=== PATIENT | female | born 1950 | race Caucasian/White ===

== ENCOUNTER 2022-09-18 12:07 | Outpatient (OUT) | payer MEDICARE, MEDICAID, SELFPAY ==
--- NOTE | 2022-09-18 12:30 | XR_ITS ---
[facility] [place] [id number] Patient Name: SAMAN HAMPTON MRN: [id number] date: 1950 Sex: F Assigned Patient Location: [facility] Current Patient Location: [facility] Accession/Order Number: [id number] Exam Date: 09/18/2022 12:42 Report Date: 09/18/2022 13:06 At the request of: RIO ZARAGOZA Procedure: XR chest 2V EXAM: XR chest 2V HISTORY: Subacute cough, R05.2 COMPARISON: None. TECHNIQUE: PA and lateral views of the chest. FINDINGS: The cardiomediastinal silhouette is normal. No focal consolidation is identified. Suggestion of COPD. There is no pneumothorax. No pleural effusion is noted. The osseous structures are intact. IMPRESSION: No acute cardiopulmonary process. Suggestion of COPD. Electronically authenticated by: TOD NICHOLS Date: 09/18/2022 13:06
== END 2022-09-18 12:08 ==
LOC: RAD 12:18
PROVIDERS: Family Provider Internal Medicine; PCP Family Medicine; Visit Provider Internal Medicine
DX: R05.2 Subacute cough (principal)
CPT/HCPCS: 71046

== ENCOUNTER 2023-02-04 13:38 | Outpatient (OUT) | payer MEDICARE, MEDICAID, SELFPAY ==
--- NOTE | 2023-02-04 13:45 | CT_ITS ---
The [address] [address] Patient Name: SAMAN HAMPTON MRN: [id number] date: 1950 Sex: F Assigned Patient Location: CT Current Patient Location: CT Accession/Order Number: [id number] Exam Date: 02/04/2023 13:55 Report Date: 02/04/2023 16:12 At the request of: NON-STAFF PHYSICIAN Procedure: CT chest wo con EXAM: CT scan of the chest without contrast. Dose reduction technique used: Automated exposure control and/or adjustment of the mA and/or kV according to patient size and/or use of iterative reconstruction technique. REASON FOR EXAM: Lung Nodule, Non Small Cell Lung Cancer COMPARISON: CT scan dated 07/08/2022 FINDINGS: Right apical spiculated solid nodule has decreased in size measuring 6 x 5 mm today compared to 9 x 6 mm previously. No acute airspace opacities. No pneumothorax. No pleural effusion. No acute fractures. No definite lymphadenopathy in the chest. 2 mm subpleural anterior left upper lobe nodule is unchanged. Lingula opacity is likely related to scarring/atelectasis. Mucus plugging scattered throughout the left lung. Centrilobular emphysema and hyperinflation both lungs. Coronary atherosclerotic calcifications. T7-T8 chronic compression fractures with mild height loss. Remainder unremarkable. CT/CT chest wo con IMPRESSION: 1. Decreased size of the right apical spiculated nodule. This could indicate that this was infectious/inflammatory versus interval treatment change. Correlate clinically and continued CT follow-up is recommended. 2. No other concerning pulmonary nodules. 3. Emphysema and hyperinflation of both lungs. Electronically authenticated by: JENIFFER SHI Date: 02/04/2023 16:12
== END 2023-02-04 13:39 | disposition home or self-care (01) ==
LOC: CT 13:41
PROVIDERS: Family Provider Internal Medicine; PCP Family Medicine
DX: Z01.89 Encounter for other specified special examinations (principal); R91.1 Solitary pulmonary nodule; C34.90 Malignant neoplasm of unspecified part of unspecified bronchus or lung
CPT/HCPCS: 71250

== ENCOUNTER 2023-05-04 14:59 | Outpatient (RCR) | payer MEDICARE, MEDICAID, SELFPAY | END 2023-08-06 15:05 | disposition home or self-care (01) | LOC: CR 14:59 | PROVIDERS: Family Provider Internal Medicine; PCP Family Medicine; Visit Provider Internal Medicine | DX: J43.9 Emphysema, unspecified (principal) ==

== ENCOUNTER 2023-06-02 12:55 | Outpatient (OUT) | payer MEDICARE, MEDICAID, SELFPAY ==
--- NOTE | 2023-06-02 13:05 | CT_ITS ---
The [address] [address] Patient Name: SAMAN HAMPTON MRN: [id number] date: 1950 Sex: F Assigned Patient Location: CT Current Patient Location: CT Accession/Order Number: [id number] Exam Date: 06/02/2023 13:00 Report Date: 06/02/2023 13:31 At the request of: NON-STAFF PHYSICIAN Procedure: CT chest wo con EXAM: CT chest wo con HISTORY: non-small cell lung cancer COMPARISON: CT chest 02/04/2023. TECHNIQUE: Helical CT of the chest without IV contrast. Dose reduction technique used: Automated exposure control and/or adjustment of the mA and/or kV according to patient size and/or use of iterative reconstruction technique. FINDINGS: Stable right apical nodular density along the major fissure, which measures 5 x 3 mm, and remains significantly decreased from 07/08/2022. No focal consolidation. No pneumothorax. No pleural effusion. No acute fractures. No pathologic lymphadenopathy in the chest. Tiny foci of atelectasis seen at the medial aspect of the lingula. Few, scattered endobronchial mucous plugs. Severe centrilobular emphysema and hyperinflation. There is moderate to heavy coronary calcifications. Mild T7-T8 chronic compression deformities with mild height loss, and exaggerated kyphosis. Limited visualized upper abdomen. The upper abdominal aorta appears heavily calcified. CT/CT chest wo con IMPRESSION: 1. Stable small nodular density at the right lung apex along the major fissure, which remains significantly decreased from 07/08/2022. 2. New additional suspicious nodules. Electronically authenticated by: SONY GAMINO Date: 06/02/2023 13:31
== END 2023-06-02 12:56 | disposition home or self-care (01) ==
LOC: CT 12:55
PROVIDERS: Family Provider Internal Medicine; PCP Family Medicine
DX: C34.90 Malignant neoplasm of unspecified part of unspecified bronchus or lung (principal); R91.8 Other nonspecific abnormal finding of lung field
CPT/HCPCS: 71250

== ENCOUNTER 2023-09-29 12:53 | Outpatient (OUT) | payer MEDICARE, MEDICAID, SELFPAY ==
--- NOTE | 2023-09-29 12:55 | CT_ITS ---
[address] [address] Patient Name: SAMAN HAMPTON MRN: [id number] date: 1950 Sex: F Assigned Patient Location: CT Current Patient Location: CT Accession/Order Number: [id number] Exam Date: 09/29/2023 13:06 Report Date: 09/29/2023 13:36 At the request of: NON-STAFF PHYSICIAN Procedure: CT chest wo con EXAMINATION: CT chest wo con HISTORY: Lung Nodule R91.1 COMPARISON: 06/02/2023 TECHNIQUE: Multi-planar CT images were created with IV contrast. Axial, Coronal, and Sagittal images. Dose reduction techniques were achieved by using automated exposure control and/or adjustment of mA and/or kV according to patient size and/or use of iterative reconstruction technique. FINDINGS: LUNGS: Moderate diffuse emphysema with an upper lobe predominance. Scattered subcentimeter pulmonary nodules stable both in number and size. An area of irregular soft tissue attenuation identified along the superior right major fissure axial image #40 measuring 0.7 x 0.4 cm in size. No new pulmonary nodule or mass PLEURA: No mass, effusion, or pneumothorax. VASCULATURE: No abnormality. HELEN: No mass or adenopathy. MEDIASTINUM: No mass or adenopathy. CARDIAC: No enlargement or pericardial effusion Coronary arteries: Moderate calcifications AORTA: No aortic aneurysm. Moderate calcific atherosclerosis CHEST WALL: No mass or axillary adenopathy. BONES: No bone lesion or fracture. Exaggerated thoracic kyphosis with chronic anterior wedging of the T7 and T8 vertebral bodies LIMITED ABDOMEN: No suspicious findings. Limited images of the upper abdomen. OTHER: Negative. CT/CT chest wo con IMPRESSION: Stable scattered punctate pulmonary nodules and centrilobular emphysema Electronically authenticated by: SLADE DALE Date: 09/29/2023 13:36
== END 2023-09-29 12:54 | disposition home or self-care (01) ==
LOC: CT 12:53
PROVIDERS: Family Provider Internal Medicine; PCP Family Medicine
DX: R91.1 Solitary pulmonary nodule (principal); J43.2 Centrilobular emphysema
CPT/HCPCS: 71250

== ENCOUNTER 2024-01-18 19:39 | Inpatient (IN) | payer MEDICARE, MEDICAID, SELFPAY ==
[2024-01-18] VITALS (9 sets, daily range): BP systolic 143–170; BP diastolic 69–101; PULSE 99–129; TEMP 36.5–36.6; O2SAT 93–97; BMI 17.6; BMI 21.0
--- OUTSIDE RECORDS SUMMARY | 2024-01-18 19:46 | XMS_ITS | CCD ---
Author Organization [facility] Providers Care Resort Keeper Name Role Phone SAMSA, RIO P Attending Unavailable NONE, XXXX Referring Unavailable MD Mena Gonzales Attending Unavailable MD Mena Gonzales Admitting Unavailable House, [place] P Unavailable Unavailable Unavailable Jorge Alberto Carlson Referring Unavailable House, Dr. Dallas Velázquez Primary Care Geraldo Park, Mr. Abner Smith Attending Unavaila ble HOUSE, DR HAYNES Consulting Unavailable HOUSE, DR HAYNES Primary Care Unavailable HOUSE, DR HAYNES Admitting Unavailable HOUSE, DR HAYNES Attending Unavailable SAMSA ., RIO Consulting Unavailable HOUSE, DR HAYNES Primary Care Unavailable SAMSA ., RIO Admitting Unavailable SAMSA ., RIO Attending Unavailable SAMSA ., RIO Consulting Unavailable HOUSE, DR HAYNES Primary Care Unavailable SAMSA ., RIO Admitting Unavailable SAMSA ., RIO Attending Unavailable BHAKTI ROSE Consulting Unavailable SAMSA ., RIO Consulting Unavailable HOUSE, DR HAYNES Primary Care Unavailable SAMSA ., RIO Admitting Unavailable SAMSA ., RIO Attending Unavailable HEJENIFFER GEE Consulting Unavailable [facility], DR ARGUETA Admitting Unavailable HOUSE, DR HAYNES Primary Care Unavailable [facility], DR ARGUETA Attending Unavailable MISC, DR ARGUETA Consulting Unavailable SAMSA ., RIO Consulting Unavailable SAMSA ., RIO Admitting Unavailable HOUSE, DR HAYNES Primary Care Unavailable ZIEBLEXA, DR PIPER Monsivais Consulting Unavailable SAMSA ., RIO Attending Unavailable SAMSA ., RIO Consulting Unavailable FELIPAEBLEXA, DR PIPER Monsivais Consulting Unavailable HOUSE, DR HAYNES Primary Care Unavailable SAMSA ., RIO Admitting Unavailable SAMSA ., RIO Attending Unavailable SAMSA ., RIO Consulting Unavailable Aldo, Dr. Jorge Alberto Marvin Attending Unavailab ifeanyi Willett, Dr. Jean Pierre Cook Referring Anneliese vailable Mcdonough, Dr. Dallas Velázquez Primary Care Unava Dr. Jorge Alberto Dillon Admitting Unavailab MD Levi Patel Attending Provider Rio Dixon Referring Provider [phone] House, DO Haynes Primary Care Provider [phone] MD Levi Ann Attending Provider Rio Dixon Referring Provider [phone] House, DO Haynes Primary Care Provider [phone] JEAN PIERRE WILLETT Attending Unavail able Dong, Dr. Dallas Velázquez Primary Care Unava gen Dixon, Dr. Rio Daly Referring Unavailab le Dallas Fajardo Primary Care Unavailable [facility], Rio Referring Unavailable Levi Ann Attending Unavailable Levi Ann Admitting Unavailable DO DALLAS FAJARDO Attending Unavailable DALLAS FAJARDO Primary Care Unavailable Derek Duffy MD Attending Unavailable DALLAS FAJARDO Primary Care Unavailable Derek Duffy MD Attending Unavailable [place] [facility] Unavailable Allergies Allergy Classification Reported Allergen(s) Allergy Type Date of Onset Reaction(s) Facility (1 source) No Known Medication Allergies; Translations: [No Known Medication Allergies] Propensity to adverse reactions (disorder) [facility] Repository (3 sources) Tetracycline; Translations: [tetracycline] Drug Allergy Unknown MG-CT Surgery-[facility] n Work Phone: Medications Current Medications Medication Drug Class(es) Dates Sig (Normalized) Sig (Original) [id number] 200 actuat albuterol 0.09 mg/actuat metered dose inhaler (5 sources) beta2-Adrenergic Agonist Start: 10-01-2022 Albuterol Sulfate Active 2 PUFF INHALATION As Directed October 01, 2022 12:00am Start: 10-01-2022 Albuterol Sulf ate Active INHALATION October 01, 2022 12:00am take 2 puff(s) by in halation every four hours as needed Albuterol Sulfate HFA 108 (90 Base) MCG/ACT Inhalation Aerosol Solution INHALE 2 PUFFS EVERY 4 HOURS NEEDED Quantity: 0 Refills: 0 Ordered: 08-Aug-2022 DO Active albuterol 0.833 mg/ml / ipratropium bromide 0.167 mg/ml inhalation solution (4 sources) Anticholinergic, beta2-Adrenergic Agonist Start: 11-20-2022 take 1 mL by inhalation every six hours Ipratropium-Albuterol Active ML INHALATION Q6H November 20, 2022 12:00am Ipratropium-Albu terol 0.5-2.5 (3) MG/3ML Inhalation Solution ADMINISTER ONE 3 ML VIAL 4 TIMES DAILY VIA NEBULIZATION. Quantity: 0 Refills: 0 Ordered: 08-Aug-2022 DO Active 120 actuat budesonide 0.16 mg/actuat / formoterol fumarate 0.0048 mg/actuat / glycopyrrolate 0.009 mg/actuat metered dose inhaler (5 sources) Corticosteroid, beta2-Adrenergic Agonist Start: 10-01-2022 take 1 puff(s) by inhalation twice daily Ebxtslbuno-Oujxmrzl-Jcoeuzdztd (Breztri Aerosphere) 160-9-4.8 mcg/actuation HFA aerosol inhaler Active 2 PUFF INHALATION Twice daily October 01, 2022 12:00am Start: 10-01-2022 Budesonide-Gly copyr-Formoterol (Breztri Aerosphere) 160-9-4.8 mcg/actuation HFA aerosol inhaler Active INHALATION October 01, 2022 12:00am take 2 puff(s) by inhalation twice daily Breztri Aerosphere 160-9-4.8 MCG/ACT Inhalation Aerosol INHALE 2 PUFFS Twice daily Quantity: 0 Refills: 0 Ordered: 08-Aug-2022 DO Active citalopram 20 mg oral tablet (5 sources) Serotonin Reuptake Inhibitor Start: 10-01-2022 take 20 mg by mouth once daily Citalopram Active 20 MG PO Daily October 01, 2022 12:00am Start: 10-01-2022 Citalopram Act [place] MG TABLET October 01, 2022 12:00am Start: 07-10-2022 take 1 tablet by deejay th once daily Citalopram Hydrobromide 20 MG Oral Tablet take 1 tablet by mouth once daily (NOT TAKING) Quantity: 90 Refills: 0 Ordered: 10-Jul-2022 DO Start : 10-Jul-2022 Active Start: 07-10-2022 Citalopram Hyd robromide 20 MG Oral Tablet Quantity: 90 Refills: 0 Ordered: 10-Jul-2022 DO Start : 10-Jul-2022 Active metFORMIN hydrochloride 500 mg oral tablet (5 sources) Biguanide Start: 10-01-2022 take 250 mg by mouth twice daily Metformin Active 250 MG PO Twice daily October 01, 2022 12:00am Start: 10-01-2022 Metformin Acti ve MG TABLET October 01, 2022 12:00am take 1 tablet by deejay th once daily at mealtime metFORMIN HCl - 500 MG Oral Tablet TAKE 1 TABLET DAILY WITH FOOD. Quantity: 0 Refills: 0 Ordered: 08-Aug-2022 DO Active Completed/Discontinued Medications Medication Drug Class(es) Dates Sig (Normalized) Sig (Original) aspirin 325 mg oral tablet (1 source) Platelet Aggregation Inhibitor, Nonsteroidal Anti-inflammatory Drug take 1-2 tablets by mouth once daily as needed Aspirin 325 MG Oral Tablet TAKE 1-2 TABLET DAILY prn Quantity: 0 Refills: 0 Ordered: 26-Aug-2022 DO Active azithromycin 250 mg oral tablet (3 sources) Macrolide Antimicrobial Start: 10-23-2021 End: 08-26-2022 Azithromycin 250 MG Oral Tablet TAKE 2 TABLETS BY MOUTH ON DAY 1, AND THEN TAKE 1 TABLET BY MOUTH ONCE A DAY ON DAY 2 THROUGH DAY 5 Quantity: 6 Refills: 0 Ordered: 23-Oct-2021 DO Start : 23-Oct-2021 End : 26-Aug-2022 Complete Boost High Protein LIQD (1 source) Boost High Prote in LIQD USE DIRECTED. Quantity: 0 Refills: 0 Ordered: 26-Aug-2022 DO Active 24 hr buPROPion hydrochloride 150 mg extended release oral tablet (3 sources) Aminoketone take 1 tablet by mouth once daily Wellbutrin XL 150 MG Oral Tablet Extended Release 24 Hour TAKE 1 TABLET DAILY. Quantity: 0 Refills: 0 Ordered: 08-Aug-2022 DO Active cetirizine hydrochloride 10 mg chewable tablet (3 sources) Histamine-1 Receptor Antagonist take 1 tablet by mouth once daily ZyrTEC 10 MG Oral Tablet Chewable CHEW AND SWALLOW 1 TABLET DAILY DIRECTED Quantity: 0 Refills: 0 Ordered: 08-Aug-2022 DO Active Excedrin Extra Strength TABS (1 source) Excedrin Extra Strength TABS TAKE 2 TABLET PRN Quantity: 0 Refills: 0 Ordered: 26-Aug-2022 DO Active 60 actuat fluticasone propionate 0.5 mg/actuat / salmeterol 0.05 mg/actuat dry powder inhaler (6 sources) Corticosteroid, beta2-Adrenergic Agonist Start: 11-15-2021 End: 08-26-2022 take 1 dose by mouth twice daily Fluticasone-Salmet marianela 500-50 MCG/ACT Inhalation Aerosol Powder Breath Activated INHALE 1 DOSE BY MOUTH TWICE DAILY Quantity: 60 Refills: 0 Ordered: 19-Jan-2022 DO Start : 15-Nov-2021 End : 26-Aug-2022 Complete Start: 06-28-2021 End: 08-26-2022 take 1 puff(s) by mouth twice daily Fluticasone-Salmeterol 250-50 MCG/ACT Inhalation Aerosol Powder Breath Activated INHALE 1 PUFF BY MOUTH TWICE DAILY Quantity: 60 Refills: 0 Ordered: 15-Nov-2021 DO Start : 28-Jun-2021 End : 26-Aug-2022 Complete methylPREDNISolone 4 MG Oral Tablet Therapy Pack (3 sources) Start: 01-13-2022 End: 08-26-2022 methylPREDNISolone 4 MG Oral Tablet Therapy Pack TAKE BY MOUTH DIRECTED ON INSIDE OF PACKAGE Quantity: 21 Refills: 0 Ordered: 13-Jan-2022 DO Start : 13-Jan-2022 End : 26-Aug-2022 Complete Start: 01-13-2022 methylPREDNISo lone 4 MG Oral Tablet Therapy Pack TAKE BY MOUTH DIRECTED ON INSIDE OF PACKAGE Quantity: 21 Refills: 0 Ordered: 13-Jan-2022 DO Start : 13-Jan-2022 Active predniSONE 10 mg oral tablet (3 sources) Start: 10-23-2021 End: 08-26-2022 take 4 tablets by mouth once daily, then take 3 tablets by mouth once daily, then take 2 tablets by mouth once daily, then take 1 tablet by mouth once daily predniSONE 10 MG Oral Tablet TAKE 4 TABLETS BY MOUTH ONCE DAILY FOR 3 DAYS THEN 3 ONCE DAILY FOR 3 DAYS THEN 2 ONCE DAILY FOR 3 DAYS THEN 1 ONCE DAILY FOR 3 DAYS Quantity: 30 Refills: 0 Ordered: 23-Oct-2021 DO Start : 23-Oct-2021 End : 26-Aug-2022 Complete Unspecified Medication (1 source) Unspecified Medi cation CBD GUMMIES WITH 10 MG THC/CBD 1/ PRNHORMONE ZONE 1 PO QD Quantity: 0 Refills: 0 Ordered: 26-Aug-2022 DO Active Problems Active Problems Problem Classification Problem Date Documented Da te Episodic/Chronic Abdominal hernia (1 source) Unspecified abdominal hernia without obstruction or gangrene; Translations: [UNS ABD HERNIA W/O OBST/GANGRENE] Onset: 08-07-2022 Episodic Biliary tract disease (4 sources) Biliary calculus; Translations: [Calculus of gallbladder without mention of cholecystitis, without mention of obstruction] Onset: 08-07-2022 Episodic Chronic obstructive pulmonary disease and bronchiectasis (11 sources) Bronchiectasis; Translations: [Bronchiectasis without acute exacerbation] Onset: 03-12-2022 Chronic Diabetes mellitus without complication (1 source) Type 2 diabetes mellitus without complications; Translations: [TYPE 2 DM WITHOUT COMPLICATIONS] Onset: 07-07-2022 Chronic Diabetes mellitus without complication (3 sources) Prediabetes; Translations: [Other abnormal glucose] Episodic Diverticulosis and diverticulitis (3 sources) Diverticular disease; Translations: [Diverticulosis of colon (without mention of hemorrhage)] Chronic Nonspecific chest pain (1 source) Chest pain, unspecified; Translations: [CHEST PAIN UNSPECIFIED] Onset: 07-07-2022 Episodic Other aftercare (3 sources) Long-term current use of inhaled steroid; Translations: [Long-term (current) use of steroids] Episodic Other lower respiratory disease (3 sources) Multiple nodules of lung; Translations: [Other nonspecific abnormal finding of lung field] Episodic Other lower respiratory disease (4 sources) Nodule of lung; Translations: [Solitary pulmonary nodule] 10-01-2022 Episodic Other lower respiratory disease (6 sources) Solitary pulmonary nodule; Translations: [Solitary pulmonary nodule] Onset: 08-28-2022 Episodic Other lower respiratory disease (4 sources) Dyspnea, unspecified; Translations: [DYSPNEA UNSPECIFIED] Onset: 06-30-2022 Episodic Other lower respiratory disease (1 source) Shortness of breath; Translations: [SHORTNESS OF BREATH] Onset: 07-07-2022 Episodic Other screening for suspected conditions (not mental disorders or infectious disease) (4 sources) Abnormal findings on diagnostic imaging of other abdominal regions, including retroperitoneum; Translations: [ABN FIND DX IMAG OTH AB REGION W/RP] Onset: 08-01-2022 Episodic Respiratory failure; insufficiency; arrest (adult) (3 sources) Chronic hypoxemic respiratory failure; Translations: [Chronic respiratory failure] Chronic Retinal detachments; defects; vascular occlusion; and retinopathy (3 sources) Degenerative disorder of macula ; Translations: [Macular degeneration (senile), unspecified] Chronic Substance-related disorders (5 sources) Tobacco dependence syndrome; Translations: [Unspecified drug-induced mental disorder] Onset: 07-07-2022 Chronic Past or Other Problems Problem Classification Problem Date Documented Da te Episodic/Chronic Other lower respiratory disease (8 sources) Other nonspecific abnormal finding of lung field; Translations: [OTH NONSPECIFIC ABN FIND LNG FIELD] Onset: 03-17-2022 Episodic Results Test Name Value Interpretation Reference Range Facility Outside [facility] 11-27-2023 Outside Records [id number]#1.0 0[facility] Outside [facility] 10-12-2023 Outside Records [id number]#1. 00[facility] Rad - Other Radiology Report on 09-30-2023 Rad - Other Radiology Report [id number]#1. 00[facility] Outside [facility] 09-02-2023 Outside Records [id number]#1.0 0[facility] Outside [facility] 06-16-2023 Outside Records [id number]#1.0 0[facility] Outside [facility] 06-04-2023 Outside Records [id number]#1.00 [facility] Outside [facility] 04-02-2023 Outside Records [id number]#[address] [place] [address] Patient Provided Health Data on 04-02-2023 Patient Provided Health Data [id number]#1.0 [facility] Patient Handouton 03-31-2023 Patient Handout [id number]#1 .[facility] Bronchoscopyon 08-28-2022 Bronchoscopy PATIENTNAME Patient Name: Mellisa Hampton EXAMDATE Procedure Date: 08/28/2022 9:02 AM PATIENTID PATIENTACCOUNTNUM PATIENTDOB Date of : 1950 PATIENTROOM Room: [place] Procedure Room 8 PROV Attending MD: Jorge Alberto Carlson MD, [id number] ENDOPROCEDURENAME Procedure: Bronchoscopy INDICATION Indications: Right upper lobe nodule, Mediastinal staging of suspected lung cancer PRIMARYPROVIDER Providers: Jorge Alberto Carlson MD (Doctor), Cinthia Hogan RN (Nurse), Forrest Hamilton, Cost Estimating Manager (Cost Estimating Manager), Casimiro Pacheco MD (Fellow) EDREFPROVIDER Referring MD: Jean Pierre Willett DO (Referring MD) CURRENT_MEDS Medicines: General Anesthesia, See the Anesthesia note for documentation of the administered medications COMPLIC Complications: No immediate complications ENDOPROCEDURETEXT Procedure: Pre-Anesthesia Assessment: - A History and Physical has been performed. Patient meds and allergies have been reviewed. The risks and benefits of the procedure and the sedation options and risks were discussed with the patient. All questions were answered and informed consent was obtained. Patient identification and proposed procedure were verified prior to the procedure by the physician, the nurse, the anesthesiologist and the shipping technician in the procedure room. Mental Status Examination: alert and oriented. Airway Examination: Please refer to anesthesia staff note. Respiratory Examination: expiratory wheezes. CV Examination: regular rate and rhythm. ASA Grade Assessment: III - A patient with severe systemic disease. After reviewing the risks and benefits, the patient was deemed in satisfactory condition to undergo the procedure. The anesthesia plan was to use general anesthesia. Immediately prior to administration of medications, the patient was re-assessed for adequacy to receive sedatives. The heart rate, respiratory rate, oxygen saturations, blood pressure, adequacy of pulmonary ventilation, and response to care were monitored throughout the procedure. The physical status of the patient was re-assessed after the procedure. After obtaining informed consent, the therapeutic bronchoscope was introduced through the mouth, via the endotracheal tube (the patient was intubated for the procedure) and advanced to the tracheobronchial tree. the linear ultrasound bronchoscope was introduced through the mouth, via the endotracheal tube (the patient was intubated for the procedure) and advanced to the tracheobronchial tree. The procedure was accomplished without difficulty. The patient tolerated the procedure well. The total duration of the procedure was 32 minutes. FINDING Findings: The endotracheal tube is in good position. The trachea is of normal caliber. The hannah is sharp. The tracheobronchial tree was examined to at least the first subsegmental level. Bronchial mucosa and anatomy are normal; there are no endobronchial lesions. Copious, mucoid, thick secretions were found in the right lower lobe. They were partially obstructing the airway. Notable, mucoid, white, thick secretions were found in the left lower lobe. They were partially obstructing the airway. Therapeutic suctioning was performed. Mucus and mucus plugs were removed from the airway and the airway was cleared. The flexible bronchoscope was removed from the airway, and exchanged for the curvilinear EBUS bronchoscope. A systematic EBUS staging examination of the bilateral annabelle and mediastinum was performed, as documented below. Lymph Nodes: Lymph node sizing was performed via endobronchial ultrasound for suspected lung cancer. Sampling by transbronchial needle aspiration was also performed using an Olympus ViziShot 22 gauge needle in the right lower paratracheal region (level 4R), subcarinal mediastinum (level 7) and right superior interlobar region (level 11Rs) and sent for routine cytology. - The 4L (lower paratracheal) node was 2.4 mm by EBUS. Sampling was not done due to size criteria (less than 5 mm). - The 2L (upper paratracheal) node was 2.2 mm by EBUS. Sampling was not done due to size criteria (less than 5 mm). - The 7 (subcarinal) node was 13.5 mm by EBUS. Four samples with the needle were obtained. - The 2R (upper paratracheal) node was 3.3 mm by EBUS. Sampling was not done due to size criteria (less than 5 mm). - The 4R (lower paratracheal) node was 5.8 mm by EBUS. Three samples with the needle were obtained. - The 11Rs (superior interlobar) node was 5.2 mm by EBUS. Three samples with the needle were obtained. - The 11Ri (inferior interlobar) node was 3.7 mm by EBUS. Sampling was not done due to size criteria (less than 5 mm). Lymph Nodes: Rapid On-Site Evaluation (SANJANA): Preliminary cytology was suggestive of benign-appearing lymphoid tissue (final results are pending) in the right lower paratracheal region ( (more content not included)... [facility] GLUCOSE-POCTon 08-28-2022 Glucose [Mass/Vol] 109 mg/dL High 74 - 99 [facility] Comment on above: Performed By: #### G SHAWN #### [facility] [address] Cytologyon 08-28-2022 [facility] Cytology Patient Name MELLISA HAMPTON Date of Procedure: 08/28/2022 Date Reported: 08/29/2022 Date Received: 08/28/2022 Date of / Sex 1950 (Age: 71) / F Race: WHITE Submitting Physician: JORGE ALBERTO CARLSON MD Attending Physician: JEAN PIERRE WILLETT DO Other External # FINAL CYTOLOGICAL INTERPRETATION A. FINE NEEDLE ASPIRATION 7 LYMPH NODE, CYTOLOGY AND CELL BLOCK: NO MALIGNANT CELLS IDENTIFIED. LYMPHOID SAMPLE. B. FINE NEEDLE ASPIRATION 4R LYMPH NODE, CYTOLOGY AND CELL BLOCK: NO MALIGNANT CELLS IDENTIFIED. LYMPHOID SAMPLE. C. FINE NEEDLE ASPIRATION 11RS LYMPH NODE, CYTOLOGY AND CELL BLOCK: NO MALIGNANT CELLS IDENTIFIED. LYMPHOID SAMPLE. Slide(s) initially screened by a Superintendent Storage Area at [place] [address] Electronically Signed Out By LEXX GABRIEL MD By the signature on this report, the individual or group listed as making the Final Interpretation/Diagnos is certifies that they have reviewed this case. Slide(s) initially screened by a Superintendent Storage Area at [facility] Diagnostic interpretation performed at [address] [place] [address] Rapid Evaluation Fine Needle Aspiration Immediate Read Result: A. NMCI, lymphoid sample B. NMCI, lymphoid sample C. NMCI, lymphoid sample Pathologist: Bryan Silva M.D. Date: 08.28.2022 Clinical History LUNG RIGHT UPPER LOBE PET AVID NODULE Source of Specimen A: FINE NEEDLE ASPIRATION 7 LYMPH NODE B: FINE NEEDLE ASPIRATION 4R LYMPH NODE C: FINE NEEDLE ASPIRATION 11RS LYMPH NODE Specimen Submitted as: A: FINE NEEDLE ASPIRATION 7 LYMPH NODE Pap stain Non-Outsole Rounder, Diff-Quik stain Non-Outsole Rounder, CELL BLOCK, H AND E, Initial B: FINE NEEDLE ASPIRATION 4R LYMPH NODE Pap stain Non-Outsole Rounder, Diff-Quik stain Non-Outsole Rounder, CELL BLOCK, H AND E, Initial C: FINE NEEDLE ASPIRATION 11RS LYMPH NODE Pap stain Non-Outsole Rounder, Diff-Quik stain Non-Outsole Rounder, CELL BLOCK, H AND E, Initial Gross Description A. FINE NEEDLE ASPIRATION 7 LYMPH NODE: RECEIVED 2 DIRECT SMEARS (1 AIR-DRIED DIFF-QUIK AND 1 SPRAY-FIXED) AND 30 RED CLEAR NEEDLE RINSE IN CYTOLYT WITH PARTICLES. B. FINE NEEDLE ASPIRATION 4R LYMPH NODE: RECEIVED 2 DIRECT SMEARS (1 AIR-DRIED DIFF-QUIK AND 1 SPRAY-FIXED) AND 30 LIGHT RED CLEAR NEEDLE RINSE IN CYTOLYT WITH PARTICLES. C. FINE NEEDLE ASPIRATION 11RS LYMPH NODE: RECEIVED 2 DIRECT SMEARS (1 AIR-DRIED DIFF-QUIK AND 1 SPRAY-FIXED) AND 30 LIGHT RED CLEAR NEEDLE RINSE IN CYTOLYT WITH PARTICLES. [facility] Department of Pathology [address] [place] [address] [facility] Comment on above: Performed By: #### C #### [facility] Cytology [address] [place] [address] Consult (Pulmonary Medicine) on 08-26-2022 Consult (Pulmonary Medicine) Diagnoses/Problems Lung nodule (793.11) (R91.1) Orders Tobacco Use Screening; Status:Complete; Done: 26Aug2022 Perform:Not Applicable;Ordered; For:SocHx: Current smoker; Ordered By:Jeri Houston; Provider Impressions Patient's visit was converted to a virtual visit given current COVID- 19 pandemic. Ms. Hampton is a 71 year old woman, current smoker (1 PPD for 49 years, 49 total pack years.), being evaluated today for RUL nodule. 1. RUL lung nodule/mass: PET avid 9 mm spiculated mass of the right upper lobe seen on PET/CT from 07/19/2022. - Plan for bronchoscopy with biopsy; staging EBUS - Lab work prior to procedure; completed 08/25/2022 - Not on any anticoagulation; only takes PRN 325 ASA; advised to hold I explained the procedure to the patient. We discussed that the bronchoscopy will be performed by a member of the Interventional Pulmonary Team; depending on scheduling and provider availability. We also discussed that the IP providers function as a team and not infrequently may have to fill in for one another if there are emergent issues that need attention at the same time. The patient / family expressed understanding and agreed to proceed. All questions were answered. Patient's visit was converted to a virtual visit given current COVID- 19 pandemic. Spoke with the patient via phone for 20 minutes. Prep: 10 minutes Phone: 20 minutes Total: 30 minutes Chief Complaint Visit For: Other A telephone visit (audio only) between the patient (at the originating site) and the provider (at the distant site) was utilized to provide this telehealth service. Verbal consent was requested and obtained from MELLISA HAMPTON on this date, 08/26/2022 03:00 PM , for a telehealth visit. New patient evaluation. History of Present IllnessPatient's visit was converted to a virtual visit given current COVID- 19 pandemic. Ms. Hampton is a 71 year old woman, current smoker (1 PPD for 49 years, 49 total pack years.), being evaluated today for RUL nodule. PCP: Dr. Dallas Fajardo Thoracic: Dr. Willett Pulmonology: Dr. Rio Dixon ([facility]) HPI: Patient presents to pulmonary clinic today as a new patient in regards to RUL nodule; referred by Dr. Willett from thoracic surgery. Patient gets her care through [facility] system and follows with telephone clerk telegraph office Dr. Rio Dixon. On most recent chest CT from 07/08/2022 showed a continued increase in size of a now 9 mm spiculated mass within the right upper lobe. PET/CT from 07/19/2022 shows metabolic activity of this right upper mass. Patient was sent to Dr. Willett from thoracic surgery; patient is not a surgical candidate given her poor lung function and chronic oxygen needs secondary to COPD. Was discussed at tumor board on 08/17/2022 advising a staging EBUS and referral to rad-oncology. Currently, has SOB both at rest as well as on exertion. Takes Breztri daily. Using DuoNebs 5x a day. Wears 2L oxygen at night (occasionally). And will also sometimes wear the oxygen during the day PRN. Does not check her SpO2 at home. She also claims questionable orthopnea. No lower leg edema. She has lost 27 pounds in the last 6 months. She also relates chronic cough. Cough is productive. Sputum color is clear; no hemoptysis. Intermittent wheezing. No night cough. No fever, shivering chills or night sweats. Relates chronic runny nose, sinus congestion or a tingling sensation in the back of her throat. Denies symptoms of heartburn. She denies chest pain. She is too breathless to leave the house or breathless when dressing and undressing (mMRC 4). Current/Past Inhalers AND Nebulized Medications: - Albuterol HFA PRN - Breztri - DuoNebs PRN Pulmonary/Significant Hospitalization History: - 2016 Sleep History: Denies snoring. Denies witnessed apnea events. Denies feeling tired during the day or taking naps during the day. Denies falling asleep at inappropriate times throughout the day. She has not ever had a sleep study before. Significant Comorbidities: -COPD -Emphysema -Chronic Hypoxic Respiratory Failure -Prediabetes Social History: Smoking: Current smoker (1 PPD for 49 years, 49 total pack years.) currently 5 cigarettes/day. 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 No exposure to birds or exotic animals. Family History: No known family history of lung diseases. No known family history of autoimmune disorders. - Aunt; emphysema Testing: PFT -03/12/22: FEV1/FVC: 29, FEV1: 0.52 (26%), FVC: 1.81 (70%), + BD Response, GGW17-33: 9%, T.41 (141%), RV/T%, DLCO: 36% CT Chest -07/08/22: 1. Continued increase in size of a now 9 mm spiculated mass within the right upper lobe superior segment; most consistent with neoplasm. 2. Increase in size of a (more content not included)... Normal [facility] CBC W MANUAL DIFFon 08-26-19 ATYPICAL LYMPH # Normal [facility] Comment on above: Performed By: #### C BCMAN #### [facility] [address] [place] [address] Dr. Dionicio Shook ATYPICAL LYMPH % Normal [facility] Comment on above: Performed By: #### C BCMAN #### [facility] [address] [place] [address] Dr. Dionicio Shook BAND # 0.0 103/ul Normal 0.0-0.3 [facility] Comment on above: Performed By: #### C BCJAKE #### [facility] [address] [place] [address] Dr. Dionicio Shook BAND % 0 % Normal 0-5 [facility] Comment on above: Performed By: #### C BCMAN #### [facility] [address] [place] [address] Dr. Dionicio Shook BASOM # 0.00 103/ul Normal 0.00-0.10 [facility] Comment on above: Performed By: #### C BCMAN #### [facility] [address] [place] [address] Dr. Dionicio Shook BASOM % 0.0 % Critically low 0.2-2.0 The [facility] Comment on above: Performed By: #### C BCMAN #### [facility] [address] [place] [address] Dr. Dionicio Shook BLAST # Normal [facility] Comment on above: Performed By: #### C BCJAKE #### [facility] [address] [place] [address] Dr. Dionicio Shook BLAST % Normal [facility] Comment on above: Performed By: #### C BCJAKE #### [facility] [address] [place] [address] Dr. Dionicio Shook CORRECTED WBC Normal 4.0-11.0 [facility] Comment on above: Performed By: #### C BCMAN #### [facility] [address] [address] [address] Dionicio Shook EOS # 0.57 103/ul Normal 0.00-0.70 [facility] Comment on above: Performed By: #### C BCJAKE #### [facility] [address] [address] [address] Dionicio Shook EOS% 6.0 % Normal 0.9-7.0 [facility] Comment on above: Performed By: #### C BCMAN #### [facility] [address] [address] [address] Dionicio Shook HCT 37.9 % Normal 36.0-48.0 [facility] Comment on above: Performed By: #### C BCJAKE #### [facility] [address] [address] [address] Dionicio Shook HGB 12.1 g/dl Normal 12.0-16.0 [facility] Comment on above: Performed By: #### C BCJAKE #### [facility] [address] [address] [address] Dionicio Shook LYMPHM # 5.89 103/ul Critically high 1.20-3.80 [facility] Comment on above: Performed By: #### C BCJAKE #### [facility] [address] [address] [address] Dionicio Shook LYMPHM% 62.0 % Critically high 20.5-60.0 The [facility] Comment on above: Performed By: #### C BCJAKE #### [facility] [address] [address] [address] Dionicio Shook MCH 29.8 pg Normal 26.7-34.0 [facility] Comment on above: Performed By: #### C BCMAN #### [facility] [address] [address] [address] Dionicio Shook MCHC 31.9 g/dl Normal 29.9-35.2 [facility] Comment on above: Performed By: #### C BCJAKE #### [facility] [address] [address] [address] Dionicio Shook MCV 93.3 fL Normal 81.0-99.0 [facility] Comment on above: Performed By: #### C BCMAN #### [facility] [address] [place] [address] Dr. Dionicio Shook METAMYELOCYTE # Normal [facility] Comment on above: Performed By: #### C BCMAN #### [facility] [address] [place] [address] Dr. Dionicio Shook METAMYELOCYTE % Normal [facility] Comment on above: Performed By: #### C BCMAN #### [facility] [address] [place] [address] Dr. Dionicio Shook MONOM# 0.47 103/ul Normal 0.30-0.80 [facility] Comment on above: Performed By: #### C BCJAKE #### [facility] [address] [place] [address] Dr. Dionicio Shook MONOM% 5.0 % Normal 1.7-12.0 [facility] Comment on above: Performed By: #### C KIZZY #### [facility] [address] [place] [address] Dr. Dionicio Shook MPV 8.7 fL Critically low 9.5-13.5 [facility] Comment on above: Performed By: #### C KIZZY #### [facility] [address] [place] [address] Dr. Dionicio Shook MYELOCYTE # Normal [facility] Comment on above: Performed By: #### C BCJAKE #### [facility] [address] [place] [address] Dr. Dionicio Shook MYELOCYTE % Normal [facility] Comment on above: Performed By: #### C BCMAN #### [facility] [address] [place] [address] Dr. Dionicio Shook NRBC Normal [facility] Comment on above: Performed By: #### C BCJAKE #### [facility] [address] [place] [address] Dr. Dionicio Shook PLT 260 103/ul Normal 150-450 [facility] Comment on above: Performed By: #### C TANJAMAN #### [facility] [address] [address] [address] Dionicio Shook RBC 4.06 106/ul Critically low 4.20-5.40 [facility] Comment on above: Performed By: #### C KIZZY #### [facility] [address] [address] [address] Dionicio Shook RDW 13.2 % Normal 11.0-15.0 [facility] Comment on above: Performed By: #### C KIZZY #### [facility] [address] [address] [address] Dionicio Shook SEG # 2.56 103/ul Normal 1.40-6.50 [facility] Comment on above: Performed By: #### C KIZZY #### [facility] [address] [address] [address] Dionicio Shook SEG % 27.0 % Critically low 43.0-75.0 [facility] Comment on above: Performed By: #### C KIZZY #### [facility] [address] [address] [address] Dionicio Shook WBC 9.5 103/ul Normal 4.0-11.0 [facility] Comment on above: Performed By: #### C KIZZY #### [facility] [address] [address] [address] Dionicio Shook PROF CHEM 8 (BAS METB)on Anion gap [Moles/Vol] 9.9 mmol/L Normal [facility] Comment on above: Performed By: #### B MP #### [facility] [address] [address] [address] Dionicio Shook Calcium [Mass/Vol] 8.8 mg/dL Normal 8.5-10.1 [facility] Comment on above: Performed By: #### B MP #### [facility] [address] [address] [address] Dionicio Shook Chloride [Moles/Vol] 104 mmol/L Normal 98-107 [facility] Comment on above: Performed By: #### B MP #### [facility] [address] [address] [address] Dionicio Shook CO2 [Moles/Vol] 31.2 mmol/L Normal 21.0-32.0 [facility] Comment on above: Performed By: #### B MP #### [facility] [address] [address] [address] Dionicio Shook Creatinine [Mass/Vol] 0.57 mg/dL Normal 0.55-1.02 [facility] Comment on above: Performed By: #### B MP #### [facility] [address] [address] [address] Dionicio Shook EGFR-AF URUGUAYAN >60 Normal >=60 [facility] Comment on above: Performed By: #### B MP #### [facility] [address] [address] [address] Dionicio Shook EGFR-NON AF URUGUAYAN >60 Normal >=60 [facility] Comment on above: Performed By: #### B MP #### [facility] [address] [address] [address] Dionicio Shook Glucose [Mass/Vol] 97 mg/dL Normal 74-106 The [facility] Comment on above: Performed By: #### B MP #### [facility] [address] [address] [address] Dionicio Shook Potassium [Moles/Vol] 4.1 mmol/L Normal 3.5-5.1 [facility] Comment on above: Performed By: #### B MP #### [facility] [address] [address] [address] Dionicio Shook Sodium [Moles/Vol] 141 mmol/L Normal 136-145 [facility] Comment on above: Performed By: #### B MP #### [facility] [address] [address] [address] Dionicio Shook Urea nitrogen [Mass/Vol] 10.0 mg/dL Normal 7.0-18.0 [facility] Comment on above: Performed By: #### B MP #### [facility] [address] [place], [place] [address] Dr. Dionicio Shook Urea nitrogen/Creatinine [Mass ratio] 17.5 mg/mg Normal [facility] Comment on above: Performed By: #### B #### [facility] [address] [place], [place] [address] Dr. Dionicio Shook Office Visit (Thoracic and E sophageal Surgery)on 08-14-2022 Follow-up visit Diagnoses/Problems Assessed Pulmonary nodules (793.19) (R91.8) Cigarette nicotine dependence with nicotine-induced disorder (292.9) (F17.219) Centrilobular emphysema (492.8) (J43.2) Provider Impressions Ms. Hampton is a 71 year old female with severe emphysema who presents with a slowly enlarging RUL nodule (along the fissure) which is PET avid and concerning for malignancy. I think her PFTs make her a poor surgical candidate and I will reach out to IP team to see if they can reach this with a Wei Bronch however I also told pt/son that I will discuss her case in [facility] and see if radiating this lesion without a tissue diagnosis is also an option. I will call her tomorrow after tumor board to discuss. Chief Complaint Pt is here for a new pt office visit History of Present IllnessMellisa Hampton is a 71 year old female with chronic emphysema, long-time smoker, who presents as a referral from Dr. Dixon with a slowly enlarging RUL lesion (9x5mm) which is PET avid with an SUV of 4.7. of note the PET also noted an area in the right pelvis with increased uptake and SUV of 12.3 - specific structure unknown. She underwent a follow up CT abd/pelv c IV contrast which was negative. She has had 7lb weight loss/several weeks. Decreased appetite Patient has a known h/o emphysema - she is on 2L NC at night and with activity. PFTs: FEV1 0.52 (26%), FVC 1.8 (70%), DLCO 36. She has no acutely worsened SOB, chest pain, or wheezing. Has chronic dry cough. Review of Systems Constitutional: recent weight loss, but not feeling tired. Eyes: no eyesight problems. ENT: no hearing loss and no nosebleeds. Cardiovascular: no intermittent leg claudication and as noted in HPI. Respiratory: shortness of breath during exertion, but no chronic cough and no shortness of breath. Gastrointestinal: no change in bowel habits and no blood in stools. Genitourinary: no urinary frequency. Skin: no skin rashes. Neurological: no seizures and no frequent falls. Psychiatric: no depression and not suicidal. All other systems have been reviewed and are negative for complaint. Active Problems Problems Bronchiectasis (494.0) (J47.9) Centrilobular emphysema (492.8) (J43.2) Cholelithiases (574.20) (K80.20) Chronic respiratory failure with hypoxia (518.83,799.02) (J96.11) Cigarette nicotine dependence with nicotine-induced disorder (292.9) (F17.219) Diverticulosis (562.10) (K57.90) manager intermediate (current) use of inhaled steroids (V58.65) (Z79.51) Macular degeneration of both eyes, unspecified type (362.50) (H35.30) Prediabetes (790.29) (R73.03) Pulmonary nodules (793.19) (R91.8) Surgical History Problems History of Abdominoplasty History of section Family History Father Family history of cardiac disorder (V17.49) (Z82.49) Family history of cerebrovascular accident (CVA) (V17.1) (Z82.3) Brother Family history of cardiac disorder (V17.49) (Z82.49) Maternal Grandmother Family history of respiratory disorder (V17.6) (Z83.6) Social History Problems Current smoker (305.1) (F17.200) Allergies Medication tetracycline Unknown; Recorded By: Radha Coulter; 08/08/2022 2:27:17 PM Current Meds Medication NameInstruction Albuterol Sulfate HFA 108 (90 Base) MCG/ACT Inhalation Aerosol SolutionINHALE 2 PUFFS EVERY 4 HOURS NEEDED Azithromycin 250 MG Oral TabletTAKE 2 TABLETS BY MOUTH ON DAY 1, AND THEN TAKE 1 TABLET BY MOUTH ONCE A DAY ON DAY 2 THROUGH DAY 5 Breztri Aerosphere 160-9-4.8 MCG/ACT Inhalation AerosolINHALE 2 PUFFS Twice daily Citalopram Hydrobromide 20 MG Oral Tablet Fluticasone-Salmeterol 250-50 MCG/ACT Inhalation Aerosol Powder Breath ActivatedINHALE 1 PUFF BY MOUTH TWICE DAILY Fluticasone-Salmeterol 500-50 MCG/ACT Inhalation Aerosol Powder Breath ActivatedINHALE 1 DOSE BY MOUTH TWICE DAILY Ipratropium-Albuterol 0.5-2.5 (3) MG/3ML Inhalation SolutionADMINISTER ONE 3 ML VIAL 4 TIMES DAILY VIA NEBULIZATION. metFORMIN HCl - 500 MG Oral TabletTAKE 1 TABLET DAILY WITH FOOD. methylPREDNISolone 4 MG Oral Tablet Therapy PackTAKE BY MOUTH DIRECTED ON INSIDE OF PACKAGE predniSONE 10 MG Oral TabletTAKE 4 TABLETS BY MOUTH ONCE DAILY FOR 3 DAYS THEN 3 ONCE DAILY FOR 3 DAYS THEN 2 ONCE DAILY FOR 3 DAYS THEN 1 ONCE DAILY FOR 3 DAYS Wellbutrin XL 150 MG Oral Tablet Extended Release 24 HourTAKE 1 TABLET DAILY. ZyrTEC 10 MG Oral Tablet ChewableCHEW AND SWALLOW 1 TABLET DAILY DIRECTED Vitals Vital Signs Recorded: [id number] 10:52AM Lxowoiixgtp63.7 F Heart Rate93 Qdjfxoteivi22 Mzzwgaof807 Cnilacivi77 Height5 ft 1 in Maorjd693 lb BMI Vpldrsyypg66.16 kg/m2 BSA Calculated1.48 Tobacco Usea) Yes Falls Screening (Age 18+)a) No falls within the last year O2 Tqfhwjwiuc85, RA Physical Exam The patient is a very thin, slightly frail-appearing female in no acute distress. Oral and nasal mucosa are clear. The neck had no cervical or supraclavicular adenopathy. The trachea and midline is without crepitus. The thy (more content not included)... Normal [employer] Tobacco Screening.on 023 Fall risk assessment a) No falls within the last year [facility] Work Phone: Tobacco use status [facility] a) Yes [facility] Work Phone: CT ABD/PELV W CONon 08-04-[address] ABD/PELV W CON EXAM: CT scan of the abdomen and pelvis using 98 mL of IV iodinated contrast. Oral contrast. Dose reduction technique used: Automated exposure control and/or adjustment of the mA and/or kV according to patient size and/or use of iterative reconstruction technique. REASON FOR EXAM: Lower abdominal pain, follow-up PET/CT scan findings COMPARISON: PET/CT scan dated 07/19/2022 FINDINGS: No abnormalities by CT correspond with the right pelvic FDG uptake on the recent PET CT scan. Hernia in the posterior left pelvic wall musculature containing a short segment of nonobstructed sigmoid colon. The hernia protrudes posterior to the acetabulum and adjacent to the course of the left sciatic nerve. Cholelithiasis. No evidence of appendicitis. No free intraperitoneal air. No free fluid in the abdomen or pelvis. No dilated or thickened loops of small bowel or colon. No hydronephrosis or obstructing renal or ureteral calculi. Liver, pancreas, spleen, bilateral kidneys, and bilateral adrenal glands are otherwise unremarkable. No lymphadenopathy in the abdomen or pelvis. Remainder unremarkable. IMPRESSION: 1. No abnormalities evident by CT to correspond with the right pelvic FDG uptake on the recent PET/CT scan. 2. Posterior left pelvic wall hernia containing nonobstructed short segment of the sigmoid colon. 3. Cholelithiasis. Electronically authenticated by: JENIFFER SHI Date: 2022-08-03 06:18 Normal The [facility] CREATININEon 08-01-2022 Creatinine [Mass/Vol] 0.63 mg/dL Normal 0.55-1.02 [facility] Comment on above: Performed By: #### C YOUSIF #### [facility] [address] [place] [address] Dr. Dionicio Shook EGFR-AF URUGUAYAN >60 Normal >=60 [facility] Comment on above: Performed By: #### C YOUSIF #### [facility] [address] [place] [address] Dr. Dionicio Shook EGFR-NON AF URUGUAYAN >60 Normal >=60 [facility] Comment on above: Performed By: #### C YOUSIF #### [facility] [address] [place] [address] Dr[address] SKULL BASE MID THIGHo n 07-21-[address] SKULL BASE MID THIGH NUCLEAR MEDICINE PET/CT HISTORY: Solitary pulmonary nodule. COMPARISON: CT chest 07/08/2022. METHOD: 14.12 mCi of F-18 FDG was administered intravenously. Blood sugar level at the time of the injection: 120. At 50 minutes from injection, PET images were obtained from the skull base through the midthigh levels in the axial plane. Reformatted images were performed in the sagittal and coronal planes. A low-dose, noncontrast CT scan was performed for attenuation correction and anatomical localization. A low dose, noncontrast and nondiagnostic CT scan was performed for attenuation correction and anatomic localization. Mediastinal blood pool SUV max 1.9 using the patient's body weight as the normalization method. FINDINGS: HEAD AND NECK: There are no metabolically active lymph nodes in the neck. CHEST: There are no metabolically active mediastinal, hilar, or axillary lymph nodes. The major airways are patent. There is no pericardial effusion. There is no evidence of abnormal metabolic uptake in the esophagus. There are coronary artery calcifications. There are emphysematous changes. There is a right apical 9 x 5 mm pulmonary nodule with a maximum SUV of 4.7 There are no pleural effusions. There is no pneumothorax. ABDOMEN AND PELVIS: There is no evidence of abnormal metabolic activity in the liver or adrenal glands. There is no evidence of abnormal metabolic active lymph nodes in the abdomen or pelvis. There is no free fluid. There is physiologic uptake in the urinary system and bowel. There are multiple gallstones. There are vascular calcifications. There are scattered diverticuli. There is nonspecific focus of increased metabolic uptake in the right pelvis measuring 2.4 x 1.2 cm with a maximum SUV of 12.3. This may be a part of the bladder or within a proximal right colonic bowel loop. MUSCULOSKELETAL: There is no evidence of abnormal metabolically active bony lesions. IMPRESSION: Emphysema with a metabolically active right apical 9 x 5 mm pulmonary nodule. Recommend tissue sampling. Metabolic uptake in the right pelvis which may be part of the bladder, however may be metabolic uptake within a proximal right colonic bowel loop. Recommend CT abdomen and pelvis with po and IV contrast. If IV contrast cannot be given, recommend MRI pelvis. Multiple gallstones. Diverticulosis. Atherosclerotic disease. Electronically authenticated by: BHAKTI ROSE Date: 2022-07-20 23:53 Normal The [facility] COCCIDIODES IGG/IGM AB BY IF Aon 07-18-2022 Coccidiodes Ab, IgG EIA 0.2 EIA Units Normal The [facility] Comment on above: Result Comment: Nega tive <1.0 Indeterminate 1.0-1.4 Positive >1.4 Performed By: #### C OCCABS #### [facility] [address] [place] [address] Dr. Dionicio Shook Coccidiodes Ab, IgM, EIA 0.1 EIA Units Normal [facility] Comment on above: Result Comment: Nega tive <1.0 Indeterminate 1.0-1.4 Positive >1.4 Performed By: #### C OCCABS #### [facility] [address] [place] [address] Dr. Dionicio Shook HISTOPLASMA CAP AB QUANT DID on 07-18-2022 Histoplasma Mycelial CF Ab. Negative Normal Neg:<1:2 [facility] Comment on above: Performed By: #### H ISTDID #### [facility] [address] [place] [address] Dr. Dioincio Shook Histoplasma Yeast CF Ab Negative Normal Neg:<1:2 [facility] Comment on above: Performed By: #### H ISTDID #### [facility] [address] [place] [address] Dr. Dionicio Shook FUNGAL AB QUANTITAIVE DOUBLE IMMUNODIFFUon 07-17-2022 Aspergillus flavus Negative Normal Neg:<1:1 [facility] Comment on above: Performed By: #### F UNGUYI #### [facility] [address] [place] [address] Dr. Dionicio Shook Aspergillus fumigatus Negative Normal Neg:<1:1 [facility] Comment on above: Performed By: #### F UNGUYI #### [facility] [address] [place] [address] Dr. Dionicio Shook Aspergillus niger Negative Normal Neg:<1:1 [facility] Comment on above: Performed By: #### F UNGUYI #### [facility] [address] [place] [address] Dr. Dionicio Shook Blastomyces Negative Normal Neg:<1:1 [facility] Comment on above: Performed By: #### F UNGUYI #### [facility] [address] [place] [address] Dr. Dionicio Shook ANTI NEUTROPHIL CYTOPLASMIC AB (ANCA) PRon 07-16-2022 Anti-MPO Antibodies <0.2 Normal 0.0-0.9 [facility] Comment on above: Result Comment: Perf ormed at: BN Performed By: #### H ISTDID #### [facility] [address] [place] [address] Dr. Dionicio Shook Anti-PR3 Antibodies <0.2 Normal 0.0-0.9 [facility] Comment on above: Result Comment: Perf ormed at: BN Performed By: #### H ISTDID #### [facility] [address] [place] [address] Dr. Dionicio Shook Atypical pANCA <1:20 Normal Neg:<1:20 [facility] Comment on above: Result Comment: The atypical pANCA pattern has been observed in a significant percentage of patients with ulcerative colitis, primary sclerosing cholangitis and autoimmune hepatitis. Performed at: CB Performed By: #### H ISTDID #### [facility] [address] [place] [address] Dr. Dionicio Shook Cytoplasmic (C-ANCA) <1:20 Normal Neg:<1:20 [facility] Comment on above: Result Comment: Perf ormed at: CB Performed By: #### H ISTDID #### [facility] [address] [place] [address] Dr. Dionicio Shook Perinuclear (P-ANCA) <1:20 Normal Neg:<1:20 [facility] Comment on above: Result Comment: The presence of positive fluorescence exhibiting P-ANCA or C-ANCA patterns alone is not specific for the diagnosis of Noe's Granulomatosis (WG) or microscopic polyangiitis. Decisions about treatment should not be based solely on ANCA IFA results. The International ANCA Group Consensus recommends follow up testing of positive sera with both TX-3 and MPO-ANCA enzyme immunoassays. As many as 5% serum samples are positive only by EIA. Ref. AM J Clin Pathol 1999;111:507-513. Performed at: CB Performed By: #### H ISTDID #### [facility] [address] [place] [address] Dr. Dionicio Shook HISTOPLASMA GALACTOMANNAN AG URINEon 07-16-2022 Histoplasma Gal'jean-pierre Ag <0.5 Normal <0.5 ng/mL [facility] Comment on above: Performed By: #### H ISTGAL #### [facility] [address] [address] [address] Dionicio Shook QUANTIFERON TB GOLD PLUSon 0 07-16-2022 QuantiFERON Criteria Comment Normal [facility] Comment on above: Result Comment: Patric tiFERON-TB Gold Plus is a qualitative indirect test for M tuberculosis infection (including disease) and is intended for use in conjunction with risk assessment, radiography, and other medical and diagnostic evaluations. The QuantiFERON-TB Gold Plus result is determined by subtracting the Nil value from either TB antigen (Ag) value. The Mitogen tube serves as a control for the test. Performed By: #### H ISTDID #### [facility] [address] [place] [address] Dr. Dionicio Shook QuantiFERON Incubation Incubation performed. Normal [facility] Comment on above: Performed By: #### H ISTDID #### [facility] [address] [place] [address] Dr. Dionicio Shook QuantiFERON Mitogen Value >10.00 Normal [facility] Comment on above: Performed By: #### H ISTDID #### [facility] [address] [place] [address] Dr. Dionicio Shook QuantiFERON Nil Value 0.05 IU/mL Normal [facility] Comment on above: Performed By: #### H ISTDID #### [facility] [address] [place] [address] Dr. Dionicio Shook QuantiFERON TB1 Ag Value 0.05 IU/mL Normal [facility] Comment on above: Performed By: #### H ISTDID #### [facility] [address] [place] [address] Dr. Dionicio Shook QuantiFERON TB2 Ag Value 0.04 IU/mL Normal [facility] Comment on above: Performed By: #### H ISTDID #### [facility] [address] [place] [address] Dr. Dionicio Shook QuantiFERON-TB Gold Plus Negative Normal Negative [facility] Comment on above: Result Comment: No r esponse to M tuberculosis antigens detected. Infection with M tuberculosis is unlikely, but high risk individuals should be considered for additional testing (ATS/IDSA/CDC Clinical Practice Guidelines, 2017). The reference range is an Antigen minus Nil result of <0.35 IU/mL. Chemiluminescence immunoassay methodology Performed By: #### H ISTDID #### [facility] [address] [place] [address] Dr. Dionicio Shook ELVIRA EIA W/REFLEX 5 BIOMARKER Son 07-15-2022 ELVIRA Direct Negative Normal Negative [facility] Comment on above: Performed By: #### A NARF #### [facility] [address] [place] [address] Dr. Dionicio Shook CYCLIC CITRULLINATED PEPTIDE AB (CCP)on 07-15-2022 CCP Antibodies IgG/IgA 3 units Normal 0-19 [facility] Comment on above: Result Comment: Nega tive <20 Weak positive 20 - 39 Moderate positive 40 - 59 Strong positive >59 Performed By: #### H ISTDID #### [facility] [address] [place] [address] Dr. Dionicio Shook RHEUMATOID FACTORon 07-16-19 RA Latex Turbid. <10.0 Normal <14.0 [facility] Comment on above: Performed By: #### H ISTDID #### [facility] [address] [place] [address] Dr. Dionicio Shook SED RATE WESTERGRENon 2022 SED RATE 19 mm/hr Normal <=30 [facility] Comment on above: Performed By: #### H ISTDID #### [facility] [address] [place] [address] CHEST WO CONon 07-08-2022 CT CHEST WO CON EXAMINATION: CT CHES T WO CON HISTORY: Lung field abnormal , cough, pulmonary nodules COMPARISON: CT chest 03/12/2022, 12/05/2020 TECHNIQUE: Axial, Coronal, and Sagittal images were created without the administration of IV contrast material. Dose reduction techniques were achieved by using automated exposure control and/or adjustment of mA and/or kV according to patient size and/or use of iterative reconstruction technique. FINDINGS: LUNGS: 9 x 8 x 8 mm spiculated mass within right upper lobe superior segment adjacent the major fissure. 20 x 10 mm geographic shaped opacity within anterior lateral left costophrenic angle. Moderate emphysematous changes bilaterally. PLEURA: No mass, effusion, or pneumothorax. VASCULATURE: No abnormality. ANNABELLE: No mass or adenopathy. MEDIASTINUM: No mass or adenopathy. CARDIAC: No enlargement or pericardial thickening. AORTA: No aneurysm or dissection. CHEST WALL: No mass or axillary adenopathy. BONES: Stable mild anterior wedging of T7 and T8 vertebral bodies without increased density of colon likely remote compression fractures. LIMITED ABDOMEN: Stable small hypodensity within lateral mid body of left kidney, likely a cyst. Limited images of the upper abdomen. OTHER: Negative. IMPRESSION: 1. Continued increase in size of a now 9 mm spiculated mass within the right upper lobe superior segment; most consistent with neoplasm. 2. Increase in size of a 20 x 10 mm opacity within anterior lateral left costophrenic angle; mass versus atelectasis versus infiltrates. 3. No lymphadenopathy. 4. Stable T7 and T8 mild compression fractures suspected to be chronic. 5. Consider PET imaging for further evaluation. Electronically authenticated by: PIPER XIE Date: 2022-07-08 16:47 Normal [facility] ECHOCARDIO M/2D COMPLETEon 0 06-30-2022 ECHOCARDIO M/2D COMPLETE Patient: MELLISA HAMPTON Exam Date: 06/30/2022 : 1950 Gender:F Ordering : DR DALLAS FAJARDO DeHctorOHector Admission #: [id number] Family : Order #: [id number] CLICK HERE TO VIEW EXAM ECHOCARDIOGRAM REPORT PROCEDURE: CARDIO PULMONARY ECHOCARDIO M/2D COMP INDICATIONS: Chest pain, dyspnea on exertion, COPD, smoker, diabetes COMPARISON: None. DESCRIPTION: COMPLETE ECHOCARDIOGRAM Real-time transthoracic echocardiography with 2D, M-mode, spectral and color flow Doppler performed. QUALITY: Technical quality was good. LEFT VENTRICLE: Normal chamber size. Mild concentric left ventricular hypertrophy. LV EF: Normal left ventricular ejection fraction, (>55%). DIASTOLIC: Diastolic function is indeterminate. ATRIAL SEPTUM: Visually appears intact. LEFT ATRIUM: Normal chamber size. RIGHT ATRIUM: Normal chamber size. RIGHT VENTRICLE: Normal chamber size. Normal right ventricular systolic function. TRICUSPID VALVE: Normal mobility and thickness. No stenosis with trivial regurgitation. Doppler studies reveal moderately (45-60) elevated right sided pressures. RVSP 54 mmHg MITRAL VALVE: Mildly thickened with normal mobility. No evidence of mitral valve stenosis. Mild mitral annular calcification. Trivial mitral regurgitation. AORTIC VALVE: Normal trileaflet appearance. Thickened aortic valve. Normal leaflet mobility. No evidence of aortic valve stenosis. No aortic regurgitation. AORTIC ROOT: Normal diameter and appearance. PULMONIC VALVE: Normal thickness and mobility. No stenosis. Trivial regurgitation. PERICARDIUM: No evidence of pericardial effusion. IVC: Collapses with inspirations. CONCLUSION: Global left ventricular systolic function is normal; visually estimated ejection fraction is 55 to 60%. No segmental wall motion abnormalities. Mild left ventricular hypertrophy. Diastolic function is indeterminate. The right ventricle is normal in size and systolic function. Moderately elevated right-sided pressures; RVSP 54 mmHg. No significant valvular abnormalities. Adult Echocardiography Procedure Report Left Ventricle LVEDD (3.7 - 5.6 cm): 3.52 cm LVESD (2.2 - 4.0 cm): 2.63 cm LVIVS thickness (0.6 - 1.2 cm): 1.14 cm LVPW thickness (0.5 - 1.0 cm): 0.95 cm e': 0.08 m/s E - e': 10.88 LVOT Max Gradient: 3.31 mm[Hg] Peak Velocity (LVOT): 0.91 m/s LVOT Diameter 2.16 cm Left Atrium LA Volume Index (2D A2C): 35.10 ml, 35.10 ml Left Atrium Systolic Dimension: 3.01 cm Mitral Valve MV E to A Ratio: 0.90 Mitral Valve A-Wave Peak Velocity: 1.00 m/s Mitral Valve E-Wave Peak Velocity: 0.90 m/s Right Ventricle Aorta AO Root Diam: 3.30 cm Aortic Valve AoV Area (Peak Bob): 2.84 cm2, 2.84 cm2 Peak Velocity(Antegrade Flow): 1.18 m/s Peak Gradient(Antegrade Flow): 5.53 mm[Hg] Tricuspid Valve Peak Velocity (Regurgitant Flow): 3.56 m/s Peak Velocity: 0.38 m/s Pulmonic Valve Peak Velocity: 0.95 m/s, 1.06 m/s Peak Gradient: 3.59 mm[Hg], 4.45 mm[Hg] Right Atrium Right Atrium Systolic Pressure: 28.17 ml, 28.17 ml Dictated by: Jeremi Hernandez M.D. on 07/01/2022 at 11:59 Approved by: Jeremi Hernandez M.D. on 07/01/2022 at 12:01 Normal [facility] CT CHEST WO CONon 03-13-2022 CT CHEST WO CON EXAMINATION: CT CHES T WO CON HISTORY: Lung field abnormal ; pulmonary nodules, shortness of breath COMPARISON: CT chest 12/05/2020, 12/09/2019 TECHNIQUE: Axial, Coronal, and Sagittal images were created without the administration of IV contrast material. Dose reduction techniques were achieved by using automated exposure control and/or adjustment of mA and/or kV according to patient size and/or use of iterative reconstruction technique. FINDINGS: LUNGS: New 9 x 8 x 4 mm geographic shaped opacity within posterior right lung apex. A few tiny sub-5 mm nodules scattered within the lungs, unchanged. Moderate marked emphysematous changes. Mild bronchiectasis with bronchial wall thickening and areas of mucous plugging within lower lobes. No significant peripheral atelectasis. PLEURA: No mass, effusion, or pneumothorax. VASCULATURE: No abnormality. ANNABELLE: No mass or adenopathy. MEDIASTINUM: No mass or adenopathy. CARDIAC: No enlargement or pericardial thickening. AORTA: No aneurysm or dissection. CHEST WALL: No mass or axillary adenopathy. BONES: Stable, remote mild compression fractures of T7 and T8 vertebral bodies and prominent kyphosis. LIMITED ABDOMEN: No suspicious findings. Limited images of the upper abdomen. OTHER: Negative. IMPRESSION: 1. A 9 mm geographic shaped opacity within right lung apex; pleural scarring versus neoplasm versus granuloma. Consider PET/CT at this time or CT chest without contrast in 3 months to evaluate for stability. 2. Otherwise stable lungs with moderate-marked emphysematous changes, lower lobe bronchiectasis and mucous plugging, and a few tiny, stable benign-appearing nodules. Electronically authenticated by: PIPER XIE Date: 2022-03-13 09:04 Normal [facility] Blood Gas Art, with Akin Mo nghiaApril 03-12-2022 a/A Ratio Art 70.70 % Normal >=0.80 [facility] Comment on above: Performed By: #### 4 [id number] #### [facility] [address] [place] [address] AaDO2 Art 29.4 mmHg High 5.0-15.0 [facility] Comment on above: Performed By: #### 4 [id number] #### [facility] [address] [place] [address] Allens Test Positive Normal [facility] Comment on above: Performed By: #### 4 [id number] #### [facility] [address] [place] [address] Base Excess Arterial 1.4 mmol/L Low >=2.8 [place] Comment on above: Performed By: #### 4 [id number] #### [facility] [address] [place] [address] cCa2+ Art 4.56 mg/dL Normal 4.40-5.30 [facility] Comment on above: Performed By: #### 4 [id number] #### [facility] [address] [place] [address] cCl- Art 102.0 mmol/L Normal 101.0-111.0 [facility] Comment on above: Performed By: #### 4 [id number] #### [facility] [address] [place] [address] cGlu Art 165 mg/dL High 55-99 [facility] Comment on above: Performed By: #### 4 [id number] #### [facility] [address] [place] [address] cK+ Art 3.8 mmol/L Normal 3.5-5.3 [facility] Comment on above: Performed By: #### 4 [id number] #### [facility] [address] [place] [address] cLac Art 1.0 mmol/L Normal .5-2.2 [facility] Comment on above: Performed By: #### 4 [id number] #### [facility] [address] [place] [address] rod and tube straightener+ Art 136.0 mmol/L Normal 135.0-145.0 [facility] Comment on above: Performed By: #### 4 [id number] #### [facility] [address] [place] [address] Drawn by SAUMYA Invalid Interpretation Code [facility] Comment on above: Performed By: #### 4 [id number] #### [facility] [address] [place] [address] FCOHb Art 3.7 % Normal 1.5-4.9 [facility] Comment on above: Result Comment: Refe rence range Nonsmoker <1.5% Smoker <5.0% Heavy Smoker <9.0% Performed By: #### 4 [id number] #### [facility] [address] [place] [address] FIO2 BG 21 Invalid Interpretation Code [facility] Comment on above: Performed By: #### 4 [id number] #### [facility] [address] [place] [address] FMetHb Art 0.4 % Normal 0.0-1.9 [facility] Comment on above: Performed By: #### 4 [id number] #### [facility] [address] [place] [address] FO2Hb Art 92.0 % Normal 92.0-100.0 [facility] Comment on above: Performed By: #### 4 [id number] #### [facility] [address] [place] [address] HCO3 (Bld) [Moles/Vol] 25.6 mmol/L Normal 22.0-26.0 [facility] Comment on above: Performed By: #### 4 [id number] #### [facility] [address] [place] [address] Hemoglobin (Bld) [Mass/Vol] 12.4 g/dL Normal 12.0-16.0 [facility] Comment on above: Performed By: #### 4 [id number] #### [facility] [address] [place] [address] Oxygen saturation in Blood 96.0 % Normal 95.0-100.0 [facility] Comment on above: Performed By: #### 4 [id number] #### [facility] [address] [place] [address] P CO2 Arterial 40.8 mmHg Normal 35.0-45.0 [facility] Comment on above: Performed By: #### 4 [id number] #### [facility] [address] [place] [address] P O2 Arterial 70.9 mmHg Low 80.0-100.0 [facility] Comment on above: Performed By: #### 4 [id number] #### [facility] [address] [place] [address] pH Arterial 7.414 Normal 7.350-7.450 [facility] Comment on above: Performed By: #### 4 [id number] #### [facility] [address] [place] [address] Sample Site R Radial Normal [facility] Comment on above: Performed By: #### 4 [id number] #### [facility] [address] [place] [address] Sample Type Arterial Draw Normal [facility] Comment on above: Performed By: #### 4 [id number] #### [facility] [address] [place] [address] HEMOGLOBINon 03-12-2022 Hemoglobin (Bld) [Mass/Vol] 12.6 g/dL Normal 12.0-16.0 [facility] Comment on above: Performed By: #### H GB #### [facility] [address] [place] [address] Dr. Dionicio Shook LAB TESTINGon 03-12-2022 RECV HEADER SEE SCANNED REPORT I N HPF Normal [facility] Comment on above: Performed By: #### M ISC #### [facility] [address] [place] [address] Dr. Dionicio Shook REV FROM REF LAB 03/12/22 Normal [facility] Comment on above: Performed By: #### M ISC #### [facility] [id number] Dionicio Shook SENT TO REF LAB 03/12/22 Normal [facility] Comment on above: Performed By: #### M ISC #### [facility] [address] [place], [place] [address] Dr. Dionicio Shook Physician Orderon 03-12-2022 Physician Order [id number]. [id number]:127 Normal [facility] Coding Summary.on 07-10-2021 Coding Summary. CD:[id number] Gh 0bWw+PGhlYWQ+GS3ZDGMdS 16vkKTchE6NM1xIWA6PLHH FVYRHSU8WJN2orUN0DGwgK 2VybiAv SbcjwRDgUL51WDc4ZQK1jW bjBQbvsT5wqGQvF9r9FvNy ZO90bS27EEdjPMOeOaX3Qf ZpbjsgbWFy R2ehItSfmYWsKza+PHRhYm xlIHdpZHRoPScxMDAlJyBz ePioBQ6iUm6eDXWvMOCtkQ xhcHNlOiBj l6thIBFqIJzpCD1xfWbrF9 ZgvTJ9YLKvq2f4Rq85gKJ+ UDCeFLP9yZrtUElcp816Tr Nqn0mqFRX1 iNTrVMouMRZ3T92ui0A1NG PtWJCcHXT7iAT3mT8scAiq ovxkA6OuaOKgAhV9IGP9fH RayA5smWyi wmqpxD8tEqw+F63VVY1EOL VLIF4OGgp6U8LjCmwjvIV+ TA84NYVqDJ97pQWwiHPmz0 sdeWq6SiJy IDKuMJY9iWpaYPowp6GfTO QtN60tbDIjr6V6ZQQnyTec iWBkMqHsyRO1rQ8gRQoqbx bsg2hvewce Dfwks9jhnx82dW29W56hLC dyJCPbKJR4TUHoEBNkdLbf hj4iwR2rTz0+LQlsy7fvd2 dwhLj0JfKi KKUqvrBmrNurMRU7w6QnXh 36H6BqnWbev9OsFns1ql11 lXXpg0M2pWW5AQrvQYWhpW 7uRBvfCiL1 MVHbPzSaqN62yIWeBSnoSr 2vtMehfJxmSB3tKSSpwqyv QUGgeG2aZQJsfJXegYvtXJ 4wNTBpbjtm f943HiMlIVO4HXIvuFBoT7 IdwN1hZeGeGCIsUEVxR9Jx sAOwIQcaQ578DZteEwX6KP PgpfLxU8As ZRMevYscVuD7e0G5Xt2Qx5 TmfzhnXCH5ZBwiBIBoQwUu GvGrBnF8B3EsDil2NUTxeN boNY6uL7We YQVtvjthhvgifNT8JTAfYE SqdB32dOSxFDznQy5so6X1 h972GICxAGWjhH34Jg3zsT ogMTBwdCBU tS2muaszn2yonerwAgBiSD YjREa1DDq6KJIihNdxBkVu KXR0SjW8HSG3rJCzgO6yyD uawknzvO4q Oyc+O24blG6wRFO3LCY2zh tlNYEunqCtLA77DC89H8Tr PjwvdGFibGU+PGRpdiBzdH biXT1bGbMw u9rkf6QuOKicX4NjTDKmVR wvJfz6NYOnHVP7qIN2nX4u BTTiIDukh8E5hWD6J2Bojm Iwnf5fk8xk NZTnXXtgP89atVXpq3A8ZN LudPB3BKSvzXxuJnFiaI75 Oyc+PVPayOpuw4GbFldas9 luy8ygtSo5 DtXqOBNazgZspLmvQOE8q2 FyXc03E81mSBavXRGhQSRs JNIzQNZjfXmwik0grG1bWf 8+PGNvbCB3 lED7dM0nZIPaUmR2ZHnsX7 31UnAheWRfBpuck0idr2og qBf2QkEnLWIbaoQcbUftMT A8l4ElMs02 Q85jSZkjIGCfKVEdEVAwCP MotWaxrk8ufC0aIu2+PC9j d3iikc95iY23fJL+PHRkIH J3jBppVRyr MBNjiM3qHFatHoB2OLTpDi WzaO93kJGbSZpsEf0dwYvr eKdvTI5kHNTorwndl996Bd Qpb6epDUKt oSMrMGldGFC0G90aj4I9HI LzJAQqZLP4fDI3lU8ilYsj bjogbGVmdDsgdmVydGljYW ioIUgvZ001 IHRvcDsnPlBhdGllbnQgTm IyYVk4W2JjUkp9GAKygHmi HF6kpRKhNVosIy0mfAnuyZ aqXW3fYGZh rarzt966AnBvh3zcDWZzbQ CxTMfnHXA0I23ht8G6LIPu TCOwQQC7iJL7uV7gxIpbfh ogbGVmdDsg sfYtxXqlWBptOSprP910SI RvcDsnPkJpcnRoIERhdGU6 MX61WR19eJPrs0W5kEL8V7 BhZGRpbmct xxtemYZ6ZDYrOUSvdI65Ol 1nfReuXl9lXLPbGSE0IPPk iKQjD8DwrB3wNsXbGHBeZH IrC3BczOEl AThtV554DDkmEoB1KGWcbc OiP7WdSNQuoUhhTmA2f3Y6 Zv9IG7J3TM75PH91dXIws5 T9vOL4U3Aq ZZIbtdwsmepbmVK2GESsXP JroT58Uq9upDpfNh5eVRMp TAY4EOYccHYkJ2CvgV6eJb AjMDAwMDAw O4HzvQEaIOfbW613YYwrLo D2EXPsweBeC4OnDRJulLxa XkE8o9E4Lb9MQHt3NR65AT 22kHYdw7O4 rAV0A0QrPHBapxndjcapnV L8CKKdSHUyqF61Ck4kxEps Qe0sMMXuARV5FICupLKfR4 NyoC8sOaNl WJRjVUNrX2DfuQDcPEhfT9 82YWraSqQ5JKYfyxJjF9Ef ZRAnbEkdNlL0t7I4Xs4DVM UaUV77UNZ1 kOL2RL16LU19Y2ViDnoorG FibGU+PHRhYmxlIHdpZHRo AOufRQMjPqMseErfJA5zCt 9yZGVyLWNv oPhgmYEdIwDtr6tyPTMsXT olXJ9jvIcaE2SzfTI1LQFm y5z1El65A39tG1CrqBG+PG FnaPJ9fOW5 tM5jNyDvKpJ2LTdkY022Lt SrvQOoMrnwb6gxq9vjzUh4 FvE4EGOwkpBdqSpxUMO9t4 BuFz48F69l IHdpZHRoPSIxNSUiIHZhbG qqxa0maV9eDj6+PGNvbCB3 kQJ0jE6yFmGzUgY8ZLofZ0 49InRvcCIv Kkixq7oec7npqNc7XfCtEL TobbZdrDkvRLU5v5XoDi53 B7IklLngq2GrAms2eo64rF Sij3F3zJN4 S9PmONUklcnkfGTdkOrtKP 7bAOJsppluUJLrtW2qPSNr A4x3XwGtPwX5IBeqO2Sqip K3LGUrlRId QLrjMBC7Q22ve8L6DXExRV FwJOK1dNN9aD3weTavgyer bGVmdDsgdmVydGljYWwtYW pmY138OYGs pGgkJPWubH7hLIWacRMblT xoTU8lPAHsurpaGuXPR88H CildB0QFRH7vMEjgqDM+PH VzPYZ4vVbn DCckMSXpsS0nSCOaB2q8Kb OuFpK6DNwgB2KyJYCepngv Jt89mZ2pJvYgQsQ8LLkzX6 ZsicJ9ERQq gJReVRmsAJZ6K81ib6A1ED OwEVToTSE8cGH4tG4kuBnk bjogbGVmdDsgdmVydGljYW mfBQqmC934 LPNrcSweGfX2JoRuThU7NQ L9G9YeBxu8XFEokFjwOW9g pGNgSJpoBf4dlJrxhGhkQX 4wNTBpbjtw IKCkyR9gMTVzaTOfdRkeNG 8gJDLhrrpcu402UqNtPFU4 HPFriWLpJ9WmaB5qUiBpOC ZiWTGpC9Wt gELfWKcpF102HTmuMmL0LK AxvcHgL4GaDYXlbWypIzO8 x2W6Ox47VIFMMTItzjqsxR Q+PHRkIHN0 iYzcWUgvQQBevV7tQODoL5 y3ZwNxPvE7LCucI7GfZOYp pjpoCm77iW5nGnSnPaU5VG txO1QwroJ0 OHKjiFMtMSszKVK2Z83cw6 P5VVNnBRPdOUI0zAP6rN2p bGlnbjogbGVmdDsgdmVydG ljYWwtYWxp L445YJFqmLovGqIrpOFdKM wvdGQ+WQCxPKJ8rUtxMTne DIKxkK5oKGOeP4j0MhStWo U3UUzfQ3Zx QYCgbbzcXk76eU5aQpEhCz Q3ARgiV9XcjmY0FJXylDNf DTzkJEZ3Z92uq5Q2OOSkAE QxQJU1rSP4 tE0mkEeognrbpSVppOzcrf BvhUxgIJrtMQfrY097SHTy gIyeXh29hZNtqAsdbmT1C9 RkPjwvdHI+ ZX30BDUrIM39oQDsdFDev8 yzkOi8WbKkOXXyAMF5uVsv QKdku2GtJQQeO32lwZGjl9 Y1QOZcaXjg gGDyWjDmkJL9kB9rYFgfyf cwp0dcupflZyxuo3qgha70 mK02N69xGQsxASQwZROuRT UiIHZhbGln ek0niH1pPr1+IFHfsBY3pK D4cT1bWuQfAlO0AKwcP119 EoPoySIoDikdb3vxz9jdzX g8BmObNMJf qzSwsZamFHO9m9YzGb86H8 9sIHdpZHRoPSIyMCUiIHZh eVveoj8ijK4gFa2+PC9jb2 awbj35kZ61 dHI+ZOGyPCE8wHkbRRlgVO ExaA4yHGkcZlC0ISTbOjUx jF99kPCbVRylEw1bhXuszL pjGA8sJLNb hfjph682JhSnk0swEQEruY XpBDzpZHC8N89tk9S2JTPk XALiOPU3aYR1dA3fxFqraw ogbGVmdDsg vuQdpFuxGQttMYyyU435CM JghAgwJbLpgWXqJ4uzlvWU KH9nLbuieTG+QWEqICM5qS xlPSdwYWRk sH4sHWIyU1f7LeFvXeV6GE jnW7AfqgZ2JKBbsSNuCUKm nQLRiV1rxeczr5kotmrgXa AwMDAwMDt0 GNb1NJOmnLtcQpQbQPF7Cc O2ULP6yGSjqY0kwDhfwpqk mJ5vZqb+RklOOjwvdGQ+PH QcBAC9mXpq EWrhHBQcxQ8qQBGzU4e1Ut FpWlC0MQnnX5MeiqN2WMAb kEHjGQUsxRVSgK4idhsof8 xvcjogIzAw BCZiGEg4MHu8MSHnbSdwTl FfGFI0PvC4FAW2wKFplF4s xSzkzzxyyX1ePpb+TVJOOj wvdGQ+PHRk UAM4kMszICjmDSWsrL0pZL IyT2f6PrBiSrD9KTtjF3Rq soJ0HTVwgCVmSCFivRZAsQ 4bjrtjk5xm bpraUeYmAHVeSGn5OFz0DP MnzFqbXcBhFSX7RhM2PWI1 lVCjpW1xfGuvjysxiX7yIz c+XAV8YXM9 HZ14PB41Z4PfTngxwXLvpR U+PHRhYmxlIHdpZHRoPScx OQImYgVufUhyJA0pWw7mRS VyLWNvbGxh cHNl (more content not included)... Normal [facility] Consent for Treatmenton 06-18 Consent for Treatment [id number]#[id number] 0CD:127 Normal [facility] Heart and Vascular Office/Cl inic Noteon 06-28-2021 Heart and Vascular Office/Clinic Note Chief Complaint 6 month f/u History of Present Illness She had no recent hospitalization no need for steroid, she has been using Dulera but she stated that she received a letter its not covered with her insurance, Advair was ordered and should be covered on her plan. She is using albuterol/ipratropium nebulizer treatment She has chronic allergies and using Zyrtec Review of Systems PHQ Score Initial Depression Screen Score: 0 12 point system review was done and negative except what mentioned in HPI Physical Exam Vitals & Measurements HR: 103(Peripheral) BP: 101/63 SpO2: 96% HT: 158 cm HT: 158.0 cm WT: 53.6 kg WT: 53.6 kg BMI: 21.47 General: no distress Skin: warm? , dry? Head: no? trauma, normocephalic? Neck: Trachea midline? , no? adenopathy, no? tenderness Eye: normal? conjunctiva, sclera clear? ENMT: oral mucosa moist? Cardiovascular: regular? rate and rhythm, normal? Respiratory: Lungs CTA? ,respirations non labored? Chest wall: no? deformity. Gastrointestinal: soft? , non distended? , no? tenderness, no? guarding. Extremities: no? deformity, no? trauma Neurological: nonfocal Assessment/Plan 1. COPD mixed type (J44.9: Chronic obstructive pulmonary disease, unspecified) Advair was ordered and continue nebulizer treatment Ordered: fluticasone-salmeterol , 1 puff(s), Inhalation, BID for 30 day(s), 60 EA, Refill(s) 6, [facility], 158, cm, 06/28/21 10:50:00 EST, Height/Length Dosing, 53.6, kg, 06/28/21 10:50:00 EST, Weight Dosing CT Chest w/o Contrast 2. Lung nodule seen on imaging study (R91.1: Solitary pulmonary nodule) Last CT chest with lung nodule 6 mm and 4 mm in November 2020, she will need follow-up in November 2021. Ordered: CT Chest w/o Contrast Follow-up No qualifying data available 6-month Problem List/Past Medical History Ongoing Smoker Historical COPD - Chronic obstructive pulmonary disease Macular degeneration of both eyes Procedure/Surgical History Abdominoplasty, section. Medications 2L O2 via nasal cannula with portibility and mobility in home, 0 acetaminophen 325 mg Tab, 650 mg= 2 tab(s), Oral, q4hr, PRN Advair 250 mcg-50 mcg Powder, 1 puff(s), Inhalation, BID, 6 refills albuterol 0.083% Inh Cammie 3 mL, 2.5 mg= 3 mL, Inhalation, q6hr, PRN, 6 refills metformin 500 mg oral tablet, 250 mg= 0.5 tab(s), Oral, BID nicotine 14 mg/24 hr Transderm ER Film, 1 patch(es), TransDermal, Daily predniSONE 10 mg Tab, 10 mg= 1 tab(s), Oral, As Directed, Not taking Ventolin HFA 90 mcg/inh Aerosol, 1 puff(s), Inhalation, Once, PRN Allergies No Known Medication Allergies Social History Alcohol - Denies Alcohol Use, 10/01/2019 Substance Abuse - Denies Substance Abuse, 10/01/2019 Tobacco - Denies Tobacco Use, 12/07/2019 Former smoker, quit more than 30 days ago Tobacco Use:. Started age 18.0 Years. Stopped age 68 Years., 07/13/2020 Former smoker, quit more than 30 days ago Tobacco Use:. Cigarettes, 06/01/2020 Former smoker, quit more than 30 days ago Tobacco Use:., 01/25/2020 10 or more cigarettes (1/2 pack or more)/day in last 30 days Tobacco Use:. Cigarettes, 11/04/2019 10 or more cigarettes (1/2 pack or more)/day in last 30 days Tobacco Use:., 10/01/2019 Family History Acute myocardial infarction: Brother. COPD: Father. Drug addiction: Brother. Primary malignant neoplasm of lung: Sister. Primary malignant neoplasm of rectum: Mother. Stroke: Father. Normal [facility] Comment on above: Result Comment: Elec tronically Signed By: Christian WILLSON, Mena Rodas\.br\Date and Time Signed: 06/28/21 11:40 EST Insurance Correspondenceon 0 05-16-2021 Insurance Correspondence [id number] [facility] Vital Signs Date Time Vital Sign Value Performing Clinician Jaz bowman 11-20-2022 10:03-0400 Body temperature 99.2 [degF] [facility] Work Phone: [facility] 11-20-2022 10:03-0400 Body [facility].84 [facility] 11-20-2022 10:03-0400 Diastolic blood pressure 72 mm[Hg] [facility] Phone: [facility] 11-20-2022 10:03-0400 Heart rate 93 /min [facility] 11-20-2022 10:03-0400 Respiratory rate 18 /min [facility] Work Phone: [facility] 11-20-2022 10:03-0400 SaO2% (BldA) [Mass fraction] 95 % [employer] Work Phone: [facility] 11-20-2022 10:03-0400 Systolic blood pressure 128 mm[Hg] [employer] Work Phone: [facility] 10-01-2022 14:08-0400 Body height 154.94 cm [employer] Work Phone: [facility] 10-01-2022 14:08-0400 Body weight 51.25 kg [employer] Work Phone: [facility] 10-01-2022 14:08-0400 Diastolic blood pressure 72 mm[Hg] [employer] Work Phone: [facility] 10-01-2022 14:08-0400 Heart rate 78 /min [employer] Work Phone: [facility] 10-01-2022 14:08-0400 Respiratory rate 20 /min [employer] Work Phone: [facility] 10-01-2022 14:08-0400 SaO2% (BldA) [Mass fraction] 97 % [employer] Work Phone: [facility] 10-01-2022 14:08-0400 Systolic blood pressure 138 mm[Hg] [employer] Work Phone: [facility] 08-14-2022 10:52-0400 Body height 154.94 cm [facility] Work Phone: [facility] Work Phone: 08-14-2022 10:52-0400 Body mass index (BMI) [Ratio] 21.16 kg/m2 [facility] Work Phone: [facility] Work Phone: 08-14-2022 10:52-0400 Body surface area Derived from formula 1.48 m2 [facility] Work Phone: [facility] Work Phone: 08-14-2022 10:52-0400 Body temperature 97.7 [degF] [facility] Work Phone: [facility] Work Phone: 08-14-2022 10:52-0400 Body weight 50.8 kg [facility] Work Phone: [facility] Work Phone: 08-14-2022 10:52-0400 Diastolic blood pressure 73 mm[Hg] Dallas Dorantes joiz Work Phone: [facility] Work Phone: 08-14-2022 10:52-0400 Heart rate 93 /min [facility] Work Phone: [facility] Work Phone: 08-14-2022 10:52-0400 Respiratory rate 16 /min Dallas Dorantes joiz Work Phone: [facility] Work Phone: 08-14-2022 10:52-0400 SaO2% (BldA) [Mass fraction] 98 % Dallas Dorantes joiz Work Phone: [facility] Work Phone: 08-14-2022 10:52-0400 Systolic blood pressure 141 mm[Hg] [facility] Work Phone: [facility] Work Phone: Encounters Encounter Date Encounter Type Care Provider Facility Start: 10-12-2023 End: 10-12-2023 ambulatory DO DALLAS FAJARDO Facility:[facility] Start: 10-08-2023 ambulatory Dallas Fajardo Facility: [facility] Start: 04-14-2023 End: 04-14-2023 ambulatory Derek Duffy MD Facility:[facility] Start: 03-30-2023 End: 03-30-2023 ambulatory Derek Duffy MD Facility:[facility] Start: 11-20-2022 End: 11-20-2022 ambulatory Rio Dixon Work Phone: [facility] Work Phone: Start: 11-20-2022 End: 11-20-2022 Registered Recurring Rio Dixon Work Phone: [facility] Work Phone: Start: 10-01-2022 End: 10-01-2022 ambulatory Rio Dixon Work Phone: [facility] Work Phone: Start: 10-01-2022 End: 10-01-2022 Registered Recurring Rio Dixon Work Phone: [facility] Work Phone: Start: 08-28-2022 Encounter for other preprocedural examination DR DOCTOR HESS [facility] Start: 08-28-2022 End: 08-28-[address] Jorge Alberto Carlson Facility:[facility] Start: 08-26-2022 Phys/qhp telephone evaluation 21-30 min Dallas Fajardo Work Phone: [facility] Work Phone: Start: 08-26-2022 KISHOR, Provider : Abner Park, Status: Pen, Time: 3:00 PM Dallas Fajardo Work Phone: [facility] Work Phone: Start: 08-26-2022 ambulatory Jorge Alberto Carlson Facility : Start: 08-25-2022 End: 08-26-[address] DOCTOR HESS Facility: Start: 08-25-2022 End: 08-26-2022 Encounter for other preprocedural examination DR DOCTOR HESS Facility: Start: 08-21-2022 AUDIT Dallas hobbs Work Phone: [facility] Work Phone: Start: 08-14-2022 Office outpatient ne w 45 minutes Dallas Fajardo Work Phone: [facility] Work Phone: Start: 08-14-2022 ambulatory JEAN PIERRE WILLETT Facility:[facility] Start: 08-01-2022 End: 08-02-2022 ambulatory RIO SAMSA . Facility: Start: 07-19-2022 End: 07-20-2022 ambulatory RIO SAMSA . Facility: Start: 07-14-2022 End: 07-15-2022 ambulatory RIO SAMSA . Facility: Start: 07-08-2022 End: 07-09-[address] PIPER XIE Facility: Start: 06-30-2022 End: 07-01-[address] DALLAS FAJARDO Facility: Start: 03-12-2022 End: 03-13-2022 ambulatory RIO Jayna SAMSA Facility:[facility] Start: 06-28-2021 End: 06-29-2021 ambulatory XXXX NONE Facility:[facility] Patient encounter status Dallas Fajardo Work Phone: [facility] Work Phone: Procedures Date Procedure Procedure Detail Performing Clinician Abdominoplasty Dallas Holmanu Work Phone: section Dallas Dorantes [facility] Work Phone: Plan of Treatment Date Care Activity Detail Author Computed tomography for radiotherapy planning [facility] enter CT Chest WO contrast [facility] Immunizations Immunization Date Immunization Notes Care Provider Fa cilicamilo 03-11-2016 influenza, injectabl e, quadrivalent, preservative free Dallas Fajardo Work Phone: [facility] Work Phone: 03-11-2016 pneumococcal polysaccharide vaccine, 23 valent Dallas Fajardo Work Phone: [facility] Work Phone: 02-20-2016 influenza, injectabl e, quadrivalent, preservative free Dallas Fajardo Work Phone: [facility] Work Phone: 02-20-2016 pneumococcal polysaccharide vaccine, 23 valent Dallas Dorantes Mcdonough Work Phone: [facility] Work Phone: Payers Date Payer Category Payer Unknown [id number] 2021 Self-pay 2020 Medicaid [id number] 2020 Medicaid [id number] 1959 Medicare [id number] 1959 Unknown [id number] 1950 Unknown [id number] 2.16.8 [id number] 1950 Unknown [id number] 2.16.8 [id number] 1950 Unknown [id number] 2.16. [id number] 1950 Unknown [id number] 2.16.84 [id number] 1950 Unknown [id number] 2.16.84 0.1.071782.3.579.2.593 1950 Unknown [id number] 2.16.84 0.1.793269.3.579.2.593 1950 Unknown [id number] 2.16.84 0.1.786822.3.579.2.593 1950 Unknown [id number] 2.16.84 0.1.653890.3.579.2.593 1950 Unknown [id number] 2.16.84 0.1.656103.3.579.2.593 1950 Unknown [id number] 2.16.84 0.1.409005.3.579.2.593 1950 Unknown [id number] 2.16. [id number] 1950 Unknown [id number] 2.16.8 40.1.535016.3.579.2.1068 1950 Unknown [id number] 2.16.8 40.1.257418.3.579.2.718 1950 Unknown [id number] 2.16.8 40.1.975125.3.579.2.718 1950 Unknown [id number] 2.16.8 40.1.371122.3.579.2.718 Unknown Unknown [id number] 2.16.8 [id number] Social History Date Type Detail Facility Current smoker Current smoker [facility] Work Phone: Comment on above: 5 A DAY CURRENTLYSTA RTED AT 22 QUIT A FEW TIMES FOR A YEAR OR SO; Start: 10-01-2022 Tobacco smoking status NHIS Smoker ( finding) [facility] Start: 1950 Sex Assigned At Female F [facility] Medication management note 12-07-2023 Note Date & Type Note Facility 12-07-2023 Note Entered by KAREN FAJARDO DO on December 07, 2023 07:33:56 EDT From: DALLAS FAJARDO DO To: [facility]/pharmacy #[id number] Sent: 12/07/2023 07:33:56 EDT Subject: Medication Management Submitted: Complete:citalopram (citalopram 20 mg oral tablet) Signed by DALLAS FAJARDO DO 12/07/2023 07:33:00 EDT Approved with modifications: citalopram (CITALOPRAM HBR 20 MG TABLET) TAKE 1 TABLET BY MOUTH EVERY DAY Qty: 90 tab(s) Days Supply: 90 Refills: 5 Substitutions Allowed Route To Pharmacy - [facility]/pharmacy #[id number] From: [id number] To: DALLAS FAJARDO DO Sent: December 06, 2023 11:41:36 PM CDT Subject: Medication Management Due: December 07, 2023 12:08:44 AM CDT On Hold Pending Signature Dispensed Drug: citalopram (citalopram 20 mg oral tablet), TAKE 1 TABLET BY MOUTH EVERY DAY Quantity: 90 tab(s) Days Supply: 90 Refills: 0 Substitutions Allowed Notes from Pharmacy: [facility] Medication management note 08-25-2023 Note Date & Type Note Facility 08-25-2023 Note Entered by KAREN FAJARDO DO on August 25, 2023 13:09:21 EDT From: DALLAS FAJARDO DO To: [facility]/pharmacy #[id number] Sent: 08/25/2023 13:09:21 EDT Subject: Medication Management Submitted: Complete:citalopram (citalopram 20 mg oral tablet) Signed by DALLAS FAJARDO DO 08/25/2023 13:09:00 EDT Approved with modifications: citalopram (CITALOPRAM HBR 20 MG TABLET) TAKE 1 TABLET BY MOUTH EVERY DAY Qty: 30 tab(s) Days Supply: 30 Refills: 2 Substitutions Allowed Route To Pharmacy - [facility]/pharmacy #[id number] From: [id number] To: DALLAS FAJARDO DO Sent: August 25, 2023 11:46:09 AM CDT Subject: Medication Management Due: August 26, 2023 6:37:27 AM CDT On Hold Pending Signature Dispensed Drug: citalopram (citalopram 20 mg oral tablet), TAKE 1 TABLET BY MOUTH EVERY DAY Quantity: 30 tab(s) Days Supply: 30 Refills: 0 Substitutions Allowed Notes from Pharmacy: [facility] Consult note 10-01-2022 Note Date & Type Note Facility 10-01-2022 Consult note Note Date/Time October 01, 2022 1:30pm [facility] [place] [id number] Rad Onc Consult Note - OP Signed Patient: Mellisa Hampton MR#: [id number] : 1950 Acct:[id number] Age/Sex: 71 / F Type: REG RCR Copies to: DO Rio Glass DO~ Assessment & Plan (1) Pulmonary nodule seen on imaging study Plan: CT simulation-4D, plan for SBRT to the right upper lobe tumor to a dose of 54 Michele in 3 fractions Assessment: 71-year-old female with imaging consistent with Stage IA1 [id number] non-small cell lung cancer of the right upper lobe. We reviewed her PET imagingin detail and discussed the implications of early-stage lung cancer. Patient understands she is not a surgical candidate due to her pulmonary status and I recommend definitive SBRT to a dose of 54 Michele in 3 fractions. Patient understands that due to location and proximity to the spinal cord she may require 50 Michele in 5 fractions if we are unable to meet constraints. Patient is very hesitant to proceed with radiation and I provided an overview of SBRT in the focal nature of treatment. She was counseled at length however that she continues to be at a high risk for cancer spread or second primary based on her smoking history. I provided a general overview of radiation treatment planning and delivery. We discussed the need for immobilization and CT simulation. Short and long-term side effects were reviewed in detail and her questions were answered. Due to the fact she is legally blind her consented for her to receive care on her behalf. Patient was counseled regarding the risks of continued smoking during their radiation course. We discussed the increase in both short-term and long-term toxicity and smoking cessation resources were reviewed. The patient understandsthat continued smoking can result in severe radiation side effects as well as a reduction in local control of cancer. HPI Date of Service: 10/01/22 HPI: 71-year-old female who is smoked 1 pack/day for 49 years found to have a right upper lobe nodule. Oncologic history July 08, [address] showed continued increase in size of a now 9 mm spiculated mass in the right upper lobe. This was new when compared to her prior February 2022 scan. July 19, 2022 PET avid 9 mm spiculated mass in the right upper lobe. No other sites of distant metastatic disease. There is metabolic uptake in the right pelvis which may be part of the bladder. Repeat CT of the abdomen and pelvis was negative for anatomic correlate. August 14, 2022 patient was evaluated by thoracic surgery and was determined to be a poor surgical candidate due to her pulmonary function test and oxygen requirement. February 2022 pulmonary function test showed FEV1 of 26%, FVC of 70% and DLCO of36 August 15, 2022 patient was presented at thoracic tumor board conference at [facility]. She was recommended for a staging EBUS and referral to radiation oncology for SBRT. August 28, 2022 bronchoscopy/EBUS Transbronchial needle aspiration was performed in the right lower paratracheal region, 4R, subcarinal, level 7, and right superior interlobar level 11 R and sent for cytology. Cytology negative. Today Patient is on 2 L nasal cannula at night as well as with activity. She reports losing 27 pounds in the past several months. Patient is too short of breath to leave the house and become short of breath with dressing and undressing herself. She continues on DuoNebs as well as albuterol inhaler she is currently smoking 5 cigarettes a day. She also reports hoarseness from her EBUS. She states it waxes and wanes. 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 [facility] - Family History Family History: Family History (Last Updated 10/01/22 @ 13:34 by Hetal Campuzano RN) Mother Rectal cancer Sister Lung cancer Brain cancer Sister No problems noted. Home Medications & Allergies Allergies No Known Allergies Allergy (Verified 10/01/22 13:32) Home Medications albuterol sulfate 90 mcg/actuation aerosol inhaler inhalation 10/01/22 [History] budesonide 160 mcg-glycopyr 9 mcg-formot 4.8 mcg/actuation HFA inhaler (Breztri Aerosphere) inhalation 10/01/22 [History] citalopram 20 mg tablet mg 10/01/22 [History] metformin 500 mg tablet mg 10/01/22 [History] Subjective ROS: I reviewed the 12-point Review of Systems with the patient as per our standard questionnaire. Objective Pain: 0/10 Karnofsky Performance Scale: 80%: Can perform normal activity with effort, some signs of disease Physical Exam: Physical Exam: KPS 80 General: alert and oriented in female, wearing sunglasses, in no acute distress HEENT: normocephalic, legally blind per her report Lungs: normal work of breathing on room air, scattered wheezes Abdomen: non acute MSK: extremities within normal limits Neuro: grossly intact Dictated By: Levi Ann MD DD/ [id number] Signed By: <Electronically signed by Levi Ann MD> 10/01/22 [id number] [facility] Work Phone: Clinical Note 08-15-2022 Note Date & Type Note Facility 08-15-2022 Note MELLISA HAMPTON was pre sented at Thoracic Tumor Board Conference Conference date: 15-Aug-2022 Presenting Provider(s): (Dr. Marvin Willett) Presenting location(s): [facility] Conference Review Type: Treatment Planning Impression Discuss treatment options. Hx notable COPD on 2L O2 at night and with activity. New RUL nodule noted per imaging. PET avid. PFTs poor. Not a surgical candidate. Review imaging. Emphysema noted and nodule noted. PET reviewed with PET avidity noted in RUL. Primary site: Lung National Guidelines discussed: yes Recommendations Referrals Rad Onc Other recommendations: Staging EBUS and refer to Rad Onc. Disclaimer SCC tumor board recommendations represent the consensus opinion of physicians present at a weekly patient care conference. The treating SCC physician is not always present, and many of the physicians formulating the recommendation have not personally seen or examined the patient under discussion. It is understood that the treating SCC physician considers the expertise of the Tumor Board Recommendation in formulating his/her plan for the patient. However, in many situations, based on individualized patient considerations, a different plan is determined by the treating physician to be the optimal medical management. Electronic Signatures: Kiley Dotson (COOR) (Signed 17-Aug-2022 21:02) Authored: Impression, Recommendations, Note, Disclaimer Last Updated: 17-Aug-2022 21:02 by Kiley Dotson (COOR) [facility] Clinical Note 07-02-2021 Note Date & Type Note Facility 07-02-2021 Note - From: Ivette Cowart To: - Administrative; Sent: 07/02/2021 14:43:20 EDT Show up: 12/02/2021 14:42:00 EDT Subject: Ambulatory Reminder Due Date/Time: 01/02/2022 14:43:00 EDT Reminder/Recall 6 month f/u December 2021 w/ [place] CT Chest w/o contrast [facility] Consult note Note Date & Type Note Facility Consult note Note Date/Time October 01, 2022 1:30pm [facility] [place] [address] Rad Onc Consult Note - OP Signed Patient: Mellisa Hampton MR#: [id number] : 1950 Acct:[id number] Age/Sex: 71 / F Type: REG RCR Copies to: DO Rio Glass DO~ Assessment & Plan (1) Pulmonary nodule seen on imaging study Plan: CT simulation-4D, plan for SBRT to the right upper lobe tumor to a dose of 54 Michele in 3 fractions Assessment: 71-year-old female with imaging consistent with Stage IA1 [id number] non-small cell lung cancer of the right upper lobe. We reviewed her PET imagingin detail and discussed the implications of early-stage lung cancer. Patient understands she is not a surgical candidate due to her pulmonary status and I recommend definitive SBRT to a dose of 54 Michele in 3 fractions. Patient understands that due to location and proximity to the spinal cord she may require 50 Michele in 5 fractions if we are unable to meet constraints. Patient is very hesitant to proceed with radiation and I provided an overview of SBRT in the focal nature of treatment. She was counseled at length however that she continues to be at a high risk for cancer spread or second primary based on her smoking history. I provided a general overview of radiation treatment planning and delivery. We discussed the need for immobilization and CT simulation. Short and long-term side effects were reviewed in detail and her questions were answered. Due to the fact she is legally blind her consented for her to receive care on her behalf. Patient was counseled regarding the risks of continued smoking during their radiation course. We discussed the increase in both short-term and long-term toxicity and smoking cessation resources were reviewed. The patient understandsthat continued smoking can result in severe radiation side effects as well as a reduction in local control of cancer. HPI Date of Service: 10/01/22 HPI: 71-year-old female who is smoked 1 pack/day for 49 years found to have a right upper lobe nodule. Oncologic history July 08, [address] showed continued increase in size of a now 9 mm spiculated mass in the right upper lobe. This was new when compared to her prior February 2022 scan. July 19, 2022 PET avid 9 mm spiculated mass in the right upper lobe. No other sites of distant metastatic disease. There is metabolic uptake in the right pelvis which may be part of the bladder. Repeat CT of the abdomen and pelvis was negative for anatomic correlate. August 14, 2022 patient was evaluated by thoracic surgery and was determined to be a poor surgical candidate due to her pulmonary function test and oxygen requirement. February 2022 pulmonary function test showed FEV1 of 26%, FVC of 70% and DLCO of36 August 15, 2022 patient was presented at thoracic tumor board conference at [facility]. She was recommended for a staging EBUS and referral to radiation oncology for SBRT. August 28, 2022 bronchoscopy/EBUS Transbronchial needle aspiration was performed in the right lower paratracheal region, 4R, subcarinal, level 7, and right superior interlobar level 11 R and sent for cytology. Cytology negative. Today Patient is on 2 L nasal cannula at night as well as with activity. She reports losing 27 pounds in the past several months. Patient is too short of breath to leave the house and become short of breath with dressing and undressing herself. She continues on DuoNebs as well as albuterol inhaler she is currently smoking 5 cigarettes a day. She also reports hoarseness from her EBUS. She states it waxes and wanes. 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 [facility] - Family History Family History: Family History (Last Updated 10/01/22 @ 13:34 by Hetal Campuzano RN) Mother Rectal cancer Sister Lung cancer Brain cancer Sister No problems noted. Home Medications & Allergies Allergies No Known Allergies Allergy (Verified 10/01/22 13:32) Home Medications albuterol sulfate 90 mcg/actuation aerosol inhaler inhalation 10/01/22 [History] budesonide 160 mcg-glycopyr 9 mcg-formot 4.8 mcg/actuation HFA inhaler (Breztri Aerosphere) inhalation 10/01/22 [History] citalopram 20 mg tablet mg 10/01/22 [History] metformin 500 mg tablet mg 10/01/22 [History] Subjective ROS: I reviewed the 12-point Review of Systems with the patient as per our standard questionnaire. Objective Pain: 0/10 Karnofsky Performance Scale: 80%: Can perform normal activity with effort, some signs of disease Physical Exam: Physical Exam: KPS 80 General: alert and oriented in female, wearing sunglasses, in no acute distress HEENT: normocephalic, legally blind per her report Lungs: normal work of breathing on room air, scattered wheezes Abdomen: non acute MSK: extremities within normal limits Neuro: grossly intact Dictated By: Levi Ann MD DD/ 1329 Signed By: <Electronically signed by Levi Ann MD> 10/01/22 [id number] [facility] Work Phone: Evaluation note Note Date & Type Note Facility Evaluation note Diagnosis Onset Date Pulmonary nodule seen on imaging study acute [facility] Work Phone: History of Present illness Narrative Note Date & Type Note Facility History of Present illness Narrative Mellisa Hampton is a 71 year old female with chronic emphysema, long-time smoker, who presents as a referral from Dr. Dixon with a slowly enlarging RUL lesion (9x5mm) which is PET avid with an SUV of 4.7. of note the PET also noted an area in the right pelvis with increased uptake and SUV of 12.3 - specific structure unknown. She underwent a follow up CT abd/pelv c IV contrast which was negative.She has had7lb weight loss/several weeks. Decreased appetitePatient has a known h/o emphysema - she is on 2L NC at night and with activity. PFTs: FEV1 0.52 (26%), FVC 1.8 (70%), DLCO 36. She has no acutely worsened SOB, chest pain, or wheezing. Has chronic dry cough. MG-CT Surgery-[facility] Work Phone: History of Present illness Narrative Note Date & Type Note Facility History of Present illness Narrative Patient's visit was converted to a virtual visit given current COVID- 19 pandemic.Ms. Hampton is a 71 year old woman, current smoker (1 PPD for 49 years, 49 total pack years.), being evaluated today for RUL nodule.PCP: Dr. Dallas FajardoThoracic: Dr. LockettiPulmonology: Dr. Rio Dixon ([facility])HPI: Patient presents to pulmonary clinic today as a new patient in regards to RUL nodule; referred by Dr. Willett from thoracic surgery. Patient gets her care through [facility] system and follows with telephone clerk telegraph office Dr. Rio Dixon. On most recent chest CT from 07/08/2022 showed a continued increase in size of a now 9 mm spiculated mass within the right upper lobe. PET/CT from 07/19/2022 shows metabolic activity of this right upper mass. Patient was sent to Dr. iWllett from thoracic surgery; patient is not a surgical candidate given her poor lung function and chronic oxygen needs secondary to COPD. Was discussed at tumor board on 08/17/2022 advising a staging EBUS and referral to rad-oncology. Currently, has SOB both at rest as well as on exertion. Takes Breztri daily. Using DuoNebs 5x a day. Wears 2L oxygen at night (occasionally). And will also sometimes wear the oxygen during the day PRN. Does not check her SpO2 at home.She also claims questionable orthopnea. No lower leg edema. She has lost 27 pounds in the last6 months. She also relates chronic cough. Cough is productive. Sputum color is clear; no hemoptysis. Intermittent wheezing. No night cough. No fever, shivering chills or night sweats. Relates chronic runny nose, sinus congestion or a tingling sensation in the back of her throat. Denies symptoms of heartburn. She denies chest pain.She is too breathless to leave the house or breathless when dressing and undressing (mMRC 4).Current/Past Inhalers & Nebulized Medications:- Albuterol HFA PRN- Breztri- DuoNebs PRNPulmonary/Significant Hospitalization History:- PNA 2017Sleep History:Denies snoring. Denies witnessed apnea events. Denies feeling tired during the day or taking naps during the day. Denies falling asleep at inappropriate times throughout the day. 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 No known family history of autoimmune disorders.- Aunt; emphysemaTesting:PFT-03/12/22: FEV1/FVC: 29, FEV1: 0.52 (26%), FVC: 1.81 (70%), + BD Response, [id number]: 9%, T.41 (141%), RV/T%, DLCO: 36%CT Chest-07/08/22: 1. Continued increase in size of a now 9 mm spiculated mass within the right upper lobe superior segment; most consistent with neoplasm. 2. Increase in size of a 20 x 10 mm opacity within anterior lateral left costophrenic angle; mass versus atelectasis versus infiltrates. 3. No lymphadenopathy. 4. Stable T7 and T8 mild compression fractures suspected to be chronic. 5. Consider PET imaging for further evaluation.-03/12/22: 1. A 9 mm geographic shaped opacity within right lung apex; pleural scarring versus neoplasm versus granuloma. Consider PET/CT at this time or CT chest without contrast in 3 months to evaluate for stability. 2. Otherwise stable lungs with moderate-marked emphysematous changes, lower lobe bronchiectasis and mucous plugging, and a few tiny, stable benign-appearing nodules.PET CT-07/19/22: Emphysema with a metabolically active right apical 9 x 5 mm pulmonary nodule. Recommend tissue sampling. Metabolic uptake in the right pelvis which may be part of the bladder, however may be metabolic uptake within a proximal right colonic bowel loop. Recommend CT abdomen and pelvis with po and IV contrast. If IV contrast cannot be given, recommend MRI pelvis.Echo-06/30/22: EF 55-60% with mild LVH. Diastolic function indeterminate. RA normal in size. RV normal in size and function. RVSP 54 mmHgThere are no spiritual/cultural practices/values/needs that are important to knowInitial Fall Risk Screening:MELLISA has not fallen in the last 6 months.Pain Scale: On a scale of 0 to 10, the patient rates the pain at 0.Advance directives:Living Will: Living will on file.Healthcare POA: No healthcare proxy on file.Tobacco Screening: MELLISA uses tobacco. Has used tobacco in the past 6 months.She uses tobacco: Everyday.Type(s) of Tobacco: cigarettesDomestic Violence Screen: Does not feel threatened or abused physically, emotionally or sexually. Do you feel UNSAFE?The patient feels safe in the home.Depression/Suicide Screening:During the past 2 weeks, the patient felt down, depressed or hopeless.During the past 2 weeks, the patient felt little interest or pleasure in doing things. Patient Declined/Screening not indicated. -[facility] Work Phone: Progress note Note Date & Type Note Facility Progress note Note Date/Time November 20, 2022 9:0 1am [facility] [place] [address] Rad Onc Follow Up Note - OP Signed Patient: Mellisa Hampton MR#: [id number] : 1950 Acct:[id number] Age/Sex: 72 / F Type: REG RCR Copies to: DO Rio Glass DO~ Date of Service Service Date: 11/20/22 Assessment & Plan (1) Pulmonary nodule seen on imaging study Plan: Return to clinic end of January 2023 with first surveillance chest CT noncontrast Assessment: 72-year-old female with imaging consistent with Stage IA1 [id number] non-small cell lung cancer of the right upper lobe. On October 24, 2022 patient completed SBRT to the right upper lung nodule to a dose of 50 Michele in 5 fractions. She returns to clinic today and her respiratory status is at baseline. Patient has severe COPD and continues to smoke and has scattered wheezes on exam. She has her DuoNebs and uses her inhaler as prescribed by her telephone clerk telegraph office. She has follow-up with pulmonology. Regarding the pruritus and scabbing on the right scapula I reviewed her plan. At most the skin received 10Gray in 5 fractions which would make radiation dermatitis unusual however we reviewed skin care and she was given samples of Aquaphor. She understands that we will take approximately 3 months for the inflammation underlying to receive. We will therefore obtain a chest CT at the end of January 2023. Patient would like to obtain this in [place]. Follow Up Note - Narrative 72-year-old female who is smoked 1 pack/day for 49 years found to have a right upper lobe nodule. Oncologic history July 08, [address] showed continued increase in size of a now 9 mm spiculated mass in the right upper lobe. This was new when compared to her prior February 2022 scan. July 19, 2022 PET avid 9 mm spiculated mass in the right upper lobe. No other sites of distant metastatic disease. There is metabolic uptake in the right pelvis which may be part of the bladder. Repeat CT of the abdomen and pelvis was negative for anatomic correlate. August 14, 2022 patient was evaluated by thoracic surgery and was determined to be a poor surgical candidate due to her pulmonary function test and oxygen requirement. February 2022 pulmonary function test showed FEV1 of 26%, FVC of 70% and DLCO of36 August 15, 2022 patient was presented at thoracic tumor board conference at [facility]. She was recommended for a staging EBUS and referral to radiation oncology for SBRT. August 28, 2022 bronchoscopy/EBUS Transbronchial needle aspiration was performed in the right lower paratracheal region, 4R, subcarinal, level 7, and right superior interlobar level 11 R and sent for cytology. Cytology negative. At consult patient was on 2 L nasal cannula at night as well as with activity. She reported losing 27 pounds in the past several months. Patient is too short of breath to leave the house and becomes short of breath with dressing and undressing herself. She continues on DuoNebs as well as albuterol inhaler she was smoking 5 cigarettes a day. October 24, 2022 patient completed SBRT to the right upper lung nodule to a dose of 50 Michele in 5 fractions. She returns to clinic today and reports some dry skin and scabbing pruritus along the right scapula. She states this is resolved. She denies any respiratory issues above baseline other than saying her sputum production has been reduced. She continues to smoke. Physical Exam: KPS 80 General: alert female, legally blind, in no acute distress HEENT: normocephalic, extra ocular movements intact Lungs: Scattered wheezes throughout on auscultation Abdomen: non acute MSK: extremities within normal limits Dictated By: Levi nAn MD DD/ [id number] Signed By: <Electronically signed by Levi Ann MD> 11/20/22 10[address] [facility] Work Phone: Summary Purpose Family History No Family History Records FoundUnknown Family Member Name Dates Details Family history of cerebrovas cular accident (CVA): Father(V17.1, Z82.3) Status:Active Family history of cardiac di sorder: Father, Brother(V17.49, Z82.49) Status:Active Family history of respirator y disorder: Maternal Grandmother(V17.6, Z83.6) Status:Active Unknown Family Member Name Dates Details Family history of cerebrovas cular accident (CVA): Father(V17.1, Z82.3) Status:Active Family history of cardiac di sorder: Father, Brother(V17.49, Z82.49) Status:Active Family history of respirator y disorder: Maternal Grandmother(V17.6, Z83.6) Status:Active Unknown Family Member Name Dates Details Family history of cerebrovas cular accident (CVA): Father(V17.1, Z82.3) Status:Active Family history of cardiac di sorder: Father, Brother(V17.49, Z82.49) Status:Active Family history of respirator y disorder: Maternal Grandmother(V17.6, Z83.6) Status:Active Relationship Condition Age at Onset Recorded Date/T genie Not Specified Malignant neoplasm of rectum Unknown sister Malignant neoplasm of lung Unknown Malignant neoplasm of brain Unknown Advance Directives No Advanced Directives Records Found Advance Directive Response Recorded Date/ Time Advance Directives No September 30 1:56pm Chief Complaint Pt is here for a new pt office visit* A telephone visit (audio only) between the patient (at the originating site) and the provider (at the distant site) was utilized to provide this telehealth service. * Verbal consent was requested and obtained from MELLISA HAMPTON on this date, 08/26/2022 03:00 PM , fora telehealth visit. * New patient evaluation. Chief Complaint and Reason for Visit Chief Complaint lung cancer Reason for Visit Pulmonary nodule see n on imaging study Additional Source Comments INFORMATION SOURCE (unrecogn ized section and content) DATE CREATED AUTHOR 03/13/2022 [facility] DATE CREATED AUTHOR AUTHOR'S ORGANIZ ATION 08/27/2022 [facility] DATE CREATED AUTHOR AUTHOR'S ORGANIZ ATION 08/28/2022 [facility] DATE CREATED AUTHOR AUTHOR'S ORGANIZ ATION 08/29/2022 [facility] DATE CREATED AUTHOR AUTHOR'S ORGANIZ ATION 09/02/2022 [facility] DATE CREATED AUTHOR AUTHOR'S ORGANIZ ATION 12/24/2022 [facility] DATE CREATED AUTHOR AUTHOR'S ORGANIZ ATION 11/18/2023 [facility] DATE CREATED AUTHOR AUTHOR'S ORGANIZ ATION 12/07/2023 [facility] l Care Teams (unrecognized sec tion and content) Team Status: Active Member Role Status Dates Dallas Fajardo DO Primary Care Provider Active Team Status: Active Member Role Status Dates Levi Ann MD Attending Provider Active Rio Dixon Referring Provider Active Dallas Fajardo DO Primary Care Provider Active Goals (unrecognized section and content) Goals may be documented in a n alternate sectionGoals may be documented in an alternate section FOR RECORDS PERTAINING TO PATIENTS WHO ARE OR HAVE BEEN ENROLLED IN A CHEMICAL DEPENDENCY/SUBSTANCEABUSE PROGRAM, SOME INFORMATION MAY BE OMITTED. This clinical summary was aggregated from multiple sources. Caution should be exercised in using it in the provision of clinical care. This summary normalizes information from multiple sources, and as a consequence, information in this document may materially change the coding, format and clinical context of patient data. In addition, data may be omitted in some cases. CLINICAL DECISIONS SHOULD BE BASED ON THE PRIMARY CLINICAL RECORDS. [facility] [employer] [facility]. provides no warranty or guarantee of the accuracy or completeness of information in this document.
--- NOTE | 2024-01-18 19:47 | XR_ITS ---
[address] [address] Patient Name: SAMAN HAMPTON MRN: [id number] date: 1950 Sex: F Assigned Patient Location: ER Current Patient Location: ED.MAIN Accession/Order Number: [id number] Exam Date: 01/18/2024 08:25 Report Date: 01/18/2024 21:27 At the request of: ESCOBAR GRANADOS Procedure: XR chest 1V EXAM: XR chest 1V at 2016 hours HISTORY: short of breath COMPARISON: 09/18/2022 TECHNIQUE: AP upright portable chest x-ray FINDINGS: The heart is not enlarged and the vasculature is not distended. No acute infiltrate, effusion or pneumothorax is identified. Slight flattening of the hemidiaphragms suggest COPD. Calcification of costochondral cartilage is noted. Diffuse osteopenia is noted. XR/XR chest 1V IMPRESSION: No acute infiltrate or evidence of cardiac decompensation. The overall appearance of the chest has not changed significantly. Electronically authenticated by: KRANTHI IVERSON Date: 01/18/2024 21:27
--- NOTE | 2024-01-18 19:47 | ECG_ITS ---
[facility] Test Date: 2024-01-18 Pat Name: SAMAN HAMPTON Department: Room: - Gender: Female Medical Technicians: : 1950 Requested By: Order Number: [id number] Reading MD: HEATHER ERAZO Measurements Intervals [place] Rate: 99 P: 97 CA: 152 QRS: 91 QRSD: 90 T: 64 QT: 364 QTc: 420 Interpretive Statements 1100 Sinus rhythm 7102 Moderate right axis deviation 0101 Possible arm leads reversed, check lead requested 0102 ARTIFACT PRESENT 9110 normal ECG Compared to ECG 02/15/2017 19:00:18 Right-axis deviation now present Sinus tachycardia no longer present Electronically Signed On 01-18-2024 22:59:38 EDT by HEATHER ERAZO
--- NOTE | 2024-01-18 19:50 | ED_ITS ---
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 daily smoker still. Presents with worsening shortness of breath for past 3 days. Transferred to ER via [facility]. Give n 125 mg solumedrol and duoneb enroute. Arrives still short of breath and working to breath. Able to speak in short sentences. denies chest pain, nausea or fever Related Data Allergies Allergy/AdvReac Type Severity Reaction Status Date / Time No Known Drug Allergies Allergy Verified 01/18/24 19:40 Review of Systems ROS Status of ROS 10 or more systems reviewed and unremark able except as noted in history and below PFSH PFSH Social History Little interest or pleasure in doing things: not at all Feeling down, depressed, or hopeless: not at all Exam Constitutional Vital Signs, click to edit/add: Last Vital Signs Pulse 101 H 01/18/24 19:41 Resp 24 H 01/18/24 19:41 BP 170/101 H 01/18/24 19:41 Pulse Ox 97 01/18/24 19:47 O2 Del Method Nasal Cannula 01/18/24 19:47 O2 Flow Rate 3 01/18/24 19:47 Common normals: oriented x3 and alert General appearance: in distress HENAR Common normals: normocephalic and head/scalp atraumatic Eye Common normals: EOMs intact bilaterally and conjunctivae normal Respiratory Effort & inspection: audible wheezes Other: diminished breath sounds Cardio Rate: tachycardic GI Common normals: Normal to inspection, nondistended, normoactive bowel sounds present, soft to palpation and non-tender Extremity Common normals: normal to inspection and full ROM Neuro Common normals: oriented x3, CN's II-XII intact bilaterally, moves all extremities and no focal motor deficits Psych Appearance: grossly normal Course Vital Signs Vital signs: Vital Signs Pulse Rate 101 H 01/18/24 19:41 Respiratory Rate 24 H 01/18/24 19:41 Blood Pressure 170/101 H 01/18/24 19:41 Pulse Oximetry 97 01/18/24 19:41 Oxygen Delivery Method Nasal Cannula 01/18/24 19:41 Oxygen Delivery Flow Rate 3 01/18/24 19:41 Pulse Rate 101 H 01/18/24 19:41 Respiratory Rate 24 H 01/18/24 19:41 Blood Pressure 170/101 H 01/18/24 19:41 Pulse Oximetry 97 01/18/24 19:47 Oxygen Delivery Method Nasal Cannula 01/18/24 19:47 Oxygen Delivery Flow Rate 3 01/18/24 19:47 MDM - SOB/Dyspnea MDM Narrative Medical decision making narrative: patient arrives in respiratory distress. History of 02 dependent COPD. 3.5L NC. S tates she is still smoking. dyspnea has worsened over the past 3 days. Denies chest pain or nausea. Given solumedrol 125 and Duoneb enroute. 2 additional duoneb treatment ordered along with magnesium, labs and cxray cxray with emphysematous changes. patient has improved after intervention. Now sitting on the side of the bed and talking to family . Still working to breathe but improved. troponin is neg. ABGs reviewed and expected elevated C02 noted. pH acceptable. Discussed with hospitalist and will plan obs admission for COPD exac Lab Data Labs: Lab Results 01/18/24 01/18/24 Range/Units 19:42 20:15 WBC 14.8 H (4.0-11.0) 10^3/uL RBC 4.01 L (4.20-5.40) 10^6/uL Hgb 12.4 (12.0-16.0) g/dL Hct 37.3 (36.0-48.0) % MCV 93.0 (81.0-99.0) fL MCH 30.9 (26.7-34.0) pg MCHC 33.2 (29.9-35.2) g/dL RDW 12.4 (11.0-15.0) % Plt Count 326 (150-450) 10^3/uL MPV 8.5 L (9.5-13.5) fL Seg Neuts % (Manual) 60.0 (43.0-75.0) Lymphocytes % (Manual) 10.0 L (20.5-60.0) % Atypical Lymphs % (Man) 22.0 % Monocytes % (Manual) 7.0 (1.7-12.0) % Eosinophils % (Manual) 1.0 (0.9-7.0) % Basophils % (Manual) 0.0 L (0.2-2.0) % Neutrophils # (Manual) 8.88 H (1.4-6.5) 10^3/uL Lymphocytes # (Manual) 1.48 (1.20-3.80) 10^3/uL Abs Atypical Lymphs Man 3.25 Monocytes # (Manual) 1.03 H (0.30-0.80) 10^3/uL Eosinophils # (Manual) 0.14 (0.00-0.70) 10^3/uL Basophils # (Manual) 0.00 (0.00-0.10) 10^3/uL Puncture Site R radial ABG pH 7.314 L (7.350-7.450) ABG pCO2 53.9 H* (35.0-45.0) mmHg ABG pO2 88.0 (80.0-100.0) mmHg ABG HCO3 27.4 H (22.0-26.0) mmol/L ABG O2 Saturation 96.9 % ABG Base Excess 1.2 (-2.0-2.0) mmol/L Chun Test Positive (POSITIVE) O2 Liters/Min 3 Sodium 132 L (136-145) mmol/L Potassium 3.9 (3.5-5.1) mmol/L Chloride 95 L (98-107) mmol/L Carbon Dioxide 32.3 H (21.0-32.0) mmol/L Anion Gap 8.6 BUN 9.0 (7.0-18.0) mg/dL Creatinine 0.68 (0.55-1.02) mg/dL Est GFR ( Amer) >60 (>=60) Est GFR (Non-Af Amer) >60 (>=60) BUN/Creatinine Ratio 13.2 Glucose 110 H (74-106) mg/dL Calcium 8.8 (8.5-10.1) mg/dL Troponin I High Sens 6.9 (4.0-51.3) pg/mL NT-Pro-B Natriuret Pep 84.0 (<=900.0) pg/mL Discharge Plan Discharge Chief Complaint: Shortness of Breath/Dyspnea Clinical Impression: Acute exacerbation of chronic obstructive pulmonary disease Patient Disposition: Admitted as Observation Print Language: Hungarian Referrals: CHRIS FAJARDO [Primary Care Provider] - 1 week
[2024-01-18] MEDS: IPRATROPIUM/ALBUTEROL SULFATE 3 ML AMPUL.NEB IH ×3 (19:52→23:32)
[2024-01-18] MEDS: MAGNESIUM SULFATE IN WATER 2 GM/50 ML PREMIX IV (19:55)
[2024-01-18 19:56] LABS: Hematocrit 37.3 % (36.0-48.0); Hemoglobin 12.4 g/dL (12.0-16.0); Mean Corpuscular HGB Conc 33.2 g/dL (29.9-35.2); Mean Corpuscular Hemoglobin 30.9 pg (26.7-34.0); Mean Platelet Volume 8.5 fL (9.5-13.5); Platelet Count 326 10^3/uL (150-450); Red Blood Count 4.01 10^6/uL (4.20-5.40); Red Cell Distribution Width 12.4 % (11.0-15.0); White Blood Count 14.8 10^3/uL (4.0-11.0)
[2024-01-18 20:19] LABS: Atypical Lymphocytes Abs Man 3.25; Eosinophils Absolute Manual 0.14 10^3/uL (0.00-0.70); Lymphocytes Absolute Manual 1.48 10^3/uL (1.20-3.80); Monocytes Absolute Manual 1.03 10^3/uL (0.30-0.80); Segmented Neut Absolute Manual 8.88 10^3/uL (1.4-6.5)
[2024-01-18 20:21] LABS: Anion Gap 8.6; BUN Creatinine Ratio 13.2; Calcium 8.8 mg/dL (8.5-10.1); Carbon Dioxide 32.3 mmol/L (21.0-32.0); Chloride 95 mmol/L (98-107); Estimated GFR (African America >60 (>=60); Estimated GFR (Non-African Ame >60 (>=60); Glucose 110 mg/dL (74-106); Potassium 3.9 mmol/L (3.5-5.1); Sodium 132 mmol/L (136-145); Troponin I High Sensitivity 6.9 pg/mL (4.0-51.3)
[2024-01-18 20:22] LABS: Allen Test POSITIVE (POSITIVE); Base Excess ABG 1.2 mmol/L (-2.0-2.0); HCO3 ABG 27.4 mmol/L (22.0-26.0); Oxygen Saturation ABG 96.9 %; pH ABG 7.314 (7.350-7.450)
[2024-01-18 20:23] LABS: Liters per Minute 3; O2 Mode NASAL CANNULA; Puncture Site R RADIAL
[2024-01-18 20:24] LABS: ABG PCO2 53.9 mmHg (35.0-45.0)
--- OUTSIDE RECORDS SUMMARY | 2024-01-18 22:19 | XMS_ITS | CCD ---
Author Organization [facility] Providers Care Incoming Inspector Name Role Phone SAMSA, RIO P Attending [...] RIO Attending Unavailable HEJENIFFER GEE Consulting Unavailable [facility], DR ARGUETA Admitting Unavailable HOUSE, DR HAYNES Primary Care Unavailable [facility], DR ARGUETA Attending Unavailable MISC, DR ARGUETA [...] Dr. Jean Pierre Cook Referring Anneliese vailable Marquette, Dr. Dallas Velázquez Primary Care Unava Dr. Jorge Alberto Dillon Admitting Unavailab MD Levi Patel Attending Provider Rio Dixon Referring Provider [phone] House, DO Haynes Primary Care Provider MD Levi Ann Attending Provider Rio Dixon Referring Provider [phone] House, DO Haynes Primary Care Provider [phone] JEAN PIERRE WILLETT Attending Unavail able Dong, Dr. Dallas Velázquez Primary Care Unava gen Dixon, Dr. Rio Daly Referring Unavailab le Dallas Fajardo Primary Care Unavailable [facility], [place] Referring Unavailable Levi Ann Attending Unavailable Levi Ann Admitting Unavailable DO DALLAS FAJARDO Attending Unavailable DALLAS FAJARDO Primary Care Unavailable Derek Duffy MD Attending Unavailable DALLAS FAJARDO Primary Care Unavailable Derek Duffy MD Attending Unavailable MOUNT SOLONDALLAS Primary Care Unavailable Allergies Allergy Classification Reported Allergen(s) Allergy Type Date of Onset Reaction(s) Facility (1 source) No Known Medication Allergies; Translations: [No Known Medication Allergies] Propensity to adverse reactions (disorder) [facility] Repository (3 sources) Tetracycline; Translations: [tetracycline] Drug Allergy Unknown [facility] Work Phone: Medications Current Medications Medication Drug Class(es) Dates Sig (Normalized) Sig (Original) [id number] 200 actuat albuterol 0.09 mg/actuat metered dose [...] take 1 puff(s) by inhalation twice daily Raiiawecqf-Ajtdjekv-Shjyminttj (Breztri Aerosphere) 160-9-4.8 mcg/actuation HFA aerosol inhaler [...] Range Facility Outside Recordson 11-27-2023 Outside Records [id number]#1.0 [facility] Outside [facility]son 10-12-2023 Outside Records [id number]#1. 00[facility] Rad - Other Radiology Report on 09-30-2023 Rad - Other Radiology Report [id number]#1. 00[facility] 09-02-2023 Outside Records [id number]#1.0 [facility] 06-16-2023 Outside Records [id number]#1.0 [facility] 06-04-2023 Outside Records [id number]#1.00 [facility] 04-02-2023 Outside Records [id number]#1.[address] [place] [address] Patient Provided Health Data on 04-02-2023 Patient Provided Health Data [id number]#1.0 [facility] Patient Handouton 03-31-2023 Patient Handout [id number]#1 .00[facility] Bronchoscopyon 08-28-2022 Bronchoscopy PATIENTNAME Patient Name: Mellisa Hampton EXAMDATE Procedure Date: 08/28/2022 9:02 AM PATIENTID PATIENTACCOUNTNUM PATIENTDOB Date of : 1950 PATIENTROOM Room: [place] Procedure Room 8 PROV Attending MD: Jorge Alberto Carlson MD, [id number] ENDOPROCEDURENAME Procedure: Bronchoscopy INDICATION Indications: Right upper lobe nodule, Mediastinal staging of suspected lung cancer PRIMARYPROVIDER Providers: Jorge Alberto Carlson MD (Doctor), Cinthia Hogan RN (Nurse), Forrest Hamilton, Credit Coordinator (Credit Coordinator), Casimiro Pacheco MD (Fellow) EDREFPROVIDER Referring MD: [...] physician, the nurse, the anesthesiologist and the leach runner in the procedure room. Mental Status Examination: [...] region ( (more content not included)... Normal [facility] GLUCOSE-POCTon 08-28-2022 Glucose [Mass/Vol] 109 mg/dL High 74 - 99 [facility] Comment on above: Performed By: #### G SHAWN #### [facility] [address] Cytologyon 08-28-[address] [facility] Cytology Patient Name MELLISA HAMPTON Date [...] LYMPHOID SAMPLE. Slide(s) initially screened by a Plumber Supervisor at [place] [address] Electronically Signed Out By LEXX GABRIEL MD By the signature on this report, the individual or group listed as making the Final Interpretation/Diagnos is certifies that they have reviewed this case. Slide(s) initially screened by a Plumber Supervisor at [facility] Diagnostic interpretation performed at [address] [place] [address] Rapid Evaluation Fine Needle Aspiration Immediate Read [...] NEEDLE ASPIRATION 7 LYMPH NODE Pap stain Non-[employer] Supervisor, Diff-Quik stain Non-[employer] Supervisor, CELL BLOCK, H AND E, Initial B: FINE NEEDLE ASPIRATION 4R LYMPH NODE Pap stain Non-[employer] Supervisor, Diff-Quik stain Non-[employer] Supervisor, CELL BLOCK, H AND E, Initial C: FINE NEEDLE ASPIRATION 11RS LYMPH NODE Pap stain Non-[employer] Supervisor, Diff-Quik stain Non-[employer] Supervisor, CELL BLOCK, H AND E, Initial Gross [...] CLEAR NEEDLE RINSE IN CYTOLYT WITH PARTICLES. [facility] Department of Pathology [address] [place] [address] Normal [facility] Comment on above: Performed By: #### C #### [facility] Cytology [address] [place] [address] Consult (Pulmonary Medicine) on 08-26-2022 Consult (Pulmonary [...] Thoracic: Dr. Willett Pulmonology: Dr. Rio Dixon ([facility]) HPI: Patient presents to pulmonary clinic today as a new patient in regards to RUL nodule; referred by Dr. Willett from thoracic surgery. Patient gets her care through [facility] system and follows with commercial lines account executive Dr. Rio Dixon. 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 No exposure to birds or exotic animals. Family History: No known family history of lung diseases. No known family history of autoimmune disorders. - Aunt; emphysema Testing: PFT -03/12/22: FEV1/FVC: 29, FEV1: 0.52 (26%), FVC: 1.81 (70%), + BD Response, WPW00-13: 9%, T.41 (141%), RV/T%, DLCO: 36% CT Chest -07/08/22: 1. Continued increase in size of a now 9 mm spiculated mass within the right upper lobe superior segment; most consistent with neoplasm. 2. Increase in size of a (more content not included)... Normal [facility] CBC W MANUAL DIFFon 08-26-19 ATYPICAL LYMPH # Normal [facility] Comment on above: Performed By: #### C BCMAN #### [facility] [address] [place] [address] Dr. Dionicio Shook ATYPICAL LYMPH % Normal [facility] Comment on above: Performed By: #### C BCMAN #### [facility] [address] [place] [address] Dr. Dionicio Shook BAND # 0.0 103/ul Normal 0.0-0.3 [facility] Comment on above: Performed By: #### C BCJAKE #### [facility] [address] [place] [address] Dr. Dionicio Shook BAND % 0 % Normal 0-5 [facility] Comment on above: Performed By: #### C BCMAN #### [facility] [address] [place] [address] Dr. Dionicio Shook BASOM # 0.00 103/ul Normal 0.00-0.10 [facility] Comment on above: Performed By: #### C BCMAN #### [facility] [address] [place] [address] Dr. Dionicio Shook BASOM % 0.0 % Critically low 0.2-2.0 [facility] Comment on above: Performed By: #### C BCMAN #### [facility] [address] [place] [address] Dr. Dionicio Shook BLAST # Normal [facility] Comment on above: Performed By: #### C BCJAKE #### [facility] [address] [place] [address] Dr. Dionicio Shook BLAST % Normal [facility] Comment on above: Performed By: #### C BCJAKE #### [facility] [address] [place] [address] Dr. Dionicio Shook CORRECTED WBC Normal 4.0-11.0 [facility] Comment on above: Performed By: #### C BCMAN #### [facility] [address] [place] [address] [address] Dionicio Shook EOS # 0.57 103/ul Normal 0.00-0.70 [facility] Comment on above: Performed By: #### C BCJAKE #### [facility] [address] [place] [address] [address] Dionicio Shook EOS% 6.0 % Normal 0.9-7.0 [facility] Comment on above: Performed By: #### C BCMAN #### [facility] [address] [place] [address] [address] Dionicio Shook HCT 37.9 % Normal 36.0-48.0 [facility] Comment on above: Performed By: #### C BCJAKE #### [facility] [address] [place] [address] [address] Dionicio Shook HGB 12.1 g/dl Normal 12.0-16.0 [facility] Comment on above: Performed By: #### C BCJAKE #### [facility] [address] [place] [address] [address] Dionicio Shook LYMPHM # 5.89 103/ul Critically high 1.20-3.80 [facility] Comment on above: Performed By: #### C BCJAKE #### [facility] [address] [place] [address] [address] Dionicio Shook LYMPHM% 62.0 % Critically high 20.5-60.0 [facility] Comment on above: Performed By: #### C BCJAKE #### [facility] [address] [place] [address] [address] Dionicio Shook MCH 29.8 pg Normal 26.7-34.0 [facility] Comment on above: Performed By: #### C BCMAN #### [facility] [address] [place] [address] [address] Dionicio Shook MCHC 31.9 g/dl Normal 29.9-35.2 [facility] Comment on above: Performed By: #### C BCJAKE #### [facility] [address] [place] [address] [address] Dionicio Shook MCV 93.3 fL Normal 81.0-99.0 [facility] Comment on above: Performed By: #### C BCMAN #### [facility] [address] [place] [address] Dr. Dionicio Shook METAMYELOCYTE # Normal [facility] Comment on above: Performed By: #### C BCMAN #### [facility] [address] [place] [address] Dr. Dionicio Shook METAMYELOCYTE % Normal [facility] Comment on above: Performed By: #### C BCMAN #### [facility] [address] [place] [address] Dr. Dionicio Shook MONOM# 0.47 103/ul Normal 0.30-0.80 [facility] Comment on above: Performed By: #### C BCJAKE #### [facility] [address] [place] [address] Dr. Dionicio Shook MONOM% 5.0 % Normal 1.7-12.0 [facility] Comment on above: Performed By: #### C KIZZY #### [facility] [address] [place] [address] Dr. Dionicio Shook MPV 8.7 fL Critically low 9.5-13.5 [facility] Comment on above: Performed By: #### C KIZZY #### [facility] [address] [place] [address] Dr. Dionicio Shook MYELOCYTE # Normal [facility] Comment on above: Performed By: #### C BCJAKE #### [facility] [address] [place] [address] Dr. Dionicio Shook MYELOCYTE % Normal [facility] Comment on above: Performed By: #### C BCMAN #### [facility] [address] [place] [address] Dr. Dionicio Shook NRBC Normal [facility] Comment on above: Performed By: #### C BCJAKE #### [facility] [address] [place] [address] Dr. Dionicio Shook PLT 260 103/ul Normal 150-450 [facility] Comment on above: Performed By: #### C TANJAMAN #### [facility] [address] [place] [address] [address] Dionicio Shook RBC 4.06 106/ul Critically low 4.20-5.40 [facility] Comment on above: Performed By: #### C KIZZY #### [facility] [address] [place] [address] [address] Dionicio Shook RDW 13.2 % Normal 11.0-15.0 [facility] Comment on above: Performed By: #### C KIZZY #### [facility] [address] [place] [address] [address] Dionicio Shook SEG # 2.56 103/ul Normal 1.40-6.50 [facility] Comment on above: Performed By: #### C KIZZY #### [facility] [address] [place] [address] [address] Dionicio Shook SEG % 27.0 % Critically low 43.0-75.0 [facility] Comment on above: Performed By: #### C KIZZY #### [facility] [address] [place] [address] [address] Dionicio Shook WBC 9.5 103/ul Normal 4.0-11.0 [facility] Comment on above: Performed By: #### C KIZZY #### [facility] [address] [place] [address] [address] Dionicio Shook PROF CHEM 8 (BAS METB)on Anion gap [Moles/Vol] 9.9 mmol/L Normal [facility] Comment on above: Performed By: #### B MP #### [facility] [address] [place] [address] [address] Dionicio Shook Calcium [Mass/Vol] 8.8 mg/dL Normal 8.5-10.1 [facility] Comment on above: Performed By: #### B MP #### [facility] [address] [place] [address] [address] Dionicio Shook Chloride [Moles/Vol] 104 mmol/L Normal 98-107 [facility] Comment on above: Performed By: #### B MP #### [facility] [address] [place] [address] [address] Dionicio Shook CO2 [Moles/Vol] 31.2 mmol/L Normal 21.0-32.0 [facility] Comment on above: Performed By: #### B MP #### [facility] [address] [place] [address] [address] Dionicio Shook Creatinine [Mass/Vol] 0.57 mg/dL Normal 0.55-1.02 [facility] Comment on above: Performed By: #### B MP #### [facility] [address] [place] [address] [address] Dionicio Shook EGFR-AF CHADIAN >60 Normal >=60 [facility] Comment on above: Performed By: #### B MP #### [facility] [address] [place] [address] [address] Dionicio Shook EGFR-NON AF CHADIAN >60 Normal >=60 [facility] Comment on above: Performed By: #### B MP #### [facility] [address] [place] [address] [address] Dionicio Shook Glucose [Mass/Vol] 97 mg/dL Normal 74-106 [facility] Comment on above: Performed By: #### B MP #### [facility] [address] [place] [address] [address] Dionicio Shook Potassium [Moles/Vol] 4.1 mmol/L Normal 3.5-5.1 [facility] Comment on above: Performed By: #### B MP #### [facility] [address] [place] [address] [address] Dionicio Shook Sodium [Moles/Vol] 141 mmol/L Normal 136-145 [facility] Comment on above: Performed By: #### B MP #### [facility] [address] [place] [address] [address] Dionicio Shook Urea nitrogen [Mass/Vol] 10.0 mg/dL Normal 7.0-18.0 [facility] Comment on above: Performed By: #### B MP #### [facility] [address] [place], [place] [address] Dr. Dionicio Shook Urea nitrogen/Creatinine [Mass ratio] 17.5 mg/mg Normal [facility] Comment on above: Performed By: #### B #### [facility] [address] [place], [place] [address] Dr. 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 Oral and nasal mucosa are clear. The neck had no cervical or supraclavicular adenopathy. The trachea and midline is without crepitus. The thy (more content not included)... Normal [employer] Tobacco Screening.on 023 Fall risk assessment a) No falls within the last year [facility] Work Phone: Tobacco use status [facility] a) Yes [facility] Work Phone: [...] JENIFFER SHI Date: 2022-08-03 06:18 Normal [facility] CREATININEon 08-01-2022 Creatinine [Mass/Vol] 0.63 mg/dL Normal 0.55-1.02 [facility] Comment on above: Performed By: #### C YOUSIF #### [facility] [address] [place] [address] Dr. Dionicio Shook EGFR-AF CHADIAN >60 Normal >=60 [facility] Comment on above: Performed By: #### C YOUSIF #### [facility] [address] [place] [address] Dr. Dionicio Shook EGFR-NON AF CHADIAN >60 Normal >=60 [facility] Comment on above: Performed By: #### C YOUSIF #### [facility] [address] [place] [address] [address] SKULL BASE [...] BHAKTI ROSE Date: 2022-07-20 23:53 Normal [facility] COCCIDIODES IGG/IGM AB BY IF Aon 07-18-2022 Coccidiodes Ab, IgG EIA 0.2 EIA Units Normal [facility] Comment on above: Result Comment: Nega tive <1.0 Indeterminate 1.0-1.4 Positive >1.4 Performed By: #### C OCCABS #### [facility] [address] [place] [address] Dr. Dionicio Shook Coccidiodes Ab, IgM, EIA 0.1 EIA Units Normal [facility] Comment on above: Result Comment: Nega tive <1.0 Indeterminate 1.0-1.4 Positive >1.4 Performed By: #### C OCCABS #### [facility] [address] [place] [address] Dr. Dionicio Shook HISTOPLASMA CAP AB QUANT DID on 07-18-2022 Histoplasma Mycelial CF Ab. Negative Normal Neg:<1:2 [facility] Comment on above: Performed By: #### H ISTDID #### [facility] [address] [place] [address] Dr. Dionicio Shook Histoplasma Yeast CF Ab Negative Normal Neg:<1:2 [facility] Comment on above: Performed By: #### H ISTDID #### [facility] [address] [place] [address] Dr. Dionicio Shook FUNGAL AB QUANTITAIVE DOUBLE IMMUNODIFFUon 07-17-2022 Aspergillus flavus Negative Normal Neg:<1:1 [facility] Comment on above: Performed By: #### F UNGUYI #### [facility] [address] [place] [address] Dr. Dionicio Shook Aspergillus fumigatus Negative Normal Neg:<1:1 [facility] Comment on above: Performed By: #### F UNGUYI #### [facility] [address] [place] [address] Dr. Dionicio Shook Aspergillus niger Negative Normal Neg:<1:1 [facility] Comment on above: Performed By: #### F UNGUYI #### [facility] [address] [place] [address] Dr. Dionicio Shook Blastomyces Negative Normal Neg:<1:1 [facility] Comment on above: Performed By: #### F UNGUYI #### [facility] [address] [place] [address] Dr. Dionicio Shook ANTI NEUTROPHIL CYTOPLASMIC AB (ANCA) PRon 07-16-2022 Anti-MPO Antibodies <0.2 Normal 0.0-0.9 [facility] Comment on above: Result Comment: Perf ormed at: BN Performed By: #### H ISTDID #### [facility] [address] [place] [address] Dr. Dionicio Shook Anti-PR3 Antibodies <0.2 Normal 0.0-0.9 [facility] Comment on above: Result Comment: Perf ormed at: BN Performed By: #### H ISTDID #### [facility] [address] [place] [address] Dr. Dionicio Shook Atypical pANCA <1:20 Normal Neg:<1:20 [facility] Comment on above: Result Comment: The atypical pANCA pattern has been observed in a significant percentage of patients with ulcerative colitis, primary sclerosing cholangitis and autoimmune hepatitis. Performed at: CB Performed By: #### H ISTDID #### [facility] [address] [place] [address] Dr. Dionicio Shook Cytoplasmic (C-ANCA) <1:20 Normal Neg:<1:20 [facility] Comment on above: Result Comment: Perf ormed at: CB Performed By: #### H ISTDID #### [facility] [address] [place] [address] Dr. Dionicio Shook Perinuclear (P-ANCA) <1:20 Normal Neg:<1:20 [facility] Comment on above: Result Comment: The presence of positive fluorescence exhibiting P-ANCA or C-ANCA patterns alone is not specific for the diagnosis of Noe's Granulomatosis (WG) or microscopic polyangiitis. Decisions about treatment should not be based solely on ANCA IFA results. The International ANCA Group Consensus recommends follow up testing of positive sera with both WY-3 and MPO-ANCA enzyme immunoassays. As many as 5% serum samples are positive only by EIA. Ref. AM J Clin Pathol 1999;111:507-513. Performed at: CB Performed By: #### H ISTDID #### [facility] [address] [place] [address] Dr. Dionicio Shook HISTOPLASMA GALACTOMANNAN AG URINEon 07-16-2022 Histoplasma Gal'jean-pierre Ag <0.5 Normal <0.5 ng/mL [facility] Comment on above: Performed By: #### H ISTGAL #### [facility] [address] [place] [address] [address] Dionicoi Shook QUANTIFERON TB GOLD PLUSon 0 07-16-2022 QuantiFERON Criteria Comment Normal [facility] Comment on above: Result Comment: Patric [...] test. Performed By: #### H ISTDID #### [facility] [address] [place] [address] Dr. Dionicio Shook QuantiFERON Incubation Incubation performed. Normal [facility] Comment on above: Performed By: #### H ISTDID #### [facility] [address] [place] [address] Dr. Dionicio Shook QuantiFERON Mitogen Value >10.00 Normal [facility] Comment on above: Performed By: #### H ISTDID #### [facility] [address] [place] [address] Dr. Dionicio Shook QuantiFERON Nil Value 0.05 IU/mL Normal [facility] Comment on above: Performed By: #### H ISTDID #### [facility] [address] [place] [address] Dr. Dionicio Shook QuantiFERON TB1 Ag Value 0.05 IU/mL Normal [facility] Comment on above: Performed By: #### H ISTDID #### [facility] [address] [place] [address] Dr. Dionicio Shook QuantiFERON TB2 Ag Value 0.04 IU/mL Normal [facility] Comment on above: Performed By: #### H ISTDID #### [facility] [address] [place] [address] Dr. Dionicio Shook QuantiFERON-TB Gold Plus Negative Normal Negative [facility] Comment on above: Result Comment: No r esponse to M tuberculosis antigens detected. Infection with M tuberculosis is unlikely, but high risk individuals should be considered for additional testing (ATS/IDSA/CDC Clinical Practice Guidelines, 2017). The reference range is an Antigen minus Nil result of <0.35 IU/mL. Chemiluminescence immunoassay methodology Performed By: #### H ISTDID #### [facility] [address] [place] [address] Dr. Dionicio Shook ELVIRA EIA W/REFLEX 5 BIOMARKER Son 07-15-2022 ELVIRA Direct Negative Normal Negative [facility] Comment on above: Performed By: #### A NARF #### [facility] [address] [place] [address] Dr. Dionicio Shook CYCLIC CITRULLINATED PEPTIDE AB (CCP)on 07-15-2022 CCP Antibodies IgG/IgA 3 units Normal 0-19 [facility] Comment on above: Result Comment: Nega tive <20 Weak positive 20 - 39 Moderate positive 40 - 59 Strong positive >59 Performed By: #### H ISTDID #### [facility] [address] [place] [address] Dr. Dionicio Shook RHEUMATOID FACTORon 07-16-19 RA Latex Turbid. <10.0 Normal <14.0 [facility] Comment on above: Performed By: #### H ISTDID #### [facility] [address] [place] [address] Dr. Dionicio Shook SED RATE WESTERGRENon 2022 SED RATE 19 mm/hr Normal <=30 [facility] Comment on above: Performed By: #### H ISTDID #### [facility] [address] [place] [address] CHEST WO CONon [...] by: PIPER XIE Date: 2022-07-08 16:47 Normal [facility] ECHOCARDIO M/2D COMPLETEon 0 06-30-2022 ECHOCARDIO M/2D COMPLETE Patient: MELLISA HAMPTON Exam Date: 06/30/2022 : 1950 Gender:F Ordering : DR DALLAS FAJARDO DHectorOHector Admission #: [id number] Family : Order #: [id number] CLICK HERE TO VIEW EXAM ECHOCARDIOGRAM REPORT [...] M.D. on 07/01/2022 at 12:01 Normal [facility] CT CHEST WO CONon 03-13-2022 CT CHEST [...] PIPER XIE Date: 2022-03-13 09:04 Normal [facility] Blood Gas Art, with Akin Mo nghiaApril 03-12-2022 a/A Ratio Art 70.70 % Normal >=0.80 [facility] Comment on above: Performed By: #### 4 [id number] #### [facility] [address] [place] [address] AaDO2 Art 29.4 mmHg High 5.0-15.0 [facility] Comment on above: Performed By: #### 4 [id number] #### [facility] [address] [place] [address] Allens Test Positive Normal [facility] Comment on above: Performed By: #### 4 [id number] #### [facility] [address] [place] [address] Base Excess Arterial 1.4 mmol/L Low >=2.8 [facility] Comment on above: Performed By: #### 4 [id number] #### [facility] [address] [place] [address] cCa2+ Art 4.56 mg/dL Normal 4.40-5.30 [facility] Comment on above: Performed By: #### 4 [id number] #### [facility] [address] [place] [address] cCl- Art 102.0 mmol/L Normal 101.0-111.0 [facility] Comment on above: Performed By: #### 4 [id number] #### [facility] [address] [place] [address] cGlu Art 165 mg/dL High 55-99 [facility] Comment on above: Performed By: #### 4 [id number] #### [facility] [address] [facility] [place] [address] cK+ Art 3.8 mmol/L Normal 3.5-5.3 [facility] Comment on above: Performed By: #### 4 [id number] #### [facility] [address] [facility] [place] [address] cLac Art 1.0 mmol/L Normal .5-2.2 [facility] Comment on above: Performed By: #### 4 [id number] #### [facility] [address] [place] [address] automotive refinisher+ Art 136.0 mmol/L Normal 135.0-145.0 [facility] Comment on above: Performed By: #### 4 [id number] #### [facility] [address] [place] [address] Drawn by SAUMYA Invalid Interpretation Code [facility] Comment on above: Performed By: #### 4 [id number] #### [facility] [address] [place] [address] FCOHb Art 3.7 % Normal 1.5-4.9 [facility] Comment on above: Result Comment: Refe rence range Nonsmoker <1.5% Smoker <5.0% Heavy Smoker <9.0% Performed By: #### 4 [id number] #### [facility] [address] [place] [address] FIO2 BG [address] [facility] Comment on above: Performed By: #### 4 [id number] #### [facility] [address] [place] [address] FMetHb Art 0.4 % Normal 0.0-1.9 [facility] Comment on above: Performed By: #### 4 [id number] #### [facility] [address] [facility] [place] [place] [address] FO2Hb Art 92.0 % Normal 92.0-100.0 [facility] Comment on above: Performed By: #### 4 [id number] #### [facility] [address] [facility] [place] [address] HCO3 (Bld) [Moles/Vol] 25.6 mmol/L Normal 22.0-26.0 [facility] Comment on above: Performed By: #### 4 [id number] #### [facility] [address] [facility] [place] [address] Hemoglobin (Bld) [Mass/Vol] 12.4 g/dL Normal 12.0-16.0 [facility] Comment on above: Performed By: #### 4 [id number] #### [facility] [address] [place] [address] Oxygen saturation in Blood 96.0 % Normal 95.0-100.0 [facility] Comment on above: Performed By: #### 4 [id number] #### [facility] [address] [place] [address] P CO2 Arterial 40.8 mmHg Normal 35.0-45.0 [facility] Comment on above: Performed By: #### 4 [id number] #### [facility] [address] [place] [address] P O2 Arterial 70.9 mmHg Low 80.0-100.0 [facility] Comment on above: Performed By: #### 4 [id number] #### [facility] [address] [place] [address] pH Arterial 7.414 Normal 7.350-7.450 [facility] Comment on above: Performed By: #### 4 [id number] #### [facility] [address] [place] [address] Sample Site R Radial Normal [facility] Comment on above: Performed By: #### 4 [id number] #### [facility] [address] [place] [address] Sample Type Arterial Draw Normal [facility] Comment on above: Performed By: #### 4 [id number] #### [facility] [address] [place] [address] HEMOGLOBINon 03-12-2022 Hemoglobin (Bld) [Mass/Vol] 12.6 g/dL Normal 12.0-16.0 [facility] Comment on above: Performed By: #### H GB #### [facility] [address] [place] [address] Dr. Dionicio Shook LAB TESTINGon 03-12-2022 RECV HEADER SEE SCANNED REPORT I N HPF Normal [facility] Comment on above: Performed By: #### M ISC #### [facility] [address] [place] [address] Dr. Dionicio Shook REV FROM REF LAB 03/12/22 Normal [facility] Comment on above: Performed By: #### M ISC #### [facility] [address] [id number] Dionicio Shook SENT TO REF LAB 03/12/22 Normal [facility] Comment on above: Performed By: #### M ISC #### [facility] [address] [place], [place] [address] Dr. Dionicio Shook Physician Orderon 03-12-2022 Physician Order [id number]. 00CD:[address] [facility] Coding Summary.on 07-10-2021 Coding Summary. CD:[id number] Gh 0bWw+PGhlYWQ+CE1QDMGvS 19vrXMacD7CU3bQZQ5HOCN JFTILQJ1JGY6swWG2VOlrX 2VybiAv KqynkVJcZZ09PUe0ETM8cE uiOLebcG2yzCSeQ4b9OvUq XO19uW14XVbfYHJkWdV2Hz ZpbjsgbWFy T2lpDiKkvNCnKrb+PHRhYm xlIHdpZHRoPScxMDAlJyBz jClwBX4wZw4aQZMqGLXaqU xhcHNlOiBj y0qaYVUfABhlOL3tkYnpU5 AnmZD7JFFay5r4Uh53vUE+ OAKrNYP4dQgoIYlme922Hy Yjr1sjGRM4 yMSeLOunWDZ4V90po5U9OV HcVVQhIMP6xBY1tP7rsDcl lnkjC2MugNByRcK7KYZ2pF AubZ4wzUyd ufazjV5mYsu+G65RHR8MIF ZRNB7ATes5C4XqDpuxxCP+ WO60LUNvFZ93sEBbfDTgp3 zqcWq5RfHp FLHkZJR0wDxqUMxrm3NtSL WzZ80raMKtr2F1IKMioQoz qBFkNfCkpIP7eS8iORzbcx lvx0srpqtt Qopsp2hncn48eW28W21oOR ftZNHoAGE1EUGlFLOmcXlc cj3bwY7xKh9+OEkny2xbr8 diqOp6WtSb XKVmhcHnbLcaDVL2f4NcQq 88X1VoeDnfp5YiMfb2kq23 rTJmp1Z9vZZ2MRkjSZOknK 8kMBtuRhA8 AAOfRdHbqD47gAZlDSpuFn 4meAgnoVipDK3iXLUbcylf UBAzvH9lNBBalSItuIibGG 4wNTBpbjtm d950FkPkTYQ2JIJlzJNzK8 LkzS3aJcGvUAHsYIMwC9Eg fJMtSVtxJ281BNjsNuM8KM DoryDoU2Tn QUNysLjiDeK8l4Z0Hz3Si0 DzhesjIFY0AKcxUBZuNsMr GzBhPdC2H9OfAjj9TXZdsK ebHK6oY7Zd WBAwyygesdpabSZ3AVOxLC UlzC77zNJqIRdmUs8pq5K5 y024FBQrGKPwsJ33Iz5heB ogMTBwdCBU pA0rtmmbx2uhdlagKbCmDQ TeKEw0RAm6SPXjyIwsQaHy FRE9WcH2FGL0zBFhhA6hjZ oxmwdveA0v Oyc+F59roN2oWEH0BEX7pg niCNAahmSjSS86HR37L1Na PjwvdGFibGU+PGRpdiBzdH imYM1sRkWe b3mxq1TbWOqkC3DjRLFhMD nnAqo3VKEuAVV9rPV1hY5s MLRdTXmfu6Y2oKM1F1Cari Jkbu7zx1rk STUmLQroD85adLYyc9V4KU PgnNV8FMSwnVxxXdHwrT23 Oyc+SZGqnDzga0HmNylku3 ysu7hjbQa8 AySpYCWsxiSajRihKAQ2u1 DcEc26K26gPAcbQPGnFQKs IXUyOLFipWmxgh0kwG8tXk 8+PGNvbCB3 uXE7rU0gBBLzQoO5FWmqF7 14YyWkmITcPonva7rbd3go oVr2RtIiQGJkvsUscVkjET J8o2BuYv10 Z15eDNzmRVNdJJFeFAAfWM VabHhnaw7isX1oVk9+PC9j b4uxnn88yO06kBL+PHRkIH R6fSuiIKco TWSzyJ2aQRhhZeJ3PVXpTd FwrP61lRXzRXmdVr6xjRvx dSnnII7qKSWfcgcys704Lf Stj0rgJLZw fZSvSDsfATK5T77kf7S4GA BuGELtXWH0zKC1kG1ghFqj bjogbGVmdDsgdmVydGljYW yiVTnvH605 IHRvcDsnPlBhdGllbnQgTm AsSRx2K3EgHfi5SVSawLcx EL8ffDZmEMxfWc1rjZrboT pgJC9rUGRi lsytt982XpHje8tqUXQwwD YiHNcnCSO9G91ly3W6EXDu TEUrYIZ2jKR9jB3bvCqbwo ogbGVmdDsg byVslKhsNLgrRCyuM128RX RvcDsnPkJpcnRoIERhdGU6 AI46HM38eVMki9M3iTZ2S9 BhZGRpbmct fsaxtEQ0XMYmVYZwjQ71Ho 8ziFbdLy6aWWWcVIW9SJQa bWRnF9XsvP6iZsWzIXZnTL BuS1OarJOb WDqbG532CWugClR7MUBqhx NyF9ZsPSKiiHacPfU5x8V5 Md5DT8M2BG93ND42jSBuf5 K5nFW6X2Tx BUJacnnhlnqgdKD5RIAqYQ LhjM18Kj4vwOtdSv6dIHVa ODB7HIMxrTPiQ1WyaH3pHu AjMDAwMDAw O2UhfLXrNZxaT391TWvtWk X3TRWaxpOvB8QgRTMewRtj MrO7s1E5Kd4FKVk3BG39JP 26jHSro1E3 fHX4M5HoGBIoxgpxqewchA Z4CQGiILDmpO81Jp2quKhq Mo7uUHArERN3VOGtjSHoQ1 MyoH2oNfYq ZVZrQRJwJ5XiaYLmYDteF9 01ZWjcPiM3IFNztmAiT4Co HMVciDyaEiP7w8Z0Yf9QYC XkUL07YGT5 jPP5JU23SR05F1ClBsfuvT FibGU+PHRhYmxlIHdpZHRo KYqyYQNoCaDidWbmPJ5fHm 9yZGVyLWNv oQcosLNgBgThg2tqMPMdUA slSE2qwOdsW5SxlIX8HWNg h7u3Tf31V36jF0NywSH+PG CigUW8sXF3 hL1zWdTjQgP9AKlrJ862Pl NypLPhAvjew0oqz7pgoRy2 OyQ5SPBxwzYicYkoFUH1i6 RbNy09P69o IHdpZHRoPSIxNSUiIHZhbG bhvh2vlN7qMq5+PGNvbCB3 zPC9kC3yVpWjDvL0NHeeZ6 49InRvcCIv Asidm0sbh7pwkQr6SaGtGE FynvGbnYdyNVE2y2XwVy67 C2CmtVtpx7ZtXpi6ho68vP Ccc1Z6wQH1 M4ZdTYPoamtmhALixUvjLS 1yPNKqewuyWAVjmN6gQANg R8h3WbCyYyT4UInwO9Oyoi C8SWMseRNz EUpkJHM2E73rj2U0RSSlKO QgEUU3dWF7lD7cjJsmkkft bGVmdDsgdmVydGljYWwtYW gtD166LEIa fSjhNJEalM9bRZYooAVofV idKP7cRJNcvslaEhKOR27W WnybV2LNOB1kPHnmiCQ+PH KkUFZ5cQsl TMchDZNjdF4vZIVtO7h6Dw RxQfM9TTgqZ1ZhPDLxiyqc Ni57vR7rWtNwGwX0NWrsI5 DrycF5PIKc yMBkKAjkIUJ4I73pp8C1CF QyZFPrBHM5eKU9dW1ksOlr bjogbGVmdDsgdmVydGljYW loAZyuL731 VJVnvKwtQwZ1OrJxYaS5NU U8W0LdAjg7HZVgiRwvGA1j kBCzLPxhLg2ehRloaVxxFC 4wNTBpbjtw ZZKirI9vFQElrLVjpFwpFZ 0xAWNwhzsty950OxFfVYD0 KUTqePOyC5DgvJ8lWwRnOF PxMVFuY6Ca eIOxOUzqL037LSpnVgW6WV TbelLnB7VdGZFvqOwhDfD4 p1W5Iq79ICBLKFWfjuepeX Q+PHRkIHN0 bOcyFSoeTGWdlL6iOAKjM8 k6DfCdCzA7TJrgH2ItOSNs bysfNz22rZ7yTrEjFhM6GK wlZ4UgweF0 FRLidGJyYHzrFID1S93na9 O3CGFoZEZzVNS2lQA6sW6z bGlnbjogbGVmdDsgdmVydG ljYWwtYWxp Q855OFHdjUafJzUdiLOmLN wvdGQ+SERrENA2cAhfUNre OQIoiL0gETAlR4l9OlGuNa Y7ROloP0Vv BAHskukuKc96eY8aEpPzDi J0WUlcZ6JdcmE3IALemKPp NUtsXCY6G39xg0T1UUKiNN MjJPL7aDN5 tO6wlBsxeeczmIUiiIksqt OtyTqgXWweXLeiM914WDBf kLzxSs25jAMwoIsshwY0S6 RkPjwvdHI+ QL40MTWaWC06iIEnfHFli7 ktdCk9SwTzMWAbOOG4uWlq OTsre6RlOZMbB87mvEVqe6 F1KGKsmKpy pFYoAlYohUY2eT0jBLuowb ovb4frxtepPkncp9dhlb21 yM80D54zSAxiJVLvKKMxJL UiIHZhbGln nw9jpS8rUf4+XTSygDR0wR M1yK4nGjNeZjK9SSclY107 NxSbiVOwBgfkf7ztd3ewdX y3HvOwWOZu dqSakQdaOZD8o3DbPv42C5 9sIHdpZHRoPSIyMCUiIHZh cErtsh1bnE6lBq3+PC9jb2 evat35vT78 dHI+KESxYGJ2oBciVVreDG EuqH8xYCmuTeG7WYHoScSa xR73dQCxIVtuXn5yyOtprV cxIS3fMBVv mwmps970CsYxp5ezAVXjnA PmYYdcBOG6U94an3H8HIPt JOAmQSE5oIG3oV6tkFhrde ogbGVmdDsg lnQsgRykMKtrDGqvB153RS HitFpwQiBwfNPhS4rbwgEU YW1pVlvwiBS+NYAvHYU8hW xlPSdwYWRk yN4lCNEtP7z7HvGbFjW2OZ gjD2JncgK0IROzgCWvZYSp hPDFrR9gjhqdg8ylulhsIf AwMDAwMDt0 SSm2UIEadXjiTqUpTMP9Di N2VBU4zJRlxX0sjSggyjij tF6mMkm+RklOOjwvdGQ+PH FyXKS5bEoe FShwUSWidS8pCPFxG3n6Lz CvTlB7FGeeC9KfkvM8HTFx nGOjLSGcwQOHoT6ykutja6 xvcjogIzAw FBWkVEx6HPr1DBTrtQkeCb MtNYG0ZiL6AEI3oXGkgD1c qUiryxqtcO3yQkl+TVJOOj wvdGQ+PHRk WQN9pNmpHDtiDPHncH8yJF RjV0p0UuWnFnT8AEioL1As rrN0IJEteYEuBYCuzODHjG 6hvavbf2gw qkenRdCnCMJgDYp6YCc5WC QphNpiRkOuCIE5InS5MEZ9 kODhjT3ojDvczprztU4cVb c+KDP6GPZ3 JR69RA52W6MsTsjnlSIkdS U+PHRhYmxlIHdpZHRoPScx PWNuGyAeaAdsYJ9iWu0vAH VyLWNvbGxh cHNl (more content not included)... Normal [facility] Consent for Treatmenton 06-18 Consent for Treatment [id number] 0CD:[address] [facility] Heart and Vascular Office/Cl inic Noteon [...] for 30 day(s), 60 EA, Refill(s) 6, [facility], 158, cm, 06/28/21 [...] neoplasm of rectum: Mother. Stroke: Father. Normal [facility] Comment on above: Result Comment: Elec tronically Signed By: Christian WILLSON, Mena Rodas\.br\Date and Time Signed: 06/28/21 11:40 EST Insurance Correspondenceon 0 05-16-2021 Insurance Correspondence [id number] 0CD:127 [facility] Vital Signs Date Time Vital Sign Value Performing Clinician Jaz bowman 11-20-2022 10:03-0400 Body temperature 99.2 [degF] [facility] Work Phone: [facility] 11-20-2022 10:03-0400 [facility] 11-20-2022 10:03-0400 Diastolic blood pressure 72 mm[Hg] [facility] 11-20-2022 10:03-0400 Heart rate 93 /min [facility] 11-20-2022 10:03-0400 Respiratory rate 18 /min [facility] Work Phone: [facility] 11-20-2022 10:03-0400 SaO2% (BldA) [Mass fraction] 95 % [employer] Work Phone: [facility] 11-20-2022 10:03-0400 Systolic blood pressure 128 mm[Hg] [employer] Work Phone: [facility] 10-01-2022 14:08-0400 Body height 154.94 cm [employer] Work Phone: [facility] 10-01-2022 14:08-0400 Body weight 51.25 kg [employer] Work Phone: [facility] 10-01-2022 14:08-0400 Diastolic blood pressure 72 mm[Hg] [employer] Work Phone: [facility] 10-01-2022 14:08-0400 Heart rate 78 /min [employer] Work Phone: [facility] 10-01-2022 14:08-0400 Respiratory rate 20 /min [employer] Work Phone: [facility] 10-01-2022 14:08-0400 SaO2% (BldA) [Mass fraction] 97 % [employer] Work Phone: [facility] 10-01-2022 14:08-0400 Systolic blood pressure 138 mm[Hg] [employer] Work Phone: [facility] 08-14-2022 10:52-0400 Body height 154.94 cm [facility] Work Phone: [facility] Work Phone: 08-14-2022 10:52-0400 Body mass index (BMI) [Ratio] 21.16 kg/m2 [facility] Work Phone: [facility] Work Phone: 08-14-2022 10:52-0400 Body surface area Derived from formula 1.48 m2 [facility] Work Phone: [facility] Work Phone: 08-14-2022 10:52-0400 Body temperature 97.7 [degF] [facility] Work Phone: [facility] Work Phone: 08-14-2022 10:52-0400 Body weight 50.8 kg [facility] Work Phone: [facility] Work Phone: 08-14-2022 10:52-0400 Diastolic blood pressure 73 mm[Hg] Dallas Dorantes [employer] Work Phone: [facility] Work Phone: 08-14-2022 10:52-0400 Heart rate 93 /min [facility] Work Phone: [facility] Work Phone: 08-14-2022 10:52-0400 Respiratory rate 16 /min Dallas Dorantes [employer] Work Phone: [facility] Work Phone: 08-14-2022 10:52-0400 SaO2% (BldA) [Mass fraction] 98 % Dallas Dorantes [employer] Work Phone: [facility] Work Phone: 08-14-2022 10:52-0400 Systolic blood pressure 141 mm[Hg] [facility] Work Phone: [facility] Work Phone: Encounters Encounter Date Encounter Type Care Provider Facility Start: 10-12-2023 End: 10-12-2023 ambulatory DO DALLAS FAJARDO Facility:[facility] Start: 10-08-2023 ambulatory Dallas Fajardo Facility: [facility] Start: 04-14-2023 End: 04-14-2023 ambulatory Derek Duffy MD Facility:[facility] Start: 03-30-2023 End: 03-30-2023 ambulatory Derek Duffy MD Facility:[facility] Start: 11-20-2022 End: 11-20-2022 ambulatory Rio Dixon Work Phone: [facility] Work Phone: Start: 11-20-2022 End: 11-20-2022 Registered Recurring Rio Dixon Work Phone: [facility] Work Phone: Start: 10-01-2022 End: 10-01-2022 ambulatory Rio Dixon Work Phone: [facility] Work Phone: Start: 10-01-2022 End: 10-01-2022 Registered Recurring Rio Dixon Work Phone: [facility] Work Phone: Start: 08-28-2022 Encounter for other preprocedural examination DR DOCTOR HESS [facility] Start: 08-28-2022 End: 08-28-[address] Jorge Alberto Carlson Facility:[facility] Start: 08-26-2022 Phys/qhp telephone evaluation 21-30 min Dallas Fajardo Work Phone: [facility] Work Phone: Start: 08-26-2022 KISHOR, Provider [...] Phone: Start: 08-14-2022 ambulatory JEAN PIERRE WILLETT Facility:[facility] Start: 08-01-2022 End: 08-02-2022 ambulatory RIO SAMSA . Facility: Start: 07-19-2022 End: 07-20-2022 ambulatory RIO SAMSA . Facility: Start: 07-14-2022 End: 07-15-2022 ambulatory RIO SAMSA . Facility: Start: 07-08-2022 End: 07-09-[address] PIPER XIE Facility: Start: 06-30-2022 End: 07-01-[address] DALLAS FAJARDO Facility: Start: 03-12-2022 End: 03-13-2022 ambulatory RIO Jayna SAMSA Facility:[facility] Start: 06-28-2021 End: 06-29-2021 ambulatory XXXX NONE Facility:[facility] Patient encounter status Dallas Fajardo Work Phone: [facility] Work Phone: Procedures Date Procedure Procedure Detail Performing Clinician Abdominoplasty Dallas Holmanu Work Phone: section [facility]antes [facility] Work Phone: Plan of Treatment Date Care Activity Detail Author Computed tomography for radiotherapy planning [facility] enter CT Chest WO contrast [facility] Immunizations Immunization Date Immunization Notes Care Provider Fa cilicamilo 03-11-2016 influenza, injectabl e, quadrivalent, preservative free Dallas Fajardo Work Phone: [facility] Work Phone: 03-11-2016 pneumococcal polysaccharide vaccine, 23 valent Dallas Fajardo Work Phone: [facility] Work Phone: 02-20-2016 influenza, injectabl e, quadrivalent, preservative free Dallas Fajardo Work Phone: [facility] Work Phone: 02-20-2016 pneumococcal polysaccharide vaccine, 23 valent Dallas Dorantes [place] Work Phone: [facility] Work Phone: Payers Date Payer Category Payer Unknown [id number] 2021 Self-pay 2020 Medicaid [id number] 2020 Medicaid [id number] 1959 Medicare [id number] 1959 Unknown [id number] 1950 Unknown [id number] 2.16.8 [id number] 1950 Unknown [id number] 2.16.8 40.1.317030.3.579.2.727 1950 Unknown [id number] 2.16. 840.1.522223.3.579.2.356 1950 Unknown [id number] 2.16.84 0.1.844014.3.579.2.593 1950 Unknown [id number] 2.16.84 0.1.291595.3.579.2.593 1950 Unknown [id number] 2.16.84 0.1.445295.3.579.2.593 1950 Unknown [id number] 2.16.84 0.1.784485.3.579.2.593 1950 Unknown [id number] 2.16.84 0.1.065170.3.579.2.593 1950 Unknown [id number] 2.16.84 0.1.705819.3.579.2.593 1950 Unknown [id number] 2.16.84 0.1.003726.3.579.2.593 1950 Unknown [id number] 2.16. 840.1.686504.3.579.2.356 1950 Unknown [id number] 2.16.8 40.1.481484.3.579.2.1068 1950 Unknown [id number] 2.16.8 40.1.765379.3.579.2.718 1950 Unknown [id number] 2.16.8 40.1.099985.3.579.2.718 1950 Unknown [id number] 2.16.8 40.1.686233.3.579.2.718 Unknown Unknown [id number] 2.16.8 40.1.858184.3.579.2.531 Social History Date Type Detail Facility Current smoker Current smoker [facility] Work Phone: Comment on above: 5 A DAY CURRENTLYSTA RTED AT 22 QUIT A FEW TIMES FOR A YEAR OR SO; Start: 10-01-2022 Tobacco smoking status NHIS Smoker ( finding) [facility] Start: 1950 Sex Assigned At Female F [facility] Medication management note 12-07-2023 Note Date & Type Note Facility 12-07-2023 Note Entered by KAREN FAJARDO DO on December 07, 2023 07:33:56 EDT From: DALLAS FAJARDO DO To: [facility]/pharmacy #[id number] Sent: 12/07/2023 07:33:56 EDT Subject: Medication Management Submitted: Complete:citalopram (citalopram 20 mg oral tablet) Signed by DALLAS FAJARDO DO 12/07/2023 07:33:00 EDT Approved with modifications: citalopram (CITALOPRAM HBR 20 MG TABLET) TAKE 1 TABLET BY MOUTH EVERY DAY Qty: 90 tab(s) Days Supply: 90 Refills: 5 Substitutions Allowed Route To Pharmacy - [facility]/pharmacy #[id number] From: [id number] To: DALLAS FAJARDO DO Sent: December 06, 2023 11:41:36 PM CDT Subject: Medication Management Due: December 07, 2023 12:08:44 AM CDT On Hold Pending Signature Dispensed Drug: citalopram (citalopram 20 mg oral tablet), TAKE 1 TABLET BY MOUTH EVERY DAY Quantity: 90 tab(s) Days Supply: 90 Refills: 0 Substitutions Allowed Notes from Pharmacy: [facility] Medication management note 08-25-2023 Note Date & Type Note Facility 08-25-2023 Note Entered by KAREN FAJARDO DO on August 25, 2023 13:09:21 EDT From: DALLAS FAJARDO DO To: [facility]/pharmacy #[id number] Sent: 08/25/2023 13:09:21 EDT Subject: Medication Management Submitted: Complete:citalopram (citalopram 20 mg oral tablet) Signed by DALLAS FAJARDO DO 08/25/2023 13:09:00 EDT Approved with modifications: citalopram (CITALOPRAM HBR 20 MG TABLET) TAKE 1 TABLET BY MOUTH EVERY DAY Qty: 30 tab(s) Days Supply: 30 Refills: 2 Substitutions Allowed Route To Pharmacy - [facility]/pharmacy #[id number] From: [id number] To: DALLAS FAJARDO DO Sent: August 25, 2023 11:46:09 AM CDT Subject: Medication Management Due: August 26, 2023 6:37:27 AM CDT On Hold Pending Signature Dispensed Drug: citalopram (citalopram 20 mg oral tablet), TAKE 1 TABLET BY MOUTH EVERY DAY Quantity: 30 tab(s) Days Supply: 30 Refills: 0 Substitutions Allowed Notes from Pharmacy: [facility] Consult note 10-01-2022 Note Date & Type Note Facility 10-01-2022 Consult note Note Date/Time October 01, 2022 1:30pm [facility] [place] [id number] Rad Onc Consult Note - OP Signed Patient: Mellisa Hampton MR#: [id number] : 1950 Acct:[id number] Age/Sex: 71 / F Type: REG RCR Copies to: DO Rio Glass DO~ Assessment & Plan (1) Pulmonary nodule seen on imaging study Plan: CT simulation-4D, plan for SBRT to the right upper lobe tumor to a dose of 54 Michele in 3 fractions Assessment: 71-year-old female with imaging consistent with Stage IA1 [id number] non-small cell lung cancer of the right [...] presented at thoracic tumor board conference at [facility]. 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 [facility] - Family History Family History: Family History [...] <Electronically signed by Levi Ann MD> 10/01/22 [id number] [facility] Work Phone: Clinical Note 08-15-2022 Note Date & Type Note Facility 08-15-2022 Note MELLISA HAMPTON was pre sented at Thoracic Tumor Board Conference Conference date: 15-Aug-2022 Presenting Provider(s): (Dr. Marvin Willett) Presenting location(s): [facility] [place] Conference Review Type: Treatment Planning Impression [...] Updated: 17-Aug-2022 21:02 by Kiley Dotson (COOR) [facility] Clinical Note 07-02-2021 Note Date & Type Note Facility 07-02-2021 Note - From: Ivette Cowart To: - Administrative; Sent: 07/02/2021 14:43:20 EDT Show up: 12/02/2021 14:42:00 EDT Subject: Ambulatory Reminder Due Date/Time: 01/02/2022 14:43:00 EDT Reminder/Recall 6 month f/u December 2021 w/ [facility] CT Chest w/o contrast [facility] Consult note Note Date & Type Note Facility Consult note Note Date/Time October 01, 2022 1:30pm [facility] [place] [address] Rad Onc Consult Note - OP Signed Patient: Mellisa Hampton MR#: [id number] : 1950 Acct:[id number] Age/Sex: 71 / F Type: REG RCR Copies to: DO Rio Glass DO~ Assessment & Plan (1) Pulmonary nodule seen on imaging study Plan: CT simulation-4D, plan for SBRT to the right upper lobe tumor to a dose of 54 Michele in 3 fractions Assessment: 71-year-old female with imaging consistent with Stage IA1 [id number] non-small cell lung cancer of the right [...] presented at thoracic tumor board conference at [facility]. 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 [facility] - Family History Family History: Family History [...] <Electronically signed by Levi Ann MD> 10/01/22 [id number] [facility] Work Phone: Evaluation note Note Date & Type Note Facility Evaluation note Diagnosis Onset Date Pulmonary nodule seen on imaging study acute [facility] Work Phone: History of Present illness [...] or wheezing. Has chronic dry cough. MG-CT Surgery-[facility] Work Phone: History of Present illness Narrative Note Date & Type Note Facility History of Present illness Narrative Patient's visit was converted to a virtual visit given current COVID- 19 pandemic.Ms. Hampton is a 71 year old woman, current smoker (1 PPD for 49 years, 49 total pack years.), being evaluated today for RUL nodule.PCP: Dr. Dallas FajardoThoracic: Dr. LockettiPulmonology: Dr. Rio Dixon ([facility])HPI: Patient presents to pulmonary clinic today as a new patient in regards to RUL nodule; referred by Dr. Willett from thoracic surgery. Patient gets her care through [facility] system and follows with commercial lines account executive Dr. Rio Dixon. 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 No known family history of autoimmune disorders.- Aunt; emphysemaTesting:PFT-03/12/22: FEV1/FVC: 29, FEV1: 0.52 (26%), FVC: 1.81 (70%), + BD Response, [id number]: 9%, T.41 (141%), RV/T%, DLCO: 36%CT Chest-07/08/22: [...] doing things. Patient Declined/Screening not indicated. [facility] Work Phone: Progress note Note Date & Type Note Facility Progress note Note Date/Time November 20, 2022 9:0 1am [facility] [place] [address] Rad Onc Follow Up Note - OP Signed Patient: Mellisa Hampton MR#: [id number] : 1950 Acct:[id number] Age/Sex: 72 / F Type: REG RCR Copies to: DO Rio Glass DO~ Date of Service Service Date: 11/20/22 Assessment & Plan (1) Pulmonary nodule seen on imaging study Plan: Return to clinic end of January 2023 with first surveillance chest CT noncontrast Assessment: 72-year-old female with imaging consistent with Stage IA1 [id number] non-small cell lung cancer of the right [...] uses her inhaler 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 She has follow-up with pulmonology. Regarding the [...] Patient would like to obtain this in [place]. Follow Up Note - Narrative 72-year-old female [...] presented at thoracic tumor board conference at [facility]. She was recommended for a staging EBUS [...] extremities within normal limits Dictated By: Levi Ann MD DD/ [id number] Signed By: <Electronically signed by Levi Ann MD> 11/20/22 [address] [facility] Work Phone: Summary Purpose Family History [...] section and content) DATE CREATED AUTHOR 03/13/2022 [facility] DATE CREATED AUTHOR AUTHOR'S ORGANIZ ATION 08/27/2022 [facility] DATE CREATED AUTHOR AUTHOR'S ORGANIZ ATION 08/28/2022 [employer] DATE CREATED AUTHOR AUTHOR'S ORGANIZ ATION 08/29/2022 [facility] [place] [facility] DATE CREATED AUTHOR AUTHOR'S ORGANIZ ATION 09/02/2022 [facility] DATE CREATED AUTHOR AUTHOR'S ORGANIZ ATION 12/24/2022 [facility] DATE CREATED AUTHOR AUTHOR'S ORGANIZ ATION 11/18/2023 [facility] DATE CREATED AUTHOR AUTHOR'S ORGANIZ ATION 12/07/2023 [facility] l Care Teams (unrecognized sec tion [...] BE BASED ON THE PRIMARY CLINICAL RECORDS. [facility]. provides no warranty or guarantee of the accuracy or completeness of information in this document.
[2024-01-19] VITALS (73 sets, daily range): BP systolic 93–152; BP diastolic 66–92; PULSE 87–123; RESP 12; TEMP 36.6–36.7; O2SAT 87–100
[2024-01-19] MEDS: IPRATROPIUM/ALBUTEROL SULFATE 3 ML AMPUL.NEB IH ×6 (03:18→23:23)
[2024-01-19] MEDS: METHYLPREDNISOLONE SOD SUCC PF 40 MG/ML VIAL IVP (05:08)
[2024-01-19] MEDS: GUAIFENESIN 200 MG/DEXTROMETHORPHAN 20 MG 10 ML UNIT DOSE CUP PO (05:08)
[2024-01-19 06:54] LABS: Hemoglobin 13.3 g/dL (12.0-16.0); Mean Corpuscular HGB Conc 32.4 g/dL (29.9-35.2); Mean Corpuscular Hemoglobin 30.4 pg (26.7-34.0); Mean Corpuscular Volume 93.6 fL (81.0-99.0); Mean Platelet Volume 8.6 fL (9.5-13.5); Platelet Count 399 10^3/uL (150-450); Red Blood Count 4.38 10^6/uL (4.20-5.40); Red Cell Distribution Width 12.2 % (11.0-15.0)
[2024-01-19 07:04] LABS: Anion Gap 14.2; BUN Creatinine Ratio 14.9; Calcium 9.1 mg/dL (8.5-10.1); Carbon Dioxide 28.1 mmol/L (21.0-32.0); Chloride 94 mmol/L (98-107); Estimated GFR (African America >60 (>=60); Estimated GFR (Non-African Ame >60 (>=60); Glucose 159 mg/dL (74-106); Potassium 4.3 mmol/L (3.5-5.1); Sodium 132 mmol/L (136-145)
--- NOTE | 2024-01-19 07:52 | PM.PLCN ---
History of Present Illness History of Present Illness Consult date: 01/19/24 Requesting physician: Shaikh Cassandra Chief complaint: Shortness of Breath, COPD Exacerbation Narrative: 73yo female whom I follow with outpatient for COPD presented to [facility] ER yesterday (01/18/2024) after several days of worsening dyspnea. She states it began with sinus congestion and then settled in her chest. There are no know sick contacts. She did not feel ill such as an infection - denied fevers, chills, sweats. She began using her albuterol more often and increased her O2 up to 3L/min (she has a pulse ox, but has never used it). Upon evaluation in the ER, CXR did not show any infiltrates and on ABG, there was a mild acute respiratory acidosis with pH 7.314 and pCO2 53.9. This morning, she states she is still short of breath and feels congested. She has difficulty expectorating. RT reports that she is requesting albuterol frequently and claim that the patient told her that she has been using her own as well as her grandchild's albuterol. There is bronchiectasis identified on past chest CT. At her last visit with me on 11/24/2023, she began complaining of increased secretions. We discussed hypertonic saline, but patient held off on it. She was started on Ohtuvayre, a novel PDE3/PDE4 inhibitor, for COPD. She contacted the office on 01/06/2024 with the belief that Ohtuvayre was causing her to be short of breath every evening at 18:00, despite having improved breathing in the day. Her complaints were never reported in clinical trials and it was felt her symptoms were not attributable to Ohtuvayre. There was suspicion that the patient was developing an exacerbation around that time and she was advised to call 911 or go to the ER then if she was feeling worse. She has presumptive NSCLC of the RUL, s/p SBRT in 2022 (did not have biopsy to confirm it), no chemo. Despite her multiple respiratory issues, the patient continues to smoke at least 5 cigarettes/day. She has macular degeneration of both eyes and is legally blind. 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 ?H35.3190 - Nonexudative age-related macular degeneration, unspecified eye, stage unspecified (ICD-10) Oxygen dependent ?Z99.81 - Dependence on supplemental oxygen (ICD-10) COPD (chronic obstructive pulmonary disease) ?J44.9 - Chronic obstructive pulmonary disease, unspecified (ICD-10) Surgical History Hx of abdominoplasty ?Z98.890 - Other specified postprocedural states (ICD-10) H/O tubal ligation ?Z98.51 - Tubal ligation status (ICD-10) H/O section ?Z98.891 - History of uterine scar from previous surgery (ICD-10) Family History Mother Family history of cancer Father Family history of CHF (congestive heart failure) Family history of hypertension Brother Family history of myocardial infarction Sister Family history of cancer Social History Within the past year, how often did you have a drink containing alcohol: never Score interpretation: A score less than 3 is consistent with normal alcohol consumption. Smoking status: Current every day smoker Non-prescribed substance use: cannabis (any form) Previous occupational history: retired Highest level of school completed/degree received: 11th grade Are you now , , , , never or living with a partner: In a typical week, how many times do you talk on the telephone with family, friends, or neighbors: 3 or more times per week How often do you get together with friends or relatives: 3 or more times per week How often do you attend synagogue or sabianism services: 4 or more times per year Little interest or pleasure in doing things: not at all Feeling down, depressed, or hopeless: not at all Feel stressed/tense/nervous/anxious/difficulty sleeping: not at all Do you think of yourself as: straight/heterosexual Gender Identity: female Meds Home Medications and Allergies Home Medications ?Medication ?Instructions ?Recorded ?Confirmed ?Type albuterol sulfate 90 mcg/actuation 2 puff inhalation Q4H PRN 01/18/24 01/18/24 History aerosol inhaler shortness of breath or wheezing azithromycin 250 mg tablet 250 mg PO .q am 01/18/24 01/18/24 History budesonide 160 mcg-glycopyr 9 2 inh inhalation BID 01/18/24 01/18/24 History mcg-formot 4.8 mcg/actuation HFA inhaler (Breztri Aerosphere) ensifentrine 3 mg/2.5 mL 3 mg inhalation BID 01/18/24 01/18/24 History suspension for nebulization (Ohtuvayre) ipratropium 0.5 mg-albuterol 3 mg 3 ml inhalation Q4H 01/18/24 01/18/24 History (2.5 mg base)/3 mL nebulization soln prednisone 10 mg tablet 10 mg PO .q am 01/18/24 01/18/24 History Allergies Allergy/AdvReac Type Severity Reaction Status Date / Time No Known Drug Allergies Allergy Verified 01/18/24 19:40 Exam Constitutional Vital Signs, click to edit/add: Last Vital Signs Temp 97.9 F 01/19/24 04:00 Pulse 109 H 01/19/24 06:06 Resp 26 H 01/19/24 06:06 BP 152/75 H 01/19/24 04:00 Pulse Ox 93 L 01/19/24 06:06 O2 Del Method Nasal Cannula 01/19/24 06:06 O2 Flow Rate 4 01/19/24 06:06 Documenting provider has reviewed patient's vital signs: yes Common normals: no apparent distress and average body habitus [facility] Common normals: normocephalic Nose: foreign body in naris Other: Wearing nasal cannula. No oral candidiasis Eye Other: Requires looking via peripheral vision given bilateral macular degeneration Chest Common normals: inspection of chest normal Respiratory Other: Very diminished breath sounds bilaterally - did not appreciate any wheezes or crackles at this current time. Cardio Rate: regular rate Rhythm: regular rhythm GI Inspection: normal to inspection Extremity Common normals: normal to inspection Neuro Common normals: oriented x3 Sensorium/orientation: awake and alert Psych Attitude: calm and engaged Results Laboratory Findings ABG, PT/INR, D-dimer: ABG ABG pH 7.314 (7.350-7.450) L 01/18/24 20:15 ABG pCO2 53.9 mmHg (35.0-45.0) H* 01/18/24 20:15 ABG pO2 88.0 mmHg (80.0-100.0) 01/18/24 20:15 ABG O2 Saturation 96.9 % 01/18/24 20:15 Abnormal lab findings: Abnormal Labs 01/18/24 01/18/24 01/19/24 19:42 20:15 06:08 WBC 14.8 H 14.0 H RBC 4.01 L MPV 8.5 L 8.6 L Lymphocytes % (Manual) 10.0 L Basophils % (Manual) 0.0 L Neutrophils # (Manual) 8.88 H Monocytes # (Manual) 1.03 H ABG pH 7.314 L ABG pCO2 53.9 H* ABG HCO3 27.4 H Sodium 132 L 132 L Chloride 95 L 94 L Carbon Dioxide 32.3 H Glucose 110 H 159 H Assessment and Plan Assessment and Plan (1) Acute exacerbation of chronic obstructive pulmonary disease: Assessment and Plan: I do not believe this was instigated or exacerbated by Ohtuvayre, as she had been on it for nearly a month before experiencing these symptoms. Currently COVID & influenza negative. May have been precipitated by other viral illness, or due to the seasonal change to brianda. Her continued smoking has certainly not helped the situation. There is also concern for excessive albuterol use leading to tachyphylaxis. For now, continue current treatment plan including systemic steroids and inhaled bronchodilators. Explained she is on nearly max treatment and her continued smoking/self-destructive behavior is getting her to a point it is very difficult to treat her outpatient. (2) Acute exacerbation of bronchiectasis: Assessment and Plan: She is becoming more symptomatic from this. Start PEP and add hypertonic saline nebs to promote a pulmonary toilet. (3) Acute on chronic hypoxic respiratory failure: Assessment and Plan: Patient was hypoxic on admission beyond baseline O2 use @ HS. She has been having a slow decline outpatient requiring more and more O2 use during the day. Continue with O2 for now; she may require it ATC @ discharge. No smoking around the O2! (4) Cigarette nicotine dependence with nicotine-induced disorder: Assessment and Plan: Had lengthy discussion regarding smoking and her history of COPD and lung cancer...she needs to stop! She acknowledged that smoking is her god and it is a false god and she needs to quit worshiping it. Hopefully she will remain off cigarettes at discharge, but there has been a significant amount of irreversible damage already done. (5) Cancer of upper lobe of right lung: Assessment and Plan: No signs of active cancer based on most recent evaluation outpatient.
[2024-01-19] MEDS: AZITHROMYCIN 250 MG TABLET PO (08:48)
[2024-01-19] MEDS: GUAIFENESIN 600 MG TAB.ER.12H 1200 MG PO ×2 (08:48→21:06)
--- NOTE | 2024-01-19 10:22 | PC.NURSE ---
Pt transferred to ICU for Bipap. Pt anxious, more short of breath after DR rounds on pt. Transferred to room 275 per bed and oxygen. Report given to Isabel WILDE
[2024-01-19] MEDS: BUDESONIDE 0.5 MG/2 ML AMPULE NEB IH ×2 (10:25→23:24)
[2024-01-19] MEDS: ONDANSETRON PF 4 MG/2 ML VIAL IV (10:52)
[2024-01-19] MEDS: ALPRAZOLAM 0.5 MG TABLET PO ×2 (11:06→19:13)
--- NOTE | 2024-01-19 11:14 | CM.NOTE ---
Rounds made with Dr. Trujillo, pt very dyspneic when entering room, pt using accessory muscles to breathe. Dr. Trujillo discussed with pt plan of care. Dr. Trujillo will consult Dr. Dixon for futher recommedations.
--- NOTE | 2024-01-19 12:17 | P.HP_ITS ---
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 ?H35.3190 - Nonexudative age-related macular degeneration, unspecified eye, stage unspecified (ICD-10) Oxygen dependent ?Z99.81 - Dependence on supplemental oxygen (ICD-10) COPD (chronic obstructive pulmonary disease) ?J44.9 - Chronic obstructive pulmonary disease, unspecified (ICD-10) Surgical History Hx of abdominoplasty ?Z98.890 - Other specified postprocedural states (ICD-10) H/O tubal ligation ?Z98.51 - Tubal ligation status (ICD-10) H/O section ?Z98.891 - History of uterine scar from previous surgery (ICD-10) Family History Mother Family history of cancer Father Family history of CHF (congestive heart failure) Family history of hypertension Brother Family history of myocardial infarction Sister Family history of cancer Social History Within the past year, how often did you have a drink containing alcohol: never Score interpretation: A score less than 3 is consistent with normal alcohol consumption. Smoking status: Current every day smoker Non-prescribed substance use: cannabis (any form) Previous occupational history: retired Highest level of school completed/degree received: 11th grade Are you now , , , , never or living with a partner: In a typical week, how many times do you talk on the telephone with family, friends, or neighbors: 3 or more times per week How often do you get together with friends or relatives: 3 or more times per week How often do you attend episcopalian or druze services: 4 or more times per year Little interest or pleasure in doing things: not at all Feeling down, depressed, or hopeless: not at all Feel stressed/tense/nervous/anxious/difficulty sleeping: not at all Do you think of yourself as: straight/heterosexual Gender Identity: female Meds Home Medications and Allergies Home Medications ?Medication ?Instructions ?Recorded ?Confirmed ?Type albuterol sulfate 90 mcg/actuation 2 puff inhalation Q4H PRN 01/18/24 01/18/24 History aerosol inhaler shortness of breath or wheezing azithromycin 250 mg tablet 250 mg PO .q am 01/18/24 01/18/24 History budesonide 160 mcg-glycopyr 9 2 inh inhalation BID 01/18/24 01/18/24 History mcg-formot 4.8 mcg/actuation HFA inhaler (Breztri Aerosphere) ensifentrine 3 mg/2.5 mL 3 mg inhalation BID 01/18/24 01/18/24 History suspension for nebulization (Ohtuvayre) ipratropium 0.5 mg-albuterol 3 mg 3 ml inhalation Q4H 01/18/24 01/18/24 History (2.5 mg base)/3 mL nebulization soln prednisone 10 mg tablet 10 mg PO .q am 01/18/24 01/18/24 History Allergies Allergy/AdvReac Type Severity Reaction Status Date / Time No Known Drug Allergies Allergy Verified 01/18/24 19:40 Exam Constitutional Vital Signs, click to edit/add: Last Vital Signs Temp 97.9 F 01/19/24 08:00 Pulse 107 H 01/19/24 10:28 Resp 20 01/19/24 08:00 BP 146/79 H 01/19/24 08:00 Pulse Ox 97 01/19/24 10:30 O2 Del Method Nasal Cannula 01/19/24 10:30 O2 Flow Rate 3 01/19/24 10:30 FiO2 21 01/19/24 10:28 Results Labs Labs: Short CBC 01/18/24 01/19/24 Range/Units 19:42 06:08 WBC 14.8 H 14.0 H (4.0-11.0) 10^3/uL Hgb 12.4 13.3 (12.0-16.0) g/dL Hct 37.3 41.0 (36.0-48.0) % Plt Count 326 399 (150-450) 10^3/uL BMP 01/18/24 01/19/24 19:42 06:08 Sodium 132 L 132 L Potassium 3.9 4.3 Chloride 95 L 94 L Carbon Dioxide 32.3 H 28.1 BUN 9.0 11.0 Creatinine 0.68 0.74 Glucose 110 H 159 H Calcium 8.8 9.1 ABG ABG results: 01/18/24 20:15 ABG pH 7.314 L ABG pCO2 53.9 H* ABG pO2 88.0 ABG HCO3 27.4 H ABG O2 Saturation 96.9 ABG Base Excess 1.2
--- NOTE | 2024-01-19 12:28 | PM.HP ---
HPI H&P: HPI History of Present Illness Chief complaint: Shortness of Breath, COPD Exacerbation Narrative: 73-year-old female with history of chronic respiratory failure with hypoxia-3 L of oxygen, COPD on chronic prednisone presented to ER with 3 to 4 days of feeling short of breath with increased cough. She also reports sinus and chest congestion. She has been using her rescue inhalers with no improvement in her respiratory symptoms so she finally gave in and came to ED for further evaluation. Upon workup in ED, there was no evidence of pneumonia on chest x-ray and she was treated with IV Solu-Medrol, inhaled DuoNebs for COPD exacerbation. At the time of my evaluation, patient was in acute respiratory distress with labored breathing, tachypnea and was using accessory neck muscles of respiration. She could hardly talk because of dyspnea. She reports that her last COPD exacerbation was over 6 months ago. Otherwise, she has not had any recent illnesses or COPD flareups. Given her respiratory distress/increased work of breathing, I transferred her to ICU and placed order for BiPAP to help with respiratory distress/work of breathing as I do not want her to tire herself out. I discussed mechanical ventilation and CODE STATUS with her. She does not want to be intubated and wants to be a DNR Comfort Care arrest. Patient denies fever, nausea, vomiting, abdominal pain, constipation, diarrhea. She denies any sick contacts. She follows up with pulmonology as outpatient and I consulted pulmonology to help manage her COPD exacerbation Opioid HPI Opioid Management Most Recent Pain and Opioid Data: Last Pain Scale 5 01/19/24 09:48 Last Pain Assessment 01/19/24 09:48 Last ORT Total Score 4 01/18/24 22:26 Last ORT Risk Category Moderate Risk 01/18/24 22:26 Review of Systems ROS Status of ROS 10 or more systems reviewed and unremarkable except as noted in history and below [facility] Medical History Legally blind ?H54.8 - Legal blindness, as defined in [place] (ICD-10) Glaucoma ?H40.9 - Unspecified glaucoma (ICD-10) 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 ?H35.3190 - Nonexudative age-related macular degeneration, unspecified eye, stage unspecified (ICD-10) Oxygen dependent ?Z99.81 - Dependence on supplemental oxygen (ICD-10) COPD (chronic obstructive pulmonary disease) ?J44.9 - Chronic obstructive pulmonary disease, unspecified (ICD-10) Surgical History Hx of abdominoplasty ?Z98.890 - Other specified postprocedural states (ICD-10) H/O tubal ligation ?Z98.51 - Tubal ligation status (ICD-10) H/O section ?Z98.891 - History of uterine scar from previous surgery (ICD-10) Family History Mother Family history of cancer Father Family history of CHF (congestive heart failure) Family history of hypertension Brother Family history of myocardial infarction Sister Family history of cancer Social History Within the past year, how often did you have a drink containing alcohol: never Score interpretation: A score less than 3 is consistent with normal alcohol consumption. Smoking status: Current every day smoker Non-prescribed substance use: cannabis (any form) Previous occupational history: retired Highest level of school completed/degree received: 11th grade Are you now , , , , never or living with a partner: In a typical week, how many times do you talk on the telephone with family, friends, or neighbors: 3 or more times per week How often do you get together with friends or relatives: 3 or more times per week How often do you attend buddhism or roman catholic services: 4 or more times per year Little interest or pleasure in doing things: not at all Feeling down, depressed, or hopeless: not at all Feel stressed/tense/nervous/anxious/difficulty sleeping: not at all Do you think of yourself as: straight/heterosexual Gender Identity: female Meds Home Medications and Allergies Home Medications ?Medication ?Instructions ?Recorded ?Confirmed ?Type albuterol sulfate 90 mcg/actuation 2 puff inhalation Q4H PRN 01/18/24 01/18/24 History aerosol inhaler shortness of breath or wheezing azithromycin 250 mg tablet 250 mg PO .q am 01/18/24 01/18/24 History budesonide 160 mcg-glycopyr 9 2 inh inhalation BID 01/18/24 01/18/24 History mcg-formot 4.8 mcg/actuation HFA inhaler (Breztri Aerosphere) ensifentrine 3 mg/2.5 mL 3 mg inhalation BID 01/18/24 01/18/24 History suspension for nebulization (Ohtuvayre) ipratropium 0.5 mg-albuterol 3 mg 3 ml inhalation Q4H 01/18/24 01/18/24 History (2.5 mg base)/3 mL nebulization soln prednisone 10 mg tablet 10 mg PO .q am 01/18/24 01/18/24 History Allergies Allergy/AdvReac Type Severity Reaction Status Date / Time No Known Drug Allergies Allergy Verified 01/18/24 19:40 Exam Constitutional Vital Signs, click to edit/add: Last Vital Signs Temp 97.9 F 01/19/24 08:00 Pulse 107 H 01/19/24 10:28 Resp 20 01/19/24 08:00 BP 146/79 H 01/19/24 08:00 Pulse Ox 97 01/19/24 10:30 O2 Del Method Nasal Cannula 01/19/24 10:30 O2 Flow Rate 3 01/19/24 10:30 FiO2 21 01/19/24 10:28 General appearance: cooperative, in distress respiratory, ill appearing and frail appearing Nutritional appearance: thin HENMT Common normals: normocephalic and head/scalp atraumatic Respiratory Effort & inspection: tachypneic, respiratory distress, labored and uses accessory muscles Auscultation: wheezes and diminished lung sounds Cardio Common normals: no JVD, regular rhythm, S1 normal heart sound and S2 normal heart sound Rate: tachycardic GI Common normals: Normal to inspection, nondistended, normoactive bowel sounds present, soft to palpation, non-tender and no hepatosplenomegaly Extremity Common normals: normal to inspection and full ROM Neuro Common normals: oriented x3, moves all extremities, no focal motor deficits and no sensory deficits noted Psych Common normals: mental status grossly normal, thought process normal, denies homicidal ideation and denies suicidal ideation Results Labs Labs: Short CBC 01/18/24 01/19/24 Range/Units 19:42 06:08 WBC 14.8 H 14.0 H (4.0-11.0) 10^3/uL Hgb 12.4 13.3 (12.0-16.0) g/dL Hct 37.3 41.0 (36.0-48.0) % Plt Count 326 399 (150-450) 10^3/uL BMP 01/18/24 01/19/24 19:42 06:08 Sodium 132 L 132 L Potassium 3.9 4.3 Chloride 95 L 94 L Carbon Dioxide 32.3 H 28.1 BUN 9.0 11.0 Creatinine 0.68 0.74 Glucose 110 H 159 H Calcium 8.8 9.1 ABG ABG results: 01/18/24 20:15 ABG pH 7.314 L ABG pCO2 53.9 H* ABG pO2 88.0 ABG HCO3 27.4 H ABG O2 Saturation 96.9 ABG Base Excess 1.2 Assessment and Plan Assessment and Plan (1) Acute exacerbation of chronic obstructive pulmonary disease: Assessment and Plan: Acute COPD exacerbation with labored breathing/respiratory distress. Patient transferred to ICU. Start patient on BiPAP to help with work of breathing/respiratory distress. No evidence of pneumonia on chest x-ray. Ordered respiratory panel. Started patient on IV Solu-Medrol 60 mg every 6 hours. Continue with DuoNebs every 4 hours. She is also on Pulmicort. Consult pulmonology. (2) Acute exacerbation of bronchiectasis: Assessment and Plan: No evidence of pneumonia or consolidation on chest x-ray. Continue with systemic steroids, inhaled DuoNebs. Monitor closely. (3) Acute on chronic hypoxic respiratory failure: Assessment and Plan: On 3 L of oxygen via nasal cannula. She was requiring 4 L of oxygen initially. She has increased work of breathing/respiratory distress/labored breathing and was transferred to ICU for close monitoring of her respiratory status. Ordered BiPAP to help with work of breathing. (4) Cigarette nicotine dependence with nicotine-induced disorder: Assessment and Plan: Discussed smoking cessation/risk of his smoking and provided appropriate counseling (5) Severe malnutrition: Assessment and Plan: Has signs and symptoms of severe malnutrition likely secondary to severe COPD/chronic lung disease. She is only 50 kg with poor muscle mass/loss of subcutaneous tissue and appears cachectic in appearance. Consult dietitian/borematic machine operator Plan Patient was initially admitted as observation but was changed to inpatient as she has respiratory distress/labored breathing and needed to be transferred to ICU to start patient on BiPAP for acute respiratory distress/failure. Given her chronic lung disease and COPD, she is at high risk of cardiopulmonary compromise/respiratory failure will need close monitoring in ICU.
[2024-01-19] MEDS: METHYLPREDNISOLONE SOD SUCC PF 125 MG/2 ML VIAL 60 MG IVP ×3 (12:53→22:16)
--- NOTE | 2024-01-19 13:36 | CM.NOTE ---
Discussed with pt COPD and chronic disease management, compliance of medications (overuse of inhalers). Talked with pt regarding pulmonary rehab, pt states Dr. Dixon had discussed this option with her and at the time her was working and they only have one vehicle. Pt still unsure about pulmonary rehab, education provided to patient. Pt would like to think about it and speak with Dr. Dixon again about pulmonary rehab. Pt given pamphlet and called [facility] to update. Important Message From Medicare discussed with pt, pt verbalizes understanding and signs paper. Original given to pt and copy placed on pt's chart.
--- NOTE | 2024-01-19 15:36 | SWNOTE1 ---
Pt is on bipap now. SW to stop in and see pt tomorrow to check on her home oxygen and complete assessment.
[2024-01-19 16:09] LABS: Internal Control Within Normal Limits; Respiratory Syncytial Virus Not Detected (NOT DETECTE); SARS-CoV-2 Ag NEGATIVE (NEGATIVE)
[2024-01-19 16:10] LABS: Influenza Virus A Antigen Negative; Influenza Virus B Antigen Negative; Internal Control Within Normal Limits
[2024-01-19] MEDS: ASPIRIN/ACETAMINOPHEN/CAFFEINE 1 TAB TABLET PO (17:26)
[2024-01-19] MEDS: SODIUM CHLORIDE 3% INHALATION 15 ML NEB 3 ML IH (18:11)
[2024-01-19] MEDS: [UNRECOGNIZED DRUG - OTHER] 3 EACH IH (19:37)
--- NOTE | 2024-01-19 22:20 | PC.NURSE ---
bipap applied 03/12 @ 21% - was 87% - came up to 92% on the bipap
[2024-01-20] VITALS (37 sets, daily range): BP systolic 114–149; BP diastolic 58–100; PULSE 82–121; TEMP 36.3–37; O2SAT 89–99
[2024-01-20] MEDS: IPRATROPIUM/ALBUTEROL SULFATE 3 ML AMPUL.NEB IH ×6 (02:38→23:35)
[2024-01-20] MEDS: BENZONATATE 100 MG CAPSULE PO (02:53)
[2024-01-20] MEDS: METHYLPREDNISOLONE SOD SUCC PF 125 MG/2 ML VIAL 60 MG IVP ×4 (06:03→23:09)
[2024-01-20] MEDS: SODIUM CHLORIDE 3% INHALATION 15 ML NEB 3 ML IH ×2 (07:31→19:51)
[2024-01-20] MEDS: [UNRECOGNIZED DRUG - OTHER] 3 EACH IH ×2 (07:44→19:50)
[2024-01-20 08:17] LABS: Hematocrit 39.1 % (36.0-48.0); Hemoglobin 12.9 g/dL (12.0-16.0); Mean Corpuscular Hemoglobin 30.9 pg (26.7-34.0); Mean Corpuscular Volume 93.8 fL (81.0-99.0); Mean Platelet Volume 8.6 fL (9.5-13.5); Platelet Count 382 10^3/uL (150-450); Red Blood Count 4.17 10^6/uL (4.20-5.40); Red Cell Distribution Width 12.2 % (11.0-15.0); White Blood Count 18.4 10^3/uL (4.0-11.0)
[2024-01-20 08:38] LABS: Alanine Aminotransferase 28 U/L (14-59); Albumin Globulin Ratio 1.1; Albumin Level 3.9 g/dL (3.4-5.0); Alkaline Phosphatase 65 U/L (46-116); Anion Gap 12.3; Aspartate Amino Transferase 23 U/L (15-37); Bilirubin Total 0.6 mg/dL (0.2-1.0); Calcium 9.6 mg/dL (8.5-10.1); Carbon Dioxide 30.9 mmol/L (21.0-32.0); Chloride 94 mmol/L (98-107); Estimated GFR (African America >60 (>=60 mL/min/1.73m^2); Estimated GFR (Non-African Ame >60 (>=60 mL/min/1.73m^2); Globulin 3.6 g/dL; Glucose 145 mg/dL (74-106); Potassium 4.2 mmol/L (3.5-5.1); Sodium 133 mmol/L (136-145); Total Protein 7.5 g/dL (6.4-8.2)
[2024-01-20 08:48] LABS: Atypical Lymphocytes Abs Man 0.36; Lymphocytes Absolute Manual 8.83 10^3/uL (1.20-3.80); Monocytes Absolute Manual 0.55 10^3/uL (0.30-0.80); Segmented Neut Absolute Manual 8.64 10^3/uL (1.4-6.5)
[2024-01-20] MEDS: ALPRAZOLAM 0.5 MG TABLET PO ×2 (09:36→21:13)
[2024-01-20] MEDS: AZITHROMYCIN 250 MG TABLET PO (09:36)
[2024-01-20] MEDS: GUAIFENESIN 600 MG TAB.ER.12H 1200 MG PO ×2 (09:36→21:12)
--- NOTE | 2024-01-20 10:13 | CM.NOTE ---
Rounds made with Dr. Trujillo, discussed with pt about plan of care. Pt verbalizes breathing is easier today, still shortness of breath with minimal activity. RN will attempt to wean oxygen as tolerated.
--- NOTE | 2024-01-20 10:18 | PM.IMPN1 ---
Progress Note: A&P Assessment and Plan (1) Acute exacerbation of chronic obstructive pulmonary disease: Assessment and Plan: Feeling better and improving clinically. Continue with systemic steroids, DuoNebs every 4 hours along with p.o. azithromycin. She is also on saline nebs initiated by pulmonology. (2) Acute exacerbation of bronchiectasis: Assessment and Plan: Clinically improving and feeling better. Continue with current treatment. (3) Acute on chronic hypoxic respiratory failure: Assessment and Plan: She was on BiPAP overnight and feels better. She is back to her baseline and using 3 L of oxygen. Still dyspneic on minimal exertion and conversational dyspnea noted during exam. However patient has no evidence of respiratory distress/labored breathing anymore. (4) Cigarette nicotine dependence with nicotine-induced disorder: Assessment and Plan: Recommended smoking cessation (5) Severe malnutrition: Assessment and Plan: Consult dietitian. Added Ensure and prostat Internal Medicine - PN: Subj Subjective Interval history: Seen and examined. Doing considerably better compared to yesterday. Still short of breath on minimal exertion. But she has no evidence of respiratory distress or increased work of breathing. Exam Constitutional Vital Signs, click to edit/add: Last Vital Signs Temp 98.6 F 01/20/24 08:00 Pulse 119 H 01/20/24 09:50 Resp 28 H 01/20/24 09:50 BP 137/62 01/20/24 09:42 Pulse Ox 96 01/20/24 09:42 O2 Del Method Nasal Cannula 01/20/24 07:35 O2 Flow Rate 3 01/20/24 08:00 FiO2 25 01/19/24 23:31 General appearance: cooperative, ill appearing and frail appearing Nutritional appearance: thin Respiratory Common normals: normal respiratory effort and no retractions Effort & inspection: able to speak in complete sentences and tachypneic Auscultation: wheezes and diminished lung sounds Other: Conversational dyspnea noted Cardio Common normals: no JVD, regular rhythm, S1 normal heart sound and S2 normal heart sound Rate: tachycardic Extremity Common normals: normal to inspection and full ROM Neuro Common normals: oriented x3, moves all extremities, no focal motor deficits and no sensory deficits noted Psych Common normals: mental status grossly normal, thought process normal, denies homicidal ideation and denies suicidal ideation Internal Medicine - PN: Obj Da Labs Labs: Laboratory Results - last 24 hr 01/19/24 01/20/24 15:34 07:59 WBC 18.4 H RBC 4.17 L Hgb 12.9 Hct 39.1 MCV 93.8 MCH 30.9 MCHC 33.0 RDW 12.2 Plt Count 382 MPV 8.6 L Seg Neuts % (Manual) 47.0 Lymphocytes % (Manual) 48.0 Atypical Lymphs % (Man) 2.0 Monocytes % (Manual) 3.0 Eosinophils % (Manual) 0.0 L Basophils % (Manual) 0.0 L Neutrophils # (Manual) 8.64 H Lymphocytes # (Manual) 8.83 H Abs Atypical Lymphs Man 0.36 Monocytes # (Manual) 0.55 Eosinophils # (Manual) 0.00 Basophils # (Manual) 0.00 Sodium 133 L Potassium 4.2 Chloride 94 L Carbon Dioxide 30.9 Anion Gap 12.3 BUN 18.0 Creatinine 0.90 Est GFR ( Amer) >60 Est GFR (Non-Af Amer) >60 BUN/Creatinine Ratio 20.0 Glucose 145 H Calcium 9.6 Total Bilirubin 0.6 AST 23 ALT 28 Alkaline Phosphatase 65 Total Protein 7.5 Albumin 3.9 Globulin 3.6 Albumin/Globulin Ratio 1.1 Influenza Type A Ag Negative Influenza Type B Ag Negative RSV Antigen Not detected SARS-CoV-2 Ag (CV2AG) Negative
[2024-01-20] MEDS: BUDESONIDE 0.5 MG/2 ML AMPULE NEB IH ×2 (11:01→23:35)
[2024-01-20] MEDS: ENSURE CLEAR 237 ML LIQUID PO ×2 (11:39→21:13)
[2024-01-20] MEDS: PROSTAT 15 GM PROTEIN/100 CAL 30 ML LIQUID PACKET PO ×2 (11:39→21:13)
--- NOTE | 2024-01-20 12:41 | P.PLPN_ITS ---
Progress Note: A&P Assessment and Plan (1) Acute exacerbation of chronic obstructive pulmonary disease: Assessment and Plan: Clinicall seems to have a slight improvement from yesterday. Patient complained she is not getting Breztri - I explained she is getting equivalent nebulized medications to the Breztri. She asked why - I answered that I myself created the protocol. She answered oh and I stated that she would resume Breztri at home. Continue Ohtuvayre. (2) Acute exacerbation of bronchiectasis: Assessment and Plan: Continue hypertonic saline. (3) Acute on chronic hypoxic respiratory failure: Assessment and Plan: O2 improved to 3L/min. (4) Cigarette nicotine dependence with nicotine-induced disorder: Assessment and Plan: Smoking cessation! (5) Cancer of upper lobe of right lung: Subjective Subjective Interval history: No further exacerbations since yesterday morning. Was observed in ICU overnight. RN placed patient on BiPAP overnight and patient seemed to have done well. Started hypertonic saline - patient has been able to expectorate slightly with it. Exam Constitutional Vital Signs, click to edit/add: Last Vital Signs Temp 98.0 F 01/20/24 11:39 Pulse 110 H 01/20/24 12:00 Resp 20 01/20/24 11:39 BP 114/58 01/20/24 11:39 Pulse Ox 94 L 01/20/24 11:39 O2 Del Method Nasal Cannula 01/20/24 11:39 O2 Flow Rate 3 01/20/24 11:39 FiO2 25 01/19/24 23:31 Documenting provider has reviewed patient's vital signs: yes Common normals: no apparent distress and average body habitus [facility] Common normals: normocephalic Nose: foreign body in naris Other: Wearing nasal cannula. No oral candidiasis Eye Other: Requires looking via peripheral vision given bilateral macular degeneration Chest Common normals: inspection of chest normal Respiratory Other: Slightly more breath sounds today with new expiratory wheezes - patient is opening up Cardio Rate: regular rate Rhythm: regular rhythm GI Inspection: normal to inspection Extremity Common normals: normal to inspection Neuro Common normals: oriented x3 Sensorium/orientation: awake and alert Psych Attitude: calm and engaged
[2024-01-20] MEDS: ASPIRIN/ACETAMINOPHEN/CAFFEINE 1 TAB TABLET PO ×2 (15:27→23:09)
--- NOTE | 2024-01-20 16:12 | SWNOTE1 ---
SW met with pt and to discuss Advanced Directives. Initially pt and voiced that pt has her as POA and youngest son, but they have never done any paperwork. SW expressed the importance of completing paperwork to help decision making to be easier for family and to prevent disagreements. Pt and would like a booklet to look over. Pt also spoke about code status, she voiced she does not want compressions or the paddles as the can break her ribs and sternum. SW did check chart and there is no DNR paperwork. SW recommended to pt and to speak with doctor about this tomorrow morning. Pt's voiced he will try to be here early. Pt's also asked about home health. SW did give them information about home health and pt does seem interested to help with strengthening. Pt's also asked about HH drawing blood to check CO2 levels. SW advised that SW is not sure they can do that but will check. SW also advised that the doctor would have to order that. SW again recommended asking doctor about that blood draw. SW provided pt and with HH list from medicare.gov. They will review and SW to check with pt tomorrow. Pt did voiced she would like to complete HCPOA tomorrow. SW did reach out to nursing to see if pt is listed as full code?
--- NOTE | 2024-01-20 16:17 | SWNOTE1 ---
CURRY did check the orders in computer and DNRCCA is ordered, but there is no paper copy on chart. SW notified nursing.
[2024-01-21] VITALS (22 sets, daily range): BP systolic 116–150; BP diastolic 66–80; PULSE 82–112; TEMP 36.4–36.7; O2SAT 92–98
[2024-01-21] MEDS: IPRATROPIUM/ALBUTEROL SULFATE 3 ML AMPUL.NEB IH ×6 (02:56→23:26)
[2024-01-21] MEDS: METHYLPREDNISOLONE SOD SUCC PF 125 MG/2 ML VIAL 60 MG IVP ×4 (04:13→23:23)
[2024-01-21 05:58] LABS: Hematocrit 35.7 % (36.0-48.0); Hemoglobin 11.6 g/dL (12.0-16.0); Mean Corpuscular HGB Conc 32.5 g/dL (29.9-35.2); Mean Corpuscular Hemoglobin 30.1 pg (26.7-34.0); Mean Corpuscular Volume 92.5 fL (81.0-99.0); Mean Platelet Volume 8.7 fL (9.5-13.5); Platelet Count 344 10^3/uL (150-450); Red Blood Count 3.86 10^6/uL (4.20-5.40); Red Cell Distribution Width 12.3 % (11.0-15.0); White Blood Count 18.5 10^3/uL (4.0-11.0)
[2024-01-21 06:10] LABS: Alanine Aminotransferase 29 U/L (14-59); Albumin Globulin Ratio 1.2; Albumin Level 3.5 g/dL (3.4-5.0); Alkaline Phosphatase 52 U/L (46-116); Anion Gap 8.2; Aspartate Amino Transferase 19 U/L (15-37); BUN Creatinine Ratio 43.1; Bilirubin Total 0.5 mg/dL (0.2-1.0); Carbon Dioxide 32.2 mmol/L (21.0-32.0); Chloride 96 mmol/L (98-107); Estimated GFR (African America >60 (>=60 mL/min/1.73m^2); Estimated GFR (Non-African Ame >60 (>=60 mL/min/1.73m^2); Glucose 191 mg/dL (74-106); Potassium 4.4 mmol/L (3.5-5.1); Sodium 132 mmol/L (136-145); Total Protein 6.5 g/dL (6.4-8.2)
--- NOTE | 2024-01-21 06:52 | P.PLPN_ITS ---
Progress Note: A&P Assessment and Plan (1) Acute exacerbation of chronic obstructive pulmonary disease: Assessment and Plan: Continue DuoNeb + Pulmicort inpatient, return to [facility] at discharge. Has leukocytosis secondary to steroids. Continue Ohtuvayre. Difficulty expectorating despite PEP + hypertonic saline - adding vest therapy. On near max treatment otherwise. Do not feel patient is imminently dying, but there is a slow decline and symptoms currently not controlled. I feel there is an anxiety component. As she is short of breath, will give a small dose of morphine (0.5mg) to see if this relieves her dyspnea. Patient is worried about addiction - at this point, this is a low concern of mine given her advanced COPD. Recheck CXR to R/O any developing pneumonia or other cause for continued dyspnea. Repeated exacerbations are not unexpected if the patient continues to smoke. (2) Acute exacerbation of bronchiectasis: Assessment and Plan: Not responding to PEP or hypertonic saline. Adding vest. (3) Acute on chronic hypoxic respiratory failure: Assessment and Plan: Remains on 3L/min O2. (4) Acute respiratory failure with hypercapnia: Assessment and Plan: On admission, ABG noted pH 7.314 and pCO2 53.9. Patient developed acute hypercapnia. Will check VBG to evaluate if this has corrected or worsening. (5) Cigarette nicotine dependence with nicotine-induced disorder: Assessment and Plan: Stop smoking! (6) Cancer of upper lobe of right lung: Assessment and Plan: Stop smoking! (7) Pulmonary cachexia due to COPD: Assessment and Plan: Explained to patient and the pathophysiology of COPD-induced cachexia. Discussed healthy calorie intake. Follow credit charge authorizer's recommendations. (8) Counseling regarding end of life decision making: Assessment and Plan: Discussed with patient goals. She voiced understanding she is developing advanced COPD and is slowly declining. She is okay if she dies, but does not want to yet - she is not ready for Hospice. Discussed code status. After explaining options in depth with patient and , the patient voiced she did not want CPR, shocks, or intubated. DNR-CCA would meet the patient's wishes. Also added do not intubate per her wishes. The patient requested that I complete the DNR-CCA no intubation order, which was signed by me. Plan Patient does not appear satisfactory for discharge at this time (appears worse than yesterday). She may still require several more days of inpatient treatment to optimize her for discharge. Subjective Subjective Interval history: Patient appears short of breath this morning, sitting up in bed with pursed lip breathing. She is requesting a breathing treatment. She does sound more tight this morning, but inspiratory-berg there is increased air movement. We had a lengthy discussion regarding her COPD, malnutrition, and code status. is present and voiced his concerns about the patient's COPD and slow decline. She is not ready for Hospice, but she specifically stated she did not want CPR, to be shocked, or to be placed on a ventilator. They requested that I fill out a DNR form for her. Exam Constitutional Vital Signs, click to edit/add: Last Vital Signs Temp 97.7 F 01/21/24 04:00 Pulse 93 H 01/21/24 06:00 Resp 18 01/21/24 04:00 BP 119/67 01/21/24 04:00 Pulse Ox 92 L 01/21/24 04:00 O2 Del Method Nasal Cannula 01/21/24 04:00 O2 Flow Rate 3 01/21/24 04:00 FiO2 25 01/19/24 23:31 Documenting provider has reviewed patient's vital signs: yes Common normals: no apparent distress General appearance: in distress respiratory (Mild with pursed lip breathing) and ill appearing Nutritional appearance: thin HENMT Common normals: normocephalic Nose: foreign body in naris Other: Wearing nasal cannula. No oral candidiasis present. Eye Other: Requires looking via peripheral vision given bilateral macular degeneration Chest Common normals: inspection of chest normal Respiratory Other: Increased inspiratory air flow, but more diminished with exhalation today - tight , no wheezes Cardio Rate: regular rate Rhythm: regular rhythm GI Inspection: normal to inspection Extremity Common normals: normal to inspection Neuro Common normals: oriented x3 Sensorium/orientation: awake and alert Motor exam: no tremor noted and no fasciculations Psych Mood and affect: anxious
[2024-01-21 07:04] LABS: Lymphocytes Absolute Manual 8.32 10^3/uL (1.20-3.80); Monocytes Absolute Manual 0.37 10^3/uL (0.30-0.80)
[2024-01-21] MEDS: [UNRECOGNIZED DRUG - OTHER] 3 EACH IH ×2 (07:23→19:48)
[2024-01-21] MEDS: SODIUM CHLORIDE 3% INHALATION 15 ML NEB 3 ML IH ×2 (07:23→19:29)
--- NOTE | 2024-01-21 07:30 | XR_ITS ---
[address] [address] Patient Name: SAMAN HAMPTON MRN: [id number] date: 1950 Sex: F Assigned Patient Location: [place] Current Patient Location: [place] Accession/Order Number: [id number] Exam Date: 01/21/2024 08:10 Report Date: 01/21/2024 08:34 At the request of: SHAIKH ROSIE Procedure: XR chest 1V EXAM: XR chest 1V HISTORY: SOB/COPD COMPARISON: 01/18/2024 TECHNIQUE: AP erect FINDINGS: LUNGS: No significant pulmonary parenchymal abnormalities. Hyperinflation VASCULATURE: No increased pulmonary vasculature. PLEURA: No pneumothorax, effusion, or pleural thickening. CARDIAC: No cardiomegaly or cardiac silhouette abnormality. MEDIASTINUM: No visible mass or adenopathy. Aortic atherosclerosis BONES: No fracture or visible bone lesion. OTHER: Negative. XR/XR chest 1V IMPRESSION: Hyperinflation, clear lungs Electronically authenticated by: SLADE DALE Date: 01/21/2024 08:34
[2024-01-21] MEDS: MORPHINE SULFATE 2 MG/ML SYRINGE 0.5 MG IV ×2 (07:41→16:54)
[2024-01-21] MEDS: ENSURE CLEAR 237 ML LIQUID PO ×2 (08:51→20:45)
[2024-01-21] MEDS: GUAIFENESIN 600 MG TAB.ER.12H 1200 MG PO ×2 (08:51→20:45)
[2024-01-21] MEDS: AZITHROMYCIN 250 MG TABLET PO (08:51)
[2024-01-21] MEDS: PROSTAT 15 GM PROTEIN/100 CAL 30 ML LIQUID PACKET PO ×2 (08:51→20:45)
--- NOTE | 2024-01-21 09:19 | SWNOTE1 ---
Pt and did tell SW that she gets her home oxygen from [facility], CURRY to find out if it continuous or just at night.
[2024-01-21] MEDS: ALPRAZOLAM 0.5 MG TABLET PO ×2 (09:53→20:45)
[2024-01-21] MEDS: ASPIRIN/ACETAMINOPHEN/CAFFEINE 1 TAB TABLET PO ×2 (09:53→20:45)
--- NOTE | 2024-01-21 10:27 | PM.IMPN1 ---
Progress Note: A&P Assessment and Plan (1) Acute exacerbation of chronic obstructive pulmonary disease: Assessment and Plan: She is clinically worse today and has labored breathing with tachypnea. Pulmonology recommended adding IV morphine along with vest therapy. Continue with systemic steroids, inhaled bronchodilators. No evidence of pneumonia on repeat chest x-ray today. Needs close monitoring. (2) Acute exacerbation of bronchiectasis: Assessment and Plan: Patient clinically worse today with worsening shortness of breath/tachypnea and labored breathing. IV morphine added as needed for shortness of breath/anxiety. Continue with systemic steroids inhaled bronchodilators. (3) Acute on chronic hypoxic respiratory failure: Assessment and Plan: While her hypoxia is at baseline and she is currently on 3 L of oxygen. She is quite short of breath, tachypneic and has labored breathing. (4) Cigarette nicotine dependence with nicotine-induced disorder: Assessment and Plan: Recommended smoking cessation (5) Pulmonary cachexia due to COPD: Assessment and Plan: Pulmonary cachexia due to COPD. Has low BMI, muscle wasting and loss of subcutaneous tissue. I added Ensure and prostat for her. (6) Severe malnutrition: Assessment and Plan: Consult dietitian. Added Ensure and prostat Internal Medicine - PN: Subj Subjective Interval history: Seen and examined. Patient visibly short of breath at rest and reports that she gets really out of breath on minimal exertion. I saw her when she had just received IV morphine and patient reported that it helped her calm down and she feels a little bit better afterwards. She is also complaining of nasal congestion and headache and asking for cetirizine and Sudafed as it helps. Exam Constitutional Vital Signs, click to edit/add: Last Vital Signs Temp 98.0 F 01/21/24 07:49 Pulse 98 H 01/21/24 10:00 Resp 24 H 01/21/24 08:00 BP 136/73 01/21/24 07:49 Pulse Ox 95 01/21/24 07:49 O2 Del Method Nasal Cannula 01/21/24 07:49 O2 Flow Rate 3 01/21/24 07:49 FiO2 25 01/19/24 23:31 General appearance: cooperative, ill appearing and frail appearing Nutritional appearance: thin Respiratory Common normals: normal respiratory effort Effort & inspection: tachypneic and labored Auscultation: wheezes and diminished lung sounds Other: Conversational dyspnea noted Cardio Common normals: no JVD, regular rhythm, S1 normal heart sound and S2 normal heart sound Rate: tachycardic Extremity Common normals: normal to inspection and full ROM Neuro Common normals: oriented x3, moves all extremities, no focal motor deficits and no sensory deficits noted Psych Common normals: mental status grossly normal, thought process normal, denies homicidal ideation and denies suicidal ideation Internal Medicine - PN: Obj Da Labs Labs: Laboratory Results - last 24 hr 01/21/24 05:44 WBC 18.5 H RBC 3.86 L Hgb 11.6 L Hct 35.7 L MCV 92.5 MCH 30.1 MCHC 32.5 RDW 12.3 Plt Count 344 MPV 8.7 L Seg Neuts % (Manual) 53.0 Lymphocytes % (Manual) 45.0 Monocytes % (Manual) 2.0 Eosinophils % (Manual) 0.0 L Basophils % (Manual) 0.0 L Neutrophils # (Manual) 9.80 H Lymphocytes # (Manual) 8.32 H Monocytes # (Manual) 0.37 Eosinophils # (Manual) 0.00 Basophils # (Manual) 0.00 Sodium 132 L Potassium 4.4 Chloride 96 L Carbon Dioxide 32.2 H Anion Gap 8.2 BUN 28.0 H Creatinine 0.65 Est GFR ( Amer) >60 Est GFR (Non-Af Amer) >60 BUN/Creatinine Ratio 43.1 Glucose 191 H Calcium 9.0 Total Bilirubin 0.5 AST 19 ALT 29 Alkaline Phosphatase 52 Total Protein 6.5 Albumin 3.5 Globulin 3.0 Albumin/Globulin Ratio 1.2
[2024-01-21] MEDS: BUDESONIDE 0.5 MG/2 ML AMPULE NEB IH ×2 (10:28→23:26)
--- NOTE | 2024-01-21 10:48 | CM.NOTE ---
Rounds made with Dr. Trujillo. Dr. Trujillo discussed labs, xray and treatment plan. Mellisa verbalized understanding. Mellisa discussed concerns with BATISTA, anxiousness and still SOB with exertion as well as issues with her sinuses. Dr. Trujillo to order her something for sinuses and also discussed that there are prn meds ordered for her BATISTA & anxiousness and she just needs to ask for them. Mellisa verbalized understanding. No plan for discharge today.
[2024-01-21] MEDS: CETIRIZINE HCL 10 MG TABLET PO (10:58)
--- NOTE | 2024-01-21 11:53 | SWNOTE1 ---
SW called [facility] and pt most recent script was for 2 liters oxygen nasal canula continuous. SW notified doctor and nurse of this.
--- NOTE | 2024-01-21 12:10 | SWNOTE1 ---
SW spoke to pt and in room. SW updated them that pt's most recent script for home o2 is 2 liters. Pt is just getting her lunch and SW to come back later to complete HCPOA. SW also asked them about HH and if they have a preference and they do not. SW did let them know that [facility] can draw blood to check CO2 levels, but doctor would have to be in agreement to order this. SW to check with Dr. Trujillo. Pt and stated Dr. Dixon spoke with them about code status and they appreciated him going through everything with them. At this time pt is going to eat lunch. Referral sent to [facility]. Referral included face sheet, ED note, H&P, provider notes, case management report, and PT/OT notes.
--- NOTE | 2024-01-21 13:52 | SWNOTE1 ---
SW went back in to complete HCPOA with pt, but pt was sleeping at this time. SW spoke to pt's and he preferred she slept and that we complete HCPOA later. He voiced pt did not sleep well last night and needs some rest.
--- NOTE | 2024-01-21 14:50 | SWNOTE1 ---
[facility] is able to accept.
[2024-01-22] VITALS (20 sets, daily range): BP systolic 120–137; BP diastolic 68–74; PULSE 81–112; TEMP 36.4–36.7; O2SAT 95–98; BMI 21.0
[2024-01-22] MEDS: IPRATROPIUM/ALBUTEROL SULFATE 3 ML AMPUL.NEB IH ×6 (03:32→22:50)
[2024-01-22] MEDS: METHYLPREDNISOLONE SOD SUCC PF 125 MG/2 ML VIAL 60 MG IVP ×4 (05:26→22:29)
[2024-01-22 06:42] LABS: pH VBG 7.399 (7.330-7.430)
[2024-01-22 06:43] LABS: Hematocrit 37.6 % (36.0-48.0); Hemoglobin 12.1 g/dL (12.0-16.0); Mean Corpuscular HGB Conc 32.2 g/dL (29.9-35.2); Mean Corpuscular Hemoglobin 30.1 pg (26.7-34.0); Mean Corpuscular Volume 93.5 fL (81.0-99.0); Mean Platelet Volume 8.9 fL (9.5-13.5); Platelet Count 316 10^3/uL (150-450); Red Blood Count 4.02 10^6/uL (4.20-5.40); Red Cell Distribution Width 12.4 % (11.0-15.0); White Blood Count 20.5 10^3/uL (4.0-11.0)
[2024-01-22 07:03] LABS: Alanine Aminotransferase 34 U/L (14-59); Albumin Globulin Ratio 1.1; Albumin Level 3.4 g/dL (3.4-5.0); Alkaline Phosphatase 52 U/L (46-116); Anion Gap 9.5; Aspartate Amino Transferase 20 U/L (15-37); BUN Creatinine Ratio 34.7; Bilirubin Total 0.4 mg/dL (0.2-1.0); Calcium 8.7 mg/dL (8.5-10.1); Carbon Dioxide 30.9 mmol/L (21.0-32.0); Chloride 96 mmol/L (98-107); Estimated GFR (African America >60 (>=60 mL/min/1.73m^2); Estimated GFR (Non-African Ame >60 (>=60 mL/min/1.73m^2); Glucose 192 mg/dL (74-106); Potassium 4.4 mmol/L (3.5-5.1); Sodium 132 mmol/L (136-145); Total Protein 6.4 g/dL (6.4-8.2)
[2024-01-22 07:05] LABS: Lymphocytes Absolute Manual 10.86 10^3/uL (1.20-3.80); Monocytes Absolute Manual 0.61 10^3/uL (0.30-0.80); Segmented Neut Absolute Manual 9.02 10^3/uL (1.4-6.5)
[2024-01-22] MEDS: SODIUM CHLORIDE 3% INHALATION 15 ML NEB 3 ML IH ×2 (07:19→19:39)
[2024-01-22] MEDS: [UNRECOGNIZED DRUG - OTHER] 3 EACH IH ×2 (07:20→19:40)
[2024-01-22] MEDS: CETIRIZINE HCL 10 MG TABLET PO (08:27)
[2024-01-22] MEDS: ALPRAZOLAM 0.5 MG TABLET PO ×2 (08:27→18:48)
[2024-01-22] MEDS: ASPIRIN/ACETAMINOPHEN/CAFFEINE 1 TAB TABLET PO ×2 (08:27→14:09)
[2024-01-22] MEDS: AZITHROMYCIN 250 MG TABLET PO (08:27)
[2024-01-22] MEDS: GUAIFENESIN 600 MG TAB.ER.12H 1200 MG PO ×2 (08:28→22:07)
[2024-01-22] MEDS: ENSURE CLEAR 237 ML LIQUID PO ×2 (08:30→22:07)
--- NOTE | 2024-01-22 09:50 | CM.NOTE ---
Rounds made with Dr. Trujillo, pt continues with increased work of breathing and using accessory muscles. No discharge today.
--- NOTE | 2024-01-22 10:20 | PM.IMPN1 ---
Progress Note: A&P Assessment and Plan (1) Acute exacerbation of chronic obstructive pulmonary disease: Assessment and Plan: No improvement. Dyspneic at rest. Continue with systemic steroids, DuoNebs. (2) Acute exacerbation of bronchiectasis: Assessment and Plan: No improvement. No overnight events. Continue with systemic steroids, DuoNebs. (3) Acute on chronic hypoxic respiratory failure: Assessment and Plan: Upon inquiry, it seems like her baseline hypoxia requires 2 L of oxygen via nasal cannula. She is requiring increased oxygen currently and is short of breath at rest with conversational dyspnea noted. (4) Cigarette nicotine dependence with nicotine-induced disorder: Assessment and Plan: Recommended smoking cessation (5) Pulmonary cachexia due to COPD: Assessment and Plan: Pulmonary cachexia due to COPD. Has low BMI, muscle wasting and loss of subcutaneous tissue. I added Ensure and prostat for her. (6) Severe malnutrition: Assessment and Plan: Consult dietitian. Added Ensure and prostat Internal Medicine - PN: Subj Subjective Interval history: Seen and examined. Reports SOB at rest. Unable to converse due to SOB. No improvement. No overnight events. Exam Constitutional Vital Signs, click to edit/add: Last Vital Signs Temp 97.7 F 01/22/24 08:00 Pulse 96 H 01/22/24 10:00 Resp 22 H 01/22/24 08:00 BP 127/70 01/22/24 08:00 Pulse Ox 95 01/22/24 08:00 O2 Del Method Nasal Cannula 01/22/24 08:00 O2 Flow Rate 3 01/22/24 08:00 FiO2 25 01/19/24 23:31 General appearance: cooperative and frail appearing Nutritional appearance: thin Respiratory Common normals: normal respiratory effort Effort & inspection: tachypneic and labored Auscultation: wheezes and diminished lung sounds Other: Conversational dyspnea noted Cardio Common normals: no JVD, regular rhythm, S1 normal heart sound and S2 normal heart sound Extremity Common normals: normal to inspection and full ROM Neuro Common normals: oriented x3, moves all extremities, no focal motor deficits and no sensory deficits noted Psych Common normals: mental status grossly normal, thought process normal, denies homicidal ideation and denies suicidal ideation Internal Medicine - PN: Obj Da Labs Labs: Laboratory Results - last 24 hr 01/22/24 06:27 WBC 20.5 H RBC 4.02 L Hgb 12.1 Hct 37.6 MCV 93.5 MCH 30.1 MCHC 32.2 RDW 12.4 Plt Count 316 MPV 8.9 L Seg Neuts % (Manual) 44.0 Lymphocytes % (Manual) 53.0 Monocytes % (Manual) 3.0 Eosinophils % (Manual) 0.0 L Basophils % (Manual) 0.0 L Neutrophils # (Manual) 9.02 H Lymphocytes # (Manual) 10.86 H Monocytes # (Manual) 0.61 Eosinophils # (Manual) 0.00 Basophils # (Manual) 0.00 VBG pH 7.399 VBG pCO2 55.0 H Sodium 132 L Potassium 4.4 Chloride 96 L Carbon Dioxide 30.9 Anion Gap 9.5 BUN 25.0 H Creatinine 0.72 Est GFR ( Amer) >60 Est GFR (Non-Af Amer) >60 BUN/Creatinine Ratio 34.7 Glucose 192 H Calcium 8.7 Total Bilirubin 0.4 AST 20 ALT 34 Alkaline Phosphatase 52 Total Protein 6.4 Albumin 3.4 Globulin 3.0 Albumin/Globulin Ratio 1.1
--- NOTE | 2024-01-22 10:56 | SWNOTE1 ---
SW checked chart and Important Message from Medicare was reviewed and discussed with pt on 01/19/24. No questions or concerns at that time. Pt signed the form on 01/19/24, copy placed in chart and original is in room. SW reviewed Important Message from Medicare with pt and in room. No further questions at this time. Pt was resting with eyes closed, SW to check back later. Pt's in room at the time as well.
[2024-01-22] MEDS: BUDESONIDE 0.5 MG/2 ML AMPULE NEB IH ×2 (11:25→22:50)
--- NOTE | 2024-01-22 11:38 | RESP.RT ---
Negative Inspiratory Pressure -[id number]
--- NOTE | 2024-01-22 11:41 | RESP.RT ---
Negative Inspiratory Force -[id number]
[2024-01-22 11:48] LABS: ABG PCO2 49.6 mmHg (35.0-45.0); PO2 ABG 75.9 mmHg (80.0-100.0); pH ABG 7.445 (7.350-7.450)
[2024-01-22 11:49] LABS: Allen Test POSITIVE (POSITIVE); Base Excess ABG 10 mmol/L (-2.0-2.0); HCO3 ABG 34.1 mmol/L (22.0-26.0); Liters per Minute 3; O2 Mode N/C; Oxygen Saturation ABG 96.4 %; Puncture Site R. RADIAL
--- NOTE | 2024-01-22 12:30 | P.PLPN_ITS ---
Progress Note: A&P Assessment and Plan (1) Acute exacerbation of chronic obstructive pulmonary disease: Assessment and Plan: Patient has underlying centrilobular emphysema. It is very severe based on PFT from 03/12/2022 with FEV1 only 26% (0.52L). Already on triple inhaled therapy (LAMA/LABA/ICS) in addition to Ohtuvayre (PDE3/PDE4). VBG is consistent with mild hypercapnic respiratory acidosis. Looking into NIV. (2) Acute exacerbation of bronchiectasis: Assessment and Plan: Continue with pulmonary toilet with PEP, hypertonic saline, and vest. (3) Neuromuscular respiratory weakness: Assessment and Plan: Patient is very weak in bed. NIF (MIP) was checked by respiratory therapy this morning and was low at -[id number]. This is contributing to her dyspnea and development of hypercapnic respiratory failure. (4) Chronic respiratory failure with hypercapnia: Assessment and Plan: Patient's acid-base status was rechecked this morning with VBG consistent with chronic hypercapnic respiratory failure with pH 7.399 and pCO2 55. However, VBG's are not acceptable when trying to qualify patient's for noninvasive ventilation (NIV), so ABG was drawn. Unfortunately, the patient was anxious at this time and hyperventilating, causing an increase in pH from 7.445 with pCO2 49.6. Though this can be explained as a respiratory alkalosis from the hyperventilation, this may not meet the threshold as qualification typically does not care about the patient or the physiology of the patient, only numbers. The patient was on BiPAP therapy and despite this, she still developed the pCO2 55 noted on the VBG. Initial ABG on 01/18/2024 showed pH of 7.314 and pCO2 of 53.9; despite improvement of pH with BiPAP, her pCO2 has only dropped by 4, indicating continued CO2 retention and when corrected for compensation (from the hyperventilation associated with anxiety), it would be worse than on admission. She has very severe underlying centrilobular emphysema noted on PFT 03/12/2022 with FEV1/FVC 29%, FEV1 26% (0.52L), and FVC 70%. She also has concomitant neuromuscular respiratory weakness as measured by NIF this morning @ -[id number]. In my opinion, noninvasive mechanical ventilation is now indicated. NIV which utilizes AVAPS AE with a backup respiratory rate due to need for targeted tidal volume, along with monitored airway patency to adjust the EPAP, I required to appropriately overcome the patient's neuromuscular respiratory weakness, impaired air exchange, and clearance of secretions from bronchiectasis which is not responding to PEP, hypertonic saline, or vest. Without AVAPS AE therapy, this patient is at increased risk for frequent hospitalizations, including life-threatening infection such as pneumonia, mucous plugging, and the risk of both worsening hypoxic and hypercapnic respiratory failure. The patient is on near max therapy for her underlying COPD as well, and very little progress has been made within the last 4 days since admission. Srok-it-bsgm was performed with the patient today discussing the need for NIV. The patient voices that she would be willing to use this as an outpatient at bedtime/sleep as well as as needed throughout the day for respiratory distress. (5) Acute on chronic hypoxic respiratory failure: Assessment and Plan: Remains on 3L/min O2. Remainder of ABG this morning shows pO2 at 75.9 and SaO2 at 96.4, indicating that her oxygenation is adequate at this time. Goal SpO2 would be 88-92% to avoid hypoxic induced hypercapnia. (6) Cancer of upper lobe of right lung: Assessment and Plan: Stop smoking! (7) Cigarette nicotine dependence with nicotine-induced disorder: Assessment and Plan: Stop smoking! (8) Severe malnutrition: Assessment and Plan: Patient developing a degree of pulmonary cachexia. (9) Pulmonary cachexia due to COPD: Assessment and Plan: Explained to patient and the pathophysiology of COPD-induced cachexia. Discussed healthy calorie intake. Follow certified adaptive physical educator's recommendations. Subjective Subjective Interval history: Morphine was added yesterday which did provide some relief of anxiety. She had less breathlessness. Despite this, she continues to be very short of breath at rest. Still having difficulty expectorating. Chest x-ray this morning showed no evidence of acute pneumonia or other infiltrate/mass that developed since admission. Patient has used BiPAP and stated she felt better on it. VBG this morning showed compensated respiratory acidosis with pH 7.399 and pCO2 55. Exam Constitutional Vital Signs, click to edit/add: Last Vital Signs Temp 97.7 F 01/22/24 08:00 Pulse 96 H 01/22/24 11:21 Resp 22 H 01/22/24 08:00 BP 127/70 01/22/24 08:00 Pulse Ox 97 01/22/24 11:21 O2 Del Method Nasal Cannula 01/22/24 11:21 O2 Flow Rate 3 01/22/24 11:21 FiO2 25 01/19/24 23:31 Documenting provider has reviewed patient's vital signs: yes Common normals: no apparent distress General appearance: in distress respiratory (Mild with pursed lip breathing) and ill appearing Nutritional appearance: thin HENMT Common normals: normocephalic Nose: foreign body in naris Other: Wearing nasal cannula. No oral candidiasis present. Eye Other: Requires looking via peripheral vision given bilateral macular degeneration Chest Common normals: inspection of chest normal Respiratory Other: Diminished breath sounds, some expiratory wheezes. Cardio Rate: regular rate Rhythm: regular rhythm GI Inspection: normal to inspection Extremity Common normals: normal to inspection Neuro Common normals: oriented x3 Sensorium/orientation: awake and alert Motor exam: no tremor noted and no fasciculations Psych Mood and affect: anxious
--- NOTE | 2024-01-22 12:56 | RESP.RT ---
Negative Inspiratory Force -45 cmH2O
--- NOTE | 2024-01-22 12:58 | RESP.RT ---
Negative Inspiratory Force -45 cmH2O
--- NOTE | 2024-01-22 13:29 | SWNOTE1 ---
Dr. Dixon did bring SW and case management referral for NIV for pt for at home. SW faxed the paperwork to [facility].
--- NOTE | 2024-01-22 14:37 | SWNOTE1 ---
CURRY completed HCPOA with pt. Pt's in room as well. SW made copy for medical records and copy for pt. Original booklet given to pt.
[2024-01-22] MEDS: MORPHINE SULFATE 2 MG/ML SYRINGE 0.5 MG IV (14:49)
--- NOTE | 2024-01-22 15:01 | SWNOTE1 ---
SW took pt the HCPOA booklet and gave them a copy. Pt and voiced she is having hard time breathing, SW notified nurse.
--- NOTE | 2024-01-22 15:24 | SWNOTE1 ---
CURRY called [facility] to see if note or consult was completed as case managment was needing for insurance. Torrey voiced she wrote a quick note 2 days ago, but CURRY could not find in chart. Torrey voiced she is adding the complete assessment.
--- NOTE | 2024-01-22 19:39 | RESP.RT ---
Pt requested to do PEP instead of vest at this time due to shortness of breath.
[2024-01-22] MEDS: PROSTAT 15 GM PROTEIN/100 CAL 30 ML LIQUID PACKET PO (22:07)
--- NOTE | 2024-01-22 23:04 | RESP.RT ---
PEP not done at this time. Pt complaining of SOB.
[2024-01-23] VITALS (22 sets, daily range): BP systolic 131–156; BP diastolic 73–88; PULSE 73–120; TEMP 36.4–36.8; O2SAT 94–99
[2024-01-23] MEDS: IPRATROPIUM/ALBUTEROL SULFATE 3 ML AMPUL.NEB IH ×6 (02:43→23:07)
--- NOTE | 2024-01-23 02:43 | RESP.RT ---
PEP not done at this time. Pt very anxious and SOB.
[2024-01-23] MEDS: ALPRAZOLAM 0.5 MG TABLET PO ×2 (02:55→20:18)
[2024-01-23] MEDS: METHYLPREDNISOLONE SOD SUCC PF 125 MG/2 ML VIAL 60 MG IVP ×3 (04:17→21:47)
[2024-01-23 06:29] LABS: Hematocrit 34.4 % (36.0-48.0); Hemoglobin 11.2 g/dL (12.0-16.0); Mean Corpuscular HGB Conc 32.6 g/dL (29.9-35.2); Mean Corpuscular Hemoglobin 30.4 pg (26.7-34.0); Mean Corpuscular Volume 93.5 fL (81.0-99.0); Mean Platelet Volume 8.9 fL (9.5-13.5); Platelet Count 319 10^3/uL (150-450); Red Blood Count 3.68 10^6/uL (4.20-5.40); Red Cell Distribution Width 12.4 % (11.0-15.0); White Blood Count 17.5 10^3/uL (4.0-11.0)
[2024-01-23 06:37] LABS: PCO2 VBG 55.2 mmHg (40.0-52.0)
[2024-01-23] MEDS: SODIUM CHLORIDE 3% INHALATION 15 ML NEB 3 ML IH ×2 (06:41→19:15)
[2024-01-23] MEDS: [UNRECOGNIZED DRUG - OTHER] 3 EACH IH ×2 (06:42→19:15)
[2024-01-23 06:46] LABS: Alanine Aminotransferase 28 U/L (14-59); Albumin Globulin Ratio 1.1; Albumin Level 3.1 g/dL (3.4-5.0); Alkaline Phosphatase 47 U/L (46-116); Anion Gap 11.3; Aspartate Amino Transferase 16 U/L (15-37); BUN Creatinine Ratio 26.6; Bilirubin Total 0.4 mg/dL (0.2-1.0); Calcium 8.4 mg/dL (8.5-10.1); Carbon Dioxide 31.8 mmol/L (21.0-32.0); Chloride 96 mmol/L (98-107); Estimated GFR (African America >60 (>=60 mL/min/1.73m^2); Estimated GFR (Non-African Ame >60 (>=60 mL/min/1.73m^2); Globulin 2.7 g/dL; Glucose 180 mg/dL (74-106); Potassium 4.1 mmol/L (3.5-5.1); Sodium 135 mmol/L (136-145); Total Protein 5.8 g/dL (6.4-8.2)
[2024-01-23 07:04] LABS: Monocytes Absolute Manual 1.05 10^3/uL (0.30-0.80); Segmented Neut Absolute Manual 10.15 10^3/uL (1.4-6.5)
[2024-01-23] MEDS: CETIRIZINE HCL 10 MG TABLET PO (08:14)
[2024-01-23] MEDS: AZITHROMYCIN 250 MG TABLET PO (08:14)
[2024-01-23] MEDS: PROSTAT 15 GM PROTEIN/100 CAL 30 ML LIQUID PACKET PO (08:14)
[2024-01-23] MEDS: GUAIFENESIN 600 MG TAB.ER.12H 1200 MG PO ×2 (08:14→20:17)
[2024-01-23] MEDS: MORPHINE SULFATE 2 MG/ML SYRINGE 0.5 MG IV (09:55)
[2024-01-23] MEDS: PSEUDOEPHEDRINE HCL 30 MG TABLET PO (09:55)
[2024-01-23] MEDS: BUDESONIDE 0.5 MG/2 ML AMPULE NEB IH ×2 (10:50→23:07)
--- NOTE | 2024-01-23 11:20 | PT.DAILY ---
Physical Therapy Daily Note PT Daily Note/Assess Start: 01/22/24 08:58 Freq: Status: Active Protocol: Document 01/23/24 11:17 [id number] (Rec: 01/23/24 11:20 [id number]) Visit Not Completed Visit Not Completed Visit Not Completed Due to: Pt refusing Other Reason Visit Not Completed Attempted x2. Patient states she is having difficulty breathing and she hurts to much to move. Physical Therapy Daily Note/Assessment Time In/Time Out Time In 11:00 Time Out 11:05 GG. Functional Abilities and Goals-Complete for Swing Bed Patients Only [id number]. Self-Care [id number]. Mobility
--- NOTE | 2024-01-23 11:43 | PM.PLPN ---
Progress Note: A&P Assessment and Plan (1) Acute exacerbation of chronic obstructive pulmonary disease: Assessment and Plan: NIV was ordered. If she is unable to qualify for this, then there is not much else I can do from a pulmonary standpoint. She has end-stage pulmonary disease, the only option would be for referral to a tertiary care center for lung transplantation; she is not a candidate as she continues to smoke. If she remains symptomatic, we will need to have a discussion regarding palliative care and hospice if her goals are comfort. (2) Acute exacerbation of bronchiectasis: Assessment and Plan: Continue with pulmonary toilet with PEP, hypertonic saline, and vest. (3) Neuromuscular respiratory weakness: Assessment and Plan: Patient has neuromuscular weakness likely associated from malnutrition. (4) Chronic respiratory failure with hypercapnia: Assessment and Plan: VBG continues to demonstrate baseline hypercapnic respiratory failure. She would benefit from a NIV. (5) Acute on chronic hypoxic respiratory failure: Assessment and Plan: Remains on 3L/min O2. Acute hypoxic respiratory failure appears to have resolved. (6) Cancer of upper lobe of right lung: Assessment and Plan: Stop smoking! (7) Cigarette nicotine dependence with nicotine-induced disorder: Assessment and Plan: Stop smoking! (8) Severe malnutrition: Assessment and Plan: Healthy weight gain was strongly encouraged. Focus on protein. (9) Pulmonary cachexia due to COPD: Assessment and Plan: Healthy weight gain. Subjective Subjective Interval history: No significant change from yesterday. She states that the bronchodilators caused her to have a paradoxical tightness in the chest. I spent an exorbitant amount of time yesterday attempting to complete paperwork and document to qualify for NIV. We have not heard anything so far regarding this. Exam Constitutional Vital Signs, click to edit/add: Last Vital Signs Temp 97.7 F 01/23/24 08:02 Pulse 106 H 01/23/24 10:54 Resp 20 01/23/24 10:54 BP 146/78 H 01/23/24 08:02 Pulse Ox 99 01/23/24 10:54 O2 Del Method Nasal Cannula 01/23/24 10:54 O2 Flow Rate 3 01/23/24 10:54 FiO2 25 01/19/24 23:31 Documenting provider has reviewed patient's vital signs: yes Common normals: no apparent distress General appearance: in distress respiratory (Mild with pursed lip breathing) and ill appearing Nutritional appearance: thin HENMT Common normals: normocephalic Nose: foreign body in naris Other: Wearing nasal cannula. No oral candidiasis present. Eye Other: Requires looking via peripheral vision given bilateral macular degeneration Chest Common normals: inspection of chest normal Respiratory Other: Patient is sitting up in bed pursed lip breathing. She has expiratory wheezes. No rhonchi. Cardio Rate: regular rate Rhythm: regular rhythm GI Inspection: normal to inspection Extremity Common normals: normal to inspection Neuro Common normals: oriented x3 Sensorium/orientation: awake and alert Motor exam: no tremor noted and no fasciculations Psych Mood and affect: anxious
--- NOTE | 2024-01-23 15:54 | PM.PN ---
Progress Note: Subjective Subjective Interval history: Minimal improvement overnight. Continues to have severe SOB with minimal exertion. SOB with speech. Feels like hard to take deep breath. Afebrile. Difficulty walking around due to SOB. Normal appetite and no emesis. No chest pain or palpitations. Exam Constitutional Vital Signs, click to edit/add: Last Vital Signs Temp 98.2 F 01/23/24 12:00 Pulse 120 H 01/23/24 13:52 Resp 24 H 01/23/24 12:00 BP 131/73 01/23/24 12:00 Pulse Ox 94 L 01/23/24 12:00 O2 Del Method Nasal Cannula 01/23/24 12:00 O2 Flow Rate 3 01/23/24 12:00 FiO2 25 01/19/24 23:31 Documenting provider has reviewed patient's vital signs: yes Common normals: no apparent distress, oriented x3 and alert HENMT Common normals: normocephalic Eye Common normals: PERRL and EOMs intact bilaterally Respiratory Auscultation: diminished lung sounds Cardio Common normals: regular rate, regular rhythm, no gallops, no murmurs and no rub GI Common normals: Normal to inspection, nondistended, normoactive bowel sounds present and non-tender Extremity Common normals: no pedal edema Progress Note: Objective Labs Labs: Short CBC 01/23/24 Range/Units 06:15 WBC 17.5 H (4.0-11.0) 10^3/uL Hgb 11.2 L (12.0-16.0) g/dL Hct 34.4 L (36.0-48.0) % Plt Count 319 (150-450) 10^3/uL BMP 01/23/24 06:15 Sodium 135 L Potassium 4.1 Chloride 96 L Carbon Dioxide 31.8 BUN 17.0 Creatinine 0.64 Glucose 180 H Calcium 8.4 L Liver Function 01/23/24 Range/Units 06:15 Total Bilirubin 0.4 (0.2-1.0) mg/dL AST 16 (15-37) U/L ALT 28 (14-59) U/L Alkaline Phosphatase 47 (46-116) U/L Albumin 3.1 L (3.4-5.0) g/dL Progress Note: A&P Assessment and Plan (1) Acute on chronic hypoxic respiratory failure: (2) Acute exacerbation of chronic obstructive pulmonary disease: (3) Acute exacerbation of bronchiectasis: (4) Chronic respiratory failure with hypercapnia: (5) Neuromuscular respiratory weakness: (6) Pulmonary cachexia due to COPD: (7) Severe malnutrition: (8) Cancer of upper lobe of right lung: (9) Cigarette nicotine dependence with nicotine-induced disorder: Plan Patient continues to have SOB and fatigue with minimal exertion. Continue antibiotics, steroids, and breathing treatments. Wean O2 as tolerated. Increase ambulation. If stable likely home in next 1-2 days.
--- NOTE | 2024-01-23 19:15 | RESP.RT ---
Pt requested to do PEP instead of vest due to shortness of breath.
[2024-01-24] VITALS (12 sets, daily range): BP systolic 103–154; BP diastolic 59–80; PULSE 65–100; TEMP 36.6–36.7; O2SAT 91–96
[2024-01-24] MEDS: METHYLPREDNISOLONE SOD SUCC PF 125 MG/2 ML VIAL 60 MG IVP ×2 (01:24→08:07)
[2024-01-24] MEDS: IPRATROPIUM/ALBUTEROL SULFATE 3 ML AMPUL.NEB IH ×3 (03:28→11:05)
[2024-01-24 06:02] LABS: Hematocrit 34.3 % (36.0-48.0); Hemoglobin 11.2 g/dL (12.0-16.0); Mean Corpuscular HGB Conc 32.7 g/dL (29.9-35.2); Mean Corpuscular Hemoglobin 30.2 pg (26.7-34.0); Mean Corpuscular Volume 92.5 fL (81.0-99.0); Platelet Count 313 10^3/uL (150-450); Red Blood Count 3.71 10^6/uL (4.20-5.40); Red Cell Distribution Width 12.4 % (11.0-15.0)
[2024-01-24 06:19] LABS: Alanine Aminotransferase 31 U/L (14-59); Albumin Globulin Ratio 1.2; Albumin Level 3.1 g/dL (3.4-5.0); Alkaline Phosphatase 51 U/L (46-116); Anion Gap 6.7; Aspartate Amino Transferase 13 U/L (15-37); BUN Creatinine Ratio 35.3; Bilirubin Total 0.4 mg/dL (0.2-1.0); Calcium 8.4 mg/dL (8.5-10.1); Carbon Dioxide 31.4 mmol/L (21.0-32.0); Chloride 95 mmol/L (98-107); Estimated GFR (African America >60 (>=60 mL/min/1.73m^2); Estimated GFR (Non-African Ame >60 (>=60 mL/min/1.73m^2); Globulin 2.6 g/dL; Glucose 197 mg/dL (74-106); Potassium 4.1 mmol/L (3.5-5.1); Sodium 129 mmol/L (136-145); Total Protein 5.7 g/dL (6.4-8.2)
[2024-01-24] MEDS: SODIUM CHLORIDE 3% INHALATION 15 ML NEB 3 ML IH (07:03)
[2024-01-24] MEDS: [UNRECOGNIZED DRUG - OTHER] 3 EACH IH (07:10)
[2024-01-24] MEDS: CETIRIZINE HCL 10 MG TABLET PO (08:07)
[2024-01-24] MEDS: ALPRAZOLAM 0.5 MG TABLET PO (08:07)
[2024-01-24] MEDS: GUAIFENESIN 600 MG TAB.ER.12H 1200 MG PO (08:07)
[2024-01-24] MEDS: PROSTAT 15 GM PROTEIN/100 CAL 30 ML LIQUID PACKET PO (08:07)
[2024-01-24] MEDS: AZITHROMYCIN 250 MG TABLET PO (08:07)
[2024-01-24] MEDS: BUDESONIDE 0.5 MG/2 ML AMPULE NEB IH (11:05)
--- NOTE | 2024-01-24 13:31 | PM.PLPN ---
Progress Note: A&P Assessment and Plan (1) Acute exacerbation of chronic obstructive pulmonary disease: Assessment and Plan: Doing better today. Awaiting NIV - will need to be handled outpatient at this point (unclear if case management reached out to her DME Thursday afternoon). (2) Acute exacerbation of bronchiectasis: Assessment and Plan: Continue pulmonary. (3) Chronic respiratory failure with hypercapnia: Assessment and Plan: Ordered NIV (4) Neuromuscular respiratory weakness: Assessment and Plan: Patient has neuromuscular weakness likely associated from malnutrition. (5) Acute on chronic hypoxic respiratory failure: Assessment and Plan: @ baseline 3L/min O2. (6) Pulmonary cachexia due to COPD: Assessment and Plan: Healthy weight gain. (7) Severe malnutrition: Assessment and Plan: Healthy weight gain was strongly encouraged. Focus on protein. (8) Cancer of upper lobe of right lung: Assessment and Plan: Stop smoking! (9) Cigarette nicotine dependence with nicotine-induced disorder: Assessment and Plan: Stop smoking! Plan Contact my office for F/U. Subjective Subjective Interval history: Patient states she is doing much better today. She is sitting up at the side of the bed and is eating - she said this is the first day that she is hungry. Breathing is better too, less labored. Exam Constitutional Vital Signs, click to edit/add: Last Vital Signs Temp 98.0 F 01/24/24 09:00 Pulse 100 H 01/24/24 11:51 Resp 16 01/24/24 09:00 BP 103/59 01/24/24 09:00 Pulse Ox 91 L 01/24/24 11:08 O2 Del Method Nasal Cannula 01/24/24 11:08 O2 Flow Rate 3 01/24/24 11:08 FiO2 25 01/19/24 23:31 Documenting provider has reviewed patient's vital signs: yes Common normals: no apparent distress General appearance: comfortable Nutritional appearance: thin HENMT Other: Wearing nasal cannula. Eye Other: Requires looking via peripheral vision given bilateral macular degeneration Chest Common normals: inspection of chest normal Respiratory Other: Air flow diminished, non-labored. No significant wheezes today. No rhonchi. Cardio Rate: regular rate Rhythm: regular rhythm GI Inspection: normal to inspection Extremity Common normals: normal to inspection Neuro Common normals: oriented x3 Sensorium/orientation: awake and alert Motor exam: no tremor noted and no fasciculations Psych Mood and affect: anxious
--- NOTE | 2024-01-24 14:50 | P.DS_ITS ---
DS: Providers Provider Date of admission: 01/19/24 10:01 Primary care physician: CHRIS FAJARDO Consults: 01/18/24 Consult to Reservation Sales Agent Routine Reason for consult:: Advanced Directives 01/19/24 09:45 Consult to Pulmonology Routine Consulting Provider: Jem Dixon Reason for consultation: COPD/resp failure 01/19/24 12:37 Consult to Dietitian Routine Reason for consultation: Malnutrition 01/21/24 12:32 Physical Therapy Eval and Treat Routine Reason for consultation: Weakness DS: Diagnosis Discharge Diagnosis (1) Acute exacerbation of chronic obstructive pulmonary disease: (2) Acute exacerbation of bronchiectasis: (3) Chronic respiratory failure with hypercapnia: (4) Neuromuscular respiratory weakness: (5) Acute on chronic hypoxic respiratory failure: (6) Pulmonary cachexia due to COPD: (7) Severe malnutrition: (8) Cancer of upper lobe of right lung: (9) Cigarette nicotine dependence with nicotine-induced disorder: DS: Summary Hospital Course Hospital Course: Reason for admission: See ER note and H&P for details. 73 y/o female to ER with SOB. History of COPD on home O2. Developed worsening SOB over past 3 days. Chest tight and hard to catch breath. To ER and chest x-ray negative. Continued symptoms and admitted. Started solu-medrol and duoneb. Resumed home medications. Consulted pulmonology who she sees as outpatient. Gradually improved. Remained stable on oxygen. Ambualting around room. Chest not as tight. Using BiPAP and helps with symptoms. Discharged home in stable condition. Take prednisone tapered over 12 days. Resume home medication without change. Follow up with pulmonology in 1-2 weeks. Time Spent with Patient Time attestation: Total time spent providing and/or coordinating discharge services: Time spent: greater than 30 minutes Exam Constitutional Vital Signs, click to edit/add: Last Vital Signs Temp 98.0 F 01/24/24 09:00 Pulse 100 H 01/24/24 11:51 Resp 16 01/24/24 09:00 BP 103/59 01/24/24 09:00 Pulse Ox 91 L 01/24/24 11:08 O2 Del Method Nasal Cannula 01/24/24 11:08 O2 Flow Rate 3 01/24/24 11:08 FiO2 25 01/19/24 23:31 Documenting provider has reviewed patient's vital signs: yes Common normals: no apparent distress, oriented x3 and alert HENMT Common normals: normocephalic Eye Common normals: PERRL and EOMs intact bilaterally Respiratory Auscultation: diminished lung sounds Cardio Common normals: regular rate, regular rhythm, no gallops, no murmurs and no rub GI Common normals: Normal to inspection, nondistended, normoactive bowel sounds present and non-tender Extremity Common normals: no pedal edema DS: Data Data Completed and Pending Labs on day of discharge: Labs from last 24 hours 01/24/24 05:40 WBC 20.0 H RBC 3.71 L Hgb 11.2 L Hct 34.3 L MCV 92.5 MCH 30.2 MCHC 32.7 RDW 12.4 Plt Count 313 MPV 9.0 L Seg Neuts % (Manual) 56.0 Lymphocytes % (Manual) 38.0 Monocytes % (Manual) 6.0 Eosinophils % (Manual) 0.0 L Basophils % (Manual) 0.0 L Neutrophils # (Manual) 11.20 H Lymphocytes # (Manual) 7.60 H Monocytes # (Manual) 1.20 H Eosinophils # (Manual) 0.00 Basophils # (Manual) 0.00 Sodium 129 L Potassium 4.1 Chloride 95 L Carbon Dioxide 31.4 Anion Gap 6.7 BUN 24.0 H Creatinine 0.68 Est GFR ( Amer) >60 Est GFR (Non-Af Amer) >60 BUN/Creatinine Ratio 35.3 Glucose 197 H Calcium 8.4 L Total Bilirubin 0.4 AST 13 L ALT 31 Alkaline Phosphatase 51 Total Protein 5.7 L Albumin 3.1 L Globulin 2.6 Albumin/Globulin Ratio 1.2 Discharge Plan Discharge Disposition: Home, Self-Care Discharge Medications: New prednisone 10 mg tablets,dose pack 10 mg PO DAILY Qty: 39 0RF Rx Instructions: 6 PO daily x 3 days, then 4 PO daily x 3 days, then 2 PO daily x 3 days, then 1 PO daily x 3 days alprazolam 0.5 mg tablet 0.5 mg PO TID PRN (Reason: anxiety) 5 Days Qty: 15 0RF Continued ipratropium-albuterol 0.5 mg-3 mg(2.5 mg base)/3 mL solution for nebulization 3 ml INHALATION Q4H azithromycin 250 mg tablet 250 mg PO .q am albuterol sulfate 90 mcg/actuation HFA aerosol inhaler 2 puff INHALATION Q4H PRN (Reason: shortness of breath or wheezing) Breztri Aerosphere 160-9-4.8 mcg/actuation HFA aerosol inhaler 2 inh INHALATION BID Ohtuvayre 3 mg/2.5 mL suspension for nebulization 3 mg inhalation BID Discontinued prednisone 10 mg tablet 10 mg PO .q am Activity: increase activity as tolerated Diet: advance to your usual diet Print Language: Indonesian Patient Instructions: Alprazolam (By mouth), Prednisone (By mouth) Forms: Portal Instructions Follow Up Appointments: Please call and schedule a follow up appointment to be seen within 1 week. Discharge Date/Time: 01/24/24 13:56 Discharge location: home
--- NOTE | 2024-01-25 09:24 | SWNOTE1 ---
SW reaching out to [facility] to make sure they received discharge information, waiting to hear back.
--- NOTE | 2024-01-25 11:52 | SWNOTE1 ---
Pt was discharged over the weekend. CURRY faxed over dc med rec, CRF, and dc summary to Cecilia [facility]. Pt went home with GLADIS Brooks.
--- NOTE | 2024-01-25 14:54 | CM.DCFOLLOWU ---
1st attempt 01/25/24, no answer
--- NOTE | 2024-01-26 14:16 | CM.DCFOLLOWU ---
Person spoke with:pt's How are you feeling? she is doing so/so How is your pain? just the breathing is the issue, a hospice nurse was in the home assisting during conversation Did you understand your discharge instructions?yes Do you have any questions about your discharge instructions?no Were you given any prescriptions at discharge?yes Were you able to get your prescriptions filled?yes Do you understand how to take your medications as ordered?yes Do you have any questions about your follow up appointment and do you plan to keep your follow up appointment?no questions, reviewed follow ups Is there anything else that you would like to discuss?no Questions/Comments/Concerns/Other: none
== END 2024-01-24 13:56 | disposition home or self-care (01) | DRG 189 ==
LOC: ER 21:09 → MS 22:17 → ICU 01-19 10:01 → MS 01-20 10:25
PROVIDERS: Registered Nurse; Admitting Provider Internal Medicine; Emergency Provider Internal Medicine; Family Provider Internal Medicine; PCP Family Medicine; Visit Provider Internal Medicine
DX: J96.21 Acute and chronic respiratory failure with hypoxia (principal); E43 Unspecified severe protein-calorie malnutrition; J44.1 Chronic obstructive pulmonary disease with (acute) exacerbation; J47.1 Bronchiectasis with (acute) exacerbation; C34.11 Malignant neoplasm of upper lobe, right bronchus or lung; Z66 Do not resuscitate; J96.22 Acute and chronic respiratory failure with hypercapnia; J43.2 Centrilobular emphysema; J98.8 Other specified respiratory disorders; E88.A Wasting disease (syndrome) due to underlying condition; F17.219 Nicotine dependence, cigarettes, with unspecified nicotine-induced disorders; Z68.21 Body mass index [BMI] 21.0-21.9, adult; Z99.81 Dependence on supplemental oxygen; Z79.2 Long term (current) use of antibiotics; Z79.52 Long term (current) use of systemic steroids; Z79.899 Other long term (current) drug therapy
CPT/HCPCS: 36415; 36600; 71045; 80048; 80053; 82800; 82805; 83880; 84484; 85007; 85027; 87420; 87804; 87811; 93005; 94640; 94660; 94667; 94668; 94761; 96365; 97110; 97161; 99285; 99406; 0202U; J2270; J2405; J2919; J3475

== ENCOUNTER 2024-03-23 13:41 | Outpatient (OUT) | payer MEDICARE, MEDICAID, SELFPAY ==
--- NOTE | 2024-03-23 13:51 | CT_ITS ---
[address] [address] Patient Name: SAMAN HAMPTON MRN: [id number] date: 1950 Sex: F Assigned Patient Location: CT Current Patient Location: Accession/Order Number: [id number] Exam Date: 03/23/2024 14:00 Report Date: 03/24/2024 05:43 At the request of: NON-STAFF PHYSICIAN Procedure: CT chest wo con EXAMINATION: CT chest wo con HISTORY: Nodule of right lung ; follow-up COMPARISON: CT chest 09/29/2023 TECHNIQUE: Axial, Coronal, and Sagittal images were created without the administration of IV contrast material. Dose reduction techniques were achieved by using automated exposure control and/or adjustment of mA and/or kV according to patient size and/or use of iterative reconstruction technique. FINDINGS: LUNGS: Stable soft tissue irregularity (scarring versus nodule) at superior extent of right major fissure, 7 x 4 mm. Stable appearance of a few tiny calcified and noncalcified nodules scattered within the lungs, < 5 mm. No appreciable new nodules. Moderate emphysematous changes, left lower lobe bronchiectasis and mild mucous plugging with some peripheral atelectasis. PLEURA: No mass, effusion, or pneumothorax. VASCULATURE: No abnormality. HELEN: No mass or pathologic adenopathy. MEDIASTINUM: No mass or pathologic adenopathy. CARDIAC: No enlargement, pericardial thickening, or pericardial effusion. Coronary Artery calcifications: Coronary calcifications are mild. AORTA: No aneurysm or dissection. CHEST WALL: No mass or axillary adenopathy BONES: Stable slight anterior wedging of T7 and T8 vertebral bodies favoring remote compression fractures. LIMITED ABDOMEN: No suspicious findings. Limited images of the upper abdomen. OTHER: Negative. CT/CT chest wo con IMPRESSION: 1. Lung-RADS 2- Benign Appearance or Behavior. Nodules with a very low likelihood of becoming a clinically active cancer due to size or lack of growth. Follow-up CT Chest in 1 year. Electronically authenticated by: PIPER XIE Date: 03/24/2024 05:43
== END 2024-03-23 13:42 | disposition home or self-care (01) ==
LOC: CT 13:41
PROVIDERS: Family Provider Internal Medicine; PCP Family Medicine
DX: R91.1 Solitary pulmonary nodule (principal)
CPT/HCPCS: 71250

== ENCOUNTER 2024-04-12 06:24 | Observation (INO) | payer MEDICARE, MEDICAID, SELFPAY ==
[2024-04-12] VITALS (41 sets, daily range): BP systolic 117–167; BP diastolic 68–114; PULSE 93–132; RESP 12; TEMP 36.6–37.7; O2SAT 79–99; BMI 18.9; BMI 19.2
--- NOTE | 2024-04-12 06:25 | ECG_ITS ---
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
--- NOTE | 2024-04-12 06:26 | XR_ITS ---
The [address] [address] Patient Name: SAMAN HAMPTON MRN: [id number] date: 1950 Sex: F Assigned Patient Location: ER Current Patient Location: ED.MAIN Accession/Order Number: [id number] Exam Date: 04/12/2024 06:58 Report Date: 04/12/2024 07:35 At the request of: KEVIN ANTUNEZ Procedure: XR chest 1V EXAM: CHEST 1 VIEW HISTORY: SOB TECHNIQUE: Chest, one view. COMPARISON: 01/21/2024. FINDINGS: Patient is in lordotic projection with hyperinflated lungs. No focal consolidation, pleural effusion, or pneumothorax. Pulmonary vasculature is within normal limits. There is aortic atherosclerosis and normal heart size. XR/XR chest 1V IMPRESSION: 1. Chronic obstructive pulmonary disease with clear lungs. Electronically authenticated by: BRANDI ALVA Date: 04/12/2024 07:35
--- NOTE | 2024-04-12 06:29 | ED_ITS ---
HPI HPI - General Adult General Chief complaint: Shortness of Breath/Dyspnea Stated complaint: SOB Time Seen by Provider: 04/12/24 06:25 History of Present Illness HPI narrative: 73-year-old female presents to the emergency department for difficulty breathing. It is not clear when this started but the paramedics brought her in and reported that they were at her home yesterday morning. She was not transported at that time. She was worse today and they placed her on CPAP and gave her IV Solu-Medrol and aerosol treatment and transported her here. She is unable to give much history because of her respiratory status. Related Data Home Medications ?Medication ?Instructions ?Recorded ?Confirmed albuterol sulfate 90 mcg/actuation 2 puff inhalation Q4H PRN 01/18/24 01/18/24 aerosol inhaler shortness of breath or wheezing azithromycin 250 mg tablet 250 mg PO .q am 01/18/24 01/18/24 budesonide 160 mcg-glycopyr 9 2 inh inhalation BID 01/18/24 01/18/24 mcg-formot 4.8 mcg/actuation HFA inhaler (Breztri Aerosphere) ensifentrine 3 mg/2.5 mL 3 mg inhalation BID 01/18/24 01/18/24 suspension for nebulization (Ohtuvayre) ipratropium 0.5 mg-albuterol 3 mg 3 ml inhalation Q4H 01/18/24 01/18/24 (2.5 mg base)/3 mL nebulization soln Previous Rx's ?Medication ?Instructions ?Recorded alprazolam 0.5 mg tablet 0.5 mg PO TID PRN anxiety 5 days 01/24/24 #15 tabs prednisone 10 mg tablets in a dose 10 mg PO DAILY #39 ea 01/24/24 pack Allergies Allergy/AdvReac Type Severity Reaction Status Date / Time No Known Drug Allergies Allergy Verified 04/12/24 06:35 Opioid HPI Opioid Management Most Recent Opioid Data: Last Pain Scale 3 01/23/24 11:15 01/23/24 Last ORT Total Score 4 01/18/24 22:26 01/18/24 Last ORT Risk Category Moderate Risk 01/18/24 22:26 01/18/24 Review of Systems ROS Narrative Not obtainable, acuity of illness and respiratory difficulty [facility] History (Updated 04/12/24 @ 06:29 by Van Portillo MD) Neuromuscular respiratory weakness ?G70.9 - Myoneural disorder, unspecified (ICD-10) ?J99 - Respiratory disorders in diseases classified elsewhere (ICD-10) Chronic respiratory failure with hypercapnia ?J96.12 - Chronic respiratory failure with hypercapnia (ICD-10) Pulmonary cachexia due to COPD ?R64 - Cachexia (ICD-10) ?J44.9 - Chronic obstructive pulmonary disease, unspecified (ICD-10) Severe malnutrition ?E43 - Unspecified severe protein-calorie malnutrition (ICD-10) Cancer of upper lobe of right lung ?C34.11 - Malignant neoplasm of upper lobe, right bronchus or lung (ICD-10) Cigarette nicotine dependence with nicotine-induced disorder ?F17.219 - Nicotine dependence, cigarettes, with unspecified nicotine-induced disorders (ICD-10) Acute on chronic hypoxic respiratory failure ?J96.21 - Acute and chronic respiratory failure with hypoxia (ICD-10) BRIGETTE (generalized anxiety disorder) ?F41.1 - Generalized anxiety disorder (ICD-10) Counseling regarding end of life decision making ?Z71.89 - Other specified counseling (ICD-10) Acute respiratory failure with hypercapnia ?J96.02 - Acute respiratory failure with hypercapnia (ICD-10) Legally blind ?H54.8 - Legal blindness, as defined in [place] (ICD-10) Glaucoma ?H40.9 - Unspecified glaucoma (ICD-10) 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 ?H35.3190 - Nonexudative age-related macular degeneration, unspecified eye, stage unspecified (ICD-10) Oxygen dependent ?Z99.81 - Dependence on supplemental oxygen (ICD-10) COPD (chronic obstructive pulmonary disease) ?J44.9 - Chronic obstructive pulmonary disease, unspecified (ICD-10) Surgical History Hx of abdominoplasty ?Z98.890 - Other specified postprocedural states (ICD-10) H/O tubal ligation ?Z98.51 - Tubal ligation status (ICD-10) H/O section ?Z98.891 - History of uterine scar from previous surgery (ICD-10) Family History Mother Family history of cancer Father Family history of CHF (congestive heart failure) Family history of hypertension Brother Family history of myocardial infarction Sister Family history of cancer Social History Within the past year, how often did you have a drink containing alcohol: never Score interpretation: A score less than 3 is consistent with normal alcohol consumption. Smoking status: Current every day smoker Non-prescribed substance use: cannabis (any form) Previous occupational history: retired Highest level of school completed/degree received: 11th grade Are you now , , , , never or living with a partner: In a typical week, how many times do you talk on the telephone with family, friends, or neighbors: 3 or more times per week How often do you get together with friends or relatives: 3 or more times per w [place] How often do you attend restorationism or congregation services: 4 or more times per year Little interest or pleasure in doing things: not at all Feeling down, depressed, or hopeless: not at all Feel stressed/tense/nervous/anxious/difficulty sleeping: not at all Do you think of yourself as: straight/heterosexual Gender Identity: female Exam Narrative Exam Narrative: Nurses note and vital signs reviewed and patient is not hypoxic. General: The patient appears in moderate respiratory distress on CPAP. She is using accessory muscles. Skin: Warm, dry, no pallor noted. There is no rash noted. Head: Normocephalic, atraumatic Eye: Normal conjunctiva, no drainage Ears, Nose, Mouth, and Throat: oral mucosa is moist. Nares patent. Cardiovascular: Regular Rate and Rhythm, tachycardic Respiratory: Patient is in moderate respiratory distress. Breath sounds are quite diminished but equal Back: non-tender GI: Soft and nontender Musculoskeletal: The patient has no evidence of calf tenderness, no pitting edema, symmetrical pulses noted bilaterally Neurological: Awake and alert. She can answer questions with a few words and can shake her head yes and no appropriately. Psychiatric: Cooperative Constitutional Vital Signs, click to edit/add: Last Vital Signs Temp 100 F 04/12/24 06:26 Pulse 131 H 04/12/24 06:32 Resp 26 H 04/12/24 06:26 BP 138/87 04/12/24 06:26 Pulse Ox 98 04/12/24 06:32 O2 Flow Rate 10 04/12/24 06:26 FiO2 40 04/12/24 06:32 Course Vital Signs Vital signs: Vital Signs Temperature 100 F 04/12/24 06:26 Pulse Rate 125 H 04/12/24 06:26 Respiratory Rate 26 H 04/12/24 06:26 Blood Pressure 138/87 04/12/24 06:26 Pulse Oximetry 99 04/12/24 06:26 Oxygen Delivery Flow Rate 10 04/12/24 06:26 Temperature 100 F 04/12/24 06:26 Pulse Rate 131 H 04/12/24 06:32 Respiratory Rate 26 H 04/12/24 06:26 Blood Pressure 138/87 04/12/24 06:26 Pulse Oximetry 98 04/12/24 06:32 Oxygen Delivery Flow Rate 10 04/12/24 06:26 Fraction of Inspired Oxygen 40 04/12/24 06:32 Medical Decision Making MDM Narrative Medical decision making narrative: Tests are ordered and the patient is signed out to Dr. Gauthier at change of shift. Lab Data Labs: Lab Results 04/12/24 Range/Units 06:25 WBC 17.0 H (4.0-11.0) 10^3/uL RBC 4.07 L (4.20-5.40) 10^6/uL Hgb 12.1 (12.0-16.0) g/dL Hct 37.3 (36.0-48.0) % MCV 91.6 (81.0-99.0) fL MCH 29.7 (26.7-34.0) pg MCHC 32.4 (29.9-35.2) g/dL RDW 12.8 (11.0-15.0) % Plt Count 288 (150-450) 10^3/uL MPV 8.4 L (9.5-13.5) fL Neut % (Auto) 69.9 (43.0-75.0) % Lymph % (Auto) 24.1 (20.5-60.0) % [place] % (Auto) 5.4 (1.7-12.0) % Eos % (Auto) 0.0 L (0.9-7.0) % Baso % (Auto) 0.1 L (0.2-2.0) % Neut # (Auto) 11.8 H (1.4-6.5) 10^3/uL Lymph # (Auto) 4.1 H (1.2-3.8) 10^3/uL [place] # (Auto) 0.9 H (0.3-0.8) 10^3/uL Eos # (Auto) 0.0 (0.0-0.7) 10^3/uL Baso # (Auto) 0.0 (0.0-0.1) 10^3/uL Abs Immat Gran (auto) 0.09 H (0.00-0.03) 10^3/uL Imm/Tot Granulo (auto) 0.5 (0.0-0.5) % ECG Data Attestation: I personally reviewed and interpreted this ECG as follows: (EKG on my interpretation shows sinus tachycardia with a rate of 131.) Critical Care Time Critical Care Time Critical Care Time: Yes Total Critical Care Time: 35 Attestation: Due to the high probability of sudden and clinically significant deterioration in the patient's condition he/she required the highest level of my preparedness to intervene urgently I provided critical care time including documentation time, medication orders and management, reevaluation, vital sign assessment, ordering and reviewing of lab tests, ordering and reviewing of x-ray studies, and admission orders. Aggregate critical care time is 35 minutes including only time during which I was engaged in work directly related to his/her care and did not include time spent treating other patients simultaneously. Discharge Plan Discharge Patient Disposition: Still a Patient
--- OUTSIDE RECORDS SUMMARY | 2024-04-12 06:32 | XMS_ITS | CCD ---
Author Organization [facility] CliniSyma Care Team Providers Care Erco Machine Operator Name Role Phone SAMSA, RIO P Attending Unavailable NONE, XXXX Referring Unavailable MD Mena Gonzales Attending Unavailable MD Mena Gonzales Admitting Unavailable House, [place] P Unavailable Unavailable Unavailable Jorge Alberto Carlson Referring Unavailable Dong, Dr. [place] Velázquez Primary Care Unava gen Pakr, Mr. Abner Smith Attending Unavaila ble HOUSE, [...] Admitting Unavailable SAMSA ., RIO Attending Unavailable POLICAROBHAKTI Consulting Unavailable SAMSA ., RIO Consulting Unavailable HOUSE, DR HAYNES Primary Care Unavailable SAMSA ., RIO Admitting Unavailable SAMSA ., RIO Attending Unavailable HEGGJENIFFER Consulting Unavailable [facility], DR ARGUETA Admitting Unavailable HOUSE, DR HAYNES Primary Care Unavailable MISC, DR ARGUETA Attending Unavailable MISC, DR ARGUETA Consulting Unavailable SAMSA ., RIO Consulting Unavailable SAMSA ., RIO Admitting Unavailable HOUSE, DR HAYNES Primary Care Unavailable ZIEBLEXA, DR PIPER Monsivais Consulting Unavailable SAMSA ., RIO Attending Unavailable SAMSA ., RIO Consulting Unavailable ROJAS, DR PIPER Monsivais Consulting Unavailable HOUSE, DR HAYNES Primary Care Unavailable SAMSA ., RIO Admitting Unavailable SAMSA ., RIO Attending Unavailable SAMSA ., RIO Consulting Unavailable Aldo, Dr. Jorge Alberto Marvin Attending Unavailab ifeanyi Willett, Dr. Jean Pierre Cook Referring Anneliese vailable Hassell, Dr. [place] Velázquez Primary Care Unava gen Carlson, Dr. Jorge Alberto P. Admitting Unavailab MD Levi Patel Attending Provider Rio Zaragoza Referring Provider [phone] House, DO Haynes Primary Care Provider [phone] MD Levi Ann Attending Provider Rio Zaragoza Referring Provider [phone] House, DO Haynes Primary Care Provider [phone] JEAN PIERRE WILLETT Attending Unavail able Hassell, Dr. [place] Velázquez Primary Care Unava ilable [facility], Dr. Rio Daly Referring Unavailab le Dong, [place] Primary Care Unavailable [facility], Rio Referring Unavailable Levi Ann Attending Unavailable Leiv Ann Admitting Unavailable HOUSE, [place] Dorantes Primary Care Unavailable HOUSE, DO [place] Dorantes Attending Unavailable HOUSE, DO [place] Dorantes Attending Unavailable HOUSE, [place] Dorantes Primary Care Unavailable Derek Duffy MD Attending Unavailable HOUSE, [place] Dorantes Primary Care Unavailable Allergies Allergy Classification Reported Allergen(s) Allergy Type Date of Onset Reaction(s) Facility (1 source) No Known Medication Allergies; Translations: [No Known Medication Allergies] Propensity to adverse reactions (disorder) [facility] Repository (3 sources) Tetracycline; Translations: [tetracycline] Drug Allergy Unknown [facility] Work Phone: Medications Current Medications Medication Drug Class(es) Dates Sig (Normalized) Sig (Original) [id number] 200 actuat albuterol 0.09 mg/actuat metered dose [...] take 1 puff(s) by inhalation twice daily Vtyanviuym-Ncrwiskk-Csvcjjchne (Breztri Aerosphere) 160-9-4.8 mcg/actuation HFA aerosol inhaler [...] cation CBD GUMMIES WITH 10 MG THC/CBD 1/4 PRNHORMONE ZONE 1 PO QD Quantity: 0 [...] DX IMAG OTH AB REGION W/RP] Onset: 04-14-2023 Episodic Respiratory failure; insufficiency; arrest (adult) (3 [...] Test Name Value Interpretation Reference Range Facility Rad - Other Radiology Report on 03-24-2024 Rad - Other Radiology Report [id number]#1.0 [facility]24 Outside Records [id number]#1 .00OTGTIFF Normal [facility] Outside Recordson 01-25-2024 Outside Records [id number] 10 [id number]#1.0 0OTGTIFF Normal [facility] Outside Records [id number] 10 [id number]#1.0 0OTGTIFF [facility] Outside Records [id number]#1.[address] [facility] Rad - Other Radiology Report on 01-25-2024 Rad - Other Radiology Report [id number]#1.0 0OTGTIFF Normal [facility] Outside Recordson 01-21-2024 Outside Records [id number] 40 [id number]#1.0 0OTGTIFF Normal [facility] Outside Records [id number] 40 [id number]#1.0 0OTGTIFF Normal [facility] Outside Records [id number] 40 [id number]#1.0 0[facility] Outside Recordson 01-20-2024 Outside Records [id number]#[address] [facility] Report on 01-19-2024 Rad - Other Radiology Report [id number]#[address] [facility] 11-27-2023 Outside Records [id number] 50 [id number]#1.0 0[facility] Outside Recordson 10-12-2023 Outside Records [id number] 01 [id number]#1. [facility] Other [facility] Report on 09-30-2023 Rad - Other Radiology Report [id number]#1. [facility] 09-02-2023 Outside Records [id number] 31 [id number]#1.0 0[facility] Outside Recordson 06-16-2023 Outside Records [id number] 22 [id number]#1.0 0[facility] Outside Recordson 06-04-2023 Outside Records [id number] 41 [id number]#1.00 [facility] Bronchoscopyon 08-28-2022 Bronchoscopy PATIENTNAME Patient Name: Mellisa Hampton EXAMDATE Procedure Date: 08/28/2022 9:02 AM PATIENTID PATIENTACCOUNTNUM PATIENTDOB Date of : 1950 PATIENTROOM Room: Mina Procedure Room 8 [facility] Attending MD: Jorge Alberto Carlson MD, [id number] ENDOPROCEDURENAME Procedure: Bronchoscopy INDICATION Indications: Right upper lobe nodule, Mediastinal staging of suspected lung cancer PRIMARYPROVIDER Providers: Jorge Alberto Carlson MD (Doctor), Cinthia Hogan RN (Nurse), Forrest Hamilton, Online Retailer (Online Retailer), Casimiro Pacheco MD (Fellow) EDREFPROVIDER Referring MD: [...] physician, the nurse, the anesthesiologist and the inpatient pharmacist in the procedure room. Mental Status Examination: [...] aspiration was also performed using an [employer]ot 22 gauge needle in the right lower [...] region ( (more content not included)... Normal [facility] GLUCOSE-POCTon 08-28-2022 Glucose [Mass/Vol] 109 mg/dL High 74 - 99 [facility] Comment on above: Performed By: #### G SHAWN #### [address] Cytologyon 08-28-2022 [facility] Cytology Patient Name MELLISA HAMPTON Date [...] LYMPHOID SAMPLE. Slide(s) initially screened by a Control Clerk at [place] [address] Electronically Signed Out By LEXX GABRIEL MD By the signature on this report, the individual or group listed as making the Final Interpretation/Diagnos is certifies that they have reviewed this case. Slide(s) initially screened by a Control Clerk at [facility] Diagnostic interpretation performed at [place] [address] Rapid Evaluation Fine Needle Aspiration Immediate Read [...] NEEDLE ASPIRATION 7 LYMPH NODE Pap stain Non-Ammonium Nitrate Crystallizer, Diff-Quik stain Non-Ammonium Nitrate Crystallizer, CELL BLOCK, H AND E, Initial B: FINE NEEDLE ASPIRATION 4R LYMPH NODE Pap stain Non-Ammonium Nitrate Crystallizer, Diff-Quik stain Non-Ammonium Nitrate Crystallizer, CELL BLOCK, H AND E, Initial C: FINE NEEDLE ASPIRATION 11RS LYMPH NODE Pap stain Non-Ammonium Nitrate Crystallizer, Diff-Quik stain Non-Ammonium Nitrate Crystallizer, CELL BLOCK, H AND E, Initial Gross [...] CLEAR NEEDLE RINSE IN CYTOLYT WITH PARTICLES. [facility] Department of Pathology [address] [place] [address] Normal [facility] Comment on above: Performed By: #### C #### [facility] Cytology [id number] [id number] Consult (Pulmonary Medicine) on 08-26-2022 Consult (Pulmonary [...] Fajardo Thoracic: Dr. Willett Pulmonology: Dr. Rio Zaragoza ([facility]) HPI: Patient presents to pulmonary clinic today as a new patient in regards to RUL nodule; referred by Dr. Willett from thoracic surgery. Patient gets her care through [facility] system and follows with metalworking specialist Dr. Rio Zaragoza. 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 No exposure to birds or exotic animals. Family History: No known family history of lung diseases. No known family history of autoimmune disorders. - Aunt; emphysema Testing: PFT -03/12/22: FEV1/FVC: 29, FEV1: 0.52 (26%), FVC: 1.81 (70%), + BD Response, KMW67-73: 9%, T.41 (141%), RV/T%, DLCO: 36% CT Chest -07/08/22: 1. Continued increase in size of a now 9 mm spiculated mass within the right upper lobe superior segment; most consistent with neoplasm. 2. Increase in size of a (more content not included)... [facility] CBC W MANUAL DIFFon 08-26-19 23 ATYPICAL LYMPH # Normal [facility] Comment on above: Performed By: #### C KIZZY #### [facility] [address] [place] [address] [address] Dionicio Shook ATYPICAL LYMPH % Normal [facility] Comment on above: Performed By: #### C KIZZY #### [facility] [address] [address] [address] Dionicio Shook BAND # 0.0 103/ul Normal 0.0-0.3 [facility] Comment on above: Performed By: #### C BCJAKE #### [facility] [address] [address] [address] Dionicio Shook BAND % 0 % Normal 0-5 [facility] Comment on above: Performed By: #### C BCMAN #### [facility] [address] [place] [address] Dr. Dionicio Shook BASOM # 0.00 103/ul Normal 0.00-0.10 [facility] Comment on above: Performed By: #### C BCJAKE #### [facility] [address] [place] [address] Dr. Dionicio Shook BASOM % 0.0 % Critically low 0.2-2.0 [facility] Comment on above: Performed By: #### C KIZZY #### [facility] [address] [place] [address] Dr. Dionicio Shook BLAST # Normal [facility] Comment on above: Performed By: #### C KIZZY #### [facility] [address] [place] [address] Dr. Dionicio Shook BLAST % Normal [facility] Comment on above: Performed By: #### C KIZZY #### [facility] [address] [place] [address] Dr. Dionicio Shook CORRECTED WBC Normal 4.0-11.0 [facility] Comment on above: Performed By: #### C KIZZY #### [facility] [address] [place] [address] Dr. Dionicio Shook EOS # 0.57 103/ul Normal 0.00-0.70 [facility] Comment on above: Performed By: #### C BCJAKE #### [facility] [address] [place] [address] Dr. Dionicio Shook EOS% 6.0 % Normal 0.9-7.0 [facility] Comment on above: Performed By: #### C KIZZY #### [facility] [address] [place] [address] Dr. Dionicio Shook HCT 37.9 % Normal 36.0-48.0 [facility] Comment on above: Performed By: #### C BCJAKE #### [facility] [address] [place] [address] [address] Dionicio Shook HGB 12.1 g/dl Normal 12.0-16.0 [facility] Comment on above: Performed By: #### C BCJAKE #### [facility] [address] [place] [address] [address] Dionicio Shook LYMPHM # 5.89 103/ul Critically high 1.20-3.80 [facility] Comment on above: Performed By: #### C BCJAKE #### [facility] [address] [address] [address] Dionicio Shook LYMPHM% 62.0 % Critically high 20.5-60.0 [facility] Comment on above: Performed By: #### C KIZZY #### [facility] [address] [place] [address] Dr. Dionicio Shook MCH 29.8 pg Normal 26.7-34.0 [facility] Comment on above: Performed By: #### C KIZZY #### [facility] [address] [place] [address] Dr. Dionicio Shook MCHC 31.9 g/dl Normal 29.9-35.2 [facility] Comment on above: Performed By: #### C KIZZY #### [facility] [address] [place] [address] Dr. Dionicio Shook MCV 93.3 fL Normal 81.0-99.0 [facility] Comment on above: Performed By: #### C KIZZY #### [facility] [address] [place] [address] Dr. Dionicio Shook METAMYELOCYTE # Normal [facility] Comment on above: Performed By: #### C KIZZY #### [facility] [address] [place] [address] Dr. Dionicio Shook METAMYELOCYTE % Normal [facility] Comment on above: Performed By: #### C KIZZY #### [facility] [address] [address] [address] Dionicio Shook MONOM# 0.47 103/ul Normal 0.30-0.80 [facility] Comment on above: Performed By: #### C KIZZY #### [facility] [address] [place] [address] Dr. Dionicio Shook MONOM% 5.0 % Normal 1.7-12.0 [facility] Comment on above: Performed By: #### C KIZZY #### [facility] [address] [place] [address] Dr. Dionicio Shook MPV 8.7 fL Critically low 9.5-13.5 [facility] Comment on above: Performed By: #### C BCJAKE #### [facility] [address] [place] [address] Dr. Dionicio Shook MYELOCYTE # Normal [facility] Comment on above: Performed By: #### C KIZZY #### [facility] [address] [place] [address] Dr. Dionicio Shook MYELOCYTE % Normal [facility] Comment on above: Performed By: #### C KIZZY #### [facility] [address] [place] [address] Dr. Dionicio Shook NRBC Normal [facility] Comment on above: Performed By: #### C KIZZY #### [facility] [address] [place] [address] Dr. Dionicio Shook PLT 260 103/ul Normal 150-450 [facility] Comment on above: Performed By: #### C KIZZY #### [facility] [address] [place] [address] Dr. Dionicio Shook RBC 4.06 106/ul Critically low 4.20-5.40 [facility] Comment on above: Performed By: #### C KIZZY #### [facility] [address] [place] [address] Dr. Dionicio Shook RDW 13.2 % Normal 11.0-15.0 [facility] Comment on above: Performed By: #### C KIZZY #### [facility] [address] [place] [address] Dr. Dionicio Shook SEG # 2.56 103/ul Normal 1.40-6.50 [facility] Comment on above: Performed By: #### C BCMAN #### [facility] [address] [address] [address] Dionicio Shook SEG % 27.0 % Critically low 43.0-75.0 [facility] Comment on above: Performed By: #### C BCMAN #### [facility] [address] [place] [address] [address] Dionicio Shook WBC 9.5 103/ul Normal 4.0-11.0 [facility] Comment on above: Performed By: #### C BCMAN #### [facility] [address] [address] [address] Dionicio Shook PROF CHEM 8 (BAS METB)on Anion gap [Moles/Vol] 9.9 mmol/L Normal [facility] Comment on above: Performed By: #### B MP #### [facility] [address] [place] [address] Dr. Dionicio Shook Calcium [Mass/Vol] 8.8 mg/dL Normal 8.5-10.1 [facility] Comment on above: Performed By: #### B MP #### [facility] [address] [place] [address] Dr. Dionicio Shook Chloride [Moles/Vol] 104 mmol/L Normal 98-107 [facility] Comment on above: Performed By: #### B MP #### [facility] [address] [address] [address] Dionicio Shook CO2 [Moles/Vol] 31.2 mmol/L Normal 21.0-32.0 [facility] Comment on above: Performed By: #### B MP #### [facility] [address] [place] [address] Dr. Dionicio Shook Creatinine [Mass/Vol] 0.57 mg/dL Normal 0.55-1.02 [facility] Comment on above: Performed By: #### B MP #### [facility] [address] [place] [address] Dr. Dionicio Shook EGFR-AF ALBANIAN >60 Normal >=60 [facility] Comment on above: Performed By: #### B MP #### [facility] [address] [place] [address] [address] Dionicio Shook EGFR-NON AF ALBANIAN >60 Normal >=60 [facility] Comment on above: Performed By: #### B MP #### [facility] [phone] Dionicio Shook Glucose [Mass/Vol] 97 mg/dL Normal 74-106 [facility] Comment on above: Performed By: #### B MP #### [facility] [address] [address] [address] Dionicio Shook Potassium [Moles/Vol] 4.1 mmol/L Normal 3.5-5.1 [facility] Comment on above: Performed By: #### B MP #### [facility] [address] [address] [address] Dionicio Shook Sodium [Moles/Vol] 141 mmol/L Normal 136-145 [facility] Comment on above: Performed By: #### B MP #### [facility] [address] [address] [address] Dionicio Shook Urea nitrogen [Mass/Vol] 10.0 mg/dL Normal 7.0-18.0 [facility] Comment on above: Performed By: #### B MP #### [facility] [address] [address] [address] Dionicio Shook Urea nitrogen/Creatinine [Mass ratio] 17.5 mg/mg Normal [facility] Comment on above: Performed By: #### B MP #### [facility] [id number] Dionicio Shook Office Visit (Thoracic and [...] who presents as a referral from Dr. 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 Oral and nasal mucosa are clear. The neck had no cervical or supraclavicular adenopathy. The trachea and midline is without crepitus. The thy (more content not included)... Normal [employer] Tobacco Screening.on 023 Fall risk assessment a) No falls within the last year [facility] Work Phone: Tobacco use status CPHS a) Yes [facility] Work Phone: [...] by: JENIFFER SHI Date: 2022-08-03 06:18 Normal [facility] CREATININEon 08-01-2022 Creatinine [Mass/Vol] 0.63 mg/dL Normal 0.55-1.02 [facility] Comment on above: Performed By: #### C YOUSIF #### [facility] [address] [place] [address] Dr. Dionicio Shook EGFR-AF ALBANIAN >60 Normal >=60 [facility] Comment on above: Performed By: #### C YOUSIF #### [facility] [address] [place] [address] Dr. Dionicio Shook EGFR-NON AF ALBANIAN >60 Normal >=60 [facility] Comment on above: Performed By: #### C YOUSIF #### [facility] [address] [place] [address] [address] SKULL BASE [...] ROSE Date: 2022-07-20 23:53 Normal [facility] COCCIDIODES IGG/IGM AB BY IF Aon 07-18-2022 Coccidiodes Ab, IgG EIA 0.2 EIA Units Normal [facility] Comment on above: Result Comment: Nega tive <1.0 Indeterminate 1.0-1.4 Positive >1.4 Performed By: #### C OCCABS #### [facility] [address] [address] [address] Dionicio Shook Coccidiodes Ab, IgM, EIA 0.1 EIA Units Normal [facility] Comment on above: Result Comment: Nega tive <1.0 Indeterminate 1.0-1.4 Positive >1.4 Performed By: #### C OCCABS #### [facility] [address] [address] [address] Dionicio Shook HISTOPLASMA CAP AB QUANT DID on 07-18-2022 Histoplasma Mycelial CF Ab. Negative Normal Neg:<1:2 [facility] Comment on above: Performed By: #### H ISTDID #### [facility] [address] [address] [address] Dionicio Shook Histoplasma Yeast CF Ab Negative Normal Neg:<1:2 [facility] Comment on above: Performed By: #### H ISTDID #### [facility] [address] [place] [address] Dr. Dionicio Shook FUNGAL AB QUANTITAIVE DOUBLE IMMUNODIFFUon 07-17-2022 Aspergillus flavus Negative Normal Neg:<1:1 [facility] Comment on above: Performed By: #### F UNGUYI #### [facility] [address] [place] [address] Dr. Dionicio Shook Aspergillus fumigatus Negative Normal Neg:<1:1 [facility] Comment on above: Performed By: #### F UNGUYI #### [facility] [address] [place] [address] Dr. Dionicio Shook Aspergillus niger Negative Normal Neg:<1:[address] [facility] Comment on above: Performed By: #### F UNGUYI #### [facility] [address] [place] [address] Dr. Dionicio Shook Blastomyces Negative Normal Neg:<1:1 [facility] Comment on above: Performed By: #### F UNGUYI #### [facility] [address] [place] [address] Dr. Dionicio Shook ANTI NEUTROPHIL CYTOPLASMIC AB (ANCA) PRon 07-16-2022 Anti-MPO Antibodies <0.2 Normal 0.0-0.9 [facility] Comment on above: Result Comment: Perf ormed at: BN Performed By: #### H ISTDID #### [facility] [address] [place] [address] Dr. Dionicio Shook Anti-PR3 Antibodies <0.2 Normal 0.0-0.9 [facility] Comment on above: Result Comment: Perf ormed at: BN Performed By: #### H ISTDID #### [facility] [address] [place] [address] Dr. Dionicio Shook Atypical pANCA <1:20 Normal Neg:<1:20 [facility] Comment on above: Result Comment: The atypical pANCA pattern has been observed in a significant percentage of patients with ulcerative colitis, primary sclerosing cholangitis and autoimmune hepatitis. Performed at: CB Performed By: #### H ISTDID #### [facility] [address] [place] [address] Dr. Dionicio Shook Cytoplasmic (C-ANCA) <1:20 Normal Neg:<1:20 [facility] Comment on above: Result Comment: Perf ormed at: CB Performed By: #### H ISTDID #### [facility] [address] [place] [address] Dr. Dionicio Shook Perinuclear (P-ANCA) <1:20 Normal Neg:<1:20 [facility] Comment on above: Result Comment: The presence of positive fluorescence exhibiting P-ANCA or C-ANCA patterns alone is not specific for the diagnosis of Noe's Granulomatosis (WG) or microscopic polyangiitis. Decisions about treatment should not be based solely on ANCA IFA results. The [employer] ANCA [employer] Consensus recommends follow up testing of positive sera with both ID-3 and MPO-ANCA enzyme immunoassays. As many as 5% serum samples are positive only by EIA. Ref. AM J Clin Pathol 1999;111:507-513. Performed at: CB Performed By: #### H ISTDID #### [facility] [address] [place] [address] Dr. Dionicio Shook HISTOPLASMA GALACTOMANNAN AG URINEon 07-16-2022 Histoplasma Gal'jean-pierre Ag <0.5 Normal <0.5 ng/mL [facility] Comment on above: Performed By: #### H ISTGAL #### [facility] [address] [place] [address] Dr. Dionicio Shook QUANTIFERON TB GOLD PLUSon 0 07-16-2022 QuantiFERON Criteria Comment Normal [facility] Comment on above: Result Comment: Patric [...] Performed By: #### H ISTDID #### [facility] [address] [address] [address] Dionicio Shook QuantiFERON Incubation Incubation performed. Normal [facility] Comment on above: Performed By: #### H ISTDID #### [facility] [address] [place] [address] Dr. Dionicio Shook QuantiFERON Mitogen Value >10.00 Normal [facility] Comment on above: Performed By: #### H ISTDID #### [facility] [address] [place] [address] Dr. Dionicio Shook QuantiFERON Nil Value 0.05 IU/mL Normal [facility] Comment on above: Performed By: #### H ISTDID #### [facility] [address] [place] [address] Dr. Dionicio Shook QuantiFERON TB1 Ag Value 0.05 IU/mL Normal [facility] Comment on above: Performed By: #### H ISTDID #### [facility] [address] [place] [address] Dr. Dionicio Shook QuantiFERON TB2 Ag Value 0.04 IU/mL Normal [facility] Comment on above: Performed By: #### H ISTDID #### [facility] [address] [place] [address] Dr. Dionicio Shook QuantiFERON-TB Gold Plus Negative Normal Negative [facility] Comment on above: Result Comment: No r esponse to M tuberculosis antigens detected. Infection with M tuberculosis is unlikely, but high risk individuals should be considered for additional testing (ATS/IDSA/CDC Clinical Practice Guidelines, 2017). The reference range is an Antigen minus Nil result of <0.35 IU/mL. Chemiluminescence immunoassay methodology Performed By: #### H ISTDID #### [facility] [address] [place] [address] Dr. Dionicio Shook ELVIRA EIA W/REFLEX 5 BIOMARKER Son 07-15-2022 ELVIRA Direct Negative Normal Negative [facility] Comment on above: Performed By: #### A NARF #### [facility] [address] [place] [address] Dr. Dionicio Shook CYCLIC CITRULLINATED PEPTIDE AB (CCP)on 07-15-2022 CCP Antibodies IgG/IgA 3 units Normal 0-19 [facility] Comment on above: Result Comment: Nega tive <20 Weak positive 20 - 39 Moderate positive 40 - 59 Strong positive >59 Performed By: #### H ISTDID #### [facility] [address] [address] [address] Dionicio Shook RHEUMATOID FACTORon 07-16-19 RA Latex Turbid. <10.0 Normal <14.0 [facility] Comment on above: Performed By: #### H ISTDID #### [facility] [address] [address] [address] Dionicio Shook SED RATE WESTERGRENon 2022 SED RATE 19 mm/hr Normal <=30 [facility] Comment on above: Performed By: #### H ISTDID #### [facility] [address] CHEST WO CONon [...] by: PIPER XIE Date: 2022-07-08 16:47 Normal [facility] ECHOCARDIO M/2D COMPLETEon 0 06-30-2022 ECHOCARDIO M/2D COMPLETE Patient: MELLISA HAMPTON Exam Date: 06/30/2022 : 1950 Gender:F Ordering : DR DALLAS FAJARDO D.O. Admission #: [id number] Family : Order #: [id number] CLICK HERE TO VIEW EXAM ECHOCARDIOGRAM REPORT [...] Hernandez M.D. on 07/01/2022 at 12:01 Normal [facility] CT CHEST WO CONon 03-13-2022 CT CHEST [...] XIE Date: 2022-03-13 09:04 Normal [facility] Blood Gas Art, with kAin Mo nghiaRamonaon 03-12-2022 a/A Ratio Art 70.70 % Normal >=0.80 [facility] Comment on above: Performed By: #### 4 [id number] #### [facility] [address] [place] [address] AaDO2 Art 29.4 mmHg High 5.0-15.0 [facility] Comment on above: Performed By: #### 4 [id number] #### [facility] [address] [place] [address] Allens Test Positive Normal [facility] Comment on above: Performed By: #### 4 [id number] #### [facility] [address] [place] [address] Base Excess Arterial 1.4 mmol/L Low >=2.8 [facility] Comment on above: Performed By: #### 4 [id number] #### [facility] [address] [place] [address] cCa2+ Art 4.56 mg/dL Normal 4.40-5.30 [facility] Comment on above: Performed By: #### 4 [id number] #### [facility] [address] [place] [address] cCl- Art 102.0 mmol/L Normal 101.0-111.0 [facility] Comment on above: Performed By: #### 4 [id number] #### [facility] [address] [place] [address] cGlu Art 165 mg/dL High 55-99 [facility] Comment on above: Performed By: #### 4 [id number] #### [facility] [address] [place] [address] cK+ Art 3.8 mmol/L Normal 3.5-5.3 [facility] Comment on above: Performed By: #### 4 [id number] #### [facility] [address] [place] [address] cLac Art 1.0 mmol/L Normal .5-2.2 [facility] Comment on above: Performed By: #### 4 [id number] #### [facility] [address] [place] [address] real estate office manager+ Art 136.0 mmol/L Normal 135.0-145.0 [facility] Comment on above: Performed By: #### 4 [id number] #### [facility] [address] [place] [address] Drawn by SAUMYA Invalid Interpretation Code [facility] Comment on above: Performed By: #### 4 [id number] #### [facility] [address] [place] [address] FCOHb Art 3.7 % Normal 1.5-4.9 [facility] Comment on above: Result Comment: Refe rence range Nonsmoker <1.5% Smoker <5.0% Heavy Smoker <9.0% Performed By: #### 4 [id number] #### [facility] [address] [place] [address] FIO2 BG 21 Invalid Interpretation Code [facility] Comment on above: Performed By: #### 4 [id number] #### [facility] [address] [place] [address] FMetHb Art 0.4 % Normal 0.0-1.9 [facility] Comment on above: Performed By: #### 4 [id number] #### [facility] [address] [place] [address] FO2Hb Art 92.0 % Normal 92.0-100.0 [facility] Comment on above: Performed By: #### 4 [id number] #### [facility] [address] [place] [address] HCO3 (Bld) [Moles/Vol] 25.6 mmol/L Normal 22.0-26.0 [facility] Comment on above: Performed By: #### 4 [id number] #### [facility] [address] [place] [address] Hemoglobin (Bld) [Mass/Vol] 12.4 g/dL Normal 12.0-16.0 [facility] Comment on above: Performed By: #### 4 [id number] #### [facility] [address] [place] [address] Oxygen saturation in Blood 96.0 % Normal 95.0-100.0 [facility] Comment on above: Performed By: #### 4 [id number] #### [facility] [address] [place] [address] P CO2 Arterial 40.8 mmHg Normal 35.0-45.0 [facility] Comment on above: Performed By: #### 4 [id number] #### [facility] [address] [place] [address] P O2 Arterial 70.9 mmHg Low 80.0-100.0 [facility] Comment on above: Performed By: #### 4 [id number] #### [facility] [address] [place] [address] pH Arterial 7.414 Normal 7.350-7.450 [facility] Comment on above: Performed By: #### 4 [id number] #### [facility] [address] [place] [address] Sample Site R Radial Normal [facility] Comment on above: Performed By: #### 4 [id number] #### [facility] [address] [id number] Sample Type Arterial Draw Normal [facility] Comment on above: Performed By: #### 4 [id number] #### [facility] [address] [place] [address] HEMOGLOBINon 03-12-2022 Hemoglobin (Bld) [Mass/Vol] 12.6 g/dL Normal 12.0-16.0 [facility] Comment on above: Performed By: #### H GB #### [facility] [address] [address] [address] Dionicio Shook LAB TESTINGon 03-12-2022 RECV HEADER SEE SCANNED REPORT I N HPF Normal [facility] Comment on above: Performed By: #### M ISC #### [facility] [address] [place] [address] Dr. Dionicio Shook REV FROM REF LAB 03/12/22 [facility] Comment on above: Performed By: #### M ISC #### [facility] [address] [address] [address] Dionicio Shook SENT TO REF LAB 03/12/22 Normal [facility] Comment on above: Performed By: #### M ISC #### [facility] [address] [place] [address] Dr. Dionicio Shook Physician Orderon 03-12-2022 Physician Order [id number]. 00CD:127 Normal [facility] Coding Summary.on 07-10-2021 Coding Summary. CD:[id number] Gh 0bWw+PGhlYWQ+AG0KSQWmA 21teBFwfM7AE5nYHS8MQXO EUTHFYH9UQH9vnVZ6DZuuD 2VybiAv QwlzzUDrFN45LWv5VSU0pP kgUGhphU6ojFQiE7a9DjWk HL82oC92ZQwvXKTjQuC1Ci ZpbjsgbWFy N8haGmNkhRAkUta+PHRhYm xlIHdpZHRoPScxMDAlJyBz rRgwQW7yEi2wFVObAUPzcG xhcHNlOiBj e7vcYUTlWMimEU9qrPudL0 IdwMM1XLVgw7y8Zz71tUG+ VNKaJER4yVgfUCfnz289Db Kss4qiGXK2 dPReSTyrRIU4K43aa9F7OX QrDDUgCAO7hTU6dX4quPql qkibK4UonEAgYoP5SGX9tK WweH0woLws lnedpN7dTxy+H36BHB2XYR YIUT7MDau2G9FeWetnqSH+ UV00EJAeWY39jAOixYFlb5 qleLf4VxVu RDZiRGB7eUduRYhmg0XeHE JuM46mdWUyn3G0GNOndZaj gZBqVuRzySI8zO8lWUnqlk ghw6xjotzp Pjffb3vazx76kH41V49nPZ mdQJRyTSY4DDOyPLFmlBpm ci9wjW3kCg3+AUatf3gln8 mgyNw6HvAc ABPohbGjrMqvEEK3f5FjPr 57V0WzwFwzp3FwTar8dg27 aZGxz3O5kLU2CKceDFUjeE 5aLZtuWnD1 HXEvTjLalZ13kGWcEQrvRs 7gtJjthOauWD7jGDVdmsls KNKfgQ6oPJCgpLMmuLseYU 4wNTBpbjtm y289QcEnRYD6NRNxkJRmA8 AerA1cOuQiKGNuCXJwM8Br rXOxRTxmA105OFncMsI3EH MmmqQtW3Eb DGQnkSzhQxD2e3H1Yo7Hl4 StcoczSHE5BPoqNHYgJtPe QgQjTvN0C9AoUqd6UVZoaP fdTM7zL2Wp KGNhkjrzwjhvnGO6JSWlCI YzdO68pEEmIQzqTi4da3D0 g461IEHjUZBwsO68Iy1deK ogMTBwdCBU pQ4xnijvg8lnnzttFsDeSN NbCKq1IZu3MHRyxCnzUwDi PZY0JxN4DEM5zVEgeM3tsT kwwleerE5w Oyc+R56fzF8cZYP0YRX7nt zeWJLuqeTfJC72LF74D9Lp PjwvdGFibGU+PGRpdiBzdH liBZ8pFeEt e5swd6HuZMhjV2BaULQvFL shMjs7NUAzZSC6xRD8zP2j RKXmBDuif5O8yBQ6L6Sala Jemt5kl4so BRTwKQssG45snMEpe3P1DH NkrUC0ZHLkaOidKhUgtL49 Oyc+USNcqJdmn0CdVspsr4 uwr2gcmVp6 TiQuENHcaaVyvLuuMUT4b4 UkJy10G43tVYxkIZTjPAQm AUPcUMTmeGoyow7fyI0eKs 8+PGNvbCB3 gIC1kO1dEMQeArN1GAtkG8 89GkYfaSIkLxexp2qim0vt cHh3WdVtNKGolfKiyPzdMM I7x5QqOl70 J91mVNzlQJImECBxQIMkVP UtbPztzn7gnC4jBt3+PC9j u6htmu76bM00lZD+PHRkIH Q5aJtzRXzt UXEmtM9wVMihNcU3TKDrPg MdhH74zNGqADssCy5afMft gSkfPZ5cXWSgebmat997Pl Nue8ihRRFr cQNfECitRHK5E99sr1K9KU UaPBOoSOX1xVB1eH1pzAms bjogbGVmdDsgdmVydGljYW szRMbaA217 IHRvcDsnPlBhdGllbnQgTm JzOFe3H4BcFqy8WXEgrJui SE6vqOMpAJnhCt6ahRvldA zyMM5hHSVo amgfi522AsHdh3feTMPuhV RuPNyyWYE7L52sz3L5KZDs WXCuQPH7zFA1zJ7rlFrxnu ogbGVmdDsg siYyqTpwNJswRVpxY421KN RvcDsnPkJpcnRoIERhdGU6 UZ02TG61dTIlx0P8fFK1E4 BhZGRpbmct lprabPX5NEGkZLGvzI99Oa 6hkUdkYh5fYTXoDLY5MLSx dWSwA4NmvO3uFiYeASLoZG CnI9TmfCZu ROeqN471HLywGoQ6XVHhpi YaF2DrELAnkLorSxU4d0Z5 Iy2EI8B8IH93HB47qGNea2 H1aIX1C7Fm HGNaqcunvqqvnSP7KWZuXF SwkC29Jm7crWfxLb4yBLMl TMM2GTGhpHGdO7TdpL3lSt AjMDAwMDAw Y2EysEDcUYnnB239WMwoUz E1MYNdpcKpS8GgMBOeuPws DlV9w4Y5Of3QPAs6SH53IP 19mDAho9E9 iDR9U1CiACJofukgeiojzG Y2XUAvZGCavE53Ll1zeEwl Wa5rULZlZKB7ZDWgtBKhA1 TeaD6mNmFu VFFwDFLdZ3NqgXJjIWfkW2 61JBxaMbM5HPFgfxIjW6Cm PWOwsIpeEvR9t1K0Nx8ZHU PyIL79SAQ6 rAV5QN65OS13M9RrWuiswU FibGU+PHRhYmxlIHdpZHRo SPvdRCFbHeSgwQwgXI7eGs 9yZGVyLWNv rOoedECdUqMkr5lwYGHsVR mlIF1tgHawP4WemPI8IULo f0w1Lk74F95nM2WfvCB+PG FwmPC9rCC3 rK9mYvXiYcE8UZdwH167Vp RroNRtYwmte3edn1qrsPz2 EmE5DDNjqxGaeWubLKX3o4 TlEi50M23p IHdpZHRoPSIxNSUiIHZhbG tase0vzX3qNu3+PGNvbCB3 mTH9dB2yPoUgDlO0GSitN7 49InRvcCIv Vowwe4jez7umzBq8WxGjOL VnrdYksBvrSRG5v6QiJe26 L0QrnIonk6JkXzs8to66mE Pcc4L1aTG8 F1WhIGUrcbxiaYOtlRgtRQ 2jIPPmyniiPUBzsM9eAFOg X4o1NbYzYfU7IBpaK3Uorp R7VHPdgTWq MXiuMBH8T23wc7B3EIUaOQ XlUKI8hOA6qS7pdJsksfwe bGVmdDsgdmVydGljYWwtYW qtR812FUEw nAtiOLCabE9xEYOkyGZyqI vsRO4wUEHmvngnFxWHH62T FclrJ9VMEQ8fQPuoiTU+PH FxGLE5bNcm XQcjUPKdnT4gCCOoK9p3Uk JwWkQ0JMibS4KkNXTzyeom Ht97nP1vDtKvTtL3AGkkX1 EhocV2UQUr mWKvDUeoVLH9C40uq0K6DP SoTNYgBVE5nEA5yZ4anFjn bjogbGVmdDsgdmVydGljYW rxPIodV760 IWUaeAcjNeD8RvBfCgI7ZK U2J6GmTes8VBXwdXzvBT6e rERzHCtyMc3coAhniVhmJC 4wNTBpbjtw MAAzrS5oDXPpdFFjqMyjMW 1jAOHzosela619AzYeIUQ1 QRFcxODqZ1LorO8qHcSuCT ViAEWfG1Hj eHMeNBvbF480RPqfUrI2PZ AeoqSxJ0FcIXDdvRgrXtC2 a2I0Di14YHTGVDSdgdtrvF Q+PHRkIHN0 fGcbRPkvUUPbfK5mVHTvO3 s1EqOzVyO4GFutE9VrTPEz yenqRz40hW1yQbNsYxQ0NS dfL9LymfM3 SJHqbZJyOWajJYW3H63vk6 U6PYYvMEYdBTH6yML5vF2b bGlnbjogbGVmdDsgdmVydG ljYWwtYWxp J852UYEfmLgmXePifAUjOU wvdGQ+MEWvIML1fUezKUot KMZaiI7xUGEfO5s2ZcNfKz B0NHuaV7Wr FIOjscexOr20cR8oPrUwHb U2TAqxM4GygpP1RKMheWRz WWnvRSU2P19ql1U9MMRhNK MiAFR5tRL4 mY5gfSdfkaogyPNztHjwmp BgkZubKBcbPQzvK947UYOa kGprSr73mNMhfOnxrsH6P3 RkPjwvdHI+ EC24UKQgKM79jRMunCYkq5 nblLn4QuMrYBKnJBX4yRxh QXkei3ZtBKPnM34daCEqd2 Y2HHXjxZqo yGYcNtGyxBF0jC7jMRpoaa afo6ezmpoqVavej5tcxc75 oC80D84yEQuwFGLvCWUyTU UiIHZhbGln wk0gdD8fZs4+OTSowHG4sM W3yZ9fDsDjEvB4SQrtN632 JnNneMPcUsnuq1knh6qzqY e8GaQvVRRh epQklMpiNEF7v3LuTj19W0 9sIHdpZHRoPSIyMCUiIHZh nYelaz4fhR4qAn1+PC9jb2 mywc59hS43 dHI+KGVoWWG3xWnnZMmwUN OatW9sLAtbZaM4HVAfKxVx pP31zNBmZNajNi7mcTpgxQ ltTW2mFUAi kqbud845KrQxy1gwRQNcpC UjKFwxQYJ9B36ix6M5UXUv DOQxTPW4pRZ4qS8pxHirzh ogbGVmdDsg qwNtqDlbTPsxFVpnH888ZS NquPxeQeEyhHQrR3hcclBX AI7pJxgntZF+RFVsQDW9xI xlPSdwYWRk yC2oSPPnZ1b2YjJcDuS5ZF hxS5WrkzK2QBAjiVLpUUIf nWZAiA0fdzato5lncuouTp AwMDAwMDt0 BId7QKAmyOxrWjBcIKY6Zs C8ECU9qKJvbE8loBjhnlvl pL4yLwq+RklOOjwvdGQ+PH PnYEP3kPuo YFklFAIkwA2xHGLvR4k6Qr XrQnZ0BRtrQ3JipvX9JLEo vUCvEYAhaDADcA8hrsvzr5 xvcjogIzAw ZGVxTHz6WAn7AEOgjOmfZv DuRWE3GfN0QLE4eHYooA1f mWqdbkbtfI2lIjk+TVJOOj wvdGQ+PHRk MZP0dYexHNpfCJLuzN8gTA LaD2x0KaAjDiB2BSocS4Im jeQ6MDBdsEQlHXGruHCKfB 2hvjkqn7yn ebdcHrZsLYAaDRy0FKy4DD MmsQgeHyAvFWJ9HjX5PMU6 hRPhyJ6naKdrmgwytD2tNv c+QGL8ESE5 UA14YO84J6ZuWmbxoTPkqD U+PHRhYmxlIHdpZHRoPScx EIHjPmSduNvjXT2cDm3nIJ VyLWNvbGxh Nl (more content not included)... Normal [facility] Consent for Treatmenton 06-18 Consent for Treatment [id number] 0CD:127 Normal [facility] and Vascular Office/Cl inic Noteon [...] for 30 day(s), 60 EA, Refill(s) 6, [facility], 158, cm, 06/28/21 10:50:00 EST, [...] neoplasm of rectum: Mother. Stroke: Father. Normal [facility] Comment on above: Result Comment: Elec tronically Signed By: Christian WILLSON, Mena Rodas\.br\Date and Time Signed: 06/28/21 11:40 EST Insurance Correspondenceon 0 05-16-2021 Insurance Correspondence [id number] 0CD:127 Normal [facility] Vital Signs Date Time Vital Sign Value Performing Clinician Faci lity 11-20-2022 10:03-0400 Body temperature 99.2 [degF] [facility] 11-20-2022 10:03-0400 Body weight 50.84 kg [email or web address] Phone: [facility] 11-20-2022 10:03-0400 Diastolic blood pressure 72 mm[Hg] [employer] Work Phone: [facility] 11-20-2022 10:03-0400 Heart rate 93 /min [employer] Work Phone: [facility] 11-20-2022 10:03-0400 Respiratory rate 18 /min [employer] Work Phone: [facility] 11-20-2022 10:03-0400 SaO2% (BldA) [Mass fraction] 95 % [employer] Work Phone: [facility] 11-20-2022 10:03-0400 Systolic blood pressure 128 mm[Hg] [employer] Work Phone: [facility] 10-01-2022 14:08-0400 Body height 154.94 cm [employer] Work Phone: [facility] 10-01-2022 14:08-0400 Body weight 51.25 kg [employer] Work Phone: [facility] 10-01-2022 14:08-0400 Diastolic blood pressure 72 mm[Hg] Rio Zaragoza Work Phone: [facility] 10-01-2022 14:08-0400 Heart rate 78 /min [facility] Work Phone: [facility] 10-01-2022 14:08-0400 Respiratory rate 20 /min [facility] Work Phone: [facility] 10-01-2022 14:08-0400 SaO2% (BldA) [Mass fraction] 97 % [facility] Work Phone: [facility] 10-01-2022 14:08-0400 Systolic blood pressure 138 mm[Hg] [facility] Work Phone: [facility] 08-14-2022 10:52-0400 Body height 154.94 cm [place] [employer] Work Phone: [facility] Work Phone: 08-14-2022 10:52-0400 Body mass index (BMI) [Ratio] 21.16 kg/m2 [employer] Work Phone: [facility] Work Phone: 08-14-2022 10:52-0400 Body surface area Derived from formula 1.48 m2 [facility] [employer] Work Phone: [facility] Work Phone: 08-14-2022 10:52-0400 Body temperature 97.7 [degF] Dallas P [employer] Work Phone: [facility] Work Phone: 08-14-2022 10:52-0400 Body weight 50.8 kg Dallas P [employer] Work Phone: [facility] Work Phone: 08-14-2022 10:52-0400 Diastolic blood pressure 73 mm[Hg] [facility] Work Phone: [facility] Work Phone: 08-14-2022 10:52-0400 Heart rate 93 /min [facility] Work Phone: [facility] Work Phone: 08-14-2022 10:52-0400 Respiratory rate 16 /min [facility] Work Phone: [facility] Work Phone: 08-14-2022 10:52-0400 SaO2% (BldA) [Mass fraction] 98 % [facility] Work Phone: [facility] Work Phone: 08-14-2022 10:52-0400 Systolic blood pressure 141 mm[Hg] [facility] Work Phone: [facility] Work Phone: Encounters Encounter Date Encounter Type Care Provider Facility Start: 04-06-2024 End: 04-06-2024 ambulatory DALLAS FAJARDO Facility:[facility] Start: 10-12-2023 End: 10-12-2023 ambulatory DO DALLAS FAJARDO Facility:[facility] Start: 10-08-2023 ambulatory Dallas Fajardo Facility: [facility] Start: 04-14-2023 End: 04-14-2023 ambulatory Derek Duffy MD Facility:[facility] Start: 11-20-2022 End: 11-20-2022 ambulatory Rio Nik Work Phone: [facility] Work Phone: Start: 11-20-2022 End: 11-20-2022 Registered Recurring Rio Nik Work Phone: [facility] Work Phone: Start: 10-01-2022 End: 10-01-2022 ambulatory Rio Zaragoza Work Phone: [facility] Work Phone: Start: 10-01-2022 End: 10-01-2022 Registered Recurring Rio Zaragoza Work Phone: [facility] Work Phone: Start: 08-28-2022 Encounter for other preprocedural examination DR DOCTOR HESS [facility] Start: 08-28-2022 End: 08-28-[address] Jorge Alberto Carlson [facility] Start: 08-26-2022 Phys/qhp telephone evaluation 21-30 min Dallas Fajardo Work Phone: [facility] Work Phone: Start: 08-26-2022 KISHOR, Provider : Abner Park, Status: Pen, Time: 3:00 PM Dallas Fajardo Work Phone: [facility] Work Phone: Start: 08-26-2022 ambulatory Jorge Alberto Carlson Facility : Start: 08-25-2022 End: 08-26-[address] DOCTOR HESS Facility:[facility] Start: 08-25-2022 End: 08-26-2022 Encounter for other preprocedural examination DR DOCTOR HESS Facility: Start: 08-21-2022 AUDIT Dallas Houser e Work Phone: [facility] Work Phone: Start: 08-14-2022 Office outpatient ne w 45 minutes Dallas Fajardo Work Phone: [facility] Work Phone: Start: 08-14-2022 ambulatory JEAN PIERRE WILLETT Facility:[id number] Start: 08-01-2022 End: 08-02-2022 ambulatory RIO NIK . Facility:[facility] Start: 07-19-2022 End: 07-20-2022 ambulatory RIO NIK . Facility:[facility] Start: 07-14-2022 End: 07-15-2022 ambulatory RIO NIK . Facility:[facility] Start: 07-08-2022 End: 07-09-[address] PIPER XIE Facility: Start: 06-30-2022 End: 07-01-[address] DALLAS FAJARDO Facility: Start: 03-12-2022 End: 03-13-2022 ambulatory RIO ZARAGOZA Facility:[facility] Start: 06-28-2021 End: 06-29-2021 ambulatory XXXX NONE Facility:[facility] Patient encounter status Dallas Fajardo Work Phone: [facility] Work Phone: Procedures Date Procedure Procedure Detail Performing Clinician Abdominoplasty Dallas Vega Work Phone: section Dallas martinez Work Phone: Plan of Treatment Date Care Activity Detail Author Computed tomography for radiotherapy planning [facility] enter CT Chest WO contrast [facility] Immunizations Immunization Date Immunization Notes Care Provider Fa cility 03-11-2016 influenza, injectabl e, quadrivalent, preservative free Dallas Dorantes Dong Work Phone: [facility] Work Phone: 03-11-2016 pneumococcal polysaccharide vaccine, 23 valent Dallas Dorantes Dong Work Phone: [facility] Work Phone: 02-20-2016 influenza, injectabl e, quadrivalent, preservative free Dallas Dorantes Dong Work Phone: [facility] Work Phone: 02-20-2016 pneumococcal polysaccharide vaccine, 23 valent Dallas Dorantes Dong Work Phone: [facility] Work Phone: Payers Date Payer Category Payer Unknown [id number] 2022 Self-pay 2020 Medicaid [id number] 2020 Medicaid [id number] 1958 Medicare [id number] 1958 Unknown [id number] 1950 Unknown [id number] 2.16.8 40.1.626363.3.579.2.727 1950 Unknown [id number] 2.16.8 40.1.470406.3.579.2.727 1950 Unknown [id number] 2.16. 840.1.323051.3.579.2.356 1950 Unknown [id number] 2.16.84 0.1.440163.3.579.2.593 1951 Unknown [id number] 2.16.84 0.1.679390.3.579.2.593 1951 Unknown [id number] 2.16.84 0.1.404785.3.579.2.593 1951 Unknown [id number] 2.16.84 0.1.565485.3.579.2.593 1951 Unknown [id number] 2.16.84 0.1.898828.3.579.2.593 1951 Unknown [id number] 2.16.84 0.1.901912.3.579.2.593 1951 Unknown [id number] 2.16.84 0.1.682269.3.579.2.593 1951 Unknown [id number] 2.16. 840.1.513833.3.579.2.356 1951 Unknown [id number] 2.16.8 40.1.744910.3.579.2.1068 1951 Unknown [id number] 2.16.8 40.1.822182.3.579.2.718 1951 Unknown [id number] 2.16.8 40.1.718998.3.579.2.718 1951 Unknown [id number] 2.16.8 40.1.455988.3.579.2.718 Unknown Unknown [id number] 2.16.8 40.1.526468.3.579.2.531 Social History Date Type Detail Facility Current smoker Current smoker [facility] Work Phone: Comment on above: 5 A DAY CURRENTLYSTA RTED AT 22 QUIT A FEW TIMES FOR A YEAR OR SO; Start: 10-01-2022 Tobacco smoking status NHIS Smoker ( finding) [facility] Start: 1950 Sex Assigned At Female F [facility] Clinical Notes 07-02-2021 to 02-03-2024 Note Date & Type Note Facility 02-03-2024 Note Entered by KAREN FAJARDO DO on February 03, 2024 10:52:02 EDT From: DALLAS FAJARDO DO To: [facility]/pharmacy #[id number] Sent: 02/03/2024 10:52:02 EDT Subject: Medication Management Approved with modifications: metFORMIN (METFORMIN HCL 500 MG TABLET) TAKE 1/2 TABLET BY MOUTH TWICE DAILY Qty: 90 tab(s) Days Supply: 90 Refills: 1 Substitutions Allowed Route To Pharmacy - [facility]/pharmacy #[id number] From: [facility]ORE [id number] To: DALLAS FAJARDO DO Sent: February 03, 2024 9:08:49 AM CDT Subject: Medication Management Due: February 04, 2024 12:03:55 AM CDT On Hold Pending Signature Dispensed Drug: metFORMIN (metFORMIN 500 mg oral tablet), TAKE 1/2 TABLET BY MOUTH TWICE DAILY Quantity: 90 tab(s) Days Supply: 90 Refills: 1 Substitutions Allowed Notes from Pharmacy: [facility] 12-07-2023 Note Entered by KAREN FAJARDO DO on December 07, 2023 07:33:56 EDT From: DALLAS FAJARDO DO To: [facility]/pharmacy #[id number] Sent: 12/07/2023 07:33:56 EDT Subject: Medication Management Submitted: Complete:citalopram (citalopram 20 mg oral tablet) Signed by DALLAS FAJARDO DO 12/07/2023 07:33:00 EDT Approved with modifications: citalopram (CITALOPRAM HBR 20 MG TABLET) TAKE 1 TABLET BY MOUTH EVERY DAY Qty: 90 tab(s) Days Supply: 90 Refills: 5 Substitutions Allowed Route To Pharmacy - [facility]/pharmacy #[id number] From: [facility] STORE [id number] To: DALLAS FAJARDO DO Sent: December 06, 2023 11:41:36 PM CDT Subject: Medication Management Due: December 07, 2023 12:08:44 AM CDT On Hold Pending Signature Dispensed Drug: citalopram (citalopram 20 mg oral tablet), TAKE 1 TABLET BY MOUTH EVERY DAY Quantity: 90 tab(s) Days Supply: 90 Refills: 0 Substitutions Allowed Notes from Pharmacy: [facility] 08-25-2023 Note Entered by KAREN FAJARDO DO on August 25, 2023 13:09:21 EDT From: DALLAS FAJARDO DO To: [facility]/pharmacy #[id number] Sent: 08/25/2023 13:09:21 EDT Subject: Medication Management Submitted: Complete:citalopram (citalopram 20 mg oral tablet) Signed by DALLAS FAJARDO DO 08/25/2023 13:09:00 EDT Approved with modifications: citalopram (CITALOPRAM HBR 20 MG TABLET) TAKE 1 TABLET BY MOUTH EVERY DAY Qty: 30 tab(s) Days Supply: 30 Refills: 2 Substitutions Allowed Route To Pharmacy - [id number] From: [id number] To: DALLAS FAJARDO DO Sent: August 25, 2023 11:46:09 AM CDT Subject: Medication Management Due: August 26, 2023 6:37:27 AM CDT On Hold Pending Signature Dispensed Drug: citalopram (citalopram 20 mg oral tablet), TAKE 1 TABLET BY MOUTH EVERY DAY Quantity: 30 tab(s) Days Supply: 30 Refills: 0 Substitutions Allowed Notes from Pharmacy: [facility] 10-01-2022 Consult note Note Date/Time October 01, 2022 1:30pm [facility] [place] [address] Rad Onc Consult Note - OP Signed Patient: Mellisa Hampton MR#: [id number] : 1950 Acct:[id number] Age/Sex: 71 / F Type: REG RCR Copies to: DO Rio Glass DO~ Assessment & Plan (1) Pulmonary nodule seen on imaging study Plan: CT simulation-4D, plan for SBRT to the right upper lobe tumor to a dose of 54 Michele in 3 fractions Assessment: 71-year-old female with imaging consistent with Stage IA1 [id number] non-small cell lung cancer of the right [...] presented at thoracic tumor board conference at [facility]. She was recommended for a staging EBUS [...] prednisone taper under the care of her metalworking specialist. [facility] - Family History Family History: Family [...] <Electronically signed by Levi Ann MD> 10/01/22 [id number] [facility] Work Phone: [phone] [phone] Xuan HAMPTON was presented at Thoracic Tumor Board Conference Conference date: 15-Aug-2022 Presenting Provider(s): (Dr. Marvin Willett) Presenting location(s): [facility] Conference Review Type: Treatment Planning Impression Discuss [...] Last Updated: 17-Aug-2022 21:02 by Kiley Dotson (COOR)[facility]03-15-2022 Note From: Ivette Cowart To: - Administrative; Sent: 07/02/2021 14:43:20 EDT Show up: 12/02/2021 14:42:00 EDT Subject: Ambulatory Reminder Due Date/Time: 01/02/2022 14:43:00 EDT Reminder/Recall 6 month f/u December 2021 w/ [place] [facility] October 01, 2022 2:45pm Note Date/Time October 01, 2022 1:30 pm [facility] [place] [address] Rad Onc Consult Note - OP Signed Patient: Mellisa Hampton MR#: [id number] : 1950 Acct:[id number] Age/Sex: 71 / F Type: REG RCR Copies to: DO Rio Glass DO~ Assessment & Plan (1) Pulmonary nodule seen on imaging study Plan: CT simulation-4D, plan for SBRT to the right upper lobe tumor to a dose of 54 Michele in 3 fractions Assessment: 71-year-old female with imaging consistent with Stage IA1 [id number] non-small cell lung cancer of the right [...] presented at thoracic tumor board conference at [facility]. She was recommended for a staging EBUS [...] prednisone taper under the care of her metalworking specialist. [facility] - Family History Family History: Family [...] <Electronically signed by Levi Ann MD> 10/01/22 [id number] [facility] Work Phone: Evaluation note* Diagnosis Onset Date Resolution Status Pulmonary nodule seen on imaging study acute [facility] Work Phone: History of Present illness Narrative* Mellisa Hampton is a 71 year old female with chronic emphysema, long-time smoker, who presents as a referral from Dr. Zaragoza with a slowly enlarging RUL lesion (9x5mm) which is PET avid with an SUV of 4.7. of note the PET also noted an area in the right pelvis with increased uptake and SUV of 12.3 - specific structure unknown. She underwent a follow up CT abd/pelv c IV contrast which was negative. * She has had * 7lb weight loss/several weeks. Decreased appetite * Patient has a known h/o emphysema - she is on 2L NC at night and with activity. PFTs: FEV1 0.52 (26%), FVC 1.8 (70%), DLCO 36. She has no acutely worsened SOB, chest pain, or wheezing. Has chronic dry cough. [facility] Work Phone: History of Present illness Narrative* Patient's visit was converted to a virtual visit given current COVID- 19 pandemic. * Ms. Hampton is a 71 year old woman, current smoker (1 PPD for 49 years, 49 total pack years.), beingevaluated today for RUL nodule. * PCP: Dr. Dallas Fajardo * Thoracic: Dr. Willett * Pulmonology: Dr. Rio Zaragoza ([facility]) * HPI: Patient presents to pulmonary clinic today as a new patient in regards to RUL nodule; referredby Dr. Willett from thoracic surgery. Patient gets her care through [facility] system and follows with metalworking specialist Dr. Rio Zaragoza. On most recent chest CT from 07/08/2022 showed a continued increase in size of a now 9 mm spiculated mass within the right upper lobe. PET/CT from 07/19/2022 shows metabolic activity of this right upper mass. Patient was sent to Dr. Willett from thoracic surgery; patient is not a surgical candidate given her poor lung function and chronic oxygen needs secon sarita to COPD. Was discussed at tumor board on 08/17/2022 advising a staging EBUS and referral to rad-oncology. Currently, has SOB both at rest as well as on exertion. Takes Breztri daily. Using DuoNebs 5x a day. Wears 2L oxygen at night (occasionally). And will also sometimes wear the oxygen during the day PRN. Does not check her SpO2 at home. * She also claims questionable orthopnea. No lower leg edema. She has lost 27 pounds in the last * 6 months. She also relates chronic cough. Cough is productive. Sputum color is clear; no hemoptysis. Intermittent wheezing. No night cough. No fever, shivering chills or night sweats. Relates chronicrunny nose, sinus congestion or a tingling sensation in the back of her throat. Denies symptoms of h eartburn. She denies chest pain. * She is too breathless to leave the house or breathless when dressing and undressing (mMRC 4). * Current/Past Inhalers & Nebulized Medications: * - Albuterol HFA PRN * - Breztri * - DuoNebs PRN * Pulmonary/Significant Hospitalization History: * - 2016 * Sleep History: * Denies snoring. Denies witnessed apnea events. Denies feeling tired during the day or taking naps during the day. Denies falling asleep at inappropriate times throughout the day. She has not ever hada sleep study before. * Significant Comorbidities: * -COPD * -Emphysema * -Chronic Hypoxic Respiratory Failure * -Prediabetes * Social History: * Smoking: Current smoker (1 PPD for 49 years, 49 total pack years.) currently 5 cigarettes/day. 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 * No exposure to birds or exotic animals. * Family History: * No known family history of lung diseases. No known family history of autoimmune disorders. * - Aunt; emphysema * Testing: * PFT * -03/12/22: FEV1/FVC: 29, FEV1: 0.52 (26%), FVC: 1.81 (70%), + BD Response, [id number]: 9%, T.41 (141%), RV/T%, DLCO: 36% * CT Chest * -07/08/22: 1. Continued increase in size of [...] 5. Consider PET imaging for further evaluation. * -03/12/22: 1. A 9 mm geographic shaped opacity within right lung apex; pleural scarring versus neoplasm versus granuloma. Consider PET/CT at this time or CT chest without contrast in 3 months to evaluate for stability. 2. Otherwise stable lungs with moderate-marked emphysematous changes, lower lobe bronchiectasis and mucous plugging, and a few tiny, stable benign-appearing nodules. * PET CT * -07/19/22: Emphysema with a metabolically active right apical 9 x 5 mm pulmonary nodule. Recommend tissue sampling. Metabolic uptake in the right pelvis which may be part of the bladder, however may bemetabolic uptake within a proximal right colonic bowel loop. Recommend CT abdomen and pelvis with po and IV contrast. If IV contrast cannot be given, recommend MRI pelvis. * Echo * -06/30/22: EF 55-60% with mild LVH. Diastolic function indeterminate. RA normal in size. RV normal in size and function. RVSP 54 mmHg * There are no spiritual/cultural practices/values/needs that are important to know * Initial Fall Risk Screening: * MELLISA has not fallen in the last 6 months. * Pain Scale: On a scale of 0 to 10, the patient rates the pain at 0. * Advance directives: * Living Will: Living will on file. * Healthcare POA: No healthcare proxy on file. * Tobacco Screening: MELLISA uses tobacco. Has used tobacco in the past 6 months. * She uses tobacco: Everyday. * Type(s) of Tobacco: cigarettes * Domestic Violence Screen: Does not feel threatened or abused physically, emotionally or sexually. Do you feel UNSAFE? * The patient feels safe in the home. * Depression/Suicide Screening: * During the past 2 weeks, the patient felt down, depressed or hopeless. * During the past 2 weeks, the patient felt little interest or pleasure in doing things. Patient Declined/Screening not indicated. -[facility] Work Phone: progress note Author Levi Ann [facility] November 20, 2022 10:33am Note Date/Time November 20, 2022 9:0 1am [facility] [place] [id number] Rad Onc Follow Up Note - OP Signed Patient: Mellisa Hampton MR#: [id number] : 1950 Acct:[id number] Age/Sex: 72 / F Type: REG RCR Copies to: DO Rio Glass DO~ Date of Service Service Date: 11/20/22 Assessment & Plan (1) Pulmonary nodule seen on imaging study Plan: Return to clinic end of January 2023 with first surveillance chest CT noncontrast Assessment: 72-year-old female with imaging consistent with Stage IA1 [id number] non-small cell lung cancer of the right [...] uses her inhaler 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 She has follow-up with pulmonology. Regarding the [...] Patient would like to obtain this in [place]. Follow Up Note - Narrative 72-year-old female [...] presented at thoracic tumor board conference at [facility]. She was recommended for a staging EBUS [...] signed by Levi Ann MD> 11/20/22 [id number] [facility] Work Phone: Summary Purpose Family [...] section and content) DATE CREATED AUTHOR 03/13/2022 Florentino Page [facility] DATE CREATED AUTHOR AUTHOR'S ORGANIZ ATION 08/27/2022 [facility] DATE CREATED AUTHOR AUTHOR'S ORGANIZ ATION 08/28/2022 [employer] DATE CREATED AUTHOR AUTHOR'S ORGANIZ ATION 08/29/2022 [facility] DATE CREATED AUTHOR AUTHOR'S ORGANIZ ATION 09/02/2022 [facility] DATE CREATED AUTHOR AUTHOR'S ORGANIZ ATION 12/24/2022 [facility] DATE CREATED AUTHOR AUTHOR'S ORGANIZ ATION 11/18/2023 [facility] DATE CREATED AUTHOR AUTHOR'S ORGANIZ ATION 04/10/2024 [facility] Care Teams (unrecognized sec tion and content) Team Status: Active Member Role Status Dates Dallas Fajardo DO Primary Care Provider Active Team Status: Active Member Role Status Dates Levi Ann MD Attending Provider Active Rio Zaragoza Referring Provider Active Dallas Fajardo , Primary Care Provider Active Goals (unrecognized section [...] BE BASED ON THE PRIMARY CLINICAL RECORDS. [employer] provides no warranty or guarantee of the accuracy or completeness of information in this document.
[2024-04-12 06:38] LABS: Basophils Percent Auto 0.1 % (0.2-2.0); Hematocrit 37.3 % (36.0-48.0); Hemoglobin 12.1 g/dL (12.0-16.0); Immature Granulocytes Abs Auto 0.09 10^3/uL (0.00-0.03); Immature Granulocytes Pct Auto 0.5 % (0.0-0.5); Lymphocytes Absolute Auto 4.1 10^3/uL (1.2-3.8); Lymphocytes Percent Auto 24.1 % (20.5-60.0); Mean Corpuscular HGB Conc 32.4 g/dL (29.9-35.2); Mean Corpuscular Hemoglobin 29.7 pg (26.7-34.0); Mean Corpuscular Volume 91.6 fL (81.0-99.0); Mean Platelet Volume 8.4 fL (9.5-13.5); Monocytes Absolute Auto 0.9 10^3/uL (0.3-0.8); Monocytes Percent Auto 5.4 % (1.7-12.0); Neutrophils Absolute Auto 11.8 10^3/uL (1.4-6.5); Neutrophils Percent Auto 69.9 % (43.0-75.0); Platelet Count 288 10^3/uL (150-450); Red Blood Count 4.07 10^6/uL (4.20-5.40); Red Cell Distribution Width 12.8 % (11.0-15.0)
[2024-04-12] MEDS: METHYLPREDNISOLONE SOD SUCC PF 125 MG/2 ML VIAL IVP (06:39)
[2024-04-12] MEDS: ALBUTEROL SULFATE 2.5 MG/3 ML VIAL NEB IH ×2 (06:45→10:54)
[2024-04-12 06:49] LABS: Anion Gap 10.2; BUN Creatinine Ratio 20.7; Calcium 8.2 mg/dL (8.5-10.1); Chloride 91 mmol/L (98-107); Estimated GFR (African America >60 (>=60 mL/min/1.73m^2); Estimated GFR (Non-African Ame >60 (>=60 mL/min/1.73m^2); Glucose 153 mg/dL (74-106); Potassium 4.2 mmol/L (3.5-5.1); Sodium 128 mmol/L (136-145)
[2024-04-12 06:54] LABS: Influenza Virus A Antigen Negative; Influenza Virus B Antigen Negative; Internal Control Within Normal Limits; SARS-CoV-2 Ag NEGATIVE (NEGATIVE)
[2024-04-12 06:57] LABS: Troponin I High Sensitivity 12.7 pg/mL (4.0-51.3)
--- NOTE | 2024-04-12 07:06 | PC.NURSE ---
PATIENT ARRIVED ALERT AND ORIENTED IN RESPIRAORY DISTRESS. EMS STATES THEY ARRIVED SHE WAS 80% ON ROOM AIR. TOLD THEM SHE THOUGHT SHE HAD THE FLU AND DIDNT FEEL WELL. PATIENT DID 2 NEB TREATMENTS AT HOME WELL USED HER ALBUTEROL INHALER 10X. BREATHING LABORED WITH RETRACTIONS, TACHYPNIC. EMS PLACED PATIENT ON 10 LITERS AND SATURATION IMPROVED TO 97%. PATIENT GIVEN 125MG SOLUMEDROL ENROUTE AND IV STARTED.PATIENT IS DNR-CCA WITHOUT INTUBATION FROM DR. ZARAGOZA. PATIENT STATES HER FAMILY IS AWARE SHE IS HERE.
[2024-04-12 07:26] LABS: pH ABG 7.366 (7.350-7.450)
[2024-04-12 07:28] LABS: ABG PCO2 54.2 mmHg (35.0-45.0)
[2024-04-12 07:29] LABS: Allen Test POSITIVE (POSITIVE); Base Excess ABG 5.6 mmol/L (-2.0-2.0); Oxygen Saturation ABG 98.2 %; PO2 ABG 91.5 mmHg (80.0-100.0)
[2024-04-12 07:30] LABS: BIPAP Pressure 14/7; Fractionated Inspired Oxygen 30 %; O2 Mode BIPAP; Puncture Site RIGHT RADIAL; Rate 12
[2024-04-12 07:31] LABS: Minute Volume 13.4; Pressure Support 7; Tidal Volume 473
[2024-04-12] MEDS: IPRATROPIUM/ALBUTEROL SULFATE 3 ML AMPUL.NEB IH ×4 (08:49→19:53)
--- NOTE | 2024-04-12 11:13 | P.HP_ITS ---
HPI H&P: HPI History of Present Illness Chief complaint: SOB Narrative: 73 y/o female with history of COPD on home O2 to ER with worsening SOB. Family reports URI symptoms going around house for about a week. Developed increased SOB and cough. Frequent nonproductive cough. Severe SOB and hard to catch breath. Chest tight feels like can't take deep breath. Previously tried noninvasive ventilation and did not tolerate. Family reports currently on [facility] and they are trying to arrange for a home BiPAP. EMS brought to ER due to continued symptoms. Chest x-ray without acute change. Flu and covid negative. Placed on BiPAP and respirations improved. ABG on BiPAP showed pCO2 54 and PO2 90. Admitted for treatment. Opioid HPI Opioid Management Most Recent Pain and Opioid Data: Last Pain Scale 3 01/23/24 11:15 01/23/24 Last ORT Total Score 4 01/18/24 22:26 01/18/24 Last ORT Risk Category Moderate Risk 01/18/24 22:26 01/18/24 Review of Systems ROS Constitutional Denies: fever, chills or fatigue Cardiovascular Denies: chest pain or palpitations Respiratory Reports: shortness of breath, cough and wheezing Gastrointestinal Denies: abdominal pain, nausea, vomiting or diarrhea Genitourinary Denies: painful urination PFSH PFS Medical History (Updated 04/12/24 @ 11:05 by Baljeet Toney MD) Pulmonary cachexia due to COPD ?R64 - Cachexia (ICD-10) ?J44.9 - Chronic obstructive pulmonary disease, unspecified (ICD-10) Severe malnutrition ?E43 - Unspecified severe protein-calorie malnutrition (ICD-10) Cancer of upper lobe of right lung ?C34.11 - Malignant neoplasm of upper lobe, right bronchus or lung (ICD-10) Cigarette nicotine dependence with nicotine-induced disorder ?F17.219 - Nicotine dependence, cigarettes, with unspecified nicotine-induced disorders (ICD-10) Acute on chronic hypoxic respiratory failure ?J96.21 - Acute and chronic respiratory failure with hypoxia (ICD-10) BRIGETTE (generalized anxiety disorder) ?F41.1 - Generalized anxiety disorder (ICD-10) Counseling regarding end of life decision making ?Z71.89 - Other specified counseling (ICD-10) Acute respiratory failure with hypercapnia ?J96.02 - Acute respiratory failure with hypercapnia (ICD-10) Legally blind ?H54.8 - Legal blindness, as defined in [place] (ICD-10) Glaucoma ?H40.9 - Unspecified glaucoma (ICD-10) 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 ?H35.3190 - Nonexudative age-related macular degeneration, unspecified eye, stage unspecified (ICD-10) Oxygen dependent ?Z99.81 - Dependence on supplemental oxygen (ICD-10) COPD (chronic obstructive pulmonary disease) ?J44.9 - Chronic obstructive pulmonary disease, unspecified (ICD-10) Surgical History Hx of abdominoplasty ?Z98.890 - Other specified postprocedural states (ICD-10) H/O tubal ligation ?Z98.51 - Tubal ligation status (ICD-10) H/O section ?Z98.891 - History of uterine scar from previous surgery (ICD-10) Family History Mother Family history of cancer Father Family history of CHF (congestive heart failure) Family history of hypertension Brother Family history of myocardial infarction Sister Family history of cancer Social History Within the past year, how often did you have a drink containing alcohol: never Score interpretation: A score less than 3 is consistent with normal alcohol consumption. Smoking status: Current every day smoker Non-prescribed substance use: cannabis (any form) Previous occupational history: retired Highest level of school completed/degree received: 11th grade Are you now , , , , never or living with a partner: In a typical week, how many times do you talk on the telephone with family, friends, or neighbors: 3 or more times per week How often do you get together with friends or relatives: 3 or more times per week How often do you attend religious or samaritan services: 4 or more times per year Little interest or pleasure in doing things: not at all Feeling down, depressed, or hopeless: not at all Feel stressed/tense/nervous/anxious/difficulty sleeping: not at all Do you think of yourself as: straight/heterosexual Gender Identity: female Meds Home Medications and Allergies Home Medications ?Medication ?Instructions ?Recorded ?Confirmed ?Type albuterol sulfate 90 mcg/actuation 2 puff inhalation Q4H PRN 01/18/24 01/18/24 History aerosol inhaler shortness of breath or wheezing azithromycin 250 mg tablet 250 mg PO .q am 01/18/24 01/18/24 History budesonide 160 mcg-glycopyr 9 2 inh inhalation BID 01/18/24 01/18/24 History mcg-formot 4.8 mcg/actuation HFA inhaler (Breztri Aerosphere) ensifentrine 3 mg/2.5 mL 3 mg inhalation BID 01/18/24 01/18/24 History suspension for nebulization (Ohtuvayre) ipratropium 0.5 mg-albuterol 3 mg 3 ml inhalation Q4H 01/18/24 01/18/24 History (2.5 mg base)/3 mL nebulization soln alprazolam 0.5 mg tablet 0.5 mg PO TID PRN anxiety 5 days 01/24/24 Rx #15 tabs prednisone 10 mg tablets in a dose 10 mg PO DAILY #39 ea 01/24/24 Rx pack Allergies Allergy/AdvReac Type Severity Reaction Status Date / Time No Known Drug Allergies Allergy Verified 04/12/24 06:35 Exam Constitutional Vital Signs, click to edit/add: Last Vital Signs Temp 100 F 04/12/24 06:26 Pulse 106 H 04/12/24 10:55 Resp 31 H 04/12/24 10:55 BP 124/74 04/12/24 09:45 Pulse Ox 98 04/12/24 10:55 O2 Del Method BIPAP 04/12/24 10:55 O2 Flow Rate 30 04/12/24 06:45 FiO2 30 04/12/24 10:55 Documenting provider has reviewed patient's vital signs: yes Common normals: no apparent distress, oriented x3 and alert HENMT Common normals: normocephalic Eye Common normals: PERRL Respiratory Effort & inspection: actively coughing Auscultation: diminished lung sounds Cardio Common normals: regular rate, regular rhythm, no gallops, no murmurs and no rub GI Common normals: Normal to inspection, nondistended, normoactive bowel sounds present and non-tender Extremity Common normals: no pedal edema Results Labs Labs: Short CBC 04/12/24 Range/Units 06:25 WBC 17.0 H (4.0-11.0) 10^3/uL Hgb 12.1 (12.0-16.0) g/dL Hct 37.3 (36.0-48.0) % Plt Count 288 (150-450) 10^3/uL BMP 04/12/24 06:25 Sodium 128 L Potassium 4.2 Chloride 91 L Carbon Dioxide 31.0 BUN 12.0 Creatinine 0.58 Glucose 153 H Calcium 8.2 L ABG ABG results: 04/12/24 07:13 ABG pH 7.366 ABG pCO2 54.2 H* ABG pO2 91.5 ABG HCO3 31.0 H ABG O2 Saturation 98.2 ABG Base Excess 5.6 H Assessment and Plan Assessment and Plan (1) Acute exacerbation of chronic obstructive pulmonary disease: (2) Chronic respiratory failure with hypercapnia: (3) Chronic respiratory failure with hypoxia: (4) Neuromuscular respiratory weakness: Plan Presented with worsening SOB and COPD exacerbation. Start antibiotics and steroids. Start duoneb and wean BiPAP as tolerated. Consult director social service. Resume home medication.
--- OUTSIDE RECORDS SUMMARY | 2024-04-12 11:38 | XMS_ITS | CCD ---
Author Organization [facility] CliniSypa Care Team Providers Care Clock Mechanic Name Role Phone SAMSA, RIO P Attending Unavailable NONE, XXXX Referring Unavailable MD Mena Gonzales Attending Unavailable MD Mena Gonzales Admitting Unavailable House, [place] P Unavailable Unavailable Unavailable Jorge Alberto Carlson Referring Unavailable Dong, Dr. [place] Velázquez Primary Care Unava gen [place], Mr. Abner Smith Attending Unavaila ble [...] ., RIO Attending Unavailable HEGGJENIFFER Consulting [facility] ARGUETA Admitting Unavailable HOUSE, DR HAYNES [...] Dr. Jean Pierre Cook Referring Anneliese vailable [place], Dr. [place] Velázquez Primary Care Unava gen Carlson, Dr. Jorge Alberto P. Admitting Unavailab MD Levi Patel Attending Provider Rio Zaragoza Referring Provider [phone] House, DO Haynes Primary Care Provider [phone] MD Levi Ann Attending Provider Rio Zaragoza Referring Provider [phone] House, DO [place] Primary Care Provider [phone] JEAN PIERRE WILLETT Attending Unavail able [place], Dr. [place] Velázquez Primary Care Unava ilable [facility], Dr. Rio Daly Referring Unavailab le Dong, [place] Primary Care Unavailable [facility], [place] Referring Unavailable Levi Ann Attending Unavailable Levi Ann Admitting Unavailable HOUSE, [place] Dorantes Primary [...] Medication Allergies] Propensity to adverse reactions (disorder) [facility] Repository (3 sources) Tetracycline; Translations: [tetracycline] Drug Allergy Unknown MG-CT Surgery-Seidma n Work Phone: Medications Current Medications Medication Drug Class(es) Dates Sig (Normalized) Sig (Original) [id number] 200 actuat albuterol 0.09 mg/actuat metered dose [...] take 1 puff(s) by inhalation twice daily Sewbhyaoyr-Rinpenrc-Brinklioxg (Breztri Aerosphere) 160-9-4.8 mcg/actuation HFA aerosol inhaler [...] on 03-24-2024 Rad - Other Radiology Report [id number]#1.0 [facility]24 Outside Records [id number]#1 .00OTGTIFF Normal [facility] Outside Recordson 01-25-2024 Outside Records [id number] 10 [id number]#1.0 0OTGTIFF Normal [facility] Outside Records [id number] 10 [id number]#1.0 0OTGTIFF [facility] Outside Records [id number] 10 [id number]#1.0 0OTGTIFF [facility] Rad - Other Radiology Report on 01-25-2024 Rad - Other Radiology Report [id number]#1.0 0OTGTIFF Normal [facility] Outside Recordson 01-21-2024 Outside Records [id number] 40 [id number]#1.0 0OTGTIFF Normal [facility] Outside Records [id number] 40 [id number]#1.0 0OTGTIFF Normal [facility] Outside Records [id number] 40 [id number]#1.0 0[facility] Outside Recordson 01-20-2024 Outside Records [id number] 00 [id number]#1 .[facility] on 01-19-2024 Rad - Other Radiology Report [id number]#1 .[facility] 11-27-2023 Outside Records [id number] 50 [id number]#1.0 0[facility] Outside Recordson 10-12-2023 Outside Records [id number] 01 [id number]#1. [facility] Report on 09-30-2023 Rad - Other Radiology Report [id number]#1. [facility] 09-02-2023 Outside Records [id number] 31 [id number]#1.0 0[facility] Outside Recordson 06-16-2023 Outside Records [id number] 22 [id number]#1.0 0[facility] Outside Recordson 06-04-2023 Outside Records [id number] 41 [id number]#1.00 [facility] Bronchoscopyon 08-28-2022 Bronchoscopy PATIENTNAME Patient Name: Mellisa Hampton EXAMDATE Procedure Date: 08/28/2022 9:02 AM PATIENTID PATIENTACCOUNTNUM PATIENTDOB Date of : 1950 PATIENTROOM Room: [place] Procedure Room 8 [facility] Attending MD: Jorge Alberto Carlson MD, [id number] ENDOPROCEDURENAME Procedure: Bronchoscopy INDICATION Indications: Right upper lobe nodule, Mediastinal staging of suspected lung cancer PRIMARYPROVIDER Providers: Jorge Alberto Carlson MD (Doctor), Cinthia Hogan RN (Nurse), Forrest Hamilton, Deputy County Clerk (Deputy County Clerk), Casimiro Pacheco MD (Fellow) EDREFPROVIDER Referring MD: [...] physician, the nurse, the anesthesiologist and the shear operator automatic in the procedure room. Mental Status Examination: [...] aspiration was also performed using an Olymp[employer] Inter[employer] Entertainment[employer]ot 22 gauge needle in the right lower [...] region ( (more content not included)... Normal [facility] GLUCOSE-POCTon 08-28-2022 Glucose [Mass/Vol] 109 mg/dL High 74 - 99 [facility] Comment on above: Performed By: #### G SHAWN #### [address] Cytologyon 08-28-2022 [facility] Cytology Patient Name MELLISA HAMPTON Date of [...] LYMPHOID SAMPLE. Slide(s) initially screened by a Vocational Education Professional at [place] [address] Electronically Signed Out By LEXX GABRIEL MD By the signature on this report, the individual or group listed as making the Final Interpretation/Diagnos is certifies that they have reviewed this case. Slide(s) initially screened by a Vocational Education Professional at [facility] Diagnostic interpretation performed at [place] [address] Rapid Evaluation Fine Needle Aspiration Immediate Read [...] NEEDLE ASPIRATION 7 LYMPH NODE Pap stain Non-Athletic Equipment Manager, Diff-Quik stain Non-Athletic Equipment Manager, CELL BLOCK, H AND E, Initial B: FINE NEEDLE ASPIRATION 4R LYMPH NODE Pap stain Non-Athletic Equipment Manager, Diff-Quik stain Non-Athletic Equipment Manager, CELL BLOCK, H AND E, Initial C: FINE NEEDLE ASPIRATION 11RS LYMPH NODE Pap stain Non-Athletic Equipment Manager, Diff-Quik stain Non-Athletic Equipment Manager, CELL BLOCK, H AND E, Initial Gross [...] CLEAR NEEDLE RINSE IN CYTOLYT WITH PARTICLES. [facility] Department of Pathology [address] [place] [address] Normal [facility] Comment on above: Performed By: #### C #### [facility] Cytology [id number] [place] [id number] Consult (Pulmonary Medicine) on 08-26-2022 Consult (Pulmonary [...] Thoracic: Dr. Willett Pulmonology: Dr. Rio Zaragoza ([facility]) HPI: Patient presents to pulmonary clinic today as a new patient in regards to RUL nodule; referred by Dr. Willett from thoracic surgery. Patient gets her care through [facility] system and follows with web content editor Dr. Rio Zaragoza. 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 No exposure to birds or exotic animals. Family History: No known family history of lung diseases. No known family history of autoimmune disorders. - Aunt; emphysema Testing: PFT -03/12/22: FEV1/FVC: 29, FEV1: 0.52 (26%), FVC: 1.81 (70%), + BD Response, AAN56-73: 9%, T.41 (141%), RV/T%, DLCO: 36% CT Chest -07/08/22: 1. Continued increase in size of a now 9 mm spiculated mass within the right upper lobe superior segment; most consistent with neoplasm. 2. Increase in size of a (more content not included)... Normal [facility] CBC W MANUAL DIFFon 08-26-19 23 ATYPICAL LYMPH # Normal [facility] Comment on above: Performed By: #### C KIZZY #### [facility] [address] [place] [address] [address] Dionicio Shook ATYPICAL LYMPH % Normal [facility] Comment on above: Performed By: #### C KIZZY #### [facility] [address] [address] [address] Dionicio Shook BAND # 0.0 103/ul Normal 0.0-0.3 [facility] Comment on above: Performed By: #### C BCJAKE #### [facility] [address] [address] [address] Dionicio Shook BAND % 0 % Normal 0-5 [facility] Comment on above: Performed By: #### C BCMAN #### [facility] [address] [place] [address] Dr. Dionicio Shook BASOM # 0.00 103/ul Normal 0.00-0.10 [facility] Comment on above: Performed By: #### C BCJAKE #### [facility] [address] [place] [address] Dr. Dionicio Shook BASOM % 0.0 % Critically low 0.2-2.0 [facility] Comment on above: Performed By: #### C KIZZY #### [facility] [address] [place] [address] Dr. Dionicio Shook BLAST # Normal [facility] Comment on above: Performed By: #### C KIZZY #### [facility] [address] [place] [address] Dr. Dionicio Shook BLAST % Normal [facility] Comment on above: Performed By: #### C KIZZY #### [facility] [address] [place] [address] Dr. Dionicio Shook CORRECTED WBC Normal 4.0-11.0 [facility] Comment on above: Performed By: #### C KIZZY #### [facility] [address] [place] [address] Dr. Dionicio Shook EOS # 0.57 103/ul Normal 0.00-0.70 [facility] Comment on above: Performed By: #### C BCJAKE #### [facility] [address] [place] [address] Dr. Dionicio Shook EOS% 6.0 % Normal 0.9-7.0 [facility] Comment on above: Performed By: #### C KIZZY #### [facility] [address] [place] [address] Dr. Dionicio Shook HCT 37.9 % Normal 36.0-48.0 [facility] Comment on above: Performed By: #### C BCJAKE #### [facility] [address] [address] [address] Dionicio Shook HGB 12.1 g/dl Normal 12.0-16.0 [facility] Comment on above: Performed By: #### C BCJAKE #### [facility] [address] [address] [address] Dionicio Shook LYMPHM # 5.89 103/ul Critically high 1.20-3.[address] [facility] Comment on above: Performed By: #### C BCJAKE #### [facility] [address] [address] [address] Dionicio Shook LYMPHM% 62.0 % Critically high 20.5-60.0 [facility] Comment on above: Performed By: #### C KIZZY #### [facility] [address] [place] [address] Dr. Dionicio Shook MCH 29.8 pg Normal 26.7-34.0 [facility] Comment on above: Performed By: #### C KIZZY #### [facility] [address] [place] [address] Dr. Dionicio Shook MCHC 31.9 g/dl Normal 29.9-35.2 [facility] Comment on above: Performed By: #### C KIZZY #### [facility] [address] [place] [address] Dr. Dionicio Shook MCV 93.3 fL Normal 81.0-99.0 [facility] Comment on above: Performed By: #### C KIZZY #### [facility] [address] [place] [address] Dr. Dionicio Shook METAMYELOCYTE # Normal [facility] Comment on above: Performed By: #### C KIZZY #### [facility] [address] [place] [address] Dr. Dionicio Shook METAMYELOCYTE % Normal [facility] Comment on above: Performed By: #### C KIZZY #### [facility] [address] [address] [address] Doinicio Shook MONOM# 0.47 103/ul Normal 0.30-0.80 [facility] Comment on above: Performed By: #### C KIZZY #### [facility] [address] [place] [address] Dr. Dionicio Shook MONOM% 5.0 % Normal 1.7-12.0 [facility] Comment on above: Performed By: #### C KIZZY #### [facility] [address] [place] [address] Dr. Dionicio Shook MPV 8.7 fL Critically low 9.5-13.5 [facility] Comment on above: Performed By: #### C BCJAKE #### [facility] [address] [place] [address] Dr. Dionicio Shook MYELOCYTE # Normal [facility] Comment on above: Performed By: #### C KIZZY #### [facility] [address] [place] [address] Dr. Dionicio Shook MYELOCYTE % Normal [facility] Comment on above: Performed By: #### C KIZZY #### [facility] [address] [place] [address] Dr. Dionicio Shook NRBC Normal [facility] Comment on above: Performed By: #### C KIZZY #### [facility] [address] [place] [address] Dr. Dionicio Shook PLT 260 103/ul Normal 150-450 [facility] Comment on above: Performed By: #### C KIZZY #### [facility] [address] [place] [address] Dr. Dionicio Shook RBC 4.06 106/ul Critically low 4.20-5.40 [facility] Comment on above: Performed By: #### C KIZZY #### [facility] [address] [place] [address] Dr. Dionicio Shook RDW 13.2 % Normal 11.0-15.0 [facility] Comment on above: Performed By: #### C KIZZY #### [facility] [address] [place] [address] Dr. Dionicio Shook SEG # 2.56 103/ul Normal 1.40-6.50 [facility] Comment on above: Performed By: #### C BCMAN #### [facility] [address] [place] [address] [address] Dionicio Shook SEG % 27.0 % Critically low 43.0-75.0 [facility] Comment on above: Performed By: #### C BCMAN #### [facility] [address] [address] [address] Dionicio Shook WBC 9.5 103/ul Normal 4.0-11.0 [facility] Comment on above: Performed By: #### C BCMAN #### [facility] [address] [address] [address] Dionicio Shook PROF CHEM 8 (BAS METB)on Anion gap [Moles/Vol] 9.9 mmol/L Normal [facility] Comment on above: Performed By: #### B MP #### [facility] [address] [place] [address] Dr. Dionicio Shook Calcium [Mass/Vol] 8.8 mg/dL Normal 8.5-10.1 [facility] Comment on above: Performed By: #### B MP #### [facility] [address] [place] [address] Dr. Dionicio Shook Chloride [Moles/Vol] 104 mmol/L Normal 98-107 [facility] Comment on above: Performed By: #### B MP #### [facility] [address] [address] [address] Dionicio Shook CO2 [Moles/Vol] 31.2 mmol/L Normal 21.0-32.0 [facility] Comment on above: Performed By: #### B MP #### [facility] [address] [place] [address] Dr. Dionicio Shook Creatinine [Mass/Vol] 0.57 mg/dL Normal 0.55-1.02 [facility] Comment on above: Performed By: #### B MP #### [facility] [address] [place] [address] Dr. Dionicio Shook EGFR-AF EAST [place] >60 Normal >=60 [facility] Comment on above: Performed By: #### B MP #### [facility] [address] [place] [address] [address] Dionicio Shook EGFR-NON AF [place] >60 Normal >=60 [facility] Comment on above: Performed By: #### B MP #### [facility] [address] [place] [id number] Dionicio Shook Glucose [Mass/Vol] 97 mg/dL Normal 74-106 [facility] Comment on above: Performed By: #### B MP #### [facility] [address] [place] [address] [address] Dionicio Shook Potassium [Moles/Vol] 4.1 mmol/L Normal 3.5-5.1 [facility] Comment on above: Performed By: #### B MP #### [facility] [address] [address] [address] Dionicio Shook Sodium [Moles/Vol] 141 mmol/L Normal 136-145 [facility] Comment on above: Performed By: #### B MP #### [facility] [address] [address] [address] Dionicio Shook Urea nitrogen [Mass/Vol] 10.0 mg/dL Normal 7.0-18.0 [facility] Comment on above: Performed By: #### B MP #### [facility] [address] [address] [address] Dionicio Shook Urea nitrogen/Creatinine [Mass ratio] 17.5 mg/mg Normal [facility] Comment on above: Performed By: #### B MP #### [facility] [id number] 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 Oral and nasal mucosa are clear. The neck had no cervical or supraclavicular adenopathy. The trachea and midline is without crepitus. The thy (more content not included)... Normal [facility] [employer] Tobacco Screening.on 023 Fall risk assessment a) [...] by: JENIFFER SHI Date: 2022-08-03 06:18 Normal [facility] CREATININEon 08-01-2022 Creatinine [Mass/Vol] 0.63 mg/dL Normal 0.55-1.02 [facility] Comment on above: Performed By: #### C YOUSIF #### [facility] [address] [place] [address] Dr. Dionicio Shook EGFR-AF [place] >60 Normal >=[address] [facility] Comment on above: Performed By: #### C YOUSFI #### [facility] [address] [place] [address] Dr. Dionicio Shook EGFR-NON AF [place] >60 Normal >=60 [facility] Comment on above: Performed By: #### C YOUSIF #### [facility] [address] [place] [address] SKULL BASE [...] BHAKTI ROSE Date: 2022-07-20 23:53 Normal [facility] COCCIDIODES IGG/IGM AB BY IF Aon 07-18-2022 Coccidiodes Ab, IgG EIA 0.2 EIA Units Normal [facility] Comment on above: Result Comment: Nega tive <1.0 Indeterminate 1.0-1.4 Positive >1.4 Performed By: #### C OCCABS #### [facility] [address] [address] [address] Dionicio Shook Coccidiodes Ab, IgM, EIA 0.1 EIA Units Normal [facility] Comment on above: Result Comment: Nega tive <1.0 Indeterminate 1.0-1.4 Positive >1.4 Performed By: #### C OCCABS #### [facility] [address] [address] [address] Dionicio Shook HISTOPLASMA CAP AB QUANT DID on 07-18-2022 Histoplasma Mycelial CF Ab. Negative Normal Neg:<1:2 [facility] Comment on above: Performed By: #### H ISTDID #### [facility] [address] [address] [address] Dionicio Shook Histoplasma Yeast CF Ab Negative Normal Neg:<1:2 [facility] Comment on above: Performed By: #### H ISTDID #### [facility] [address] [place] [address] Dr. Dionicio Shook FUNGAL AB QUANTITAIVE DOUBLE IMMUNODIFFUon 07-17-2022 Aspergillus flavus Negative Normal Neg:<1:1 [facility] Comment on above: Performed By: #### F UNGUYI #### [facility] [address] [place] [address] Dr. Dionicio Shook Aspergillus fumigatus Negative Normal Neg:<1:1 [facility] Comment on above: Performed By: #### F UNGUYI #### [facility] [address] [place] [address] Dr. Dinoicio Shook Aspergillus niger Negative Normal Neg:<1:1 [facility] Comment on above: Performed By: #### F UNGUYI #### [facility] [address] [place] [address] Dr. Dionicio Shook Blastomyces Negative Normal Neg:<1:1 [facility] Comment on above: Performed By: #### F UNGUYI #### [facility] [address] [place] [address] Dr. Dionicio Shook ANTI NEUTROPHIL CYTOPLASMIC AB (ANCA) PRon 07-16-2022 Anti-MPO Antibodies <0.2 Normal 0.0-0.9 [facility] Comment on above: Result Comment: Perf ormed at: BN Performed By: #### H ISTDID #### [facility] [address] [place] [address] Dr. Dionicio Shook Anti-PR3 Antibodies <0.2 Normal 0.0-0.9 [facility] Comment on above: Result Comment: Perf ormed at: BN Performed By: #### H ISTDID #### [facility] [address] [place] [address] Dr. Dionicio Shook Atypical pANCA <1:20 Normal Neg:<1:20 [facility] Comment on above: Result Comment: The atypical pANCA pattern has been observed in a significant percentage of patients with ulcerative colitis, primary sclerosing cholangitis and autoimmune hepatitis. Performed at: CB Performed By: #### H ISTDID #### [facility] [address] [place] [address] Dr. Dionicio Shook Cytoplasmic (C-ANCA) <1:20 Normal Neg:<1:20 [facility] Comment on above: Result Comment: Perf ormed at: CB Performed By: #### H ISTDID #### [facility] [address] [place] [address] Dr. Dionicio Shook Perinuclear (P-ANCA) <1:20 Normal Neg:<1:20 [facility] Comment on above: Result Comment: The presence of positive fluorescence exhibiting P-ANCA or C-ANCA patterns alone is not specific for the diagnosis of Noe's Granulomatosis (WG) or microscopic polyangiitis. Decisions about treatment should not be based solely on ANCA IFA results. The International ANCA [employer] Consensus recommends follow up testing of positive sera with both NE-3 and MPO-ANCA enzyme immunoassays. As many as 5% serum samples are positive only by EIA. Ref. AM J Clin Pathol 1999;111:507-513. Performed at: CB Performed By: #### H ISTDID #### [facility] [address] [place] [address] Dr. Dionicio Shook HISTOPLASMA GALACTOMANNAN AG URINEon 07-16-2022 Histoplasma Gal'jean-pierre Ag <0.5 Normal <0.5 ng/mL [facility] Comment on above: Performed By: #### H ISTGAL #### [facility] [address] [place] [address] Dr. Dionicio Shook QUANTIFERON TB GOLD PLUSon 0 07-16-2022 QuantiFERON Criteria Comment Normal [facility] Comment on above: Result Comment: Patric [...] test. Performed By: #### H ISTDID #### [facility] [address] [address] [address] Dionicio Shook QuantiFERON Incubation Incubation performed. Normal [facility] Comment on above: Performed By: #### H ISTDID #### [facility] [address] [place] [address] Dr. Dionicio Shook QuantiFERON Mitogen Value >10.00 Normal [facility] Comment on above: Performed By: #### H ISTDID #### [facility] [address] [place] [address] Dr. Dionicio Shook QuantiFERON Nil Value 0.05 IU/mL Normal [facility] Comment on above: Performed By: #### H ISTDID #### [facility] [address] [place] [address] Dr. Dionicio Shook QuantiFERON TB1 Ag Value 0.05 IU/mL Normal [facility] Comment on above: Performed By: #### H ISTDID #### [facility] [address] [place] [address] Dr. Dionicio Shook QuantiFERON TB2 Ag Value 0.04 IU/mL Normal [facility] Comment on above: Performed By: #### H ISTDID #### [facility] [address] [place] [address] Dr. Dionicio Shook QuantiFERON-TB Gold Plus Negative Normal Negative [facility] Comment on above: Result Comment: No r esponse to M tuberculosis antigens detected. Infection with M tuberculosis is unlikely, but high risk individuals should be considered for additional testing (ATS/IDSA/CDC Clinical Practice Guidelines, 2017). The reference range is an Antigen minus Nil result of <0.35 IU/mL. Chemiluminescence immunoassay methodology Performed By: #### H ISTDID #### [facility] [address] [place] [address] Dr. Dionicio Shook ELVIRA EIA W/REFLEX 5 BIOMARKER Son 07-15-2022 ELVIRA Direct Negative Normal Negative [facility] Comment on above: Performed By: #### A NARF #### [facility] [address] [place] [address] Dr. Dionicio Shook CYCLIC CITRULLINATED PEPTIDE AB (CCP)on 07-15-2022 CCP Antibodies IgG/IgA 3 units Normal 0-19 [facility] Comment on above: Result Comment: Nega tive <20 Weak positive 20 - 39 Moderate positive 40 - 59 Strong positive >59 Performed By: #### H ISTDID #### [facility] [address] [address] [address] Dionicio Shook RHEUMATOID FACTORon 07-16-19 RA Latex Turbid. <10.0 Normal <14.[address] [facility] Comment on above: Performed By: #### H ISTDID #### [facility] [address] [address] [address] Dionicio Shook SED RATE WESTERGRENon 2022 SED RATE 19 mm/hr Normal <=30 [facility] Comment on above: Performed By: #### H ISTDID #### [facility] [address] CHEST WO CONon [...] by: PIPER XIE Date: 2022-07-08 16:47 Normal [facility] ECHOCARDIO M/2D COMPLETEon 0 06-30-2022 ECHOCARDIO M/2D COMPLETE Patient: MELLISA HAMPTON Exam Date: 06/30/2022 : 1950 Gender:F Ordering : DR DALLAS FAJARDO D.O. Admission #: [id number] Family : Order #: [id number] CLICK HERE TO VIEW EXAM ECHOCARDIOGRAM REPORT [...] Hernandez M.D. on 07/01/2022 at 12:01 Normal [facility] CT CHEST WO CONon 03-13-2022 CT CHEST [...] PIPER XIE Date: 2022-03-13 09:04 Normal [facility] Blood Gas Art, with Akin Mo nghiaRamonaon 03-12-2022 a/A Ratio Art 70.70 % Normal >=0.80 [facility] Comment on above: Performed By: #### 4 [id number] #### [facility] [address] [place] [address] AaDO2 Art 29.4 mmHg High 5.0-15.0 [facility] Comment on above: Performed By: #### 4 [id number] #### [facility] [address] [place] [address] Allens Test Positive Normal [facility] Comment on above: Performed By: #### 4 [id number] #### [facility] [address] [place] [address] Base Excess Arterial 1.4 mmol/L Low >=2.8 [facility] Comment on above: Performed By: #### 4 [id number] #### [facility] [address] [place] [address] cCa2+ Art 4.56 mg/dL Normal 4.40-5.30 [facility] Comment on above: Performed By: #### 4 [id number] #### [facility] [address] [place] [address] cCl- Art 102.0 mmol/L Normal 101.0-111.0 [facility] Comment on above: Performed By: #### 4 [id number] #### [facility] [address] [place] [address] cGlu Art 165 mg/dL High 55-99 [facility] Comment on above: Performed By: #### 4 [id number] #### [facility] [address] [place] [address] cK+ Art 3.8 mmol/L Normal 3.5-5.3 [facility] Comment on above: Performed By: #### 4 [id number] #### [facility] [address] [place] [address] cLac Art 1.0 mmol/L Normal .5-2.2 [facility] Comment on above: Performed By: #### 4 [id number] #### [facility] [address] [place] [address] inflated ball molder+ Art 136.0 mmol/L Normal 135.0-145.0 [facility] Comment on above: Performed By: #### 4 [id number] #### [facility] [address] [place] [address] Drawn by SAUMYA Invalid Interpretation Code [facility] Comment on above: Performed By: #### 4 [id number] #### [facility] [address] [place] [address] FCOHb Art 3.7 % Normal 1.5-4.9 [facility] Comment on above: Result Comment: Refe rence range Nonsmoker <1.5% Smoker <5.0% Heavy Smoker <9.0% Performed By: #### 4 [id number] #### [facility] [address] [place] [address] FIO2 BG 21 Invalid Interpretation Code [facility] Comment on above: Performed By: #### 4 [id number] #### [facility] [address] [place] [address] FMetHb Art 0.4 % Normal 0.0-1.9 [facility] Comment on above: Performed By: #### 4 [id number] #### [facility] [address] [place] [address] FO2Hb Art 92.0 % Normal 92.0-100.0 [facility] Comment on above: Performed By: #### 4 [id number] #### [facility] [address] [place] [address] HCO3 (Bld) [Moles/Vol] 25.6 mmol/L Normal 22.0-26.0 [facility] Comment on above: Performed By: #### 4 [id number] #### [facility] [address] [place] [address] Hemoglobin (Bld) [Mass/Vol] 12.4 g/dL Normal 12.0-16.0 [facility] Comment on above: Performed By: #### 4 [id number] #### [facility] [address] [place] [address] Oxygen saturation in Blood 96.0 % Normal 95.0-100.0 [facility] Comment on above: Performed By: #### 4 [id number] #### [facility] [address] [place] [address] P CO2 Arterial 40.8 mmHg Normal 35.0-45.0 [facility] Comment on above: Performed By: #### 4 [id number] #### [facility] [address] [place] [address] P O2 Arterial 70.9 mmHg Low 80.0-100.0 [facility] Comment on above: Performed By: #### 4 [id number] #### [facility] [address] [place] [address] pH Arterial 7.414 Normal 7.350-7.450 [facility] Comment on above: Performed By: #### 4 [id number] #### [facility] [address] [place] [address] Sample Site R Radial Normal [facility] Comment on above: Performed By: #### 4 [id number] #### [facility] [address] [id number] Sample Type Arterial Draw Normal [facility] Comment on above: Performed By: #### 4 [id number] #### [facility] [address] [place] [address] HEMOGLOBINon 03-12-2022 Hemoglobin (Bld) [Mass/Vol] 12.6 g/dL Normal 12.0-16.0 [facility] Comment on above: Performed By: #### H GB #### [facility] [address] [address] [address] Dionicio Shook LAB TESTINGon 03-12-2022 RECV HEADER SEE SCANNED REPORT I N HPF Normal [facility] Comment on above: Performed By: #### M ISC #### [facility] [address] [place] [address] Dr. Dionicio Shook REV FROM REF LAB 03/12/22 [facility] Comment on above: Performed By: #### M ISC #### [facility] [address] [address] [address] Dionicio Shook SENT TO REF LAB 03/12/22 Normal [facility] Comment on above: Performed By: #### M ISC #### [facility] [address] [place] [address] Dr. Dionicio Shook Physician Orderon 03-12-2022 Physician Order [id number] 00CD:127 Normal [facility] Coding Summary.on 07-10-2021 Coding Summary. CD:[id number] Gh 0bWw+PGhlYWQ+OP3HMIZeM 08waKAlwJ5YZ5cBBW5SBFD MJETVFF9PAU3kiMT7JZdbS 2VybiAv JkedrGQbUW80BDe0MHT5xN qkIIumaF3oqMFmH0i7GtFw QH85hS56WCzwFHMtQuF3Bk ZpbjsgbWFy Q2pfSrAovGRcQja+PHRhYm xlIHdpZHRoPScxMDAlJyBz cNbwOR7uUi7gBQAaSMJpaV xhcHNlOiBj q9ytEFPqCEdwNE2mhRvxU8 FsoMK8ODKov1i1An26hKM+ RAIiOAO7yEqlXItqy766Xz Lia0csFKE8 iHPeVCvwDNJ0S51xp9Q3XN FuBXWkKMC4pMC5tN7uvFnf shjjW4EoxOSyUyF2FKP2wB NfmL0mgGby uqhghL7eLjl+O43YYC1BOF AKNS8EVqa8V8UuYdcomGN+ HQ63OIGdZC74hOHwrHIcj9 rupGb1XdNc USOyJYB7kAsxREmtq6MrAK WaM20ufWVqr4C0WCFtwEya mPWfYmTbhUU9yH0eJAgzol kys9wrypfn Tkjap9swdj39yA71U24mTT usLGGyQIM6PIOpNHGvrKas gj8poO2aQn8+DUldu0qys8 unnPg4XjVm BLOouxOuuKeqUVY3e8GxRx 74L7LepXqsi1PvOud2qd46 vPSuf7D5lOD8LKijEBVitT 4oUPfjYiJ1 GGKzJbHpzK58bRJzITipUv 6rtMylgPswRJ2nLBZnatna EVToqV1yPAEjgLTcxCfpIM 4wNTBpbjtm y243NqJvGHI0CEQkiSQaO8 UynU4fKcVuVYTqRCPzT0Jn nFAdJAplG656BEnnDsY8WZ SfrdFhN4Se HPQdgZxiJxO1z6I2Xq3Pp4 YxioymYNS3KVmkWQEtFvWj PlXfQmZ0G8LvEeh7IUDqyG cdMI8wJ9Ru JZGmwgragkthcWG0BFKbBE WwvR86aPDeTMkzSk0av6Y1 g083OOCcXQSnqZ53Ax4oxX ogMTBwdCBU dE6cpgxwf4acsaubZfApKK IhWPx7LHi8SNTgfHibEmWp DAH7SiQ0MLR0lCFhvI6sqX ggbsniqR0w Oyc+F96mpP2dTOW1QNU5pn krQDNpnhQeTA29PQ77F3Cy PjwvdGFibGU+PGRpdiBzdH nlZH2oFyGy j8zuk1BtVIjeR0EfEZFyII opCuf9RUBtAGE1yXA1zD9j MOAtJRhri0A7kPZ0Q2Tpgb Ylya5lf6wa DCFoNOvrN34zuFGhf8Y5LX AdoAJ9TESakCuyDfHdkJ01 Oyc+XBVbvJmfn3EsIojxz5 wzw4ijhRx2 TtQhMBDuzsVhkXjgRRJ2q5 WuLk89L50qECxwNBVuSGGw QTTyICYyqFatdw0hnT1lCm 8+PGNvbCB3 fKT2iC7qWAGzKxI8SFecB9 04YaKuaULwVmhbm4cuh2pa nGu1HxDhBKWfraYxzXhjMB Y0h1NeEo97 T77vVVqqAQDtMTSkBKXcEU PioGqlrd0nlZ2iDk0+PC9j b0vxqt62vN72aDF+PHRkIH U9aAueJHmt QVQnjK4pBFflFtL3ERRpUm GagN51oQZpHAdjCe4olUwb fAmbQN5aJCQsazrnz005Ks Qci5liZGLg lLImNHhnFFQ4U27wu7R8XW WuETIlLQQ9zXB0uS2wcWkk bjogbGVmdDsgdmVydGljYW xaEBjoG751 IHRvcDsnPlBhdGllbnQgTm SdHTa5L8NxNrc7LCGdmTol OS5rmRYmLOuuYk1vsGuhfM reJY5fZZFs tmamp899SnEch1geRWIxoV XhMSypWNQ0T89py9F5BBIb YMWuWWR8ePJ3fT4ryYvhhr ogbGVmdDsg fhNbjCpuPHsbNAblE691QP RvcDsnPkJpcnRoIERhdGU6 LI42DG94mTCxd6L9sBQ4T0 BhZGRpbmct jynbvRV2KQBjPAUhyE79Lf 5ivLgpWs5vPLReUPJ6RDUd zJMrE9EgdQ0fLzJrEENePA TpJ4TexZKd NHmtR811RNjuEjQ1JPTkks NsS7SfLITvwAbrWgH8d4Q0 Uq5UM2R1OT86VA59aUFme0 X4kZT3L0Br CGChdnljqrayvJR2FGXjHO LorD28Tq5dfWsjYm3zOWXd UIW6JCQrdEWdL3HpkK7sJn AjMDAwMDAw F4IgwOOuCEyuN072HFdwQu A4VDFwprHhA4JpAMTafYar JaD9t0T3Ju3OXMo5CT54DQ 42vSRzm6M1 qGO2T4VbFRDqojhsnjcraT F9VIBuDDCmzJ41Lk3buEuy Nj0iPULdOIN0EGItjCMgU5 FidC0iRoHn JGDsSXBoC2CxqHVxOOcaJ9 06EGwoYzW7KKRqmaFwW4Mk EJQlvJmwOwD5v4L2Vp5MNQ ObAM24YVX9 dRB1EY97NE73Z9AsGotpzL FibGU+PHRhYmxlIHdpZHRo VUtgUGPjWlCmaQneJK6lLi 9yZGVyLWNv rJbewERlXwXjn3yoRSPvNJ usZL9ilPpcP4RcmZJ4DCCj k8y7If95U25mS0MtqNG+PG FhuYJ5xUN8 xQ2dYjEcLxM2XYnqC693Kf HffCXlVjtpp5xal3cbyHg6 EuM0VWSarjExpUxjJTQ3f0 FkAj66F62z IHdpZHRoPSIxNSUiIHZhbG fxsc0ggT2dBf8+PGNvbCB3 eYP8oZ8kRrFaGfR6HHrbU9 49InRvcCIv Anlxl1klw8fxhMb6UpZuUK ZjdoNikZnzPYG8m5SzYy66 B4ModPgel6KcAjr3zk84aZ Ffk3Q9cQU1 V3NpDRQinbdaeSKhqAruIB 6uFPYytxzwAFAemL4bKROf A3d3YsCrAdX8KCztU2Xjfa E3SNOjpOPb CEfwXIS3M33gz7F3XNEbXR UsULX3fOX9zN9chMyeadzd bGVmdDsgdmVydGljYWwtYW uzJ848XSPr kKqsNDEjpY2rBFFqyLWgiT atMP9vVFXtvwvsRwQBK68G TzllI7IVXA4sPHoqzHM+PH BdZYZ1gGsz EEnbTZCbyC3iPWPgD2a3Wc KxOyL5IGodL8AsUZGfhteq Ie29cH5xByLzXlD4DOywI5 JzzkL0DDNz wEQjCAhnUVU3N00sp8J0YK OqJMNyNMZ1kAS0lU1gzLrt bjogbGVmdDsgdmVydGljYW xrFEuqN354 TAIglVkmIwV7RbKoZcT5DZ M6T0OhZkn1FNJgfAhsEV3u qSIgMQirJn3nbCqakHrxEA 4wNTBpbjtw XBDylE7tSJGyyGKqrYthYG 6dIYGbcqsxo273EuPdLCR0 CPRyeWQnC6XdhH1cJyDpHD KbTVSyB4Ec kBSbUPbtJ733LMmfZhG5GC JrkmJaE2JmGZGavSahNaZ6 x4U0Hc59GVUCSMRfykthdC Q+PHRkIHN0 sBapUAyjBVEjdU7bUKSmU8 a8NdWtByS3BKuqO1FmGKWo jwedLg78qI9cTuVpIbQ9KX orI4OirmC3 IVWfvRPvTYcrDEA9L52zn2 C4KHUxECIlSIH6vUR3qA9z bGlnbjogbGVmdDsgdmVydG ljYWwtYWxp G540WZKdyHdnWuYqoMYdHR wvdGQ+XJPcZBI4cAruEAqb GEBqrN8wTSJfD3b6ReBxEv V1HGazR2Ox CPAclvzqZd61sP1qPgMqBo L0WAwxU1ZvomW5HEEtiCEa IQkqIQX2G17wl3L8HIJpEB PeDLA0gOQ1 kK7nqZnzxrcujAVykBqjjc FspRucCDodEPmuV606JCUs dYcnHn71eMPlzZjpggO2C0 RkPjwvdHI+ PY27CNJbSX97aYMmzBNwc9 ucdQu1AvNtEUVcPZU4eXam IIxwc0EeBYBuW20kfEMea1 T4JZDrpKqs nYLkAeOuzGQ5nN6pCKntpo hel6oxaosxBzmxl7ftdk82 jC30I34dXTmmRADrGJBuLA UiIHZhbGln sf3coL4fMw6+LWUetMB4eY A6nC4gNeOrWvA6PUahP848 XwIgxQYcInsvk7eau4lhgE y1YvSqYUWf laXrjAjzOXD5x5YxGu91X8 9sIHdpZHRoPSIyMCUiIHZh iPapja4rmL6qYc8+PC9jb2 jpmr99yD80 dHI+AAXgOXP6nGktRCfaRW HvaP0nCGlrKyA1YSXwZkGx rV14xRLqNCppOn0hgJiqtO chJP1cCYCt cgwku067ScSqw2xmJOKamJ WiEFxyJXD9J95nl2H6VZBy VAGdDYH8mAV1qF3nlAtbcv ogbGVmdDsg wwGhwLnmDYqiCKsmH960WO MutDdeYaFgwOEdF1ovweWF UX9mHfufnPF+DATaPJN6dF xlPSdwYWRk tN9sONTzJ4i9RrOqNnU5XJ pfJ7FftwZ2UTZcrALqCRGy xZAJdM1hgtdoa1nnjssbFn AwMDAwMDt0 AYv6YGXboYwmScEdOWH9Tl S2RYE7mWGhwA4waCbdujhf hT4dEbc+RklOOjwvdGQ+PH XsZZE9jEex OKufXGOkbR8cJMDvC3z3Ql TqZyX1IGelT1RlgkE8HQTf dHVmLVXfyZRPvQ8aslpud3 xvcjogIzAw FDDxVLq0KGe4IOGgrUkuHj SeVVR2MrL5KFJ3vIZylO1g qHkdvigdfS0eMtp+TVJOOj wvdGQ+PHRk GTP6rBedPFvfTUOfhH7yFG JmY0a8TsJmIgS0GWchQ5Ai suR8JADrgYVoRBQnvXTZwP 4zmsayk3fc kyidIlCgEYUdUGj4KVe3UU LluUugBcSqRIP4OhC2MOQ9 rUQqtI3dvKztbhdleZ8lUr c+RYI4PUD4 QS11MO62V6NcLvvqgOIhvO U+PHRhYmxlIHdpZHRoPScx VLMmTzBrsYdnXU1bId3jVX VyLWNvbGxh Nl (more content not included)... Normal [facility] Consent for Treatmenton 06-18 Consent for Treatment [id number] 0CD:127 Normal [facility] Heart and Vascular Office/Cl inic Noteon 06-28-2021 [...] for 30 day(s), 60 EA, Refill(s) 6, [facility] 1985, 158, cm, 06/28/21 10:50:00 EST, [...] neoplasm of rectum: Mother. Stroke: Father. Normal [facility] Comment on above: Result Comment: Elec tronically Signed By: Christian WILLSON, Mena Rodas\.br\Date and Time Signed: 06/28/21 11:40 EST Insurance Correspondenceon 0 05-16-2021 Insurance Correspondence [id number] 0CD:127 Normal [facility] Vital Signs Date Time Vital Sign Value Performing Clinician Faci lity 11-20-2022 10:03-0400 Body temperature 99.2 [degF] [facility] 11-20-2022 10:03-0400 Body weight 50.84 kg [employer] Phone: [facility] 11-20-2022 10:03-0400 Diastolic blood pressure 72 mm[Hg] [employer] Work Phone: [facility] 11-20-2022 10:03-0400 Heart rate 93 /min [employer] Work Phone: [facility] 11-20-2022 10:03-0400 Respiratory rate 18 /min [employer] Work Phone: [facility] 11-20-2022 10:03-0400 SaO2% (BldA) [Mass fraction] 95 % [employer] Work Phone: [facility] 11-20-2022 10:03-0400 Systolic blood pressure 128 mm[Hg] [employer] Work Phone: [facility] 10-01-2022 14:08-0400 Body height 154.94 cm [employer] Work Phone: [facility] 10-01-2022 14:08-0400 Body weight 51.25 kg [employer] Work Phone: [facility] 10-01-2022 14:08-0400 Diastolic blood pressure 72 mm[Hg] Rio Zaragoza Work Phone: [facility] 10-01-2022 14:08-0400 Heart rate 78 /min [facility] Work Phone: [facility] 10-01-2022 14:08-0400 Respiratory rate 20 /min [facility] Work Phone: [facility] 10-01-2022 14:08-0400 SaO2% (BldA) [Mass fraction] 97 % [facility] Work Phone: [facility] 10-01-2022 14:08-0400 Systolic blood pressure 138 mm[Hg] [facility] Work Phone: [facility] 08-14-2022 10:52-0400 Body height 154.94 cm Dallas Liiiike Work Phone: [facility] Work Phone: 08-14-2022 10:52-0400 Body mass index (BMI) [Ratio] 21.16 kg/m2 Dallas Liiiike Work Phone: [facility] Work Phone: 08-14-2022 10:52-0400 Body surface area Derived from formula 1.48 m2 Dallas Liiiike Work Phone: [facility] Work Phone: 08-14-2022 10:52-0400 Body temperature 97.7 [degF] Dallas P [employer] Work Phone: [facility] Work Phone: 08-14-2022 10:52-0400 Body weight 50.8 kg Dallas P [employer] Work Phone: [facility] Work Phone: 08-14-2022 [...] Start: 04-06-2024 End: 04-06-2024 ambulatory DALLAS FAJARDO Facility:[facility] Start: 10-12-2023 End: 10-12-2023 ambulatory DO DALLAS FAJARDO Facility:[facility] Start: 10-08-2023 ambulatory Dallas Fajardo Facility: [facility] Start: 04-14-2023 End: 04-14-2023 ambulatory Derek Duffy MD Facility:[facility] Start: 11-20-2022 End: 11-20-2022 ambulatory Rio Nik Work Phone: [facility] Work Phone: Start: 11-20-2022 End: 11-20-2022 Registered Recurring Rio Nik Work Phone: [facility] Work Phone: Start: 10-01-2022 End: 10-01-2022 ambulatory Rio Zaragoza Work Phone: [facility] Work Phone: Start: 10-01-2022 End: 10-01-2022 Registered Recurring Rio Zaragoza Work Phone: [facility] Work Phone: Start: 08-28-2022 Encounter for other preprocedural examination DR DOCTOR HESS [facility] Start: 08-28-2022 End: 08-28-[address] Jorge Alberto Carlson Facility:[facility] Start: 08-26-2022 Phys/qhp telephone evaluation 21-30 min Dallas Fajardo Work Phone: [facility] Work Phone: Start: 08-26-2022 KISHOR, Provider [...] Start: 03-12-2022 End: 03-13-2022 ambulatory RIO ZARAGOZA Facility:[facility] Start: 06-28-2021 End: 06-29-2021 ambulatory XXXX NONE Facility:[facility] Patient encounter status Dallas Fajardo Work Phone: [facility] Work Phone: Procedures Date Procedure Procedure Detail Performing Clinician Abdominoplasty Dallas Vega Work Phone: section Dallas martinez Work Phone: Plan of Treatment Date Care Activity Detail Author Computed tomography for radiotherapy planning [facility] enter CT Chest WO contrast [facility] Immunizations Immunization Date Immunization Notes Care Provider [...] Phone: Payers Date Payer Category Payer Unknown [id number] 2022 Self-pay 2020 Medicaid [id number] 2020 Medicaid [id number] 1959 Medicare [id number] 1958 Unknown [id number] 1950 Unknown [id number] 2.16.8 40.1.050388.3.579.2.727 1950 Unknown [id number] 2.16.8 40.1.735133.3.579.2.727 1950 Unknown [id number] 2.16. 840.1.989762.3.579.2.356 1950 Unknown [id number] 2.16.84 0.1.717673.3.579.2.593 1950 Unknown [id number] 2.16.84 0.1.068131.3.579.2.593 1950 Unknown [id number] 2.16.84 0.1.070796.3.579.2.593 1950 Unknown [id number] 2.16.84 0.1.751708.3.579.2.593 1950 Unknown [id number] 2.16.84 0.1.712418.3.579.2.593 1950 Unknown [id number] 2.16.84 0.1.041097.3.579.2.593 1950 Unknown [id number] 2.16.84 0.1.757461.3.579.2.593 1950 Unknown [id number] 2.16. 840.1.622464.3.579.2.356 1950 Unknown [id number] 2.16.8 40.1.078226.3.579.2.1068 1950 Unknown [id number] 2.16.8 40.1.278009.3.579.2.718 1950 Unknown [id number] 2.16.8 40.1.145858.3.579.2.718 1950 Unknown [id number] 2.16.8 40.1.682747.3.579.2.718 Unknown Unknown [id number] 2.16.8 40.1.989465.3.579.2.531 Social History Date Type Detail Facility Current smoker Current smoker [facility] Work Phone: Comment on above: 5 A DAY CURRENTLYSTA RTED AT 22 QUIT A FEW TIMES FOR A YEAR OR SO; Start: 10-01-2022 Tobacco smoking status NHIS Smoker ( finding) [facility] Start: 1950 Sex Assigned At Female F [facility] Clinical Notes 07-02-2021 to 02-03-2024 Note Date & Type Note Facility 02-03-2024 Note Entered by KAREN FAJARDO DO on February 03, 2024 10:52:02 EDT From: DALLAS FAJARDO DO To: [facility]/pharmacy #[id number] Sent: 02/03/2024 10:52:02 EDT Subject: Medication Management Approved with modifications: metFORMIN (METFORMIN HCL 500 MG TABLET) TAKE 1/2 TABLET BY MOUTH TWICE DAILY Qty: 90 tab(s) Days Supply: 90 Refills: 1 Substitutions Allowed Route To Pharmacy - [facility]/pharmacy #[id number] From: [id number] To: DALLAS FAJARDO DO Sent: February 03, 2024 9:08:49 AM CDT Subject: Medication Management Due: February 04, 2024 12:03:55 AM CDT On Hold Pending Signature Dispensed Drug: metFORMIN (metFORMIN 500 mg oral tablet), TAKE 1/2 TABLET BY MOUTH TWICE DAILY Quantity: 90 tab(s) Days Supply: 90 Refills: 1 Substitutions Allowed Notes from Pharmacy: [facility] 12-07-2023 Note Entered by KAREN FAJARDO DO on December 07, 2023 07:33:56 EDT From: DALLAS FAJARDO DO To: [facility]/pharmacy #[id number] Sent: 12/07/2023 07:33:56 EDT Subject: Medication Management Submitted: Complete:citalopram (citalopram 20 mg oral tablet) Signed by DALLAS FAJARDO DO 12/07/2023 07:33:00 EDT Approved with modifications: citalopram (CITALOPRAM HBR 20 MG TABLET) TAKE 1 TABLET BY MOUTH EVERY DAY Qty: 90 tab(s) Days Supply: 90 Refills: 5 Substitutions Allowed Route To Pharmacy - [facility]/pharmacy #[id number] From: [facility]ORE [id number] To: DALLAS FAJARDO DO Sent: December 06, 2023 11:41:36 PM CDT Subject: Medication Management Due: December 07, 2023 12:08:44 AM CDT On Hold Pending Signature Dispensed Drug: citalopram (citalopram 20 mg oral tablet), TAKE 1 TABLET BY MOUTH EVERY DAY Quantity: 90 tab(s) Days Supply: 90 Refills: 0 Substitutions Allowed Notes from Pharmacy: [facility] 08-25-2023 Note Entered by KAREN FAJARDO DO on August 25, 2023 13:09:21 EDT From: DALLAS FAJARDO DO To: [facility]/pharmacy #[id number] Sent: 08/25/2023 13:09:21 EDT Subject: Medication Management Submitted: Complete:citalopram (citalopram 20 mg oral tablet) Signed by DALLAS FAJARDO DO 08/25/2023 13:09:00 EDT Approved with modifications: citalopram (CITALOPRAM HBR 20 MG TABLET) TAKE 1 TABLET BY MOUTH EVERY DAY Qty: 30 tab(s) Days Supply: 30 Refills: 2 Substitutions Allowed Route To Pharmacy - [facility]/pharmacy #[id number] From: [id number] To: DALLAS FAJARDO DO Sent: August 25, 2023 11:46:09 AM CDT Subject: Medication Management Due: August 26, 2023 6:37:27 AM CDT On Hold Pending Signature Dispensed Drug: citalopram (citalopram 20 mg oral tablet), TAKE 1 TABLET BY MOUTH EVERY DAY Quantity: 30 tab(s) Days Supply: 30 Refills: 0 Substitutions Allowed Notes from Pharmacy: [facility] 10-01-2022 Consult note Note Date/Time October 01, 2022 1:30pm [facility] [place] [address] Rad Onc Consult Note - OP Signed Patient: Mellisa Hampton MR#: [id number] : 1950 Acct:[id number] Age/Sex: 71 / F Type: REG RCR Copies to: DO Rio Glass DO~ Assessment & Plan (1) Pulmonary nodule seen on imaging study Plan: CT simulation-4D, plan for SBRT to the right upper lobe tumor to a dose of 54 Michele in 3 fractions Assessment: 71-year-old female with imaging consistent with Stage IA1 [id number] non-small cell lung cancer of the right [...] presented at thoracic tumor board conference at [facility]. She was recommended for a staging EBUS [...] prednisone taper under the care of her web content editor. [facility] - Family History Family History: Family [...] <Electronically signed by Levi Ann MD> 10/01/22 [id number] [facility] Work Phone: [phone] 282-813704-28-2023 Xuan HAMPTON was presented at Thoracic Tumor Board Conference Conference date: 15-Aug-2022 Presenting Provider(s): (Dr. Marvin Willett) Presenting location(s): [facility] Conference Review Type: Treatment Planning Impression Discuss [...] Last Updated: 17-Aug-2022 21:02 by Kiley Dotson (COOR)[facility]03-15-2022 Note From: Ivette Cowart To: - Administrative; Sent: 07/02/2021 14:43:20 EDT Show up: 12/02/2021 14:42:00 EDT Subject: Ambulatory Reminder Due Date/Time: 01/02/2022 14:43:00 EDT Reminder/Recall 6 month f/u December 2021 w/ [place] [facility] Author Levi Ann [facility] October 01, 2022 2:45pm Note Date/Time October 01, 2022 1:30 pm [facility] [place] [address] Rad Onc Consult Note - OP Signed Patient: Mellisa Hampton MR#: [id number] : 1950 Acct:[id number] Age/Sex: 71 / F Type: REG RCR Copies to: DO Rio Glass DO~ Assessment & Plan (1) Pulmonary nodule seen on imaging study Plan: CT simulation-4D, plan for SBRT to the right upper lobe tumor to a dose of 54 Michele in 3 fractions Assessment: 71-year-old female with imaging consistent with Stage IA1 [id number] non-small cell lung cancer of the right [...] presented at thoracic tumor board conference at [facility]. She was recommended for a staging EBUS [...] prednisone taper under the care of her web content editor. [facility] - Family History Family History: Family [...] <Electronically signed by Levi Ann MD> 10/01/22 [id number] [facility] Work Phone: Evaluation note* Diagnosis Onset Date Resolution Status Pulmonary nodule seen on imaging study acute [facility] Work Phone: History of Present [...] or wheezing. Has chronic dry cough. [facility]-CT Surgery[facility] Work Phone: History of Present illness Narrative* Patient's visit was converted to a virtual visit given current COVID- 19 pandemic. * Ms. Hampton is a 71 year old woman, current smoker (1 PPD for 49 years, 49 total pack years.), beingevaluated today for RUL nodule. * PCP: Dr. Dallas Fajardo * Thoracic: Dr. Willett * Pulmonology: Dr. Rio Zaragoza ([facility]) * HPI: Patient presents to pulmonary clinic today as a new patient in regards to RUL nodule; referredby Dr. Willett from thoracic surgery. Patient gets her care through [facility] system and follows with web content editor Dr. Rio Zaragoza. 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 * Currently works [...] (26%), FVC: 1.81 (70%), + BD Response, UND08-85: 9%, T.41 (141%), RV/T%, DLCO: 36% * [...] Work Phone: progress note Author Levi Ann [facility] November 20, 2022 10:33am Note Date/Time November 20, 2022 9:0 1am [facility] [place] [id number] Rad Onc Follow Up Note - OP Signed Patient: Mellisa Hampton MR#: [id number] : 1950 Acct:[id number] Age/Sex: 72 / F Type: REG RCR Copies to: DO Rio Glass DO~ Date of Service Service Date: 11/20/22 Assessment & Plan (1) Pulmonary nodule seen on imaging study Plan: Return to clinic end of January 2023 with first surveillance chest CT noncontrast Assessment: 72-year-old female with imaging consistent with Stage IA1 [id number] non-small cell lung cancer of the right [...] uses her inhaler as prescribed by her web content editor. She has follow-up with pulmonology. Regarding the [...] Patient would like to obtain this in [place]. Follow Up Note - Narrative 72-year-old female [...] presented at thoracic tumor board conference at [facility]. She was recommended for a staging EBUS [...] signed by Levi Ann MD> 11/20/22 10[address] [facility] Work Phone: Summary Purpose Family [...] content) DATE CREATED AUTHOR 03/13/[address] [facility] DATE CREATED AUTHOR AUTHOR'S ORGANIZ ATION 08/27/2022 [facility] DATE CREATED AUTHOR AUTHOR'S ORGANIZ ATION 08/28/2022 [employer] DATE CREATED AUTHOR AUTHOR'S ORGANIZ ATION 08/29/2022 [facility] [place] [facility] DATE CREATED AUTHOR AUTHOR'S ORGANIZ ATION 09/02/2022 [facility] DATE CREATED AUTHOR AUTHOR'S ORGANIZ ATION [facility]2022 [facility] DATE CREATED AUTHOR AUTHOR'S ORGANIZ ATION 11/18/2023 [facility] DATE CREATED AUTHOR AUTHOR'S ORGANIZ ATION 04/10/2024 [facility] Care Teams (unrecognized sec tion and [...] BE BASED ON THE PRIMARY CLINICAL RECORDS. [employer] provides no warranty or guarantee of the accuracy or completeness of information in this document.
[2024-04-12] MEDS: ALPRAZOLAM 0.5 MG TABLET PO ×3 (11:56→22:27)
[2024-04-12] MEDS: METHYLPREDNISOLONE SOD SUCC PF 125 MG/2 ML VIAL 60 MG IVP ×2 (11:56→17:02)
[2024-04-12] MEDS: LEVOFLOXACIN IN DEXTROSE 5 % 750 MG/150 ML PREMIX 100 MG IV (12:02)
[2024-04-12] MEDS: GUAIFENESIN 200 MG/DEXTROMETHORPHAN 20 MG 10 ML UNIT DOSE CUP PO (17:02)
[2024-04-12] MEDS: ENOXAPARIN SODIUM 40 MG/0.4 ML SYRINGE SUBQ (17:02)
[2024-04-12] MEDS: OXYCODONE HCL 5 MG TABLET PO (22:27)
[2024-04-13] VITALS (9 sets, daily range): BP systolic 138; BP diastolic 76; PULSE 99–109; RESP 12; TEMP 36.8; O2SAT 93–98
[2024-04-13] MEDS: METHYLPREDNISOLONE SOD SUCC PF 125 MG/2 ML VIAL 60 MG IVP ×3 (01:13→11:10)
[2024-04-13] MEDS: IPRATROPIUM/ALBUTEROL SULFATE 3 ML AMPUL.NEB IH ×3 (02:02→10:39)
[2024-04-13] MEDS: GUAIFENESIN 200 MG/DEXTROMETHORPHAN 20 MG 10 ML UNIT DOSE CUP PO ×2 (02:20→13:14)
[2024-04-13] MEDS: ALBUTEROL SULFATE 2.5 MG/3 ML VIAL NEB IH ×3 (05:26→13:42)
[2024-04-13] MEDS: ALPRAZOLAM 0.5 MG TABLET PO ×2 (05:55→13:14)
[2024-04-13 06:23] LABS: Basophils Percent Auto 0.1 % (0.2-2.0); Hematocrit 40.1 % (36.0-48.0); Hemoglobin 13.2 g/dL (12.0-16.0); Immature Granulocytes Abs Auto 0.04 10^3/uL (0.00-0.03); Immature Granulocytes Pct Auto 0.3 % (0.0-0.5); Lymphocytes Absolute Auto 4.3 10^3/uL (1.2-3.8); Lymphocytes Percent Auto 31.3 % (20.5-60.0); Mean Corpuscular HGB Conc 32.9 g/dL (29.9-35.2); Mean Corpuscular Hemoglobin 30.1 pg (26.7-34.0); Mean Corpuscular Volume 91.6 fL (81.0-99.0); Mean Platelet Volume 8.8 fL (9.5-13.5); Monocytes Absolute Auto 0.6 10^3/uL (0.3-0.8); Monocytes Percent Auto 4.7 % (1.7-12.0); Neutrophils Absolute Auto 8.6 10^3/uL (1.4-6.5); Neutrophils Percent Auto 63.6 % (43.0-75.0); Platelet Count 249 10^3/uL (150-450); Red Blood Count 4.38 10^6/uL (4.20-5.40); Red Cell Distribution Width 12.8 % (11.0-15.0); White Blood Count 13.6 10^3/uL (4.0-11.0)
[2024-04-13 06:52] LABS: Anion Gap 14.6; BUN Creatinine Ratio 29.7; Calcium 8.7 mg/dL (8.5-10.1); Carbon Dioxide 28.6 mmol/L (21.0-32.0); Chloride 92 mmol/L (98-107); Estimated GFR (African America >60 (>=60 mL/min/1.73m^2); Estimated GFR (Non-African Ame >60 (>=60 mL/min/1.73m^2); Glucose 160 mg/dL (74-106); Potassium 4.2 mmol/L (3.5-5.1); Sodium 131 mmol/L (136-145)
[2024-04-13] MEDS: MORPHINE SULFATE 2 MG/ML SYRINGE IV ×2 (09:25→13:48)
--- NOTE | 2024-04-13 10:24 | PM.DS1 ---
DS: Providers Provider Date of admission: 04/12/24 11:29 Primary care physician: CHRIS FAJARDO Admitting clinician: Baljeet Toney Attending physician on admission: Baljeet Toney Consults: 04/12/24 Consult to Dietitian Routine Reason for consultation: weight loss 04/12/24 11:24 Physical Therapy Eval and Treat Routine Reason for consultation: Weakness Has provider been notified: No Attending physician on discharge: Shaikh Cassandra Discharging clinician: Shaikh Cassandra Anticipated date of discharge: 04/13/24 DS: Diagnosis Discharge Diagnosis (1) Acute exacerbation of chronic obstructive pulmonary disease: (2) Chronic respiratory failure with hypercapnia: (3) Chronic respiratory failure with hypoxia: (4) Neuromuscular respiratory weakness: (5) Severe malnutrition: (6) Pulmonary cachexia due to COPD: (7) BRIGETTE (generalized anxiety disorder): DS: Summary Hospital Course Hospital Course: 73 y/o female with end stage COPD on 3 L O2 via NC and NIV as needed presented to ER with worsening SOB. Family reported that respiratory illness going around house for about a week. Patient developed increased SOB and cough and inability to catch her breath. She was placed on BIPAP to help with work of breathing as she had labored breathing and was using accessory muscles of respiration. Patient's work up was unremarkable and she had no evidene of PNA on chest imaging. She was treated with Duonebs, IV solumedrol along with IV moprhine for air hunger. She remained on BIPAP during admission and would transition to NC briefly to eat and rest. on day of discharge, she was feeling better but still considerably short of breath with labored breathing and inability to catch her breath. She is already enrolled in hospice at home. She was evaluated by Hospice in the hospital and will be discharged to inpatient hospice on BIPAP. Status at Discharge Overall status at discharge: patient is progressing back to baseline Time Spent with Patient Time attestation: Total time spent providing and/or coordinating discharge services: Time spent: greater than 30 minutes Exam Constitutional Vital Signs, click to edit/add: Last Vital Signs Temp 98.3 F 04/13/24 04:00 Pulse 99 H 04/13/24 09:04 Resp 26 H 04/13/24 05:26 BP 138/76 04/13/24 04:00 Pulse Ox 97 04/13/24 09:04 O2 Del Method BIPAP 04/13/24 09:04 O2 Flow Rate 30 04/12/24 19:37 FiO2 30 04/13/24 09:04 Documenting provider has reviewed patient's vital signs: yes Common normals: oriented x3 General appearance: cooperative and in distress respiratory Respiratory Common normals: normal respiratory effort Effort & inspection: tachypneic Auscultation: wheezes and diminished lung sounds Cardio Common normals: regular rate, S1 normal heart sound and S2 normal heart sound Rate: regular rate Heart sounds: S1 normal and S2 normal Extremity Common normals: no clubbing, cyanosis or edema Neuro Common normals: oriented x3, moves all extremities and no focal motor deficits Psych Common normals: mental status grossly normal, denies hallucinations, denies homicidal ideation and denies suicidal ideation DS: Data Data Completed and Pending Labs on day of discharge: Labs from last 24 hours 04/13/24 06:12 WBC 13.6 H RBC 4.38 Hgb 13.2 Hct 40.1 MCV 91.6 MCH 30.1 MCHC 32.9 RDW 12.8 Plt Count 249 MPV 8.8 L Neut % (Auto) 63.6 Lymph % (Auto) 31.3 [place] % (Auto) 4.7 Eos % (Auto) 0.0 L Baso % (Auto) 0.1 L Neut # (Auto) 8.6 H Lymph # (Auto) 4.3 H [place] # (Auto) 0.6 Eos # (Auto) 0.0 Baso # (Auto) 0.0 Abs Immat Gran (auto) 0.04 H Imm/Tot Granulo (auto) 0.3 Sodium 131 L Potassium 4.2 Chloride 92 L Carbon Dioxide 28.6 Anion Gap 14.6 BUN 19.0 H Creatinine 0.64 Est GFR ( Amer) >60 Est GFR (Non-Af Amer) >60 BUN/Creatinine Ratio 29.7 Glucose 160 H Calcium 8.7 Discharge Plan Discharge Disposition: Hospice - Medical Facility Discharge Medications: Continued ipratropium-albuterol 0.5 mg-3 mg(2.5 mg base)/3 mL solution for nebulization 3 ml INHALATION Q4H azithromycin 250 mg tablet 250 mg PO .q am Patient Comments: FOR 30 DAYS 03/30/24 THRU 04/29/24 albuterol sulfate 90 mcg/actuation HFA aerosol inhaler 2 puff INHALATION Q4H PRN (Reason: shortness of breath or wheezing) Breztri Aerosphere 160-9-4.8 mcg/actuation HFA aerosol inhaler 2 inh INHALATION BID Ohtuvayre 3 mg/2.5 mL suspension for nebulization 3 mg inhalation BID alprazolam 0.5 mg tablet 0.5 mg PO TID PRN (Reason: anxiety) 5 Days Qty: 15 0RF citalopram 20 mg tablet 20 mg PO DAILY metformin 500 mg tablet 250 mg PO BIDWM prednisone 10 mg tablet 20 mg PO Q12H furosemide 20 mg tablet 20 mg PO DAILY PRN (Reason: edema) polyethylene glycol 3350 17 gram/dose powder 17 g PO DAILY PRN (Reason: constipation) ondansetron 4 mg tablet,disintegrating 4 mg PO Q4H PRN (Reason: nausea and vomiting) sodium chloride 0.9 % solution for nebulization 3 ml INHALATION Q4H PRN (Reason: Breathing treatment) oxycodone 5 mg tablet 5 mg PO Q4H PRN (Reason: pain) Activity: increase activity as tolerated Diet: advance to your usual diet Print Language: Mauritanian Forms: Portal Instructions Follow Up Appointments: Follow up with Hospice.
[2024-04-13] MEDS: BUDESONIDE 0.5 MG/2 ML AMPULE NEB IH (10:39)
--- OUTSIDE RECORDS SUMMARY | 2024-04-14 08:05 | XMS_ITS | CCD ---
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 Jean Pierre Cook Referring Anneliese vailable [place], Dr. Dallas Velázquez Primary Care Unava gen Carlson, Dr. Jorge Alberto P. Admitting Unavailab MD Levi Patel Attending Provider Rio Zaragoza Referring Provider [phone] House, DO [place] Primary Care Provider [phone] MD Levi Ann Attending Provider Rio Zaragoza Referring Provider [phone] House, DO [place] Primary Care Provider [phone] JEAN PIERRE WILLETT Attending Unavail able [place], Dr. Dallas Velázquez Primary Care Unava ilable [facility], Dr. Rio Daly Referring Unavailab le Dong, Dallas Primary Care Unavailable [facility], [place] Referring Unavailable Levi Ann Attending Unavailable [...] Medication Allergies] Propensity to adverse reactions (disorder) [facility] Repository (3 sources) Tetracycline; Translations: [tetracycline] Drug Allergy Unknown MG-CT Surgery-Seidma n Work Phone: Medications Current Medications Medication Drug Class(es) Dates Sig (Normalized) Sig (Original) [id number] 200 actuat albuterol 0.09 mg/actuat metered dose [...] take 1 puff(s) by inhalation twice daily Doobstnqvv-Aphzawva-Lsktwodgqb (Breztri Aerosphere) 160-9-4.8 mcg/actuation HFA aerosol inhaler [...] on 03-24-2024 Rad - Other Radiology Report [id number]#1.0 [facility]24 Outside Records [id number]#1 .00OTGTIFF Normal [facility] Outside Recordson 01-25-2024 Outside Records [id number] 10 [id number]#1.0 0OTGTIFF Normal [facility] Hospital Outside Records [id number] 10 [id number]#1.0 0OTGTIFF [facility] Outside Records [id number] 10 [id number]#1.0 0OTGTIFF [facility] Rad - Other Radiology Report on 01-25-2024 Rad - Other Radiology Report [id number]#1.0 0OTGTIFF Normal [facility] Hospital Outside Recordson 01-21-2024 Outside Records [id number] 40 [id number]#1.0 0OTGTIFF Normal [facility] Hospital Outside Records [id number] 40 [id number]#1.0 0OTGTIFF Normal [facility] Hospital Outside Records [id number] 40 [id number]#1.0 0[facility] Outside Recordson 01-20-2024 Outside Records [id number] 00 [id number]#1 [facility] Report on 01-19-2024 Rad - Other Radiology Report [id number]#1 .[facility] 11-27-2023 Outside Records [id number] 50 [id number]#1.0 0[facility] Outside Recordson 10-12-2023 Outside Records [id number] 01 [id number]#1. [facility] - Other Rad[facility] Report on 09-30-2023 Rad - Other Radiology Report [id number]#1. [facility] 09-02-2023 Outside Records [id number] 31 [id number]#1.0 0[facility] Outside Recordson 06-16-2023 Outside Records [id number] 22 [id number]#1.0 0[facility] Outside Recordson 06-04-2023 Outside Records [id number] 41 [id number]#1.00 [facility] Bronchoscopyon 08-28-2022 Bronchoscopy PATIENTNAME Patient Name: Mellisa Hampton EXAMDATE Procedure Date: 08/28/2022 9:02 AM PATIENTID PATIENTACCOUNTNUM PATIENTDOB Date of : 1950 PATIENTROOM Room: [place] Procedure Room 8 [facility] Attending MD: Jorge Alberto Carlson MD, [id number] ENDOPROCEDURENAME Procedure: Bronchoscopy INDICATION Indications: Right upper lobe nodule, Mediastinal staging of suspected lung cancer PRIMARYPROVIDER Providers: Jorge Alberto Carlson MD (Doctor), Cinthia Hogan RN (Nurse), Forrest Hamilton, [employer] Supervisor ([employer] T[employer] Testing Supervisor), Casimiro Pacheco MD (Fellow) EDREFPROVIDER Referring MD: [...] physician, the nurse, the anesthesiologist and the cider press operator in the procedure room. Mental Status Examination: [...] aspiration was also performed using an Olympus NiftiiShot 22 gauge needle in the right lower [...] region ( (more content not included)... Normal [facility] GLUCOSE-POCTon 08-28-2022 Glucose [Mass/Vol] 109 mg/dL High 74 - 99 [facility] Comment on above: Performed By: #### G SHAWN #### [address] Cytologyon 08-28-2022 [facility] Cytology Patient Name MELLISA HAMPTON Date [...] LYMPHOID SAMPLE. Slide(s) initially screened by a Narrative Writer at [place] [address] Electronically Signed Out By LEXX GABRIEL MD By the signature on this report, the individual or group listed as making the Final Interpretation/Diagnos is certifies that they have reviewed this case. Slide(s) initially screened by a Narrative Writer at [facility] Diagnostic interpretation performed at [place] [address] Rapid Evaluation Fine Needle Aspiration Immediate Read [...] NEEDLE ASPIRATION 7 LYMPH NODE Pap stain Non-Primary Care Md, Diff-Quik stain Non-Primary Care Md, CELL BLOCK, H AND E, Initial B: FINE NEEDLE ASPIRATION 4R LYMPH NODE Pap stain Non-Primary Care Md, Diff-Quik stain Non-Primary Care Md, CELL BLOCK, H AND E, Initial C: FINE NEEDLE ASPIRATION 11RS LYMPH NODE Pap stain Non-Primary Care Md, Diff-Quik stain Non-Primary Care Md, CELL BLOCK, H AND E, Initial Gross [...] CLEAR NEEDLE RINSE IN CYTOLYT WITH PARTICLES. [facility] Department of Pathology [address] [place] [address] Normal [facility] Comment on above: Performed By: #### C #### [facility] Cytology [address] [place] [id number] Consult (Pulmonary Medicine) on 08-26-2022 Consult (Pulmonary [...] Thoracic: Dr. Willett Pulmonology: Dr. Rio Zaragoza ([facility]) HPI: Patient presents to pulmonary clinic today as a new patient in regards to RUL nodule; referred by Dr. Willett from thoracic surgery. Patient gets her care through [facility] system and follows with loss control consultant Dr. Rio Zaragoza. 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 No exposure to birds or exotic animals. Family History: No known family history of lung diseases. No known family history of autoimmune disorders. - Aunt; emphysema Testing: PFT -03/12/22: FEV1/FVC: 29, FEV1: 0.52 (26%), FVC: 1.81 (70%), + BD Response, SWZ29-96: 9%, T.41 (141%), RV/T%, DLCO: 36% CT Chest -07/08/22: 1. Continued increase in size of a now 9 mm spiculated mass within the right upper lobe superior segment; most consistent with neoplasm. 2. Increase in size of a (more content not included)... Normal [facility] CBC W MANUAL DIFFon 08-26-19 23 ATYPICAL LYMPH # Normal [facility] Comment on above: Performed By: #### C KIZZY #### [facility] [address] [place] [address] [address] Dionicio Shook ATYPICAL LYMPH % Normal [facility] Comment on above: Performed By: #### C KIZZY #### [facility] [address] [address] [address] Dionicio Shook BAND # 0.0 103/ul Normal 0.0-0.3 [facility] Comment on above: Performed By: #### C BCJAKE #### [facility] [address] [address] [address] Dionicio Shook BAND % 0 % Normal 0-5 [facility] Comment on above: Performed By: #### C BCMAN #### [facility] [address] [place] [address] Dr. Dionicio Shook BASOM # 0.00 103/ul Normal 0.00-0.10 [facility] Comment on above: Performed By: #### C BCJAKE #### [facility] [address] [place] [address] Dr. Dionicio Shook BASOM % 0.0 % Critically low 0.2-2.0 [facility] Comment on above: Performed By: #### C KIZZY #### [facility] [address] [place] [address] Dr. Dionicio Shook BLAST # Normal [facility] Comment on above: Performed By: #### C KIZZY #### [facility] [address] [place] [address] Dr. Dionicio Shook BLAST % Normal [facility] Comment on above: Performed By: #### C KIZZY #### [facility] [address] [place] [address] Dr. Dionicio Shook CORRECTED WBC Normal 4.0-11.0 [facility] Comment on above: Performed By: #### C KIZZY #### [facility] [address] [place] [address] Dr. Dionicio Shook EOS # 0.57 103/ul Normal 0.00-0.70 [facility] Comment on above: Performed By: #### C BCJAKE #### [facility] [address] [place] [address] Dr. Dionicio Shook EOS% 6.0 % Normal 0.9-7.0 [facility] Comment on above: Performed By: #### C KIZZY #### [facility] [address] [place] [address] Dr. Dionicio Shook HCT 37.9 % Normal 36.0-48.0 [facility] Comment on above: Performed By: #### C BCJAKE #### [facility] [address] [place] [address] [address] Dionicio Shook HGB 12.1 g/dl Normal 12.0-16.0 [facility] Comment on above: Performed By: #### C BCJAKE #### [facility] [address] [place] [address] [address] Dionicio Shook LYMPHM # 5.89 103/ul Critically high 1.20-3.80 [facility] Comment on above: Performed By: #### C BCJAKE #### [facility] [address] [place] [address] [address] Dionicio Shook LYMPHM% 62.0 % Critically high 20.5-60.0 [facility] Comment on above: Performed By: #### C KIZZY #### [facility] [address] [place] [address] Dr. Dionicio Shook MCH 29.8 pg Normal 26.7-34.0 [facility] Comment on above: Performed By: #### C KIZZY #### [facility] [address] [place] [address] Dr. Dionicio Shook MCHC 31.9 g/dl Normal 29.9-35.2 [facility] Comment on above: Performed By: #### C KIZZY #### [facility] [address] [place] [address] Dr. Dionicio Shook MCV 93.3 fL Normal 81.0-99.0 [facility] Comment on above: Performed By: #### C KIZZY #### [facility] [address] [place] [address] Dr. Dionicio Shook METAMYELOCYTE # Normal [facility] Comment on above: Performed By: #### C KIZZY #### [facility] [address] [place] [address] Dr. Dionicio Shook METAMYELOCYTE % Normal [facility] Comment on above: Performed By: #### C KIZZY #### [facility] [address] [place] [address] [address] Dionicio Shook MONOM# 0.47 103/ul Normal 0.30-0.80 [facility] Comment on above: Performed By: #### C KIZZY #### [facility] [address] [place] [address] Dr. Dionicio Shook MONOM% 5.0 % Normal 1.7-12.0 [facility] Comment on above: Performed By: #### C KIZZY #### [facility] [address] [place] [address] Dr. Dionicio Shook MPV 8.7 fL Critically low 9.5-13.5 [facility] Comment on above: Performed By: #### C BCJAKE #### [facility] [address] [place] [address] Dr. Dionicio Shook MYELOCYTE # Normal [facility] Comment on above: Performed By: #### C KIZZY #### [facility] [address] [place] [address] Dr. Dionicio Shook MYELOCYTE % Normal [facility] Comment on above: Performed By: #### C KIZZY #### [facility] [address] [place] [address] Dr. Dionicio Shook NRBC Normal [facility] Comment on above: Performed By: #### C KIZZY #### [facility] [address] [place] [address] Dr. Dionicio Shook PLT 260 103/ul Normal 150-450 [facility] Comment on above: Performed By: #### C KIZZY #### [facility] [address] [place] [address] Dr. Dionicio Shook RBC 4.06 106/ul Critically low 4.20-5.40 [facility] Comment on above: Performed By: #### C KIZZY #### [facility] [address] [place] [address] Dr. Dionicio Shook RDW 13.2 % Normal 11.0-15.0 [facility] Comment on above: Performed By: #### C KIZZY #### [facility] [address] [place] [address] Dr. Dionicio Shook SEG # 2.56 103/ul Normal 1.40-6.50 [facility] Comment on above: Performed By: #### C BCMAN #### [facility] [address] [place] [address] [address] Dionicio Shook SEG % 27.0 % Critically low 43.0-75.0 [facility] Comment on above: Performed By: #### C BCMAN #### [facility] [address] [place] [address] [address] Dionicio Shook WBC 9.5 103/ul Normal 4.0-11.0 [facility] Comment on above: Performed By: #### C BCMAN #### [facility] [address] [place] [address] [address] Dionicio Shook PROF CHEM 8 (BAS METB)on Anion gap [Moles/Vol] 9.9 mmol/L Normal [facility] Comment on above: Performed By: #### B MP #### [facility] [address] [place] [address] Dr. Dionicio Shook Calcium [Mass/Vol] 8.8 mg/dL Normal 8.5-10.1 [facility] Comment on above: Performed By: #### B MP #### [facility] [address] [place] [address] Dr. Dionicio Shook Chloride [Moles/Vol] 104 mmol/L Normal 98-107 [facility] Comment on above: Performed By: #### B MP #### [facility] [address] [place] [address] [address] Dionicio Shook CO2 [Moles/Vol] 31.2 mmol/L Normal 21.0-32.0 [facility] Comment on above: Performed By: #### B MP #### [facility] [address] [place] [address] Dr. Dionicio Shook Creatinine [Mass/Vol] 0.57 mg/dL Normal 0.55-1.02 [facility] Comment on above: Performed By: #### B MP #### [facility] [address] [place] [address] Dr. Dionicio Shook EGFR-AF SAMMARINESE >60 Normal >=60 [facility] Comment on above: Performed By: #### B MP #### [facility] [address] [place] [address] [address] Dionicio Shook EGFR-NON AF SAMMARINESE >60 Normal >=60 [facility] Comment on above: Performed By: #### B MP #### [facility] [address] [phone] Dionicio Shook Glucose [Mass/Vol] 97 mg/dL Normal 74-106 [facility] Comment on above: Performed By: #### B MP #### [facility] [address] [place] [address] [address] Dionicio Shook Potassium [Moles/Vol] 4.1 mmol/L Normal 3.5-5.1 [facility] Comment on above: Performed By: #### B MP #### [facility] [address] [place] [address] [address] Dionicio Shook Sodium [Moles/Vol] 141 mmol/L Normal 136-145 [facility] Comment on above: Performed By: #### B MP #### [facility] [address] [place] [address] [address] Dionicio Shook Urea nitrogen [Mass/Vol] 10.0 mg/dL Normal 7.0-18.0 [facility] Comment on above: Performed By: #### B MP #### [facility] [address] [place] [address] [address] Dionicio Shook Urea nitrogen/Creatinine [Mass ratio] 17.5 mg/mg Normal [facility] Comment on above: Performed By: #### B MP #### [facility] [phone] 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 Oral and nasal mucosa are clear. The neck had no cervical or supraclavicular adenopathy. The trachea and midline is without crepitus. The thy (more content not included)... Normal Wire Tobacco Screening.on 023 Fall risk assessment a) [...] by: JENIFFER SHI Date: 2022-08-03 06:18 Normal [facility] CREATININEon 08-01-2022 Creatinine [Mass/Vol] 0.63 mg/dL Normal 0.55-1.02 [facility] Comment on above: Performed By: #### C YOUSIF #### [facility] [address] [place] [address] Dr. Dionicio Shook EGFR-AF SAMMARINESE >60 Normal >=60 [facility] Comment on above: Performed By: #### C YOUSIF #### [facility] [address] [place] [address] Dr. Dionicio Shook EGFR-NON AF SAMMARINESE >60 Normal >=60 [facility] Comment on above: Performed By: #### C YOUSIF #### [facility] [address] [place] [address] SKULL BASE [...] BHAKTI ROSE Date: 2022-07-20 23:53 Normal [facility] COCCIDIODES IGG/IGM AB BY IF Aon 07-18-2022 Coccidiodes Ab, IgG EIA 0.2 EIA Units Normal [facility] Comment on above: Result Comment: Nega tive <1.0 Indeterminate 1.0-1.4 Positive >1.4 Performed By: #### C OCCABS #### [facility] [address] [place] [address] [address] Dionicio Shook Coccidiodes Ab, IgM, EIA 0.1 EIA Units Normal [facility] Comment on above: Result Comment: Nega tive <1.0 Indeterminate 1.0-1.4 Positive >1.4 Performed By: #### C OCCABS #### [facility] [address] [place] [address] [address] Dionicio Shook HISTOPLASMA CAP AB QUANT DID on 07-18-2022 Histoplasma Mycelial CF Ab. Negative Normal Neg:<1:2 [facility] Comment on above: Performed By: #### H ISTDID #### [facility] [address] [address] [address] Dionicio Shook Histoplasma Yeast CF Ab Negative Normal Neg:<1:2 [facility] Comment on above: Performed By: #### H ISTDID #### [facility] [address] [place] [address] Dr. Dionicio Shook FUNGAL AB QUANTITAIVE DOUBLE IMMUNODIFFUon 07-17-2022 Aspergillus flavus Negative Normal Neg:<1:1 [facility] Comment on above: Performed By: #### F UNGUYI #### [facility] [address] [place] [address] Dr. Dionicio Shook Aspergillus fumigatus Negative Normal Neg:<1:1 [facility] Comment on above: Performed By: #### F UNGUYI #### [facility] [address] [place] [address] Dr. Dionicio Shook Aspergillus niger Negative Normal Neg:<1:[address] [facility] Comment on above: Performed By: #### F UNGUYI #### [facility] [address] [place] [address] Dr. Dionicio Shook Blastomyces Negative Normal Neg:<1:1 [facility] Comment on above: Performed By: #### F UNGUYI #### [facility] [address] [place] [address] Dr. Dionicio Shook ANTI NEUTROPHIL CYTOPLASMIC AB (ANCA) PRon 07-16-2022 Anti-MPO Antibodies <0.2 Normal 0.0-0.9 [facility] Comment on above: Result Comment: Perf ormed at: BN Performed By: #### H ISTDID #### [facility] [address] [place] [address] Dr. Dionicio Shook Anti-PR3 Antibodies <0.2 Normal 0.0-0.9 [facility] Comment on above: Result Comment: Perf ormed at: BN Performed By: #### H ISTDID #### [facility] [address] [place] [address] Dr. Dionicio Shook Atypical pANCA <1:20 Normal Neg:<1:20 [facility] Comment on above: Result Comment: The atypical pANCA pattern has been observed in a significant percentage of patients with ulcerative colitis, primary sclerosing cholangitis and autoimmune hepatitis. Performed at: CB Performed By: #### H ISTDID #### [facility] [address] [place] [address] Dr. Dionicio Shook Cytoplasmic (C-ANCA) <1:20 Normal Neg:<1:20 [facility] Comment on above: Result Comment: Perf ormed at: CB Performed By: #### H ISTDID #### [facility] [address] [place] [address] Dr. Dionicio Shook Perinuclear (P-ANCA) <1:20 Normal Neg:<1:20 [facility] Comment on above: Result Comment: The presence of positive fluorescence exhibiting P-ANCA or C-ANCA patterns alone is not specific for the diagnosis of Noe's Granulomatosis (WG) or microscopic polyangiitis. Decisions about treatment should not be based solely on ANCA IFA results. The International ANCA Group Consensus recommends follow up testing of positive sera with both DE-3 and MPO-ANCA enzyme immunoassays. As many as 5% serum samples are positive only by EIA. Ref. AM J Clin Pathol 1999;111:507-513. Performed at: CB Performed By: #### H ISTDID #### [facility] [address] [place] [address] Dr. Dionicio Shook HISTOPLASMA GALACTOMANNAN AG URINEon 07-16-2022 Histoplasma Gal'jean-pierre Ag <0.5 Normal <0.5 ng/mL [facility] Comment on above: Performed By: #### H ISTGAL #### [facility] [address] [place] [address] Dr. Dionicio Shook QUANTIFERON TB GOLD PLUSon 0 07-16-2022 QuantiFERON Criteria Comment Normal [facility] Comment on above: Result Comment: Patric [...] test. Performed By: #### H ISTDID #### [facility] [address] [address] [address] Dionicio Shook QuantiFERON Incubation Incubation performed. Normal [facility] Comment on above: Performed By: #### H ISTDID #### [facility] [address] [place] [address] Dr. Dionicio Shook QuantiFERON Mitogen Value >10.00 Normal [facility] Comment on above: Performed By: #### H ISTDID #### [facility] [address] [place] [address] Dr. Dionicio Shook QuantiFERON Nil Value 0.05 IU/mL Normal [facility] Comment on above: Performed By: #### H ISTDID #### [facility] [address] [place] [address] Dr. Dionicio Shook QuantiFERON TB1 Ag Value 0.05 IU/mL Normal [facility] Comment on above: Performed By: #### H ISTDID #### [facility] [address] [place] [address] Dr. Dionicio Shook QuantiFERON TB2 Ag Value 0.04 IU/mL Normal [facility] Comment on above: Performed By: #### H ISTDID #### [facility] [address] [place] [address] Dr. Dionicio Shook QuantiFERON-TB Gold Plus Negative Normal Negative [facility] Comment on above: Result Comment: No r esponse to M tuberculosis antigens detected. Infection with M tuberculosis is unlikely, but high risk individuals should be considered for additional testing (ATS/IDSA/CDC Clinical Practice Guidelines, 2017). The reference range is an Antigen minus Nil result of <0.35 IU/mL. Chemiluminescence immunoassay methodology Performed By: #### H ISTDID #### [facility] [address] [place] [address] Dr. Dionicio Shook ELVIRA EIA W/REFLEX 5 BIOMARKER Son 07-15-2022 ELVIRA Direct Negative Normal Negative [facility] Comment on above: Performed By: #### A NARF #### [facility] [address] [place] [address] Dr. Dionicio Shook CYCLIC CITRULLINATED PEPTIDE AB (CCP)on 07-15-2022 CCP Antibodies IgG/IgA 3 units Normal 0-19 [facility] Comment on above: Result Comment: Nega tive <20 Weak positive 20 - 39 Moderate positive 40 - 59 Strong positive >59 Performed By: #### H ISTDID #### [facility] [address] [address] [address] Dionicio Shook RHEUMATOID FACTORon 07-16-19 RA Latex Turbid. <10.0 Normal <14.0 [facility] Comment on above: Performed By: #### H ISTDID #### [facility] [address] [address] [address] Dionicio Shook SED RATE WESTERGRENon 2022 SED RATE 19 mm/hr Normal <=30 [facility] Comment on above: Performed By: #### H ISTDID #### [facility] [address] CHEST WO CONon [...] by: PIPER XIE Date: 2022-07-08 16:47 Normal [facility] ECHOCARDIO M/2D COMPLETEon 0 06-30-2022 ECHOCARDIO M/2D COMPLETE Patient: MELLISA HAMPTON Exam Date: 06/30/2022 : 1950 Gender:F Ordering : DR DALLAS FAJARDO D.O. Admission #: [id number] Family : Order #: [id number] CLICK HERE TO VIEW EXAM ECHOCARDIOGRAM REPORT [...] Hernandez M.D. on 07/01/2022 at 12:01 Normal [facility] CT CHEST WO CONon 03-13-2022 CT CHEST [...] PIPER XIE Date: 2022-03-13 09:04 Normal [facility] Blood Gas Art, with Akin Mo nghiaRamonaon 03-12-2022 a/A Ratio Art 70.70 % Normal >=0.80 [facility] Comment on above: Performed By: #### 4 [id number] #### [facility] [address] [place] [address] AaDO2 Art 29.4 mmHg High 5.0-15.0 [facility] Comment on above: Performed By: #### 4 [id number] #### [facility] [address] [place] [address] Allens Test Positive Normal [facility] Comment on above: Performed By: #### 4 [id number] #### [facility] [address] [place] [address] Base Excess Arterial 1.4 mmol/L Low >=2.8 [facility] Comment on above: Performed By: #### 4 [id number] #### [facility] [address] [place] [address] cCa2+ Art 4.56 mg/dL Normal 4.40-5.30 [facility] Comment on above: Performed By: #### 4 [id number] #### [facility] [address] [place] [address] cCl- Art 102.0 mmol/L Normal 101.0-111.0 [facility] Comment on above: Performed By: #### 4 [id number] #### [facility] [address] [place] [address] cGlu Art 165 mg/dL High 55-99 [facility] Comment on above: Performed By: #### 4 [id number] #### [facility] [address] [place] [address] cK+ Art 3.8 mmol/L Normal 3.5-5.3 [facility] Comment on above: Performed By: #### 4 [id number] #### [facility] [address] [place] [address] cLac Art 1.0 mmol/L Normal .5-2.2 [facility] Comment on above: Performed By: #### 4 [id number] #### [facility] [address] [place] [address] harvesting supervisor+ Art 136.0 mmol/L Normal 135.0-145.0 [facility] Comment on above: Performed By: #### 4 [id number] #### [facility] [address] [place] [address] Drawn by SAUMYA Invalid Interpretation Code [facility] Comment on above: Performed By: #### 4 [id number] #### [facility] [address] [place] [address] FCOHb Art 3.7 % Normal 1.5-4.9 [facility] Comment on above: Result Comment: Refe rence range Nonsmoker <1.5% Smoker <5.0% Heavy Smoker <9.0% Performed By: #### 4 [id number] #### [facility] [address] [place] [address] FIO2 BG 21 Invalid Interpretation Code [facility] Comment on above: Performed By: #### 4 [id number] #### [facility] [address] [place] [address] FMetHb Art 0.4 % Normal 0.0-1.9 [facility] Comment on above: Performed By: #### 4 [id number] #### [facility] [address] [place] [address] FO2Hb Art 92.0 % Normal 92.0-100.0 [facility] Comment on above: Performed By: #### 4 [id number] #### [facility] [address] [place] [address] HCO3 (Bld) [Moles/Vol] 25.6 mmol/L Normal 22.0-26.0 [facility] Comment on above: Performed By: #### 4 [id number] #### [facility] [address] [place] [address] Hemoglobin (Bld) [Mass/Vol] 12.4 g/dL Normal 12.0-16.0 [facility] Comment on above: Performed By: #### 4 [id number] #### [facility] [address] [place] [address] Oxygen saturation in Blood 96.0 % Normal 95.0-100.0 [facility] Comment on above: Performed By: #### 4 [id number] #### [facility] [address] [place] [address] P CO2 Arterial 40.8 mmHg Normal 35.0-45.0 [facility] Comment on above: Performed By: #### 4 [id number] #### [facility] [address] [place] [address] P O2 Arterial 70.9 mmHg Low 80.0-100.0 [facility] Comment on above: Performed By: #### 4 [id number] #### [facility] [address] [place] [address] pH Arterial 7.414 Normal 7.350-7.450 [facility] Comment on above: Performed By: #### 4 [id number] #### [facility] [address] [place] [address] Sample Site R Radial Normal [facility] Comment on above: Performed By: #### 4 [id number] #### [facility] [address] [id number] Sample Type Arterial Draw Normal [facility] Comment on above: Performed By: #### 4 [id number] #### [facility] [address] [place] [address] HEMOGLOBINon 03-12-2022 Hemoglobin (Bld) [Mass/Vol] 12.6 g/dL Normal 12.0-16.0 [facility] Comment on above: Performed By: #### H GB #### [facility] [address] [address] [address] Dionicio Shook LAB TESTINGon 03-12-2022 RECV HEADER SEE SCANNED REPORT I N HPF Normal [facility] Comment on above: Performed By: #### M ISC #### [facility] [address] [place] [address] Dr. Dionicio Shook REV FROM REF LAB 03/12/22 [facility] Comment on above: Performed By: #### M ISC #### [facility] [address] [address] [address] Dionicio Shook SENT TO REF LAB 03/12/22 Normal [facility] Comment on above: Performed By: #### M ISC #### [facility] [address] [place] [address] Dr. Dionicio Shook Physician Orderon 03-12-2022 Physician Order [id number] 00CD:127 Normal [facility] Coding Summary.on 07-10-2021 Coding Summary. CD:[id number] Gh 0bWw+PGhlYWQ+CN9BZYKkQ 65xxQMdkA6QA9bIKT7OGST HFDPCJJ0RWB7pnMK9MEmyX 2VybiAv JwsdcAVcXO64FKk8NPK3jU bvRRqqkX7veCBiZ9n5SdMr CK03vQ82VPflOPWlTmO9Zh ZpbjsgbWFy O2ekTpHywYSfHyh+PHRhYm xlIHdpZHRoPScxMDAlJyBz dKjzEZ3eXb6qCGAkRPMrxC xhcHNlOiBj z5amOHKmFOfwSO2zhBrlR0 QgpTE1RINum5s0Iq27wTW+ CMAjYXP8qDheMNpyw180Ls Uep6gyZWX8 gCOqMWeoCWE8G88vm3Q1NG OhOKDmSEW4iBO3pI4xlKbc xqheR5HbfEOvIvV7EZC9dS FryX6jmUxl ehbmaF9kCbn+U35DMI8ZJM QJEY9QByt9M5TxNswyrUK+ OG43PGSuTC67vCMvhCVrl1 duaPi5DoTq PALzZSK7jKgxLSwqg5DjMY GpX83lcRHjo0T5VYLbxTuk xKOvAfWviLY5yX8zQHpghc abe3omxnik Uahgd7kwss74bZ35N27zDY ktEZMvXPA1SQHvDLYlzXgd ag4xmB6lLm3+JFbsd1cmn4 xjsVe0PyXh VPOwrpJtmAndIHZ4s2GuRp 88J6RmiErxq9ZnOxm5yc63 sUFei8F3hDG7CFkkZZZbqZ 1bDEpuQnV2 VYApUjFotL84qWHtDQxoMu 5zaVbaiRvvAB7dGKGjxosa FWVvkJ3dYAIvkDAonZktEM 4wNTBpbjtm f738FbGiDBZ2KDJfdJJwP6 WizG6bCfScTRKkWSGbH4Ng fCFaPUnoK963ZDdjQuR9DJ VyeoAaN2Rq NDCrxDhpAjX1c2S2Hn3Kt1 UgiavbFHE0ZEagWKTtAgFh GrArKlM4K2PzLfm1TSSlxR pnJR8vA5Li MCCjbyjjbtaekPE3HWPdVR JrtT05eQWnVOfhXc1cl9C6 c171GNIhAWAhmD39Ok9gnE ogMTBwdCBU aM1jvqhqm0elewwoXzRgJB MbCMw7QTa1KQRiwGamUePy JZP9EaY2MZH9aWBdcW0ccC oglfghdQ1s Oyc+X47mvJ2gJKJ5SKC1qm ovYCMbquXbIC24GO01I5Yq PjwvdGFibGU+PGRpdiBzdH zbDX6jNmBw g7prl0TqUCgaV2KiTZKoQK mxJri5PGSpZKL9dPM2mL0g UDTxAAtmt5N6vQT0A2Dmbh Assc7ay9yn HRLwCDbqQ77llUQxo8H3IL KfmKC8PGNuuEmaFzYwgR00 Oyc+ZXBpjSobx8JkNkroy3 lgm4lkoLc1 SvJpUURrfkOojZjwWAE1e1 PsJf44S68yGZbiBSYhNRHu NGOsRRUmvRyoot5rlG8qUd 8+PGNvbCB3 gWB8kC8pFTReDiP6UVumH6 04LrSrvTBoZtjfr6wya0be xYm8HoXnJBNyqiRxtSntEM C2f5PbJs74 D96eYIspILFzVUOhLQSpXT IddXppsc9gsN0aTx3+PC9j r0qllt50qO54yIR+PHRkIH X7kTssPPlv FTYbxD2wYSavGhR1XIPbVv BojT64wWWlGFggLk1evYfc fDdoTO4pRBUiwqwbp894Dr Ren1pdNJMa yIZvAEejPEA4W34ou2Y6BK BcHMHeXWE4jEZ6mG4qnObp bjogbGVmdDsgdmVydGljYW gwAUlaL916 IHRvcDsnPlBhdGllbnQgTm WtAAp9P9ZwOyy3LYAdzKta PR1ujOKwRDvxXx7kdKjqcA ejXA6rBPYp qwsqm130CmKtv2mwTMBkfI ZrWWzuBXV5E88ho6W2TKCf RNTmFDL2eDU4mR0upUteoj ogbGVmdDsg lwNefQroBItjUUvtK106CJ RvcDsnPkJpcnRoIERhdGU6 NB67EH20hFJnw7M2yFI9E0 BhZGRpbmct yqrhcOH6SLEgRICvwQ25Bx 7faCkdYe4hRYPbTAF0IULb rBFkL9EdmE0sTjPhIKAqPF JsC1OpjQMe YGjxM431IYppZzC4PPKmlo YjV7NsZVCwyRviTlR4x7G7 Ea4UC1V7TS25LL90qXNmw2 J0bUQ7Y7Wr UKFnqplmkmmzuHC1EQOxSD FfoY51Bw3ppMkgZw0qXRFz FZU5ZTZrhUIgG2PubM1zJi AjMDAwMDAw C8VfeJZuBRlbO739VYsyBp L8EQIbarNuZ8MaXIDupKnz NyR8k5S9Rc7XTZs4TI75QY 99oKWjg4Q6 pXV3Y9VsXUCnxtnwhoxezD G7AGRyZZVhbP94Ue5ivKrr Hu6tRFQjEJO6RHRehXPaJ0 PtfG1lYuCm UXGqKDEeV1YwjDMqCKwgS8 18ENxlAgO9WDQzpyTaA9Qq KTUveYbqXxK9d2B2Jg8SPS XiOO58VLQ5 rKR1PX52NL81I3ToOweliI FibGU+PHRhYmxlIHdpZHRo NHcxYPFwJjOlcIghBW3cWb 9yZGVyLWNv aWombTWsEfBbi6rmCKXtUB kdAS7zuEecC9ZolYS4IBGs e4i2Rd47Q35rY1HdvLJ+PG HidOM8fZP5 jU4gSmCeHzF9LNpqX745Pr YafYWzJipfl5utw6iwrVu8 GqC4YOQqwrArlWebOHM5x2 BqZb80C20d IHdpZHRoPSIxNSUiIHZhbG cwvj6htZ7lAg1+PGNvbCB3 wYL0vR3eNnThMqA0MIjzD6 49InRvcCIv Nzgbo6pip4yhqVf8AwPkIT AjvxEqwZvrBSV0q4UzBi50 K8MitCbjk2FhNov5pr91vH Prm1Q1hBU7 Q9KuWVLpqqxkzAHuwYwvKL 6bCOXivkakEYUfyR6xQIBf J7s5XmZuRyZ8JAzeF8Mjfm I3DPAfgSJg IEajNBO3M91ag2G5TBXdEP WlSEC8mBZ1pX9zwCfqsnqq bGVmdDsgdmVydGljYWwtYW yqS420HNDd cQstGVUubL0kXQGhbAJsxD kdPD8fLLZftekuLyEQV90I OresU1YEID7sUHrnkEH+PH PxGSF4qFbi TFbeEBAgjR2bRRNiS2h2Hj UnVaW3NQawW1VeMRRjdseq Fb12hF7uJdMiMdE7MOyvG0 PwnlV5WELv gHEdBBziTQK8W39su0U8RI PhZFWhYEG8vRQ0xD1gjAcg bjogbGVmdDsgdmVydGljYW hwWGuxW661 RLLpyNhbDoV8YzCsMqS1NT K6X1KlQpr9IVWsfQquJB1c qTSyHMteDy2ucSvyvWkkYV 4wNTBpbjtw EYMvpV8oXWKszWMjcYokFN 2qIYFdbzupn856KsBkCMZ2 YOJjiGSnZ1OnbU2oYiFgGA FeZJRdH9Xe dHVoXYjdN263YPrzTfK8IA NefyJtX4BuCWDwuKtkHeO5 v2M8Xh11HQMITDZtnnbxfK Q+PHRkIHN0 yHtlAOpcZACyoY2xLLNfO5 u2DfFcMpN7TRutR1GfOXUd gleuZe93hF6gTcSiReJ8GM ulR4TpnnJ7 AGXqeBZoNAglWGE9K36so8 U2HMJoSALzBEO8fLS3xW8l bGlnbjogbGVmdDsgdmVydG ljYWwtYWxp W212CXIxzRlwIxSgfIBtPB wvdGQ+ABPaWKN7wFuaMRxx LZPrrW9aZSZxA4q7XlUxHm C0MCohP0Ck SYDequmvSm79mM9pDgUbIk F8PXyxF1UbfgW3PEVscHQk KEtpMLI6L11to5F2MSXdEG EgJWV7uCJ0 tP2txEenpmmkkHRmzXruqy JorRuvZRfoRDgbW690OKLp wQunNm60aAPdgLbdxvR6P9 RkPjwvdHI+ LM02MNWnVD01iTOklDAnm1 ldvLm9LeHxBBQsCTF3sIhl AAxzt3FcQUKcI98zjKQho7 E2EYKudOyk vFUrXvShrYF3pY3yIZvzqs jpo7alktemXbioz3plap32 pB12V39mOTobKGRnXWDwRW UiIHZhbGln be5klQ0nUj1+YZOcnHY6gS U8sF0jRjQkCiB5MZhiC487 XmZwmUSyArmtg3xwh4etyR h9ApNeIPQd zjKdjKpxCHX7k4ScMq50N7 9sIHdpZHRoPSIyMCUiIHZh fImbxi2imO1oIj4+PC9jb2 efjb04uX15 dHI+QOWxJZH7kOxcHVyfIX QjsR5rEFfqVtT8TFSkQuCk jL78pEZvSUkhWa4zwDvcmL vbSQ0dYWSa eenzw130VeAeb6cxIPNnoA KgRUmfERU0V99sn9T1VJUi UPAzKZB4jUJ2eR8kuFvnoh ogbGVmdDsg nySlwYduDUqrFDysX391EG VzuJqkQgImtRGnN5wljwGQ FA1eNjdzvZP+EZPiJFJ2yR xlPSdwYWRk fK8wNQAuD4r9DpWpNrP1LN kuJ0RrkpT3OIVjhCUsDWOs oZIQeJ9cusdki2xgdqmjIz AwMDAwMDt0 OSt9ATCtfLxrGuIsFLT5Qi A5CYR6qRHydX6tjCvrgbch qG3dKnx+RklOOjwvdGQ+PH WqANA7qAkp DZcnWCGdvR7yKOXgX8g5Rw DfGkB2DQmuP4SdgpW7PPRh oHJxLISmkTKUmC3iechzp8 xvcjogIzAw OBIpOAw1RIl8CCAslBqpOs KvNRB6NtH8NJO7lQGwzJ8l pErawqfnfR0qUto+TVJOOj wvdGQ+PHRk HJN5yQyaTMqoKOHntD9jNQ GlD6b0XcKrVzE7DQekN1Tt ibE9MHUsgKTxELYbmNGOuA 9iwznsx2fi waacOkOcNFGtBEr3GNr4EV NpfRtiPdXyEUT5VnD2YXV0 xSRskY6nhOnkqigypG7bLi c+OSO4IGI1 SI86KI26L5MkAgcjjCOjgU U+PHRhYmxlIHdpZHRoPScx AOYdSqKbwLxcLA9tNr5uSU VyLWNvbGxh Nl (more content not included)... Normal [facility] Consent for Treatmenton 06-18 Consent for Treatment [id number] 0CD:127 Normal [facility] Heart and Vascular Office/Cl inic Noteon [...] for 30 day(s), 60 EA, Refill(s) 6, [facility], 158, cm, 06/28/21 [...] neoplasm of rectum: Mother. Stroke: Father. Normal [facility] Comment on above: Result Comment: Elec tronically Signed By: Christian WILLSON, Mena Rodas\.br\Date and Time Signed: 06/28/21 11:40 EST Insurance Correspondenceon 0 05-16-2021 Insurance Correspondence [id number]:127 Normal [facility] Vital Signs Date Time Vital Sign Value Performing Clinician Faci lity 11-20-2022 10:03-0400 Body temperature 99.2 [degF] [facility] 11-20-2022 10:03-0400 Body weight 50.84 kg [employer] Phone: [facility] 11-20-2022 10:03-0400 Diastolic blood pressure 72 mm[Hg] [employer] Work Phone: [facility] 11-20-2022 10:03-0400 Heart rate 93 /min [employer] Work Phone: [facility] 11-20-2022 10:03-0400 Respiratory rate 18 /min [employer] Work Phone: [facility] 11-20-2022 10:03-0400 SaO2% (BldA) [Mass fraction] 95 % [employer] Work Phone: [facility] 11-20-2022 10:03-0400 Systolic blood pressure 128 mm[Hg] [employer] Work Phone: [facility] 10-01-2022 14:08-0400 Body height 154.94 cm [employer] Work Phone: [facility] 10-01-2022 14:08-0400 Body weight 51.25 kg [employer] Work Phone: [facility] 10-01-2022 14:08-0400 Diastolic blood pressure 72 mm[Hg] Rio Zaragoza Work Phone: [facility] 10-01-2022 14:08-0400 Heart rate 78 /min [facility] Work Phone: [facility] 10-01-2022 14:08-0400 Respiratory rate 20 /min [facility] Work Phone: [facility] 10-01-2022 14:08-0400 SaO2% (BldA) [Mass fraction] 97 % [facility] Work Phone: [facility] 10-01-2022 14:08-0400 Systolic blood pressure 138 mm[Hg] [facility] Work Phone: [facility] 08-14-2022 10:52-0400 Body height 154.94 cm Dallas [employer] Work Phone: [facility] Work Phone: 08-14-2022 10:52-0400 Body mass index (BMI) [Ratio] 21.16 kg/m2 Dallas [employer] Work Phone: [facility] Work Phone: 08-14-2022 10:52-0400 Body surface area Derived from formula 1.48 m2 Dallas [employer] Work Phone: [facility] Work Phone: 08-14-2022 10:52-0400 Body temperature 97.7 [degF] Dallas P [employer] Work Phone: [facility] Work Phone: 08-14-2022 10:52-0400 Body weight 50.8 kg Dallas P [employer] Work Phone: [facility] Work Phone: 08-14-2022 [...] Start: 04-06-2024 End: 04-06-2024 ambulatory DALLAS FAJARDO Facility:[facility] Start: 10-12-2023 End: 10-12-2023 ambulatory DO DALLAS FAJARDO Facility:[facility] Start: 10-08-2023 ambulatory Dallas Fajardo Facility: [facility] Start: 04-14-2023 End: 04-14-2023 ambulatory Derek Duffy MD Facility:[facility] Start: 11-20-2022 End: 11-20-2022 ambulatory Rio Nik Work Phone: [facility] Work Phone: Start: 11-20-2022 End: 11-20-2022 Registered Recurring Rio Nik Work Phone: [facility] Work Phone: Start: 10-01-2022 End: 10-01-2022 ambulatory Rio Zaragoza Work Phone: [facility] Work Phone: Start: 10-01-2022 End: 10-01-2022 Registered Recurring Rio Zaragoza Work Phone: [facility] Work Phone: Start: 08-28-2022 Encounter for other preprocedural examination DR DOCTOR HESS [facility] Start: 08-28-2022 End: 08-28-[address] Jorge Alberto Carlson Facility:[facility] Start: 08-26-2022 Phys/qhp telephone evaluation 21-30 min Dallas Fajardo Work Phone: [facility] Work Phone: Start: 08-26-2022 KISHOR, Provider : Abner Park, Status: Pen, Time: 3:00 PM Dlalas Fajardo Work Phone: [facility] Work Phone: [...] Start: 03-12-2022 End: 03-13-2022 ambulatory RIO ZARAGOZA Facility:[facility] Start: 06-28-2021 End: 06-29-2021 ambulatory XXXX NONE Facility:[facility] Patient encounter status Dallas Fajardo Work Phone: [facility] Work Phone: Procedures Date Procedure Procedure Detail Performing Clinician Abdominoplasty Dallas Vega Work Phone: section Dallas martinez Work Phone: Plan of Treatment Date Care Activity Detail Author Computed tomography for radiotherapy planning [facility] enter CT Chest WO contrast [facility] Immunizations Immunization Date Immunization Notes Care Provider Fa cility 03-11-2016 influenza, injectabl e, quadrivalent, preservative free Dallas Dorantes Dong Work Phone: [facility] Work Phone: 03-11-2016 pneumococcal polysaccharide vaccine, 23 valent Dallas Dorantes Dong Work Phone: [facility] Work Phone: 02-20-2016 influenza, injectabl e, quadrivalent, preservative free Dallas Dorantes Dong Work Phone: [facility] Work Phone: 02-20-2016 pneumococcal polysaccharide vaccine, 23 valent Dallas Dorantes Dong Work Phone: [facility] Work Phone: Payers Date Payer Category Payer Unknown [id number] 2022 Self-pay 2020 Medicaid [id number] 2020 Medicaid [id number] 1958 Medicare [id number] 1958 Unknown [id number] 1950 Unknown [id number] 2.16.8 [id number] 1950 Unknown [id number] 2.16.8 40.1.482580.3.579.2.727 1950 Unknown [id number] 2.16. 840.1.803303.3.579.2.356 1950 Unknown [id number] 2.16.84 0.1.687729.3.579.2.593 1950 Unknown [id number] 2.16.84 0.1.249007.3.579.2.593 1950 Unknown [id number] 2.16.84 0.1.600068.3.579.2.593 1950 Unknown [id number] 2.16.84 0.1.411310.3.579.2.593 1950 Unknown [id number] 2.16.84 0.1.031289.3.579.2.593 1950 Unknown [id number] 2.16.84 0.1.098023.3.579.2.593 1950 Unknown [id number] 2.16.84 0.1.008740.3.579.2.593 1950 Unknown [id number] 2.16. 840.1.275517.3.579.2.356 1950 Unknown [id number] 2.16.8 40.1.865578.3.579.2.1068 1950 Unknown [id number] 2.16.8 40.1.638410.3.579.2.718 1950 Unknown [id number] 2.16.8 40.1.233737.3.579.2.718 1950 Unknown [id number] 2.16.8 40.1.679820.3.579.2.718 Unknown Unknown [id number] 2.16.8 40.1.485575.3.579.2.531 Social History Date Type Detail Facility Current smoker Current smoker [facility] Work Phone: Comment on above: 5 A DAY CURRENTLYSTA RTED AT 22 QUIT A FEW TIMES FOR A YEAR OR SO; Start: 10-01-2022 Tobacco smoking status NHIS Smoker ( finding) [facility] Start: 1950 Sex Assigned At Female [facility] Clinical Notes 07-02-2021 to 02-03-2024 Note Date & Type Note Facility 02-03-2024 Note Entered by KAREN FAJADRO DO on February 03, 2024 10:52:02 EDT From: DALLAS FAJARDO DO To: [facility]/pharmacy #[id number] Sent: 02/03/2024 10:52:02 EDT Subject: Medication Management Approved with modifications: metFORMIN (METFORMIN HCL 500 MG TABLET) TAKE 1/2 TABLET BY MOUTH TWICE DAILY Qty: 90 tab(s) Days Supply: 90 Refills: 1 Substitutions Allowed Route To Pharmacy - [facility]/pharmacy #[id number] From: [id number] To: DALLAS FAJARDO DO Sent: February 03, 2024 9:08:49 AM CDT Subject: Medication Management Due: February 04, 2024 12:03:55 AM CDT On Hold Pending Signature Dispensed Drug: metFORMIN (metFORMIN 500 mg oral tablet), TAKE 1/2 TABLET BY MOUTH TWICE DAILY Quantity: 90 tab(s) Days Supply: 90 Refills: 1 Substitutions Allowed Notes from Pharmacy: [facility] 12-07-2023 Note Entered by KAREN FAJAROD DO on December 07, 2023 07:33:56 EDT From: DALLAS FAJARDO DO To: [facility]/pharmacy #[id number] Sent: 12/07/2023 07:33:56 EDT Subject: Medication Management Submitted: Complete:citalopram (citalopram 20 mg oral tablet) Signed by DALLAS FAJARDO DO 12/07/2023 07:33:00 EDT Approved with modifications: citalopram (CITALOPRAM HBR 20 MG TABLET) TAKE 1 TABLET BY MOUTH EVERY DAY Qty: 90 tab(s) Days Supply: 90 Refills: 5 Substitutions Allowed Route To Pharmacy - [facility]/pharmacy #[id number] From: [facility] [id number] To: DALLAS FAJARDO DO Sent: December 06, 2023 11:41:36 PM CDT Subject: Medication Management Due: December 07, 2023 12:08:44 AM CDT On Hold Pending Signature Dispensed Drug: citalopram (citalopram 20 mg oral tablet), TAKE 1 TABLET BY MOUTH EVERY DAY Quantity: 90 tab(s) Days Supply: 90 Refills: 0 Substitutions Allowed Notes from Pharmacy: [facility] 08-25-2023 Note Entered by KAREN FAJARDO DO on August 25, 2023 13:09:21 EDT From: DALLAS FAJARDO DO To: [facility]/pharmacy #[id number] Sent: 08/25/2023 13:09:21 EDT Subject: Medication Management Submitted: Complete:citalopram (citalopram 20 mg oral tablet) Signed by DALLAS FAJARDO DO 08/25/2023 13:09:00 EDT Approved with modifications: citalopram (CITALOPRAM HBR 20 MG TABLET) TAKE 1 TABLET BY MOUTH EVERY DAY Qty: 30 tab(s) Days Supply: 30 Refills: 2 Substitutions Allowed Route To Pharmacy - [facility]/pharmacy #[id number] From: [id number] To: DALLAS FAJARDO DO Sent: August 25, 2023 11:46:09 AM CDT Subject: Medication Management Due: August 26, 2023 6:37:27 AM CDT On Hold Pending Signature Dispensed Drug: citalopram (citalopram 20 mg oral tablet), TAKE 1 TABLET BY MOUTH EVERY DAY Quantity: 30 tab(s) Days Supply: 30 Refills: 0 Substitutions Allowed Notes from Pharmacy: [facility] 10-01-2022 Consult note Note Date/Time October 01, 2022 1:30pm [facility] [place] [address] Rad Onc Consult Note - OP Signed Patient: Mellisa Hampton MR#: [id number] : 1950 Acct:[id number] Age/Sex: 71 / F Type: REG RCR Copies to: DO Rio Glass DO~ Assessment & Plan (1) Pulmonary nodule seen on imaging study Plan: CT simulation-4D, plan for SBRT to the right upper lobe tumor to a dose of 54 Michele in 3 fractions Assessment: 71-year-old female with imaging consistent with Stage IA1 [id number] non-small cell lung cancer of the right [...] presented at thoracic tumor board conference at [facility]. She was recommended for a [...] prednisone taper under the care of her loss control consultant. [facility] - Family History Family History: Family [...] <Electronically signed by Levi Ann MD> 10/01/22 [id number] [facility] Work Phone: [phone]) 247-908704-28-2023 Xuan HAMPTON was presented at Thoracic Tumor Board Conference Conference date: 15-Aug-2022 Presenting Provider(s): (Dr. Marvin Willett) Presenting location(s): [facility] [place] Conference Review Type: [...] Last Updated: 17-Aug-2022 21:02 by Kiley Dotson (COOR)[facility]03-15-2022 Note From: Ivette Cowart To: - Administrative; Sent: 07/02/2021 14:43:20 EDT Show up: 12/02/2021 14:42:00 EDT Subject: Ambulatory Reminder Due Date/Time: 01/02/2022 14:43:00 EDT Reminder/Recall 6 month f/u December 2021 w/ [place] [facility] Author Levi Ann [facility] October 01, 2022 2:45pm Note Date/Time October 01, 2022 1:30 pm [facility] [place] [address] Rad Onc Consult Note - OP Signed Patient: Mellisa Hampton MR#: [id number] : 1950 Acct:[id number] Age/Sex: 71 / F Type: REG RCR Copies to: DO Rio Glass DO~ Assessment & Plan (1) Pulmonary nodule seen on imaging study Plan: CT simulation-4D, plan for SBRT to the right upper lobe tumor to a dose of 54 Michele in 3 fractions Assessment: 71-year-old female with imaging consistent with Stage IA1 [id number] non-small cell lung cancer of the right [...] presented at thoracic tumor board conference at [facility]. She was recommended for a [...] prednisone taper under the care of her loss control consultant. [facility] - Family History Family History: Family [...] <Electronically signed by Levi Ann MD> 10/01/22 [id number] [facility] Work Phone: Evaluation note* Diagnosis Onset Date Resolution Status Pulmonary nodule seen on imaging study acute [facility] Work Phone: History of Present [...] or wheezing. Has chronic dry cough. [facility]CT Surgery[facility] Work Phone: History of Present illness Narrative* Patient's visit was converted to a virtual visit given current COVID- 19 pandemic. * Ms. Hampton is a 71 year old woman, current smoker (1 PPD for 49 years, 49 total pack years.), beingevaluated today for RUL nodule. * PCP: Dr. Dallas Fajardo * Thoracic: Dr. Willett * Pulmonology: Dr. Rio Zaragoza ([facility]) * HPI: Patient presents to pulmonary clinic today as a new patient in regards to RUL nodule; referredby Dr. Willett from thoracic surgery. Patient gets her care through [facility] system and follows with loss control consultant Dr. Rio Zaragoza. 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 * Currently works [...] (26%), FVC: 1.81 (70%), + BD Response, [id number]: 9%, T.41 (141%), RV/T%, DLCO: 36% * [...] Work Phone: progress note Author Levi Ann [facility] November 20, 2022 10:33am Note Date/Time November 20, 2022 9:0 1am [facility] [place] [id number] Rad Onc Follow Up Note - OP Signed Patient: Mellisa Hampton MR#: [id number] : 1950 Acct:[id number] Age/Sex: 72 / F Type: REG RCR Copies to: DO Rio Glass DO~ Date of Service Service Date: 11/20/22 Assessment & Plan (1) Pulmonary nodule seen on imaging study Plan: Return to clinic end of January 2023 with first surveillance chest CT noncontrast Assessment: 72-year-old female with imaging consistent with Stage IA1 [id number] non-small cell lung cancer of the right [...] uses her inhaler as prescribed by her loss control consultant. She has follow-up with pulmonology. Regarding the [...] Patient would like to obtain this in [place]. Follow Up Note - Narrative 72-year-old female [...] presented at thoracic tumor board conference at [facility]. She was recommended for a [...] signed by Levi Ann MD> 11/20/22 [address] [facility] Work Phone: Summary Purpose Family [...] content) DATE CREATED AUTHOR 03/13/2022 Florentino Page [facility] DATE CREATED AUTHOR AUTHOR'S ORGANIZ ATION 08/27/2022 [facility] DATE CREATED AUTHOR AUTHOR'S ORGANIZ ATION 08/28/2022 [facility] DATE CREATED AUTHOR AUTHOR'S ORGANIZ ATION 08/29/2022 [facility] DATE CREATED AUTHOR AUTHOR'S ORGANIZ ATION 09/02/2022 [facility] DATE CREATED AUTHOR AUTHOR'S ORGANIZ ATION 12/24/2022 [facility] DATE CREATED AUTHOR AUTHOR'S ORGANIZ ATION 11/18/2023 [facility] DATE CREATED AUTHOR AUTHOR'S ORGANIZ ATION 04/10/2024 [facility] Care Teams (unrecognized sec tion and content) Team Status: Active Member Role Status Dates Dallas Fajardo DO Primary Care Provider Active Team Status: Active Member Role Status Dates Levi Ann MD Attending Provider Active Rio Zaragoza Referring Provider Active aDllas Fajardo , Primary Care Provider Active Goals [...] BE BASED ON THE PRIMARY CLINICAL RECORDS. [employer] provides no warranty or guarantee of the accuracy or completeness of information in this document.
== END 2024-04-13 14:20 | disposition hospice, inpatient (51) ==
LOC: ER 10:06 → MS 04-13 10:32
PROVIDERS: Emergency Medicine; Family Medicine; Admitting Provider Internal Medicine; Emergency Provider Emergency Medicine Emergency Medical Services; Family Provider Internal Medicine; PCP Family Medicine; Visit Provider Internal Medicine
DX: J44.1 Chronic obstructive pulmonary disease with (acute) exacerbation (principal); Z99.81 Dependence on supplemental oxygen; J96.12 Chronic respiratory failure with hypercapnia; J96.11 Chronic respiratory failure with hypoxia; G70.89 Other specified myoneural disorders; E43 Unspecified severe protein-calorie malnutrition; R64 Cachexia; F41.1 Generalized anxiety disorder; Z68.1 Body mass index [BMI] 19.9 or less, adult; Z87.891 Personal history of nicotine dependence
CPT/HCPCS: 36415; 36600; 71045; 80048; 82805; 84484; 85025; 87040; 87804; 87811; 93005; 94640; 94660; 94667; 94761; 96365; 96366; 96372; 96375; 96376; 99285; 99406; G0378; J1650; J2270; J2919